=== PATIENT | female | born 1980 | race Caucasian/White ===

== ENCOUNTER 2019-09-03 16:57 | Inpatient (IN) | payer SELFPAY ==
[~2019-09-03] VITALS: Ht 167.6 cm; Wt 54.5 kg
[2019-09-03 16:57] VITALS: BP 149/101
[~2019-09-03 16:57] MED LIST: LISI10TA2 PO; PANT40TA77 PO
--- NOTE | 2019-09-03 17:54 | PHYS DOC ---
Past Medical History Past Medical History: Anxiety, Depression, Diabetes-Type I, Hypertension, Liver Disease Additional Past Medical Histor: MS, Hepatitis C, liver failure, multiple suicide attempts (SOULEYMANE NAGY APRN) Past Surgical History: Cholecystectomy, , Tubal ligation, Other Additional Past Surgical Histo: hyperdistention of bladder, EGD (SOULEYMANE NAGY APRN) Smoking Status: Current Every Day Smoker Additional Information: 4 cigarettes daily Alcohol Use: Heavy Additional Information: reports drinking 4 vodka shots at least 3 times weekly, reports she drank 3 shots of vodka before coming in today (SOULEYMANE NAGY APRN) Adult General Chief Complaint Chief Complaint: ABDOMINAL PAIN HPI HPI Patient is a 38 year old female who presents to the emergency department via [facility] today from home. Patient reports upper abdominal pain that started after having lunch today. She states she also has had nausea and vomiting several times while in route to the hospital. Patient reports that she has had a fever up to 102 and a cough for the last 3 days. She recently moved to [place] from [facility] 1 month ago. Patient states that she did travel back to [place] to see her primary care doctor last week because she was not feeling well. Patient reports a history of chronic pain and states she has been out of her oxycodone for 4 days. On the room the patient also admitted to the nurse that she has had several previous suicide attempts, the most recent being cutting her left arm intentionally in several different areas 4 days ago. She currently rates her pain 8 out of 10 on the pain scale, she denies any alleviating factors. (SOULEYMANE NAGY ARCHERY INSTRUCTOR) Review of Systems Review of Systems Complete ROS is negative unless otherwise noted in HPI. (SOULEYMANE NAGY ARCHERY INSTRUCTOR) Current Medications Current Medications Current Medications Medications (Trade) Dose Ordered Sig/Jarred Start Time Stop Time Status Last Admin Dose Admin Info (CONTRAST GIVEN -- Rx MONITORING) 1 each PRN DAILY PRN 09/03/19 18:30 09/05/19 18:29 Iohexol (Omnipaque 350 Mg/ml) 100 ml 1X ONCE 09/03/19 18:30 09/03/19 18:31 DC 09/03/19 18:46 100 ML Multivitamins 10 ml/Thiamine HCl 100 mg/Folic Acid 1 mg/Sodium Chloride 1,011.2 ml @ 1,000.088 mls/hr 1X ONCE 09/03/19 20:00 09/03/19 21:00 DC 09/03/19 19:57 1,000.088 MLS/HR Sodium Chloride 1,000 ml @ 1,000 mls/hr 1X ONCE 09/03/19 19:45 09/03/19 20:44 DC (ASHLYN SILVA MD) Allergies Allergies Allergies Coded Allergies Type Severity Reaction Last Updated Verified latex Allergy Unknown 09/03/19 Yes prochlorperazine Allergy Unknown 09/03/19 Yes (ASHLYN SILVA MD) Physical Exam Physical Exam See Above Constitutional: Well developed, well nourished, no acute distress, intoxicated appearance, odor of alcohol noted. [] HENT: Normocephalic, atraumatic, bilateral external ears normal, nose normal. [] Eyes: PERRLA, EOMI, conjunctiva normal, no discharge. [] Neck: Normal range of motion, no stridor. [] Cardiovascular:Heart rate regular rhythm, no murmur [] Lungs & Thorax: Bilateral breath sounds, coarse in all murillo, no retractions, somewhat diminished in bilateral bases, regular rate, speaking full sentences Abdomen: Bowel sounds normal, soft, right upper quadrant and left upper quadrant tenderness to palpation, tenderness, no masses, no pulsatile masses. [] Skin: Warm, dry, no erythema, no rash. [] Extremities: No cyanosis, ROM intact, no edema. [] Neurologic: Alert and oriented X 3, no focal deficits noted. [] Psychologic: Affect normal, judgement normal, mood normal. [] (SOULEYMANE NAGY APRN) Current Patient Data Vital Signs Vital Signs Date Time Temp Pulse Resp B/P (MAP) Pulse Ox O2 Delivery O2 Flow Rate FiO2 09/03/19 16:57 98.8 118 28 149/101 (117) 100 Room Air 98.8 (ASHLYN SILVA MD) Lab Values Laboratory Tests Test 09/03/19 18:10 09/03/19 18:30 White Blood Count 3.7 x10^3/uL (4.0-11.0) L Red Blood Count 4.47 x10^6/uL (3.50-5.40) Hemoglobin 11.5 g/dL (12.0-15.5) L Hematocrit 35.9 % (36.0-47.0) L Mean Corpuscular Volume 81 fL (79-100) Mean Corpuscular Hemoglobin 26 pg (25-35) Mean Corpuscular Hemoglobin Concent 32 g/dL (31-37) Red Cell Distribution Width 19.6 % (11.5-14.5) H Platelet Count 316 x10^3/uL (140-400) Neutrophils (%) (Auto) 75 % (31-73) H Lymphocytes (%) (Auto) 15 % (24-48) L Monocytes (%) (Auto) 10 % (0-9) H Eosinophils (%) (Auto) 0 % (0-3) Basophils (%) (Auto) 1 % (0-3) Neutrophils # (Auto) 2.8 x10^3/uL (1.8-7.7) Lymphocytes # (Auto) 0.6 x10^3/uL (1.0-4.8) L Monocytes # (Auto) 0.4 x10^3/uL (0.0-1.1) Eosinophils # (Auto) 0.0 x10^3/uL (0.0-0.7) Basophils # (Auto) 0.0 x10^3/uL (0.0-0.2) Sodium Level 143 mmol/L (136-145) Potassium Level 3.3 mmol/L (3.5-5.1) L Chloride Level 100 mmol/L (98-107) Carbon Dioxide Level 22 mmol/L (21-32) Anion Gap 21 (6-14) H Blood Urea Nitrogen 10 mg/dL (7-20) Creatinine 0.5 mg/dL (0.6-1.0) L Estimated GFR (Cockcroft-Gault) 139.6 BUN/Creatinine Ratio 20 (6-20) Glucose Level 88 mg/dL (70-99) Lactic Acid Level 3.2 mmol/L (0.4-2.0) H Calcium Level 8.9 mg/dL (8.5-10.1) Magnesium Level 1.7 mg/dL (1.8-2.4) L Total Bilirubin 0.8 mg/dL (0.2-1.0) Aspartate Amino Transferase (AST) 501 U/L (15-37) H Alanine Aminotransferase (ALT) 218 U/L (14-59) H Alkaline Phosphatase 123 U/L (46-116) H Total Protein 7.9 g/dL (6.4-8.2) Albumin 3.5 g/dL (3.4-5.0) Albumin/Globulin Ratio 0.8 (1.0-1.7) L Lipase 126 U/L (73-393) Salicylates Level < 2.8 mg/dL (2.8-20.0) L Salicylate Last Dose Date Unk Salicylate Last Dose Time Unk Acetaminophen Level < 2 mcg/ml (10-30) L Acetaminophen Last Dose Date Unk Acetaminophen Last Dose Time Unk Ethyl Alcohol Level 292 mg/dL (0-10) H Ammonia 17 mcmol/L (11-34) Laboratory Tests 09/03/19 18:10 Laboratory Tests 09/03/19 18:10 (ASHLYN SILVA MD) Lab Values Laboratory Tests Test 09/03/19 18:10 09/03/19 18:30 White Blood Count 3.7 x10^3/uL (4.0-11.0) L Red Blood Count 4.47 x10^6/uL (3.50-5.40) Hemoglobin 11.5 g/dL (12.0-15.5) L Hematocrit 35.9 % (36.0-47.0) L Mean Corpuscular Volume 81 fL (79-100) Mean Corpuscular Hemoglobin 26 pg (25-35) Mean Corpuscular Hemoglobin Concent 32 g/dL (31-37) Red Cell Distribution Width 19.6 % (11.5-14.5) H Platelet Count 316 x10^3/uL (140-400) Neutrophils (%) (Auto) 75 % (31-73) H Lymphocytes (%) (Auto) 15 % (24-48) L Monocytes (%) (Auto) 10 % (0-9) H Eosinophils (%) (Auto) 0 % (0-3) Basophils (%) (Auto) 1 % (0-3) Neutrophils # (Auto) 2.8 x10^3/uL (1.8-7.7) Lymphocytes # (Auto) 0.6 x10^3/uL (1.0-4.8) L Monocytes # (Auto) 0.4 x10^3/uL (0.0-1.1) Eosinophils # (Auto) 0.0 x10^3/uL (0.0-0.7) Basophils # (Auto) 0.0 x10^3/uL (0.0-0.2) Sodium Level 143 mmol/L (136-145) Potassium Level 3.3 mmol/L (3.5-5.1) L Chloride Level 100 mmol/L (98-107) Carbon Dioxide Level 22 mmol/L (21-32) Anion Gap 21 (6-14) H Blood Urea Nitrogen 10 mg/dL (7-20) Creatinine 0.5 mg/dL (0.6-1.0) L Estimated GFR (Cockcroft-Gault) 139.6 BUN/Creatinine Ratio 20 (6-20) Glucose Level 88 mg/dL (70-99) Lactic Acid Level 3.2 mmol/L (0.4-2.0) H Calcium Level 8.9 mg/dL (8.5-10.1) Magnesium Level 1.7 mg/dL (1.8-2.4) L Total Bilirubin 0.8 mg/dL (0.2-1.0) Aspartate Amino Transferase (AST) 501 U/L (15-37) H Alanine Aminotransferase (ALT) 218 U/L (14-59) H Alkaline Phosphatase 123 U/L (46-116) H Total Protein 7.9 g/dL (6.4-8.2) Albumin 3.5 g/dL (3.4-5.0) Albumin/Globulin Ratio 0.8 (1.0-1.7) L Lipase 126 U/L (73-393) Salicylates Level < 2.8 mg/dL (2.8-20.0) L Salicylate Last Dose Date Unk Salicylate Last Dose Time Unk Acetaminophen Level < 2 mcg/ml (10-30) L Acetaminophen Last Dose Date Unk Acetaminophen Last Dose Time Unk Ethyl Alcohol Level 292 mg/dL (0-10) H Ammonia 17 mcmol/L (11-34) Laboratory Tests 09/03/19 18:10 Laboratory Tests 09/03/19 18:10 (SOULEYMANE NAGY ARCHERY INSTRUCTOR) EKG EKG [] (SOULEYMANE NAGY APRN) Radiology/Procedures Radiology/Procedures PROCEDURE: CT ANGIO CHEST W ABD PEL W/ STUDY: CT angiography of the chest, abdomen and pelvis with contrast INDICATION: Shortness of air. Fever. Diminished lung sounds. COMPARISON: None. TECHNIQUE: Helical CT angiography of the chest, abdomen and pelvis performed after the intravenous administration of 75 cc Omnipaque 350. Sagittal and coronal MIP reconstructions were obtained. One or more of the following individualized dose reduction techniques were utilized for this examination: 1. Automated exposure control 2. Adjustment of the mA and/or kV according to patient size 3. Use of iterative reconstruction technique. FINDINGS: CHEST: Normal aortic caliber. No dissection. The visualized great vessels are unremarkable. No main pulmonary artery dilatation or CT findings of right heart strain. No confluent infiltrate or suspicious pulmonary nodule. No pleural effusion or pneumothorax. Only mild basilar volume loss. The central airways are patent. No axillary adenopathy. Relatively symmetric breast tissue. Intact osseous structures. ABDOMEN/PELVIS: Marked diffuse hepatic low-attenuation. The liver is prominent in the medial/lateral dimension wrapping around a portion of the spleen and extending along the entire undersurface of the left hemidiaphragm. Surgically absent gallbladder. Expected prominence of the common bile duct. Unremarkable pancreas, spleen and adrenal glands. Symmetric kidney size and enhancement. Unremarkable collecting system. The uterus and adnexa are within normal limits for age to include a small collapsing right ovarian cyst as seen on image 76 series 5. Tubal ligation clips noted. No acute abnormality of the colon the appendix is normal. Nonobstructed small bowel. Distended stomach with ingested material and contrast without focal wall abnormality. Normal caliber of the abdominal aorta. The portal veins are patent. Intermittent partial collapse of the inferior vena cava which could represent a volume depleted state. No lymphadenopathy. No free fluid or air. Unremarkable body wall soft tissues. No acute osseous abnormality. IMPRESSION: CHEST: 1. No acute abnormality seen throughout the chest. The aorta is normal in caliber and without dissection. Only mild basilar volume loss involving both lungs and there is no localized consolidation, pleural effusion or pneumothorax. ABDOMEN/PELVIS: 1. The liver is prominent in size and diffusely low attenuating. This is most commonly seen in the setting of hepatic steatosis but consider correlation with liver function tests. 2. The appearance of the reproductive organs is within normal limits for age to include a small collapsing right ovarian cyst. Electronically signed by: AMOL SPRINGER MD (09/03/2019 7:06 PM) [id number][] (SOULEYMANE NAGY APRN) Course & Med Decision Making Course & Med Decision Making Pertinent Labs and Imaging studies reviewed. (See chart for details) Patient is a 38-year-old female who presented to the emergency room with complaints of shortness of breath, fever, cough x3 days with recent travel to [place] patient also complained of upper abdominal pain and suicidal ideations will order CT chest abdomen pelvis, CBC, CMP, UDS, UA, ammonia, acetaminophen, salicylate, and alcohol levels. PAT team will also be notified of need for consult. CT negative for any acute findings; white blood cell count 3.7, hemoglobin 11.5, hematocrit 35.9, platelets normal, CBC otherwise unremarkable; CMP revealed potassium of 3.3, anion gap of 21, BUN 10, creatinine 0.5, lactic acid of 3.2, magnesium of 1.7, AST of 501, ALT of 218, alk phos 123, ammonia level of 17, lipase 126; salicylate and acetaminophen levels were negative, blood alcohol level 292, UDS not collected at time of admission. 1955- Spoke with Juanito with the PAT team advised of need for patient assessment. Patient will be admitted to the hospital at this time. 2007-spoke with Dr. Phillip who is the admitting physician, and care was assumed following discussion of patient. Patient's vital signs stable. Patient remains afebrile, appears nontoxic, respirations even and unlabored. Patient will be admitted to the tele floor. Patient's case and plan of care also discussed with Dr. Silva [] (SOULEYMANE NAGY APRN) Course & Med Decision Making Patient does not want to be admitted to the Hospital - will ask PAT to see patient Assessment with PAT - ok for patient to leave AMA - see assessment documentation Patient will leave AMA (ASHLYN SILVA MD) Dragon Disclaimer Dragon Disclaimer This electronic medical record was generated, in whole or in part, using a voice recognition dictation system. (SOULEYMANE NAGY APRN) Departure Departure Impression: Primary Impression: Suicidal ideations Additional Impressions: Elevated liver enzymes Lactic acidosis Abdominal pain Disposition: AGAINST MEDICAL ADVICE Admitting Physician: SHIRLEY RALPH) (SOULEYMANE NAGY APRN) Condition: STABLE Referrals: NO PCP (PCP) Problem Qualifiers Additional Impressions: Abdominal pain Abdominal location: upper abdomen, unspecified Qualified Codes: R10.10 - Upper abdominal pain, unspecified SOULEYMANE NAGY APRN Sep 03, 2019 17:54 ASHLYN SILVA MD Sep 03, 2019 21:45
[2019-09-03] MEDS ORDERED: IOHEXOL 350 MG/ML 100 ML VIAL. IV ONE (18:30)
[2019-09-03] MEDS ORDERED: CONTRAST GIVEN. MC PRN (18:30)
[2019-09-03 18:43] LABS: BASO % 1 % (0-3); EOS % 0 % (0-3); HEMATOCRIT 35.9 % (36.0-47.0); HEMOGLOBIN 11.5 g/dL (12.0-15.5); LYMPH # 0.6 x10^3/uL (1.0-4.8); LYMPH % 15 % (24-48); MEAN CORPUSCULAR HEMOGLOBIN 26 pg (25-35); MEAN CORPUSCULAR HGB CONC 32 g/dL (31-37); MEAN CORPUSCULAR VOLUME 81 fL (79-100); MONO # 0.4 x10^3/uL (0.0-1.1); MONO % 10 % (0-9); NEUT # 2.8 x10^3/uL (1.8-7.7); NEUT % 75 % (31-73); PLATELET COUNT 316 x10^3/uL (140-400); RED BLOOD COUNT 4.47 x10^6/uL (3.50-5.40); RED CELL DISTRIBUTION WIDTH 19.6 % (11.5-14.5); WHITE BLOOD COUNT 3.7 x10^3/uL (4.0-11.0)
[2019-09-03 18:51] LABS: CALCIUM 8.9 mg/dL (8.5-10.1); CREATININE 0.5 mg/dL (0.6-1.0); GFR 139.6; POTASSIUM 3.3 mmol/L (3.5-5.1)
[2019-09-03 18:58] LABS: ALBUMIN 3.5 g/dL (3.4-5.0); ALBUMIN/GLOBULIN RATIO 0.8 (1.0-1.7); MAGNESIUM 1.7 mg/dL (1.8-2.4); TOTAL BILIRUBIN 0.8 mg/dL (0.2-1.0); TOTAL PROTEIN 7.9 g/dL (6.4-8.2)
--- NOTE | 2019-09-03 19:09 | RAD ---
STUDY: CT angiography of the chest, abdomen and pelvis with contrast INDICATION: Shortness of air. Fever. Diminished lung sounds. COMPARISON: None. TECHNIQUE: Helical CT angiography of the chest, abdomen and pelvis performed after the intravenous administration of 75 cc Omnipaque 350. Sagittal and coronal MIP reconstructions were obtained. One or more of the following individualized dose reduction techniques were utilized for this examination: 1. Automated exposure control 2. Adjustment of the mA and/or kV according to patient size 3. Use of iterative reconstruction technique. FINDINGS: CHEST: Normal aortic caliber. No dissection. The visualized great vessels are unremarkable. No main pulmonary artery dilatation or CT findings of right heart strain. No confluent infiltrate or suspicious pulmonary nodule. No pleural effusion or pneumothorax. Only mild basilar volume loss. The central airways are patent. No axillary adenopathy. Relatively symmetric breast tissue. Intact osseous structures. ABDOMEN/PELVIS: Marked diffuse hepatic low-attenuation. The liver is prominent in the medial/lateral dimension wrapping around a portion of the spleen and extending along the entire undersurface of the left hemidiaphragm. Surgically absent gallbladder. Expected prominence of the common bile duct. Unremarkable pancreas, spleen and adrenal glands. Symmetric kidney size and enhancement. Unremarkable collecting system. The uterus and adnexa are within normal limits for age to include a small collapsing right ovarian cyst as seen on image 76 series 5. Tubal ligation clips noted. No acute abnormality of the colon the appendix is normal. Nonobstructed small bowel. Distended stomach with ingested material and contrast without focal wall abnormality. Normal caliber of the abdominal aorta. The portal veins are patent. Intermittent partial collapse of the inferior vena cava which could represent a volume depleted state. No lymphadenopathy. No free fluid or air. Unremarkable body wall soft tissues. No acute osseous abnormality. IMPRESSION: CHEST: 1. No acute abnormality seen throughout the chest. The aorta is normal in caliber and without dissection. Only mild basilar volume loss involving both lungs and there is no localized consolidation, pleural effusion or pneumothorax. ABDOMEN/PELVIS: 1. The liver is prominent in size and diffusely low attenuating. This is most commonly seen in the setting of hepatic steatosis but consider correlation with liver function tests. 2. The appearance of the reproductive organs is within normal limits for age to include a small collapsing right ovarian cyst. Electronically signed by: AMOL SPRINGER MD (09/03/2019 7:06 PM) [id number]
[2019-09-03] MEDS ORDERED: IV NORMAL SALINE 1000ML BAG 1,000 ML IV ONE ×2 (19:45)
[2019-09-03] MEDS ORDERED: MULTIVIT INFUSN,ADULT 4,VIT K 10 ML, THIAMINE INJ 100 MG, FOLIC ACID INJ 1 MG in IV NOR... IV ONE (20:00)
[2019-09-03 20:14] LABS: ACETAMIN < 2 mcg/ml (10-30); SALIC < 2.8 mg/dL (2.8-20.0)
[2019-09-03] MEDS ORDERED: fentaNYL PF VIAL 100 MCG/2 ML VIAL IV ONE (20:15)
[2019-09-03 21:42] LABS: BILIRUBIN,URINE NEGATIVE (NEG); CLARITY,URINE CLEAR; COLOR,URINE YELLOW; NITRITE,URINE NEGATIVE (NEG); PH,URINE 7.5 (<5.0-8.0); PROTEIN,URINE NEGATIVE (NEG-TRACE)
[2019-09-03 21:46] LABS: BARBITURATES NEG (NEG); BENZODIAZEPINES NEG (NEG); CANNABINOIDS NEG (NEG); COCAINE NEG (NEG); METHADONE NEG (NEG); OPIATES NEG (NEG); PHENCYCLIDINE NEG (NEG)
[2019-09-03 21:48] LABS: AMPHETAMINE/METHAMPHETAMINE NEG (NEG)
[2019-09-03 21:52] LABS: BACTERIA,URINE FEW /HPF (0-FEW); SQUAMOUS EPITHELIAL CELL,UR MOD /LPF
[2019-09-03 21:53] LABS: AMORPHOUS SEDIMENT,UR PRESENT /HPF
--- NOTE | 2019-09-04 08:17 | PDOC1 ---
History and Physical Date of Admission Date of Admission DATE: 09/04/19 TIME: 08:16 Identification/Chief Complaint Chief Complaint seen in er with severe alcohol abuse reports upper abdominal pain that started after having lunch today. She states she also has had nausea and vomiting several times while in route to the hospital. Patient reports that she has had a fever up to 102 and a cough for the last 3 days. She recently moved to [place] from [facility] 1 month ago. Patient states that she did travel back to [place] to see her primary care doctor last week because she was not feeling well. Patient reports a history of chronic pain and states she has been out of her oxycodone for 4 days. On the room the patient also admitted to the nurse that she has had several previous suicide attempts, the most recent being cutting her left arm intentionally in several different areas 4 days ago. rates her pain 8 out of 10 on the pain scale, she denies any alleviating factors. Past Medical History Past Medical History Past Medical History Past Medical History Past Medical History: Anxiety, Depression, Diabetes-Type I, Hypertension, Liver Disease Additional Past Medical Histor: MS, Hepatitis C, liver failure, multiple suicide attempts Past Surgical History: Cholecystectomy, , Tubal ligation, Other Additional Past Surgical Histo: hyperdistention of bladder, EGD Smoking Status: Current Every Day Smoker Additional Information: 4 cigarettes daily Alcohol Use: Heavy Additional Information: reports drinking 4 vodka shots at least 3 times weekly, reports she drank 3 shots of vodka before coming Family History Family History: Alcohol Abuse, Drug Abuse Social History Smoke: <1 pack per day ALCOHOL: heavy Drugs: None Current Problem List Problem List Problems Medical Problems: (1) Abdominal pain Status: Acute (2) Elevated liver enzymes Status: Acute (3) Lactic acidosis Status: Acute (4) Suicidal ideations Status: Acute Current Medications Current Medications Current Medications Iohexol (Omnipaque 350 Mg/ml) 100 ml 1X ONCE IV Last administered on 09/03/19at 18:46; Start 09/03/19 at 18:30; Stop 09/03/19 at 18:31; Status DC Info (CONTRAST GIVEN -- Rx MONITORING) 1 each PRN DAILY PRN MC SEE COMMENTS; Start 09/03/19 at 18:30; Stop 09/05/19 at 18:29 Multivitamins 10 ml/Thiamine HCl 100 mg/Folic Acid 1 mg/Sodium Chloride 1,011.2 ml @ 1,000.088 mls/hr 1X ONCE IV Last administered on 09/03/19at 19:57; Start 09/03/19 at 20:00; Stop 09/03/19 at 21:00; Status DC Sodium Chloride 1,000 ml @ 1,000 mls/hr 1X ONCE IV Last administered on 09/03/19at 19:51; Start 09/03/19 at 19:45; Stop 09/03/19 at 20:44; Status DC Sodium Chloride 1,000 ml @ 1,000 mls/hr 1X ONCE IV ; Start 09/03/19 at 19:45; Stop 09/03/19 at 20:44; Status DC Fentanyl Citrate (Fentanyl 2ml Vial) 25 mcg 1X ONCE IV Last administered on 09/03/19at 20:44; Start 09/03/19 at 20:15; Stop 09/03/19 at 20:16; Status DC Active Scripts Active Reported Pantoprazole Sodium (Pantoprazole Sodium) 40 Mg Tablet.dr 40 Mg PO DAILYAC Lisinopril 10 Mg Tablet 10 Mg PO DAILY Allergies Allergies: Coded Allergies: latex (Verified Allergy, Unknown, 09/03/19) prochlorperazine (Verified Allergy, Unknown, 09/03/19) Physical Exam Physical Exam ROS Review of System Review of Systems Review of Systems General: No: Chills, Night Sweats, Fatigue, Malaise, Appetite, Other PSYCHOLOGICAL ROS: No: Anxiety, Behavioral Disorder, Concentration difficultie, Decreased libido, Depression, Disorientation, Hallucinations, Hostility, Irritablity, Memory difficulties, Mood Swings, Obsessive thoughts, Physical abuse, Sexual abuse, Sleep disturbances, Suicidal ideation, Other Eyes: No Blurry vision, No Decreased vision, No Double vision, No Dry eyes, No Excessive tearing, No Eye Pain, No Itchy Eyes, No Loss of vision, No Photophobia, No Scotomata, No Uses contacts, No Uses glasses, No Other HEENT: No: Heacaches, Visual Changes, Hearing change, Nasal congestion, Nasal discharge, Oral lesions, Sinus pain, Sore Throat, Epistaxis, Sneezing, Snoring, Tinnitus, Vertigo, Vocal changes, Other ALLERGY AND IMMUNOLOGY: No: Hives, Insect Bite Sensitivity, Itchy/Watery Eyes, Nasal Congestion, Post Nasal Drip, Seasonal Allergies, Other Hematological and Lymphatic: No: Bleeding Problems, Blood Clots, Blood Transfusions, Brusing, Night Sweats, Pallor, Swollen Lymph Nodes, Other ENDOCRINE: No: Breast Changes, Galactorrhea, Hair Pattern Changes, Hot Flashes, Malaise/lethargy, Mood Swings, Palpitations, Polydipsia/polyuria, Skin Changes, Temperature Intolerance, Unexpected Weight Changes, Other Respiratory: No: Cough, Hemoptysis, Orthopnea, Pleuritic Pain, Shortness of breath, SOB with excertion, Sputum Changes, Stridor, Tachypnea, Wheezing, Other Cardiovascular: No Chest Pain, No Palpitations, No Orthopnea, No Paroxysmal Noc. Dyspnea, No Edema, No Lt Headedness, No Other Gastrointestinal: Yes Vomiting; No Nausea, No Abdominal Pain, No Diarrhea, No Constipation, No Melena, No Hematochezia, No Other Genitourinary: No Dysuria, No Frequency, No Incontinence, No Hematuria, No Retention, No Discharge, No Urgency, No Pain, No Flank Pain, No Other, No , No , No , No , No , No , No Musculoskeletal: No Gait Disturbance, No Joint Pain, No Joint Stiffness, No Joint Swelling, No Muscle Pain, No Muscular Weakness, No Pain In:, No Swelling In:, No Other Neurological: Yes Behavorial Changes, Yes Confusion; No Bowel/Bladder ControlChng, No Dizziness, No Gait Disturbance, No Headaches, No Impaired Coord/balance, No Memory Loss, No Numbness/Tingling, No Seizures, No Speech Problems, No Tremors, No Visual Changes, No Weakness, No Other Skin: No Dry Skin, No Eczema, No Hair Changes, No Lumps, No Mole Changes, No Mottling, No Nail Changes, No Pruritus, No Rash, No Skin Lesion Changes, No Other, No Acne Physical Exam Physical Exam HENT: Normocephalic, atraumatic, bilateral external ears normal, oropharynx moist, nose normal. [] Eyes: PERRLA, conjunctiva injected. [] Neck: N supple. [] Cardiovascular:Heart rate regular rhythm, no murmur [] Lungs & Thorax: Shallow lungs respirations, diminished breath sounds bilaterally, otherwise clear [] Abdomen: Bowel sounds normal, soft. [] Skin: Warm, dry. [] Extremities: No deformity or bruising. [] General: Alert, Oriented X3, Cooperative, No acute distress HEENT: Atraumatic, PERRLA, EOMI Lungs: Clear to auscultation, Normal air movement Heart: RRR Breasts: Not examined Abdomen: Normal bowel sounds, Soft Rectal Exam: not examined PELVIC: Examination not indicated Extremities: No cyanosis Neuro: Normal speech, Cranial nerves 3-12 NL Vitals Vitals Vital Signs Date Time Temp Pulse Resp B/P (MAP) Pulse Ox O2 Delivery O2 Flow Rate FiO2 09/03/19 20:44 18 98 Room Air 09/03/19 16:57 98.8 118 149/101 (117) 98.8 Labs Labs Laboratory Tests Test 09/03/19 18:10 09/03/19 18:30 09/03/19 21:15 White Blood Count 3.7 x10^3/uL (4.0-11.0) Red Blood Count 4.47 x10^6/uL (3.50-5.40) Hemoglobin 11.5 g/dL (12.0-15.5) Hematocrit 35.9 % (36.0-47.0) Mean Corpuscular Volume 81 fL (79-100) Mean Corpuscular Hemoglobin 26 pg (25-35) Mean Corpuscular Hemoglobin Concent 32 g/dL (31-37) Red Cell Distribution Width 19.6 % (11.5-14.5) Platelet Count 316 x10^3/uL (140-400) Neutrophils (%) (Auto) 75 % (31-73) Lymphocytes (%) (Auto) 15 % (24-48) Monocytes (%) (Auto) 10 % (0-9) Eosinophils (%) (Auto) 0 % (0-3) Basophils (%) (Auto) 1 % (0-3) Neutrophils # (Auto) 2.8 x10^3/uL (1.8-7.7) Lymphocytes # (Auto) 0.6 x10^3/uL (1.0-4.8) Monocytes # (Auto) 0.4 x10^3/uL (0.0-1.1) Eosinophils # (Auto) 0.0 x10^3/uL (0.0-0.7) Basophils # (Auto) 0.0 x10^3/uL (0.0-0.2) Sodium Level 143 mmol/L (136-145) Potassium Level 3.3 mmol/L (3.5-5.1) Chloride Level 100 mmol/L (98-107) Carbon Dioxide Level 22 mmol/L (21-32) Anion Gap 21 (6-14) Blood Urea Nitrogen 10 mg/dL (7-20) Creatinine 0.5 mg/dL (0.6-1.0) Estimated GFR (Cockcroft-Gault) 139.6 BUN/Creatinine Ratio 20 (6-20) Glucose Level 88 mg/dL (70-99) Lactic Acid Level 3.2 mmol/L (0.4-2.0) 3.0 mmol/L (0.4-2.0) Calcium Level 8.9 mg/dL (8.5-10.1) Magnesium Level 1.7 mg/dL (1.8-2.4) Total Bilirubin 0.8 mg/dL (0.2-1.0) Aspartate Amino Transf (AST/SGOT) 501 U/L (15-37) Alanine Aminotransferase (ALT/SGPT) 218 U/L (14-59) Alkaline Phosphatase 123 U/L (46-116) Total Protein 7.9 g/dL (6.4-8.2) Albumin 3.5 g/dL (3.4-5.0) Albumin/Globulin Ratio 0.8 (1.0-1.7) Lipase 126 U/L (73-393) Salicylates Level < 2.8 mg/dL (2.8-20.0) Salicylate Last Dose Date Unk Salicylate Last Dose Time Unk Acetaminophen Level < 2 mcg/ml (10-30) Acetaminophen Last Dose Date Unk Acetaminophen Last Dose Time Unk Ethyl Alcohol Level 292 mg/dL (0-10) Ammonia 17 mcmol/L (11-34) Urine Collection Type Unknown Urine Color Yellow Urine Clarity Clear Urine pH 7.5 (<5.0-8.0) Urine Specific [place] >=1.030 (1.000-1.030) Urine Protein Negative mg/dL (NEG-TRACE) Urine Glucose (UA) Negative mg/dL (NEG) Urine Ketones (Stick) 15 mg/dL (NEG) Urine Blood Negative (NEG) Urine Nitrite Negative (NEG) Urine Bilirubin Negative (NEG) Urine Urobilinogen Dipstick 1.0 mg/dL (0.2 mg/dL) Urine Leukocyte Esterase Negative (NEG) Urine RBC 1-2 /HPF (0-2) Urine WBC 1-4 /HPF (0-4) Urine Squamous Epithelial Cells Mod /LPF Urine Amorphous Sediment Present /HPF Urine Bacteria Few /HPF (0-FEW) Urine Opiates Screen Neg (NEG) Urine Methadone Screen Neg (NEG) Urine Barbiturates Neg (NEG) Urine Phencyclidine Screen Neg (NEG) Urine Amphetamine/Methamphetamine Neg (NEG) Urine Benzodiazepines Screen Neg (NEG) Urine Cocaine Screen Neg (NEG) Urine Cannabinoids Screen Neg (NEG) Urine Ethyl Alcohol Pos (NEG) Laboratory Tests Test 09/03/19 18:10 09/03/19 18:30 09/03/19 21:15 White Blood Count 3.7 x10^3/uL (4.0-11.0) Red Blood Count 4.47 x10^6/uL (3.50-5.40) Hemoglobin 11.5 g/dL (12.0-15.5) Hematocrit 35.9 % (36.0-47.0) Mean Corpuscular Volume 81 fL (79-100) Mean Corpuscular Hemoglobin 26 pg (25-35) Mean Corpuscular Hemoglobin Concent 32 g/dL (31-37) Red Cell Distribution Width 19.6 % (11.5-14.5) Platelet Count 316 x10^3/uL (140-400) Neutrophils (%) (Auto) 75 % (31-73) Lymphocytes (%) (Auto) 15 % (24-48) Monocytes (%) (Auto) 10 % (0-9) Eosinophils (%) (Auto) 0 % (0-3) Basophils (%) (Auto) 1 % (0-3) Neutrophils # (Auto) 2.8 x10^3/uL (1.8-7.7) Lymphocytes # (Auto) 0.6 x10^3/uL (1.0-4.8) Monocytes # (Auto) 0.4 x10^3/uL (0.0-1.1) Eosinophils # (Auto) 0.0 x10^3/uL (0.0-0.7) Basophils # (Auto) 0.0 x10^3/uL (0.0-0.2) Sodium Level 143 mmol/L (136-145) Potassium Level 3.3 mmol/L (3.5-5.1) Chloride Level 100 mmol/L (98-107) Carbon Dioxide Level 22 mmol/L (21-32) Anion Gap 21 (6-14) Blood Urea Nitrogen 10 mg/dL (7-20) Creatinine 0.5 mg/dL (0.6-1.0) Estimated GFR (Cockcroft-Gault) 139.6 BUN/Creatinine Ratio 20 (6-20) Glucose Level 88 mg/dL (70-99) Lactic Acid Level 3.2 mmol/L (0.4-2.0) 3.0 mmol/L (0.4-2.0) Calcium Level 8.9 mg/dL (8.5-10.1) Magnesium Level 1.7 mg/dL (1.8-2.4) Total Bilirubin 0.8 mg/dL (0.2-1.0) Aspartate Amino Transf (AST/SGOT) 501 U/L (15-37) Alanine Aminotransferase (ALT/SGPT) 218 U/L (14-59) Alkaline Phosphatase 123 U/L (46-116) Total Protein 7.9 g/dL (6.4-8.2) Albumin 3.5 g/dL (3.4-5.0) Albumin/Globulin Ratio 0.8 (1.0-1.7) Lipase 126 U/L (73-393) Salicylates Level < 2.8 mg/dL (2.8-20.0) Salicylate Last Dose Date Unk Salicylate Last Dose Time Unk Acetaminophen Level < 2 mcg/ml (10-30) Acetaminophen Last Dose Date Unk Acetaminophen Last Dose Time Unk Ethyl Alcohol Level 292 mg/dL (0-10) Ammonia 17 mcmol/L (11-34) Urine Collection Type Unknown Urine Color Yellow Urine Clarity Clear Urine pH 7.5 (<5.0-8.0) Urine Specific [place] >=1.030 (1.000-1.030) Urine Protein Negative mg/dL (NEG-TRACE) Urine Glucose (UA) Negative mg/dL (NEG) Urine Ketones (Stick) 15 mg/dL (NEG) Urine Blood Negative (NEG) Urine Nitrite Negative (NEG) Urine Bilirubin Negative (NEG) Urine Urobilinogen Dipstick 1.0 mg/dL (0.2 mg/dL) Urine Leukocyte Esterase Negative (NEG) Urine RBC 1-2 /HPF (0-2) Urine WBC 1-4 /HPF (0-4) Urine Squamous Epithelial Cells Mod /LPF Urine Amorphous Sediment Present /HPF Urine Bacteria Few /HPF (0-FEW) Urine Opiates Screen Neg (NEG) Urine Methadone Screen Neg (NEG) Urine Barbiturates Neg (NEG) Urine Phencyclidine Screen Neg (NEG) Urine Amphetamine/Methamphetamine Neg (NEG) Urine Benzodiazepines Screen Neg (NEG) Urine Cocaine Screen Neg (NEG) Urine Cannabinoids Screen Neg (NEG) Urine Ethyl Alcohol Pos (NEG) VTE Prophylaxis Ordered VTE Prophylaxis Devices: No VTE Pharmacological Prophylaxi: Yes Assessment/Plan Assessment/Plan Assessment/Plan Assessment/Plan Impression: AMS (altered mental status), resolving SEVERE ALCOHOL ABUSE, binges on weekends, perhaps more often Alcohol intoxication transaminitis No acute intracranial abnormality. CT HEAD 08/16 drop in H/H ADMITTED GI CONSULT IV PROTONIX pt left ama 09/03 57 min pt exam, chart review, > 50% of time spent with exam, chart review, pt care coordination PATRICIA JEROME MD Sep 04, 2019 08:17
== END 2019-09-03 22:32 | disposition left against medical advice (07) | DRG 894 ==
LOC: ER 16:57 → ED HOLD 20:08
PROVIDERS: ADMIT Internal Medicine; ATTEND Internal Medicine
DX: F10.129 Alcohol abuse with intoxication, unspecified (principal); R45.851 Suicidal ideations; R41.82 Altered mental status, unspecified; F32.9 Major depressive disorder, single episode, unspecified; F41.9 Anxiety disorder, unspecified; G89.29 Other chronic pain; I10 Essential (primary) hypertension; E10.9 Type 1 diabetes mellitus without complications; F17.210 Nicotine dependence, cigarettes, uncomplicated; Z79.4 Long term (current) use of insulin; Z91.040 Latex allergy status; Z91.5 Personal history of self-harm; Z81.1 Family history of alcohol abuse and dependence
CPT/HCPCS: 36415; 71275; 74177; 80053; 80307; 80329; 81001; 82140; 83605; 83690; 83735; 85025; G0480; J3010; J3411; J3490; J7030; Q9967

== ENCOUNTER 2019-09-11 14:50 | Emergency (ER) | payer SELFPAY ==
[~2019-09-11] VITALS: Ht 157.5 cm; Wt 59.0 kg
[2019-09-11] MEDS ORDERED: IV NORMAL SALINE 1000ML BAG 1,000 ML IV ONE (15:00)
[2019-09-11] MEDS ORDERED: IPRATRPIUM/ALBUTEROL 0.5/2.5MG 3 ML NEBU. NEB ONE (15:00)
[2019-09-11 15:12] LABS: BASO % 1 % (0-3); EOS % 0 % (0-3); HEMATOCRIT 38.6 % (36.0-47.0); HEMOGLOBIN 12.3 g/dL (12.0-15.5); LYMPH # 0.9 x10^3/uL (1.0-4.8); LYMPH % 25 % (24-48); MEAN CORPUSCULAR HEMOGLOBIN 26 pg (25-35); MEAN CORPUSCULAR HGB CONC 32 g/dL (31-37); MEAN CORPUSCULAR VOLUME 82 fL (79-100); MONO # 0.2 x10^3/uL (0.0-1.1); MONO % 7 % (0-9); NEUT # 2.4 x10^3/uL (1.8-7.7); NEUT % 67 % (31-73); PLATELET COUNT 137 x10^3/uL (140-400); RED BLOOD COUNT 4.69 x10^6/uL (3.50-5.40); RED CELL DISTRIBUTION WIDTH 21.7 % (11.5-14.5); WHITE BLOOD COUNT 3.6 x10^3/uL (4.0-11.0)
--- NOTE | 2019-09-11 15:19 | RAD ---
CHEST AP ONLY History: Cough Comparison: August 18, 2019 Findings: No consolidation or pleural effusion. Normal heart size. No pneumothorax. Surgical clips right upper quadrant. Impression: 1. No acute cardiopulmonary process. Electronically signed by: Sherman Heath DO (09/11/2019 3:16 PM) [id number]
[2019-09-11 15:23] LABS: BILIRUBIN,URINE NEGATIVE (NEG); CLARITY,URINE CLEAR; NITRITE,URINE POSITIVE (NEG); PROTEIN,URINE 100 mg/dL (NEG-TRACE)
[2019-09-11 15:24] VITALS: BP 126/88
[2019-09-11 15:24] LABS: BASE EXCESS ABG 0 mmol/L (-3-3); HCO3 ABG 24 mmol/L (21-28); PCO2 ABG 36 mmHg (35-46); PO2 ABG 86 mmHg (85-108); SAT O2 ABG 95 % (92-99)
[2019-09-11 15:34] LABS: COLOR,URINE DK YELLOW
[2019-09-11 15:35] LABS: AMPHETAMINE/METHAMPHETAMINE NEG (NEG); BARBITURATES NEG (NEG); BENZODIAZEPINES NEG (NEG); CANNABINOIDS NEG (NEG); COCAINE NEG (NEG); METHADONE NEG (NEG); OPIATES NEG (NEG); PHENCYCLIDINE NEG (NEG)
[2019-09-11 15:37] LABS: BACTERIA,URINE MANY /HPF (0-FEW); RBC,URINE 0 /HPF (0-2); SQUAMOUS EPITHELIAL CELL,UR MANY /LPF; YEAST,URINE PRESENT /HPF
[2019-09-11 15:44] LABS: CALCIUM 8.3 mg/dL (8.5-10.1); CREATININE 0.4 mg/dL (0.6-1.0); GFR 179.6
[2019-09-11 15:49] LABS: ALBUMIN 3.5 g/dL (3.4-5.0); ALBUMIN/GLOBULIN RATIO 0.9 (1.0-1.7); TOTAL PROTEIN 7.6 g/dL (6.4-8.2)
[2019-09-11 15:51] LABS: % BANDS 3 % (0-9); % BASOS 1 % (0-3); % LYMPHS 19 % (24-48); % MONOS 7 % (0-10); % SEGS 70 % (35-66)
[2019-09-11 15:53] LABS: PLT ESTIMATE DECREASED (ADEQUATE)
[2019-09-11 15:55] LABS: ANISOCYTOSIS MOD; POLYCHROMASIA SLIGHT
--- NOTE | 2019-09-11 16:00 | PHYS DOC ---
Past Medical History Past Medical History: Anxiety, Depression, Diabetes-Type I, Hypertension, Liver Disease Additional Past Medical Histor: MS, Hepatitis C, liver failure, multiple suicide attempts Past Surgical History: Cholecystectomy, , Tubal ligation, Other Additional Past Surgical Histo: hyperdistention of bladder, EGD Smoking Status: Current Every Day Smoker Alcohol Use: Heavy Adult General Chief Complaint Chief Complaint: ALTERED MENTAL STATUS HPI HPI Patient is a 39 year old female presenting to the ED with a chief complaint of altered mental status. Patient's fianc called EMS stating that patient has not been herself for the last 2 days. Patient does have a history of cirrhosis and liver disease. Patient was seen in the ER last week for similar complaints. Fianc also states that patient is from [place] and moved to [place] with him recently. Patient is on liver transplant list currently. EMS state that patient has been making purposeful movements and her vitals have been stable. Review of Systems Review of Systems Patient unable to give as review of systems secondary to her mental status. All other systems were reviewed and found to be within normal limits, except as documented in this note. Current Medications Current Medications Current Medications Medications (Trade) Dose Ordered Sig/Jarred Start Time Stop Time Status Last Admin Dose Admin Albuterol/ Ipratropium (Duoneb) 3 ml 1X ONCE 09/11/19 15:00 09/11/19 15:01 DC 09/11/19 15:17 3 ML Sodium Chloride 1,000 ml @ 1,000 mls/hr 1X ONCE 09/11/19 15:00 09/11/19 15:59 DC Allergies Allergies Allergies Coded Allergies Type Severity Reaction Last Updated Verified latex Allergy Unknown 09/03/19 Yes prochlorperazine Allergy Unknown 09/03/19 Yes Physical Exam Physical Exam Constitutional: Well developed, well nourished, no acute distress, non-toxic appearance. [] HENT: Normocephalic, atraumatic Eyes: PERRLA Neck: Normal range of motio Cardiovascular:Heart rate regular rhythm, no murmur [] Lungs & Thorax: Bilateral breath sounds clear to auscultation [] Abdomen: Bowel sounds normal, soft, no tenderness Extremities: No tenderness, no cyanosis, no clubbing, ROM intact, no edema. [] Neurologic: Sleeping but arousable to sternal rub Current Patient Data Vital Signs Vital Signs Date Time Temp Pulse Resp B/P (MAP) Pulse Ox O2 Delivery O2 Flow Rate FiO2 09/11/19 15:24 100 18 99 09/11/19 15:17 Room Air 09/11/19 14:59 98.9 151/106 (121) 98.9 Lab Values Laboratory Tests Test 09/11/19 14:55 09/11/19 15:13 09/11/19 15:15 09/11/19 15:23 White Blood Count 3.6 x10^3/uL (4.0-11.0) L Red Blood Count 4.69 x10^6/uL (3.50-5.40) Hemoglobin 12.3 g/dL (12.0-15.5) Hematocrit 38.6 % (36.0-47.0) Mean Corpuscular Volume 82 fL (79-100) Mean Corpuscular Hemoglobin 26 pg (25-35) Mean Corpuscular Hemoglobin Concent 32 g/dL (31-37) Red Cell Distribution Width 21.7 % (11.5-14.5) H Platelet Count 137 x10^3/uL (140-400) L Neutrophils (%) (Auto) 67 % (31-73) Lymphocytes (%) (Auto) 25 % (24-48) Monocytes (%) (Auto) 7 % (0-9) Eosinophils (%) (Auto) 0 % (0-3) Basophils (%) (Auto) 1 % (0-3) Neutrophils # (Auto) 2.4 x10^3/uL (1.8-7.7) Lymphocytes # (Auto) 0.9 x10^3/uL (1.0-4.8) L Monocytes # (Auto) 0.2 x10^3/uL (0.0-1.1) Eosinophils # (Auto) 0.0 x10^3/uL (0.0-0.7) Basophils # (Auto) 0.0 x10^3/uL (0.0-0.2) Segmented Neutrophils % 70 % (35-66) H Band Neutrophils % 3 % (0-9) Lymphocytes % 19 % (24-48) L Monocytes % 7 % (0-10) Basophils % 1 % (0-3) Platelet Estimate Decreased (ADEQUATE) Polychromasia Slight Anisocytosis Mod Urine Collection Type U cath Urine Color Dk yellow Urine Clarity Clear Urine pH 6.0 (<5.0-8.0) Urine Specific [place] 1.025 (1.000-1.030) Urine Protein 100 mg/dL (NEG-TRACE) Urine Glucose (UA) Negative mg/dL (NEG) Urine Ketones (Stick) 40 mg/dL (NEG) Urine Blood Negative (NEG) Urine Nitrite Positive (NEG) Urine Bilirubin Negative (NEG) Urine Urobilinogen Dipstick 2.0 mg/dL (0.2 mg/dL) Urine Leukocyte Esterase Small (NEG) Urine RBC 0 /HPF (0-2) Urine WBC 5-10 /HPF (0-4) Urine Squamous Epithelial Cells Many /LPF Urine Bacteria Many /HPF (0-FEW) Urine Mucus Mod /LPF Urine Yeast Present /HPF Urine Opiates Screen Neg (NEG) Urine Methadone Screen Neg (NEG) Urine Barbiturates Neg (NEG) Urine Phencyclidine Screen Neg (NEG) Urine Amphetamine/Methamphetamine Neg (NEG) Urine Benzodiazepines Screen Neg (NEG) Urine Cocaine Screen Neg (NEG) Urine Cannabinoids Screen Neg (NEG) Urine Ethyl Alcohol Pos (NEG) POC Urine HCG, Qualitative Hcg negative (Negative) O2 Saturation 95 % (92-99) Arterial Blood pH 7.44 (7.35-7.45) Arterial Blood pCO2 at Patient Temp 36 mmHg (35-46) Arterial Blood pO2 at Patient Temp 86 mmHg (85-108) Arterial Blood HCO3 24 mmol/L (21-28) Arterial Blood Base Excess 0 mmol/L (-3-3) FiO2 21 ra Sodium Level 141 mmol/L (136-145) Potassium Level 3.0 mmol/L (3.5-5.1) L Chloride Level 100 mmol/L (98-107) Carbon Dioxide Level 23 mmol/L (21-32) Anion Gap 18 (6-14) H Blood Urea Nitrogen 18 mg/dL (7-20) Creatinine 0.4 mg/dL (0.6-1.0) L Estimated GFR (Cockcroft-Gault) 179.6 BUN/Creatinine Ratio 45 (6-20) H Glucose Level 92 mg/dL (70-99) Lactic Acid Level 3.6 mmol/L (0.4-2.0) H Calcium Level 8.3 mg/dL (8.5-10.1) L Total Bilirubin 1.0 mg/dL (0.2-1.0) Aspartate Amino Transferase (AST) 728 U/L (15-37) H Alanine Aminotransferase (ALT) 227 U/L (14-59) H Alkaline Phosphatase 131 U/L (46-116) H Ammonia < 10 mcmol/L (11-34) L Total Protein 7.6 g/dL (6.4-8.2) Albumin 3.5 g/dL (3.4-5.0) Albumin/Globulin Ratio 0.9 (1.0-1.7) L Ethyl Alcohol Level 388 mg/dL (0-10) H Laboratory Tests 09/11/19 14:55 Laboratory Tests 09/11/19 15:23 EKG EKG [] Radiology/Procedures Radiology/Procedures [] Impressions: Chest x-ray does not show any acute disease. Course & Med Decision Making Course & Med Decision Making Pertinent Labs and Imaging studies reviewed. (See chart for details) Ammonia salts used to wake up patient. Patient is currently awake. Patient goes back to sleep and does not answer any questions. Patient's vital signs are stable. Chest x-ray does not show any acute disease. Labs are within normal limits except liver function tests are elevated. Patient has elevated liver enzyme tests in the past as well. Urine test is positive for alcohol. Urine test is negative. Nurse informs me that patient is awake now and calling her fianc. Nurse states that patient wants to leave AMA as her fianc is coming to pick her up. Patient is now alert and oriented x3. N to make an informed decision about leaving AGAINST MEDICAL ADVICE. Patient understands the risks and dangers of leaving AMA include sudden , worsening of condition and loss of current lifestyle. Patient is able to ambulate in the ER without any difficulty. Dragon Disclaimer Dragon Disclaimer This electronic medical record was generated, in whole or in part, using a voice recognition dictation system. Departure Departure Impression: Primary Impression: Altered mental status, unspecified Disposition: 07 AGAINST MEDICAL ADVICE Condition: IMPROVED Referrals: NO PCP (PCP) KRISTEN JIANG DO Sep 11, 2019 16:00
[2019-09-11 17:41] LABS: FIO2 ABG 21 RA
== END 2019-09-11 16:01 | disposition left against medical advice (07) ==
LOC: ER 14:50
DX: R41.82 Altered mental status, unspecified (principal); F41.9 Anxiety disorder, unspecified; F32.9 Major depressive disorder, single episode, unspecified; E10.9 Type 1 diabetes mellitus without complications; K76.1 Chronic passive congestion of liver; K72.90 Hepatic failure, unspecified without coma; F10.10 Alcohol abuse, uncomplicated; F17.200 Nicotine dependence, unspecified, uncomplicated; Z90.49 Acquired absence of other specified parts of digestive tract; Z98.51 Tubal ligation status; Z98.890 Other specified postprocedural states; Z91.040 Latex allergy status; Z88.8 Allergy status to other drugs, medicaments and biological substances
CPT/HCPCS: 36415; 36600; 71045; 80053; 80307; 81001; 81025; 82140; 82805; 83605; 85007; 85025; 87086; 94640; 99285; G0480

== ENCOUNTER 2019-09-12 20:19 | Emergency (ER) | payer SELFPAY ==
[~2019-09-12] VITALS: Ht 157.5 cm; Wt 59.0 kg
[2019-09-12] MEDS: NALOXONE 2 MG/2 ML DISP.SYRIN. IV ONE (20:23)
[2019-09-12] MEDS ORDERED: ONDANSETRON PF 4 MG/2 ML VIAL. ONE (20:28)
[2019-09-12] MEDS: IV NORMAL SALINE 1000ML BAG 1,000 ML IV SCH (20:30)
[2019-09-12] MEDS: ONDANSETRON PF 4 MG/2 ML VIAL. IVP ONE (20:30)
[2019-09-12 20:54] LABS: BILIRUBIN,URINE NEGATIVE (NEG); CLARITY,URINE CLOUDY; NITRITE,URINE POSITIVE (NEG); PH,URINE 6.5 (<5.0-8.0); PROTEIN,URINE 100 mg/dL (NEG-TRACE)
[2019-09-12 20:58] LABS: BASO % 1 % (0-3); EOS % 0 % (0-3); HEMATOCRIT 37.6 % (36.0-47.0); HEMOGLOBIN 11.8 g/dL (12.0-15.5); LYMPH % 30 % (24-48); MEAN CORPUSCULAR HEMOGLOBIN 26 pg (25-35); MEAN CORPUSCULAR HGB CONC 32 g/dL (31-37); MEAN CORPUSCULAR VOLUME 83 fL (79-100); MONO # 0.2 x10^3/uL (0.0-1.1); MONO % 6 % (0-9); NEUT # 2.2 x10^3/uL (1.8-7.7); NEUT % 63 % (31-73); PLATELET COUNT 111 x10^3/uL (140-400); RED BLOOD COUNT 4.54 x10^6/uL (3.50-5.40); RED CELL DISTRIBUTION WIDTH 22.3 % (11.5-14.5); WHITE BLOOD COUNT 3.4 x10^3/uL (4.0-11.0)
[2019-09-12 21:02] LABS: BARBITURATES NEG (NEG); BENZODIAZEPINES NEG (NEG); CANNABINOIDS NEG (NEG); COCAINE NEG (NEG); METHADONE NEG (NEG); OPIATES NEG (NEG); PHENCYCLIDINE NEG (NEG)
[2019-09-12 21:03] LABS: COLOR,URINE YELLOW
[2019-09-12 21:07] LABS: BACTERIA,URINE MANY /HPF (0-FEW); RBC,URINE RARE /HPF (0-2); SQUAMOUS EPITHELIAL CELL,UR MOD /LPF; WBC,URINE 20-40 /HPF (0-4)
[2019-09-12 21:14] LABS: AMPHETAMINE/METHAMPHETAMINE NEG (NEG)
[2019-09-12 21:16] LABS: ANISOCYTOSIS MOD; PLT ESTIMATE DECREASED (ADEQUATE); TARGET CELLS OCC
--- NOTE | 2019-09-12 21:16 | RAD ---
Single view chest dated 09/12/2019: Comparison made to 09/11/2019. Clinical Indication: Drug overdose. Findings: Single upright portable exam of the chest was performed. Heart size and mediastinal contours are within normal limits given technique. The lungs are clear without evidence of focal consolidation. Vascular interstitium is within normal limits. Impression:: No acute radiographic abnormality. Electronically signed by: Fer Murguia MD (09/12/2019 9:13 PM) [id number]
[2019-09-12 22:15] VITALS: BP 140/95
--- NOTE | 2019-09-12 22:19 | PHYS DOC ---
Past Medical History Past Medical History: Anxiety, Depression, Diabetes-Type I, Hypertension, Liver Disease Additional Past Medical Histor: MS, Hepatitis C, liver failure, multiple suicide attempts Past Surgical History: Cholecystectomy, , Tubal ligation, Other Additional Past Surgical Histo: hyperdistention of bladder, EGD Smoking Status: Current Every Day Smoker Alcohol Use: Heavy Adult General Chief Complaint Chief Complaint: ALTERED MENTAL STATUS HPI HPI Patient is a 39 year old female with history of type 1 diabetes, hypertension alcoholism, depression and anxiety, end-stage liver disease on transplant list, MS, Hepatitis C, liver failure, multiple suicide attempts who presents via EMS with unresponsive condition. Patient stacy called 911 after he found her unresponsive. Patient was treated with Narcan 1 mg by EMS with improvement of her condition and some movement of her extremities but was unresponsive at arrival to ER. Patient was seen in this emergency room yesterday with the same condition and her stacy denied suicidal attempt or overdose at this time even in EMR there was a report of multiple suicidal attempt. Review of Systems Review of Systems Unable to obtain because of unresponsive condition Current Medications Current Medications Current Medications Medications (Trade) Dose Ordered Sig/Jarred Start Time Stop Time Status Last Admin Dose Admin Naloxone HCl (Narcan) 1 mg 1X ONCE 09/12/19 20:30 09/12/19 20:33 DC 09/12/19 20:23 1 MG Ondansetron HCl (Zofran) 4 mg 1X ONCE 09/12/19 21:15 09/12/19 21:16 DC 09/12/19 20:30 4 MG Sodium Chloride 1,000 ml @ 1,000 mls/hr Q1H 09/12/19 20:25 09/12/19 21:24 DC 09/12/19 20:30 1,000 MLS/HR Allergies Allergies Allergies Coded Allergies Type Severity Reaction Last Updated Verified latex Allergy Unknown 09/03/19 Yes prochlorperazine Allergy Unknown 09/03/19 Yes Physical Exam Physical Exam Constitutional: Unresponsive HENT: Normocephalic, atraumatic, gag reflex is present Eyes: PERRLA, EOMI, conjunctiva normal, no discharge. [] Neck: Normal range of motion, no tenderness, supple, no stridor. [] Cardiovascular:Heart rate regular rhythm, no murmur [] Lungs & Thorax: Bilateral breath sounds clear to auscultation [] Abdomen: Bowel sounds normal, soft, no tenderness, no masses, no pulsatile masses. [] Skin: Warm, dry, no erythema, no rash, multiple ecchymoses and needlesticks Back: No tenderness, no CVA tenderness. [] Extremities: No tenderness, no cyanosis, no clubbing, ROM intact, no edema. [] Neurologic: Unresponsive Psychologic: Unable to evaluate Current Patient Data Vital Signs Vital Signs Date Time Temp Pulse Resp B/P (MAP) Pulse Ox O2 Delivery O2 Flow Rate FiO2 09/12/19 21:44 92 18 95 09/12/19 21:00 98.0 98.0 Lab Values Laboratory Tests Test 09/12/19 20:40 09/12/19 20:48 White Blood Count 3.4 x10^3/uL (4.0-11.0) L Red Blood Count 4.54 x10^6/uL (3.50-5.40) Hemoglobin 11.8 g/dL (12.0-15.5) L Hematocrit 37.6 % (36.0-47.0) Mean Corpuscular Volume 83 fL (79-100) Mean Corpuscular Hemoglobin 26 pg (25-35) Mean Corpuscular Hemoglobin Concent 32 g/dL (31-37) Red Cell Distribution Width 22.3 % (11.5-14.5) H Platelet Count 111 x10^3/uL (140-400) L Neutrophils (%) (Auto) 63 % (31-73) Lymphocytes (%) (Auto) 30 % (24-48) Monocytes (%) (Auto) 6 % (0-9) Eosinophils (%) (Auto) 0 % (0-3) Basophils (%) (Auto) 1 % (0-3) Neutrophils # (Auto) 2.2 x10^3/uL (1.8-7.7) Lymphocytes # (Auto) 1.0 x10^3/uL (1.0-4.8) Monocytes # (Auto) 0.2 x10^3/uL (0.0-1.1) Eosinophils # (Auto) 0.0 x10^3/uL (0.0-0.7) Basophils # (Auto) 0.0 x10^3/uL (0.0-0.2) Platelet Estimate Decreased (ADEQUATE) Anisocytosis Mod Target Cells Occ Prothrombin Time 13.4 SEC (11.7-14.0) Prothrombin Time INR 1.1 (0.8-1.1) Activated Partial Thromboplast Time 30 SEC (24-38) Urine Collection Type U cath Urine Color Yellow Urine Clarity Cloudy Urine pH 6.5 (<5.0-8.0) Urine Specific [place] 1.020 (1.000-1.030) Urine Protein 100 mg/dL (NEG-TRACE) Urine Glucose (UA) Negative mg/dL (NEG) Urine Ketones (Stick) 40 mg/dL (NEG) Urine Blood Negative (NEG) Urine Nitrite Positive (NEG) Urine Bilirubin Negative (NEG) Urine Urobilinogen Dipstick 1.0 mg/dL (0.2 mg/dL) Urine Leukocyte Esterase Moderate (NEG) Urine RBC Rare /HPF (0-2) Urine WBC 20-40 /HPF (0-4) Urine Squamous Epithelial Cells Mod /LPF Urine Transitional Epithelial Cells Occ /LPF Urine Bacteria Many /HPF (0-FEW) Urine Mucus Marked /LPF Urine Opiates Screen Neg (NEG) Urine Methadone Screen Neg (NEG) Urine Barbiturates Neg (NEG) Urine Phencyclidine Screen Neg (NEG) Urine Amphetamine/Methamphetamine Neg (NEG) Urine Benzodiazepines Screen Neg (NEG) Urine Cocaine Screen Neg (NEG) Urine Cannabinoids Screen Neg (NEG) Urine Ethyl Alcohol Pos (NEG) POC Urine HCG, Qualitative Hcg negative (Negative) Laboratory Tests 09/12/19 20:40 EKG EKG EKG interpreted by me. EKG at 2028 showed sinus tachycardia rate of 102, leftward axis, poor R wave progression anteroseptal leads, no acute ST and T wave elevation. Radiology/Procedures Radiology/Procedures [facility] [address] [place] [address] IMAGING REPORT Signed PATIENT: DENISE ETIENNE ACCOUNT: [id number] : 1980 LOCATION: ER AGE: 39 SEX: F EXAM STATUS: REG ER ORD. PHYSICIAN: ESTUARDO RODRIGUEZ MD REASON: Drug overdose PROCEDURE: PORTABLE CHEST 1V Single view chest dated 09/12/2019: Comparison made to 09/11/2019. Clinical Indication: Drug overdose. Findings: Single upright portable exam of the chest was performed. Heart size and mediastinal contours are within normal limits given technique. The lungs are clear without evidence of focal consolidation. Vascular interstitium is within normal limits. Impression:: No acute radiographic abnormality. Electronically signed by: Fer Murguia MD (09/12/2019 9:13 PM) [id number] DICTATED and SIGNED BY: FER MURGUIA MD DATE: 09/12/192112 Course & Med Decision Making Course & Med Decision Making Pertinent Labs and Imaging studies reviewed. (See chart for details) Evaluation of patient inertial 39-year-old female patient with history of end- stage liver failure and alcoholism brought in by EMS because of unresponsive condition. Patient treated with Narcan 1 mg by EMS and 1 mg in ER with improvement of her condition. Patient denies suicidal homicidal ideation after she became responsive and her fianc approved that she did not have any overdose but patient has history of multiple suicidal attempt. Patient requiring admission for further evaluation and treatment. Discussed with Dr. Rodriguez who is in agreement with admission. Discussed findings and plan with patient and family, who acknowledge understanding and agreement. At 2400 Patient became alert and oriented and walking the room and asking for water. Patient was alert and oriented and denied suicidal homicidal and wanted to go home. Patient refused to take potassium. Patient signed AGAINST MEDICAL ADVICE and her fianc presented to pick her up. Dragon Disclaimer Dragon Disclaimer This electronic medical record was generated, in whole or in part, using a voice recognition dictation system. Departure Departure Impression: Primary Impression: AMS (altered mental status) Additional Impressions: Urinary tract infection Anemia Alcohol intoxication Hypokalemia Elevated liver enzymes Disposition: ADMITTED INPATIENT (At 2200) Admitting Physician: SHIRLEY (Dr. Rodriguez accepted admission) Condition: IMPROVED Referrals: NO PCP (PCP) Problem Qualifiers Primary Impression: AMS (altered mental status) Altered mental status type: unspecified Qualified Codes: R41.82 - Altered mental status, unspecified Additional Impressions: Urinary tract infection Urinary tract infection type: site unspecified Hematuria presence: without hematuria Qualified Codes: N39.0 - Urinary tract infection, site not specified Anemia Anemia type: unspecified type Qualified Codes: D64.9 - Anemia, unspecified Alcohol intoxication Complication of substance-induced condition: with unspecified complication Qualified Codes: F10.929 - Alcohol use, unspecified with intoxication, unspecified ESTUARDO RODRIGUEZ MD Sep 12, 2019 22:19
[2019-09-12] MEDS: MULTIVIT INFUSN,ADULT 4,VIT K 10 ML, THIAMINE INJ 100 MG, FOLIC ACID INJ 1 MG in IV NOR... IV ONE (22:23)
[2019-09-12 22:25] LABS: PROTHROMBIN TIME PATIENT 13.4 SEC (11.7-14.0)
[2019-09-12] MEDS ORDERED: cefTRIAXone IV Push 1 GM VIAL. IVP ONE (22:30)
[2019-09-12] MEDS ORDERED: IV NORMAL SALINE 1000ML BAG 1,000 ML IV SCH (22:30)
[2019-09-12 23:45] LABS: ACETAMIN < 2 mcg/ml (10-30); ALBUMIN 3.3 g/dL (3.4-5.0); CALCIUM 7.1 mg/dL (8.5-10.1); CREATININE 0.4 mg/dL (0.6-1.0); DIRECT BILIRUBIN 0.6 mg/dL (0.0-0.2); ETHANOL 392 mg/dL (0-10); GFR 179.6; MAGNESIUM 1.5 mg/dL (1.8-2.4); SALIC < 2.8 mg/dL (2.8-20.0); TOTAL BILIRUBIN 0.8 mg/dL (0.2-1.0); TOTAL PROTEIN 7.3 g/dL (6.4-8.2)
[2019-09-12 23:48] LABS: POTASSIUM 2.9 mmol/L (3.5-5.1)
[2019-09-13] MEDS ORDERED: POTASSIUM CHLORIDE 20 MEQ TABLET.ER. PO ONE (00:15)
[2019-09-13] MEDS ORDERED: NALOXONE 0.4 MG/ML VIAL. ONE (04:31)
--- NOTE | 2019-09-13 05:16 | EKG ---
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
== END 2019-09-12 23:44 | disposition left against medical advice (07) ==
LOC: ER 20:19 → 2 NORTH 21:58 → UNDOADMIN 21:58 → ER 23:44
DX: R41.82 Altered mental status, unspecified (principal); N39.0 Urinary tract infection, site not specified; D64.9 Anemia, unspecified; F10.929 Alcohol use, unspecified with intoxication, unspecified; E87.6 Hypokalemia; R94.5 Abnormal results of liver function studies; I10 Essential (primary) hypertension; F17.200 Nicotine dependence, unspecified, uncomplicated; E10.9 Type 1 diabetes mellitus without complications; Z91.040 Latex allergy status; Z88.8 Allergy status to other drugs, medicaments and biological substances
CPT/HCPCS: 36415; 71045; 80048; 80076; 80307; 80329; 81001; 81025; 83735; 85025; 85610; 85730; 87086; 93005; 96361; 96365; 96375; 99285; G0480; J2310; J2405; J3411; J3490; J7030; G0378

== ENCOUNTER 2019-11-24 02:55 | Emergency (ER) | payer SELFPAY ==
[~2019-11-24] VITALS: Ht 162.6 cm; Wt 54.5 kg
[2019-11-24] MEDS ORDERED: ONDANSETRON PF 4 MG/2 ML VIAL. ONE (03:03)
[2019-11-24 03:11] LABS: AMPHETAMINE/METHAMPHETAMINE NEG (NEG); BARBITURATES NEG (NEG); BENZODIAZEPINES NEG (NEG); CANNABINOIDS NEG (NEG); COCAINE NEG (NEG); METHADONE NEG (NEG); OPIATES NEG (NEG); PHENCYCLIDINE NEG (NEG)
[2019-11-24 03:12] LABS: CALCIUM 8.3 mg/dL (8.5-10.1); CREATININE 0.6 mg/dL (0.6-1.0); GFR 112.5; POTASSIUM 3.3 mmol/L (3.5-5.1)
[2019-11-24] MEDS ORDERED: ONDANSETRON PF 4 MG/2 ML VIAL. IVP ONE (03:15)
[2019-11-24 03:17] LABS: BILIRUBIN,URINE NEGATIVE (NEG); CLARITY,URINE CLEAR; COLOR,URINE YELLOW; NITRITE,URINE NEGATIVE (NEG); PROTEIN,URINE NEGATIVE (NEG-TRACE); UROBILINOGEN,URINE 0.2 mg/dL (0.2 mg/dL)
[2019-11-24 03:18] LABS: BACTERIA,URINE 0 /HPF (0-FEW); BASO # 0.1 x10^3/uL (0.0-0.2); BASO % 1 % (0-3); EOS # 0.2 x10^3/uL (0.0-0.7); EOS % 3 % (0-3); HEMATOCRIT 32.8 % (36.0-47.0); HEMOGLOBIN 10.7 g/dL (12.0-15.5); LYMPH # 1.8 x10^3/uL (1.0-4.8); LYMPH % 25 % (24-48); MEAN CORPUSCULAR HEMOGLOBIN 31 pg (25-35); MEAN CORPUSCULAR HGB CONC 33 g/dL (31-37); MEAN CORPUSCULAR VOLUME 94 fL (79-100); MONO # 0.6 x10^3/uL (0.0-1.1); MONO % 8 % (0-9); NEUT # 4.6 x10^3/uL (1.8-7.7); NEUT % 63 % (31-73); PLATELET COUNT 590 x10^3/uL (140-400); RBC,URINE OCC /HPF (0-2); RED BLOOD COUNT 3.49 x10^6/uL (3.50-5.40); RED CELL DISTRIBUTION WIDTH 17.9 % (11.5-14.5); SQUAMOUS EPITHELIAL CELL,UR FEW /LPF; WBC,URINE 0 /HPF (0-4); WHITE BLOOD COUNT 7.2 x10^3/uL (4.0-11.0)
[2019-11-24 03:23] LABS: ALBUMIN 3.5 g/dL (3.4-5.0); TOTAL BILIRUBIN 0.3 mg/dL (0.2-1.0); TOTAL PROTEIN 7.6 g/dL (6.4-8.2)
[2019-11-24 03:24] LABS: DIRECT BILIRUBIN 0.3 mg/dL (0.0-0.2); MAGNESIUM 1.9 mg/dL (1.8-2.4)
--- NOTE | 2019-11-24 03:33 | PHYS DOC ---
Past Medical History Past Medical History: Anxiety, Depression, Diabetes-Type I, Hypertension, Liver Disease Additional Past Medical Histor: MS, Hepatitis C, liver failure, multiple suicide attempts Past Surgical History: Cholecystectomy, , Tubal ligation, Other Additional Past Surgical Histo: hyperdistention of bladder, EGD Smoking Status: Current Every Day Smoker Alcohol Use: Heavy General Adult EDM: Chief Complaint: ALTERED MENTAL STATUS HPI: HPI: Patient is a 39 year old female who presents via EMS with report of being unresponsive. EMS states that patient was dry heaving in the back of the ambulance but was not responsive to verbal stimuli. They indicate that she localized to painful stimuli. Patient initially unresponsive upon arrival and additional history not available due to mental status. [] Review of Systems: Review of Systems: Constitutional: No reported fever or chills. [] Respiratory: No reported shortness of breath. [] Neurologic: Positive mental status changes. [] Unable to fully assess review of systems due to patient mental status. Heart Score: Risk Factors: Risk Factors: DM, Current or recent (<one month) smoker, HTN, HLP, family history of CAD, obesity. Risk Scores: Score 0 - 3: 2.5% MACE over next 6 weeks - Discharge Home Score 4 - 6: 20.3% MACE over next 6 weeks - Admit for Clinical Observation Score 7 - 10: 72.7% MACE over next 6 weeks - Early Invasive Strategies Current Medications: Current Medications Medications (Trade) Dose Ordered Sig/Jarred Start Time Stop Time Status Last Admin Dose Admin Ondansetron HCl (Zofran) 4 mg 1X ONCE 11/24/19 03:15 11/24/19 03:16 DC Allergies: Allergies: Allergies Coded Allergies Type Severity Reaction Last Updated Verified latex Allergy Intermediate 09/19/19 Yes prochlorperazine Allergy Intermediate 09/19/19 Yes Physical Exam: PE: Constitutional: Well developed, well nourished, no acute distress, non-toxic appearance. [] HENT: Normocephalic, atraumatic, bilateral external ears normal, oropharynx moist, no oral exudates, nose normal. [] Eyes: Pupils are equal at 3 mm and sluggish to light, EOMI, conjunctiva normal, no discharge. [] Neck: Normal range of motion, no tenderness, supple. [] Cardiovascular: Mildly tachycardic rate with regular rhythm [] Lungs & Thorax: Bilateral breath sounds clear to auscultation [] Abdomen: Bowel sounds normal, soft, no tenderness. [] Skin: Warm, dry. [] Extremities: No cyanosis, no clubbing, ROM intact, no edema. [] Neurologic: Patient initially unresponsive to verbal stimuli upon arrival. [] Current Patient Data: Labs: Laboratory Tests Test 11/24/19 02:50 White Blood Count 7.2 x10^3/uL (4.0-11.0) Red Blood Count 3.49 x10^6/uL (3.50-5.40) L Hemoglobin 10.7 g/dL (12.0-15.5) L Hematocrit 32.8 % (36.0-47.0) L Mean Corpuscular Volume 94 fL (79-100) Mean Corpuscular Hemoglobin 31 pg (25-35) Mean Corpuscular Hemoglobin Concent 33 g/dL (31-37) Red Cell Distribution Width 17.9 % (11.5-14.5) H Platelet Count 590 x10^3/uL (140-400) H Neutrophils (%) (Auto) 63 % (31-73) Lymphocytes (%) (Auto) 25 % (24-48) Monocytes (%) (Auto) 8 % (0-9) Eosinophils (%) (Auto) 3 % (0-3) Basophils (%) (Auto) 1 % (0-3) Neutrophils # (Auto) 4.6 x10^3/uL (1.8-7.7) Lymphocytes # (Auto) 1.8 x10^3/uL (1.0-4.8) Monocytes # (Auto) 0.6 x10^3/uL (0.0-1.1) Eosinophils # (Auto) 0.2 x10^3/uL (0.0-0.7) Basophils # (Auto) 0.1 x10^3/uL (0.0-0.2) Urine Collection Type Unknown Urine Color Yellow Urine Clarity Clear Urine pH 6.0 (<5.0-8.0) Urine Specific [place] <=1.005 (1.000-1.030) Urine Protein Negative mg/dL (NEG-TRACE) Urine Glucose (UA) Negative mg/dL (NEG) Urine Ketones (Stick) Negative mg/dL (NEG) Urine Blood Negative (NEG) Urine Nitrite Negative (NEG) Urine Bilirubin Negative (NEG) Urine Urobilinogen Dipstick 0.2 mg/dL (0.2 mg/dL) Urine Leukocyte Esterase Negative (NEG) Urine RBC Occ /HPF (0-2) Urine WBC 0 /HPF (0-4) Urine Squamous Epithelial Cells Few /LPF Urine Bacteria 0 /HPF (0-FEW) Urine Mucus Slight /LPF Sodium Level 142 mmol/L (136-145) Potassium Level 3.3 mmol/L (3.5-5.1) L Chloride Level 104 mmol/L (98-107) Carbon Dioxide Level 18 mmol/L (21-32) L Anion Gap 20 (6-14) H Blood Urea Nitrogen 8 mg/dL (7-20) Creatinine 0.6 mg/dL (0.6-1.0) Estimated GFR (Cockcroft-Gault) 112.5 Glucose Level 115 mg/dL (70-99) H Calcium Level 8.3 mg/dL (8.5-10.1) L Magnesium Level 1.9 mg/dL (1.8-2.4) Total Bilirubin 0.3 mg/dL (0.2-1.0) Direct Bilirubin 0.3 mg/dL (0.0-0.2) H Aspartate Amino Transferase (AST) 111 U/L (15-37) H Alanine Aminotransferase (ALT) 86 U/L (14-59) H Alkaline Phosphatase 101 U/L (46-116) Ammonia 34 mcmol/L (11-34) Total Protein 7.6 g/dL (6.4-8.2) Albumin 3.5 g/dL (3.4-5.0) Urine Opiates Screen Neg (NEG) Urine Methadone Screen Neg (NEG) Urine Barbiturates Neg (NEG) Urine Phencyclidine Screen Neg (NEG) Urine Amphetamine/Methamphetamine Neg (NEG) Urine Benzodiazepines Screen Neg (NEG) Urine Cocaine Screen Neg (NEG) Urine Cannabinoids Screen Neg (NEG) Urine Ethyl Alcohol Pos (NEG) Laboratory Tests 11/24/19 02:50 Laboratory Tests 11/24/19 02:50 EKG: EKG: [] Radiology/Procedures: Radiology/Procedures: [] Course & Med Decision Making: Course & Med Decision Making Pertinent Labs and Imaging studies reviewed. (See chart for details) [] Dragon Disclaimer: Dragon Disclaimer: This electronic medical record was generated, in whole or in part, using a voice recognition dictation system. Departure Departure Impression: Primary Impression: Alcohol intoxication Qualified Codes: F10.920 - Alcohol use, unspecified with intoxication, uncomplicated Additional Impression: AMS (altered mental status) Qualified Codes: R41.82 - Altered mental status, unspecified Disposition: 01 HOME, SELF-CARE Condition: STABLE Referrals: NO PCP (PCP) Patient Instructions: Alcohol Intoxication, Altered Mental Status Justicifation of Admission Dx: Justifications for Admission: Justification of Admission Dx: N/A DREW LAU Jr. DO Nov 24, 2019 03:33
[2019-11-24 07:30] VITALS: BP 92/67
== END 2019-11-24 08:00 | disposition home or self-care (01) ==
LOC: ER 02:55
DX: F10.229 Alcohol dependence with intoxication, unspecified (principal); R41.82 Altered mental status, unspecified; F41.9 Anxiety disorder, unspecified; F32.9 Major depressive disorder, single episode, unspecified; E10.9 Type 1 diabetes mellitus without complications; I10 Essential (primary) hypertension; K70.9 Alcoholic liver disease, unspecified; F17.200 Nicotine dependence, unspecified, uncomplicated; Z90.49 Acquired absence of other specified parts of digestive tract; Z98.51 Tubal ligation status; Z98.890 Other specified postprocedural states; Z91.040 Latex allergy status; Z88.8 Allergy status to other drugs, medicaments and biological substances
CPT/HCPCS: 36415; 80048; 80076; 80307; 81001; 82140; 83735; 83880; 84484; 85025; 96374; 99285; J2405

== ENCOUNTER 2019-12-27 17:59 | Inpatient (IN) | payer SELFPAY ==
[~2019-12-27] VITALS: Ht 167.6 cm; Wt 58.1 kg
[2019-12-27] MEDS ORDERED: ONDANSETRON PF 4 MG/2 ML VIAL. ONE (18:46)
[2019-12-27 19:10] LABS: BASO % 0 % (0-3); EOS % 0 % (0-3); HEMATOCRIT 38.9 % (36.0-47.0); HEMOGLOBIN 12.7 g/dL (12.0-15.5); LYMPH # 0.9 x10^3/uL (1.0-4.8); LYMPH % 22 % (24-48); MEAN CORPUSCULAR HEMOGLOBIN 28 pg (25-35); MEAN CORPUSCULAR HGB CONC 33 g/dL (31-37); MEAN CORPUSCULAR VOLUME 85 fL (79-100); MONO # 0.3 x10^3/uL (0.0-1.1); MONO % 8 % (0-9); NEUT # 2.8 x10^3/uL (1.8-7.7); NEUT % 70 % (31-73); PLATELET COUNT 157 x10^3/uL (140-400); RED BLOOD COUNT 4.56 x10^6/uL (3.50-5.40); RED CELL DISTRIBUTION WIDTH 17.7 % (11.5-14.5)
[2019-12-27] MEDS ORDERED: ONDANSETRON PF 4 MG/2 ML VIAL. IV ONE (19:15)
[2019-12-27] MEDS ORDERED: IV NORMAL SALINE 1000ML BAG 1,000 ML IV ONE (19:15)
[2019-12-27] MEDS ORDERED: KETOROLAC 15 MG/ML VIAL. IVP ONE (19:30)
--- NOTE | 2019-12-27 19:34 | PHYS DOC ---
Past Medical History Past Medical History: Alcoholism, Anxiety, Depression, Diabetes-Type I, Hypertension, Liver Disease Additional Past Medical Histor: MS, Hepatitis C, liver failure, multiple suicide attempts Past Surgical History: Cholecystectomy, , Tubal ligation, Other Additional Past Surgical Histo: hyperdistention of bladder, EGD Smoking Status: Current Every Day Smoker Alcohol Use: Heavy General Adult EDM: Chief Complaint: BLOOD IN URINE HPI: HPI: Patient is a 39 year old female, accompanied by her significant other, who presents to the emergency department with complaints of left-sided lower abdominal/flank pain for the last 5 days with nausea, vomiting, and hematuria for the last 2 days. She reports that she was recently evaluated at a week a go and that they did not do anything for her. Patient reports a history of pancreatitis she states she did drink a small amount of vodka today. She denies any illicit drug use. Patient denies any fever, cough, shortness of breath, rash, irregular vaginal discharge, vaginal odor, or vaginal bleeding. She states that when she urinates the pain in her lower abdomen increases, she denies difficulty voiding or increased urinary frequency. The patient denies any known COVID-19 exposure. She currently rates her pain a 10 out of 10 on the pain scale, she denies any alleviating or exacerbating factors, the pain does not radiate. Review of Systems: Review of Systems: Constitutional: Denies fever or chills. [] HENT: Denies nasal congestion or sore throat. [] Respiratory: Denies cough or shortness of breath. [] Cardiovascular: Denies chest pain or edema. [] GI: See HPI : See HPI Musculoskeletal: Denies back pain or joint pain. [] Integument: Denies rash. [] Neurologic: Denies headache, focal weakness or sensory changes. [] Psychiatric: Denies depression or anxiety. [] Heart Score: Risk Factors: Risk Factors: DM, Current or recent (<one month) smoker, HTN, HLP, family history of CAD, obesity. Risk Scores: Score 0 - 3: 2.5% MACE over next 6 weeks - Discharge Home Score 4 - 6: 20.3% MACE over next 6 weeks - Admit for Clinical Observation Score 7 - 10: 72.7% MACE over next 6 weeks - Early Invasive Strategies Current Medications: Current Medications Medications (Trade) Dose Ordered Sig/Jarred Start Time Stop Time Status Last Admin Dose Admin Ondansetron HCl (Zofran) 4 mg 1X ONCE 12/27/19 19:15 12/27/19 19:16 DC 12/27/19 19:09 4 MG Sodium Chloride 1,000 ml @ 1,000 mls/hr 1X ONCE 12/27/19 19:15 12/27/19 20:14 12/27/19 19:09 1,000 MLS/HR Allergies: Allergies: Allergies Coded Allergies Type Severity Reaction Last Updated Verified latex Allergy Intermediate 09/19/19 Yes prochlorperazine Allergy Intermediate 09/19/19 Yes Physical Exam: PE: Constitutional: Well developed, well nourished, no acute distress, non-toxic appearance. [] HENT: Normocephalic, atraumatic, bilateral external ears normal, oropharynx moist, no oral exudates, nose normal. [] Eyes: PERRLA, EOMI, conjunctiva normal, no discharge. [] Neck: Normal range of motion, no tenderness, supple, no stridor. [] Cardiovascular:Heart rate regular rhythm, no murmur [] Lungs & Thorax: Bilateral breath sounds clear to auscultation [] Abdomen: Bowel sounds normal, soft, no tenderness, no masses, no pulsatile masses. [] Skin: Warm, dry, no erythema, no rash. [] Back: No tenderness, no CVA tenderness. [] Extremities: No tenderness, no cyanosis, no clubbing, ROM intact, no edema. [] Neurologic: Alert and oriented X 3, normal motor function, normal sensory function, no focal deficits noted. [] Psychologic: Affect normal, judgement normal, mood normal. [] Current Patient Data: Labs: Laboratory Tests Test 12/27/19 18:28 White Blood Count 4.0 x10^3/uL (4.0-11.0) Red Blood Count 4.56 x10^6/uL (3.50-5.40) Hemoglobin 12.7 g/dL (12.0-15.5) Hematocrit 38.9 % (36.0-47.0) Mean Corpuscular Volume 85 fL (79-100) Mean Corpuscular Hemoglobin 28 pg (25-35) Mean Corpuscular Hemoglobin Concent 33 g/dL (31-37) Red Cell Distribution Width 17.7 % (11.5-14.5) H Platelet Count 157 x10^3/uL (140-400) Neutrophils (%) (Auto) 70 % (31-73) Lymphocytes (%) (Auto) 22 % (24-48) L Monocytes (%) (Auto) 8 % (0-9) Eosinophils (%) (Auto) 0 % (0-3) Basophils (%) (Auto) 0 % (0-3) Neutrophils # (Auto) 2.8 x10^3/uL (1.8-7.7) Lymphocytes # (Auto) 0.9 x10^3/uL (1.0-4.8) L Monocytes # (Auto) 0.3 x10^3/uL (0.0-1.1) Eosinophils # (Auto) 0.0 x10^3/uL (0.0-0.7) Basophils # (Auto) 0.0 x10^3/uL (0.0-0.2) Laboratory Tests 12/27/19 18:28 Vital Signs: Vital Signs Date Time Temp Pulse Resp B/P (MAP) Pulse Ox O2 Delivery O2 Flow Rate FiO2 12/27/19 18:28 98.2 128 24 143/88 (106) 97 Room Air 98.2 EKG: EKG: [] Radiology/Procedures: Radiology/Procedures: PROCEDURE: CT ABDOMEN PELVIS WO CONTRAST INDICATION: Reason: flank pain, blood in urine / Spl. Instructions: / History: COMPARISON: October 2019 TECHNIQUE: Axial CT images obtained through the abdomen and pelvis without contrast. Limited assessment of solid organ structures and vasculature secondary to lack of intravenous contrast.. One or more of the following individualized dose reduction techniques were utilized for this examination: 1. Automated exposure control; 2. Adjustment of the mA and/or kV according to patient size; 3. Use of iterative reconstruction technique. FINDINGS: Abdominal aorta is not aneurysmal. There is scattered calcific atherosclerosis. Small fat-containing umbilical hernia. Liver is low density and enlarged. Postcholecystectomy. Haziness in the fat adjacent to the pancreas. Spleen unremarkable. No hydronephrosis. Urinary bladder is largely decompressed. Surgical clips in the pelvis bilaterally. Portion of the colonic wall in the right appears prominent in thickness but not very distended. No right lower quadrant inflammatory changes. No dilated loops of bowel suggest obstruction. Fullness of the right adnexa measuring up to about 39 mm. Suspected fat-containing hernias in the bilateral groin. IMPRESSION: * Edema of the pancreas. Can be seen with pancreatitis. Correlate with symptoms and laboratory markers. * Liver is diffusely low density. Nonspecific but can be seen with fatty infiltration. * Fullness of the right adnexa. The right ovarian lesion is not excluded given this finding and would correlate with symptoms in the region. If further clarification is desired ultrasound could further assess. * No hydronephrosis * The colonic wall is prominent in a portion of the right side of the colon. Most likely cause is lack of distention unless the patient is having colonic symptoms to suggest colitis. [] Course & Med Decision Making: Course & Med Decision Making Pertinent Labs and Imaging studies reviewed. (See chart for details) [id number] with Dr. Cherry who is the admitting physician, and care was a ssumed following discussion of patient. Will admit patient for acute pancreatitis, advised Dr. Cherry of pending CMP and lipase level, discussed findings on CT and UA results. Patient's vital signs stable. Patient remains afebrile, appears nontoxic, respirations even and unlabored. Patient will be admitted to the med telemetry floor. Patient's case and plan of care also discussed with Dr. Thrasher [] Melody Disclaimer: Melody Disclaimer: This electronic medical record was generated, in whole or in part, using a voice recognition dictation system. Departure Departure Impression: Primary Impression: Acute pancreatitis Qualified Codes: K85.20 - Alcohol induced acute pancreatitis without necrosis or infection Disposition: ADMITTED INPATIENT Admitting Physician: SHIRLEY (Thomas) Condition: STABLE Referrals: NO PCP (PCP) Justicifation of Admission Dx: Justifications for Admission: Justification of Admission Dx: Yes (OBSERVATION FOR PANCREATITIS) SOULEYMANE NAGY CERTIFIED PESTICIDE APPLICATOR Dec 27, 2019 19:34
[2019-12-27 20:13] LABS: BILIRUBIN,URINE MODERATE (NEG); CLARITY,URINE TURBID; PROTEIN,URINE >=300 mg/dL (NEG-TRACE)
[2019-12-27 20:15] LABS: COLOR,URINE AMBER
[2019-12-27 20:18] LABS: SQUAMOUS EPITHELIAL CELL,UR MOD /LPF
[2019-12-27 20:19] LABS: BACTERIA,URINE FEW /HPF (0-FEW); HYALINE CASTS, URINE MODERATE /HPF
[2019-12-27 20:20] LABS: RBC,URINE TNTC /HPF (0-2); WBC,URINE OCC /HPF (0-4)
--- NOTE | 2019-12-27 21:01 | RAD ---
INDICATION: Reason: flank pain, blood in urine / Spl. Instructions: / History: COMPARISON: October 2019 TECHNIQUE: Axial CT images obtained through the abdomen and pelvis without contrast. Limited assessment of solid organ structures and vasculature secondary to lack of intravenous contrast.. One or more of the following individualized dose reduction techniques were utilized for this examination: 1. Automated exposure control; 2. Adjustment of the mA and/or kV according to patient size; 3. Use of iterative reconstruction technique. FINDINGS: Abdominal aorta is not aneurysmal. There is scattered calcific atherosclerosis. Small fat-containing umbilical hernia. Liver is low density and enlarged. Postcholecystectomy. Haziness in the fat adjacent to the pancreas. Spleen unremarkable. No hydronephrosis. Urinary bladder is largely decompressed. Surgical clips in the pelvis bilaterally. Portion of the colonic wall in the right appears prominent in thickness but not very distended. No right lower quadrant inflammatory changes. No dilated loops of bowel suggest obstruction. Fullness of the right adnexa measuring up to about 39 mm. Suspected fat-containing hernias in the bilateral groin. IMPRESSION: * Edema of the pancreas. Can be seen with pancreatitis. Correlate with symptoms and laboratory markers. * Liver is diffusely low density. Nonspecific but can be seen with fatty infiltration. * Fullness of the right adnexa. The right ovarian lesion is not excluded given this finding and would correlate with symptoms in the region. If further clarification is desired ultrasound could further assess. * No hydronephrosis * The colonic wall is prominent in a portion of the right side of the colon. Most likely cause is lack of distention unless the patient is having colonic symptoms to suggest colitis. Electronically signed by: Hiram Collier MD (12/27/2019 8:59 PM) [id number]
[2019-12-27 21:15] LABS: CALCIUM 8.3 mg/dL (8.5-10.1); CREATININE 0.6 mg/dL (0.6-1.0); GFR 112.5; POTASSIUM 3.5 mmol/L (3.5-5.1)
[2019-12-27 21:22] LABS: ALBUMIN 3.7 g/dL (3.4-5.0); ALBUMIN/GLOBULIN RATIO 0.8 (1.0-1.7); MAGNESIUM 1.7 mg/dL (1.8-2.4); TOTAL BILIRUBIN 0.6 mg/dL (0.2-1.0); TOTAL PROTEIN 8.2 g/dL (6.4-8.2)
[2019-12-27] MEDS ORDERED: fentaNYL PF VIAL 100 MCG/2 ML VIAL IV ONE (21:30)
--- NOTE | 2019-12-27 22:00 | NUR ---
Patient admitted to room 263 from ED per Wheelchair. Patient alert and oriented x 4. Patient oriented to room, call light, bed and POC. patient verbalized understanding. See admission assessment/documentation. HIPPA code given to Patient to given to personal lines appraiser. Call light in reach will monitor.
[2019-12-27 22:20] VITALS: BP 161/107
[2019-12-27] MEDS ORDERED: IBUP-1060 PO (22:48)
[2019-12-27] MEDS ORDERED: HALOPERIDOL LACTATE 5 MG/ML VIAL. IVP PRN (23:15)
[2019-12-27] MEDS ORDERED: diphenhydrAMINE 50 MG/ML VIAL IVP PRN (23:15)
[2019-12-27] MEDS: fentaNYL PF VIAL 100 MCG/2 ML VIAL IV PRN (23:22)
[2019-12-27 23:33] VITALS: BP 150/101
[2019-12-28] MEDS: ONDANSETRON PF 4 MG/2 ML VIAL. IV PRN ×2 (00:10→09:40)
[2019-12-28] MEDS: MULTIVIT INFUSN,ADULT 4,VIT K 10 ML, THIAMINE INJ 100 MG, FOLIC ACID INJ 1 MG in IV NOR... IV SCH (00:14)
[2019-12-28] MEDS: LISINOPRIL 10 MG TABLET PO SCH ×2 (00:51→08:29)
[2019-12-28] MEDS: fentaNYL PF VIAL 100 MCG/2 ML VIAL IV PRN ×3 (01:59→06:30)
[2019-12-28 02:19] VITALS: BP 147/91
--- NOTE | 2019-12-28 06:29 | PDOC1 ---
History and Physical Date of Admission Date of Admission DATE: 12/28/19 TIME: 06:28 Identification/Chief Complaint Chief Complaint SEEN IN ER WITH ACUTE PANCREATITIS , 39 year old female, accompanied by her significant other, who presents to the emergency department with complaints of left-sided lower abdominal/flank pain for the last 5 days with nausea, vomiting, and hematuria for the last 2 days. She reports that she was recently evaluated at a week reports a history of pancreatitis she states she did drink a small amount of vodka 12/26 . She denies any illicit drug use. Patient denies any fever, cough, shortness of breath, rash, irregular vaginal discharge, vaginal odor, or vaginal bleeding. She states that when she urinates the pain in her lower abdomen increases, she denies difficulty voiding or increased urinary frequency. The patient denies any known COVID-19 exposure. currently rates her pain a 10 out of 10 on the pain scale, she denies any alleviating or exacerbating factors, the pain does not radiate. Past Medical History Past Medical History Past Medical History Past Medical History Past Medical History: Alcoholism, Anxiety, Depression, Diabetes-Type I, Hypertension, Liver Disease Additional Past Medical Histor: MS, Hepatitis C, liver failure, multiple suicide attempts Past Surgical History: Cholecystectomy, , Tubal ligation, Other Additional Past Surgical Histo: hyperdistention of bladder, EGD Smoking Status: Current Every Day Smoker Alcohol Use: Heavy FHX COPD Family History Family History: Alcohol Abuse, Drug Abuse, High Cholestrol Social History Smoke: <1 pack per day ALCOHOL: heavy Drugs: None Current Medications Current Medications Current Medications Ondansetron HCl (Zofran) 4 mg STK-MED ONCE .ROUTE ; Start 12/27/19 at 18:46; Stop 12/27/19 at 18:46; Status DC Ondansetron HCl (Zofran) 4 mg 1X ONCE IV Last administered on 12/27/19at 19:09; Start 12/27/19 at 19:15; Stop 12/27/19 at 19:16; Status DC Sodium Chloride 1,000 ml @ 1,000 mls/hr 1X ONCE IV Last administered on 12/27/19at 19:09; Start 12/27/19 at 19:15; Stop 12/27/19 at 20:14; Status DC Ketorolac Tromethamine (Toradol 15mg Vial) 15 mg 1X ONCE IVP Last administered on 12/27/19at 20:12; Start 12/27/19 at 19:30; Stop 12/27/19 at 19:31; Status DC Fentanyl Citrate (Fentanyl 2ml Vial) 50 mcg 1X ONCE IV Last administered on 12/27/19at 21:17; Start 12/27/19 at 21:30; Stop 12/27/19 at 21:31; Status DC Ondansetron HCl (Zofran) 4 mg PRN Q8HRS PRN IV NAUSEA/VOMITING 1ST CHOICE Last administered on 12/28/19at 00:10; Start 12/27/19 at 21:30; Stop 12/28/19 at 21:29 Fentanyl Citrate (Fentanyl 2ml Vial) 50 mcg PRN Q2HR PRN IV SEVERE PAIN 7-10 Last administered on 12/28/19at 04:23; Start 12/27/19 at 21:30; Stop 12/28/19 at 21:29 Multivitamins 10 ml/Thiamine HCl 100 mg/Folic Acid 1 mg/Sodium Chloride 1,011.2 ml @ 100 mls/ hr DAILY IV Last administered on 12/28/19at 00:14; Start 12/28/19 at 00:00; Stop 01/01/20 at 19:07 Lorazepam (Ativan Inj) 2 mg PRN Q1HR PRN IV For CIWA 8-14; Start 12/27/19 at 23:15 Lorazepam (Ativan Inj) 4 mg PRN Q1HR PRN IV For CIWA 15 or greater; Start 12/27/19 at 23:15 Haloperidol Lactate (Haldol Inj) 5 mg PRN Q4HRS PRN IVP Hallucinatns,Confusn,Delirium; Start 12/27/19 at 23:15 Diphenhydramine HCl (Benadryl) 25 mg PRN Q15MIN PRN IVP EPS symptoms 2'Haldol admin; Start 12/27/19 at 23:15 Lisinopril (Prinivil) 10 mg DAILY PO Last administered on 12/28/19at 00:51; Start 12/28/19 at 01:00 Active Scripts Active Reported Ibuprofen 800 Mg Tablet 800 Mg PO DAILY PRN Lisinopril 10 Mg Tablet 10 Mg PO DAILY Allergies Allergies: Coded Allergies: latex (Verified Allergy, Intermediate, 09/19/19) prochlorperazine (Verified Allergy, Intermediate, 09/19/19) ROS Review of System Review of Systems: Review of Systems: Constitutional: Denies fever or chills. [] HENT: Denies nasal congestion or sore throat. [] Respiratory: Denies cough or shortness of breath. [] Cardiovascular: Denies chest pain or edema. [] GI: See HPI : See HPI Musculoskeletal: Denies back pain or joint pain. [] Integument: Denies rash. [] Neurologic: Denies headache, focal weakness or sensory changes. [] Psychiatric: Denies depression or anxiety. [] 14 pt ros otherwise neg Eyes: No Blurry vision, No Decreased vision, No Double vision, No Dry eyes, No Excessive tearing, No Eye Pain, No Itchy Eyes, No Loss of vision, No Photophobia, No Scotomata, No Uses contacts, No Uses glasses, No Other Hematological and Lymphatic: No: Bleeding Problems, Blood Clots, Blood Transfusions, Brusing, Night Sweats, Pallor, Swollen Lymph Nodes, Other Respiratory: No: Cough, Hemoptysis, Orthopnea, Pleuritic Pain, Shortness of breath, SOB with excertion, Sputum Changes, Stridor, Tachypnea, Wheezing, Other Cardiovascular: No Chest Pain, No Palpitations, No Orthopnea, No Paroxysmal Noc. Dyspnea, No Edema, No Lt Headedness, No Other Gastrointestinal: Yes Nausea, Yes Vomiting, Yes Abdominal Pain Musculoskeletal: No Gait Disturbance, No Joint Pain, No Joint Stiffness, No Joint Swelling, No Muscle Pain, No Muscular Weakness, No Pain In:, No Swelling In:, No Other Physical Exam Physical Exam Constitutional: Well developed, well nourished, no acute distress, non-toxic appearance. [] HENT: Normocephalic, atraumatic, bilateral external ears normal, oropharynx moist, no oral exudates, nose normal. [] Eyes: PERRLA, EOMI, conjunctiva normal, no discharge. [] Neck: Normal range of motion, no tenderness, supple, no stridor. [] Cardiovascular:Heart rate regular rhythm, no murmur [] Lungs & Thorax: Bilateral breath sounds clear to auscultation [] Abdomen: Bowel sounds normal, soft, mild tenderness, no masses, no pulsatile masses. [] Skin: Warm, dry, no erythema, no rash. [] Back: No tenderness, no CVA tenderness. [] Extremities: No tenderness, no cyanosis, no clubbing, ROM intact, no edema. [] Neurologic: Alert and oriented X 3, normal motor function, normal sensory function, no focal deficits noted. [] Psychologic: Affect flat , judgment poor , mood sad . [] General: Alert, Oriented X3, Cooperative, No acute distress HEENT: Mucous membr. moist/pink Lungs: Clear to auscultation, Normal air movement Heart: RRR Breasts: Not examined Rectal Exam: not examined PELVIC: Examination not indicated Extremities: No cyanosis Skin: No breakdown Neuro: Normal speech, Cranial nerves 3-12 NL Vitals Vitals Vital Signs Date Time Temp Pulse Resp B/P (MAP) Pulse Ox O2 Delivery O2 Flow Rate FiO2 12/28/19 04:53 Room Air 12/28/19 04:23 18 100 12/28/19 02:19 98.5 87 147/91 (109) 98.5 Labs Labs Laboratory Tests Test 12/27/19 18:28 12/27/19 20:00 12/27/19 20:08 12/27/19 20:50 White Blood Count 4.0 x10^3/uL (4.0-11.0) Red Blood Count 4.56 x10^6/uL (3.50-5.40) Hemoglobin 12.7 g/dL (12.0-15.5) Hematocrit 38.9 % (36.0-47.0) Mean Corpuscular Volume 85 fL (79-100) Mean Corpuscular Hemoglobin 28 pg (25-35) Mean Corpuscular Hemoglobin Concent 33 g/dL (31-37) Red Cell Distribution Width 17.7 % (11.5-14.5) Platelet Count 157 x10^3/uL (140-400) Neutrophils (%) (Auto) 70 % (31-73) Lymphocytes (%) (Auto) 22 % (24-48) Monocytes (%) (Auto) 8 % (0-9) Eosinophils (%) (Auto) 0 % (0-3) Basophils (%) (Auto) 0 % (0-3) Neutrophils # (Auto) 2.8 x10^3/uL (1.8-7.7) Lymphocytes # (Auto) 0.9 x10^3/uL (1.0-4.8) Monocytes # (Auto) 0.3 x10^3/uL (0.0-1.1) Eosinophils # (Auto) 0.0 x10^3/uL (0.0-0.7) Basophils # (Auto) 0.0 x10^3/uL (0.0-0.2) Urine Collection Type Unknown Urine Color Danielle Urine Clarity Turbid Urine pH 6.0 (<5.0-8.0) Urine Specific [place] 1.025 (1.000-1.030) Urine Protein >=300 mg/dL (NEG-TRACE) Urine Glucose (UA) Negative mg/dL (NEG) Urine Ketones (Stick) >=80 mg/dL (NEG) Urine Blood Large (NEG) Urine Nitrite (NEG) Urine Bilirubin Moderate (NEG) Urine Urobilinogen Dipstick 1.0 mg/dL (0.2 mg/dL) Urine Leukocyte Esterase (NEG) Urine RBC Tntc /HPF (0-2) Urine WBC Occ /HPF (0-4) Urine Squamous Epithelial Cells Mod /LPF Urine Bacteria Few /HPF (0-FEW) Urine Hyaline Casts Moderate /HPF Urine Mucus Marked /LPF Bedside Urine HCG, Qualitative Hcg negative (Negative) Sodium Level 132 mmol/L (136-145) Potassium Level 3.5 mmol/L (3.5-5.1) Chloride Level 94 mmol/L (98-107) Carbon Dioxide Level 17 mmol/L (21-32) Anion Gap 21 (6-14) Blood Urea Nitrogen 10 mg/dL (7-20) Creatinine 0.6 mg/dL (0.6-1.0) Estimated GFR (Cockcroft-Gault) 112.5 BUN/Creatinine Ratio 17 (6-20) Glucose Level 91 mg/dL (70-99) Calcium Level 8.3 mg/dL (8.5-10.1) Magnesium Level 1.7 mg/dL (1.8-2.4) Total Bilirubin 0.6 mg/dL (0.2-1.0) Aspartate Amino Transf (AST/SGOT) 460 U/L (15-37) Alanine Aminotransferase (ALT/SGPT) 179 U/L (14-59) Alkaline Phosphatase 159 U/L (46-116) Total Protein 8.2 g/dL (6.4-8.2) Albumin 3.7 g/dL (3.4-5.0) Albumin/Globulin Ratio 0.8 (1.0-1.7) Lipase 6396 U/L (73-393) Ethyl Alcohol Level 141 mg/dL (0-10) Laboratory Tests Test 12/27/19 18:28 12/27/19 20:00 12/27/19 20:08 12/27/19 20:50 White Blood Count 4.0 x10^3/uL (4.0-11.0) Red Blood Count 4.56 x10^6/uL (3.50-5.40) Hemoglobin 12.7 g/dL (12.0-15.5) Hematocrit 38.9 % (36.0-47.0) Mean Corpuscular Volume 85 fL (79-100) Mean Corpuscular Hemoglobin 28 pg (25-35) Mean Corpuscular Hemoglobin Concent 33 g/dL (31-37) Red Cell Distribution Width 17.7 % (11.5-14.5) Platelet Count 157 x10^3/uL (140-400) Neutrophils (%) (Auto) 70 % (31-73) Lymphocytes (%) (Auto) 22 % (24-48) Monocytes (%) (Auto) 8 % (0-9) Eosinophils (%) (Auto) 0 % (0-3) Basophils (%) (Auto) 0 % (0-3) Neutrophils # (Auto) 2.8 x10^3/uL (1.8-7.7) Lymphocytes # (Auto) 0.9 x10^3/uL (1.0-4.8) Monocytes # (Auto) 0.3 x10^3/uL (0.0-1.1) Eosinophils # (Auto) 0.0 x10^3/uL (0.0-0.7) Basophils # (Auto) 0.0 x10^3/uL (0.0-0.2) Urine Collection Type Unknown Urine Color Danielle Urine Clarity Turbid Urine pH 6.0 (<5.0-8.0) Urine Specific [place] 1.025 (1.000-1.030) Urine Protein >=300 mg/dL (NEG-TRACE) Urine Glucose (UA) Negative mg/dL (NEG) Urine Ketones (Stick) >=80 mg/dL (NEG) Urine Blood Large (NEG) Urine Nitrite (NEG) Urine Bilirubin Moderate (NEG) Urine Urobilinogen Dipstick 1.0 mg/dL (0.2 mg/dL) Urine Leukocyte Esterase (NEG) Urine RBC Tntc /HPF (0-2) Urine WBC Occ /HPF (0-4) Urine Squamous Epithelial Cells Mod /LPF Urine Bacteria Few /HPF (0-FEW) Urine Hyaline Casts Moderate /HPF Urine Mucus Marked /LPF Bedside Urine HCG, Qualitative Hcg negative (Negative) Sodium Level 132 mmol/L (136-145) Potassium Level 3.5 mmol/L (3.5-5.1) Chloride Level 94 mmol/L (98-107) Carbon Dioxide Level 17 mmol/L (21-32) Anion Gap 21 (6-14) Blood Urea Nitrogen 10 mg/dL (7-20) Creatinine 0.6 mg/dL (0.6-1.0) Estimated GFR (Cockcroft-Gault) 112.5 BUN/Creatinine Ratio 17 (6-20) Glucose Level 91 mg/dL (70-99) Calcium Level 8.3 mg/dL (8.5-10.1) Magnesium Level 1.7 mg/dL (1.8-2.4) Total Bilirubin 0.6 mg/dL (0.2-1.0) Aspartate Amino Transf (AST/SGOT) 460 U/L (15-37) Alanine Aminotransferase (ALT/SGPT) 179 U/L (14-59) Alkaline Phosphatase 159 U/L (46-116) Total Protein 8.2 g/dL (6.4-8.2) Albumin 3.7 g/dL (3.4-5.0) Albumin/Globulin Ratio 0.8 (1.0-1.7) Lipase 6396 U/L (73-393) Ethyl Alcohol Level 141 mg/dL (0-10) Images Images TATUS: REG ER ORD. PHYSICIAN: SOULEYMANE NAGY APRN REASON: flank pain, blood in urine PROCEDURE: CT ABDOMEN PELVIS WO CONTRAST INDICATION: Reason: flank pain, blood in urine / Spl. Instructions: / History: COMPARISON: October 2019 TECHNIQUE: Axial CT images obtained through the abdomen and pelvis without contrast. Limited assessment of solid organ structures and vasculature secondary to lack of intravenous contrast.. One or more of the following individualized dose reduction techniques were utilized for this examination: 1. Automated exposure control; 2. Adjustment of the mA and/or kV according to patient size; 3. Use of iterative reconstruction technique. FINDINGS: Abdominal aorta is not aneurysmal. There is scattered calcific atherosclerosis. Small fat-containing umbilical hernia. Liver is low density and enlarged. Postcholecystectomy. Haziness in the fat adjacent to the pancreas. Spleen unremarkable. No hydronephrosis. Urinary bladder is largely decompressed. Surgical clips in the pelvis bilaterally. Portion of the colonic wall in the right appears prominent in thickness but not very distended. No right lower quadrant inflammatory changes. No dilated loops of bowel suggest obstruction. Fullness of the right adnexa measuring up to about 39 mm. Suspected fat-containing hernias in the bilateral groin. IMPRESSION: * Edema of the pancreas. Can be seen with pancreatitis. Correlate with symptoms and laboratory markers. * Liver is diffusely low density. Nonspecific but can be seen with fatty infiltration. * Fullness of the right adnexa. The right ovarian lesion is not excluded given this finding and would correlate with symptoms in the region. If further clarification is desired ultrasound could further assess. * No hydronephrosis * The colonic wall is prominent in a portion of the right side of the colon. Most likely cause is lack of distention unless the patient is having colonic symptoms to suggest colitis. Electronically signed by: Lalit Collier MD (12/27/2019 8:59 PM) [id number] DICTATED and SIGNED BY: LALIT COLLIER MD DATE: 12/27/192058 VTE Prophylaxis Ordered VTE Prophylaxis Devices: No VTE Pharmacological Prophylaxi: Yes Assessment/Plan Assessment/Plan IMPRESSION Acute pancreatitis secondary to alcohol abuse Acute alcohol intoxication Transaminitis secondary to alcohol abuse Edema of the pancreas. Can be seen with pancreatitis. Liver is diffusely low density. Nonspecific but can be seen with fatty infiltration. Fullness of the right adnexa. The right ovarian lesion is not excluded given this finding and would correlate with symptoms in the region. If further clarification is desired ultrasound could further assess. No hydronephrosis The colonic wall is prominent in a portion of the right side of the colon. Most likely cause is lack of distention unless the patient is having colonic symptoms to suggest colitis. Alcoholism Severe hypokalemia Hyperbilirubinemia HEMATURIA Plan ADMIT GI CONSULT N.p.o. IV fluid resuscitation Daily banana bag Alcohol withdrawal protocol Pain management fentanyl DVT prophylaxis with SCDs counseling done [employer] specialist consult 77 min pt exam, chart review, > 50% of time spent with exam, chart review, pt care coordination Justicifation of Admission Dx: Justifications for Admission: Justification of Admission Dx: Yes (OBSERVATION FOR PANCREATITIS) PATRICIA JEROME MD Dec 28, 2019 06:29
[2019-12-28 07:00] VITALS: BP 132/77
--- NOTE | 2019-12-28 07:24 | NUR ---
Routine consult for Pancreatitis and ETOH Abuse for Dr. Maurice called to service at [phone]. Rosy stated she would get the consult request sent to Dr. Maurice.
[2019-12-28] MEDS: HYDROmorphone 2 MG/ML VIAL IV PRN ×5 (08:38→21:11)
--- NOTE | 2019-12-28 09:28 | PDOC2 ---
GI CONSULT Reason For Consult: pancreatitis, alcohol abuse HPI: HPI: 39 y/o female w/ 5 days of epigastric/LUQ throbbing pain. Associated w/ bloating and n/v. Getting worse. Pain meds not working, feels really anxious. Workup c/w pancreatitis - also here in 09/2019 for pancreatitis. She denies pancreas history. Denies reflux/heartburn, dysphagia, hematemesis, diarrhea, constipation, hematochezia, melena, and weight loss. Normal stool this morning. EGD and colonoscopy when she was a teenager in [place], [place]. No significant findings recalled. S/p cholecystectomy age 16, not sure about stone. Thinks she has Hep C - hepatic steatosis and hepatomegaly on current/past imaging. Summary list in clude ibuprofen. PMH: PMH: HTN, depression/anxiety, UTI tubal ligation, cholecystectomy, cystoscopy FH: Family History: No pertinent hx (denies GI cancers) Social History: Smoke: <1 pack per day ALCOHOL: heavy (half of a 1/2 pint 3x weekly) Drugs: None ROS: GEN: Denies fevers, chills, sweats HEENT: Denies blurred vision, sore throat CV: Denies chest pain RESP: Denies shortness of air, cough GI: Per HPI : Denies hematuria, dysuria ENDO: Denies weight changes NEURO: Denies confusion, dizziness MSK: Denies weakness, joint pain/swelling SKIN: Denies jaundice, pruritus Vitals: Vitals: Vital Signs Date Time Temp Pulse Resp B/P (MAP) Pulse Ox O2 Delivery O2 Flow Rate FiO2 12/28/19 08:30 Room Air 12/28/19 07:00 98.2 75 14 132/77 (95) 96 98.2 Labs: Labs: Laboratory Tests Test 12/27/19 18:28 12/27/19 20:00 12/27/19 20:08 12/27/19 20:50 White Blood Count 4.0 x10^3/uL (4.0-11.0) Red Blood Count 4.56 x10^6/uL (3.50-5.40) Hemoglobin 12.7 g/dL (12.0-15.5) Hematocrit 38.9 % (36.0-47.0) Mean Corpuscular Volume 85 fL (79-100) Mean Corpuscular Hemoglobin 28 pg (25-35) Mean Corpuscular Hemoglobin Concent 33 g/dL (31-37) Red Cell Distribution Width 17.7 % (11.5-14.5) Platelet Count 157 x10^3/uL (140-400) Neutrophils (%) (Auto) 70 % (31-73) Lymphocytes (%) (Auto) 22 % (24-48) Monocytes (%) (Auto) 8 % (0-9) Eosinophils (%) (Auto) 0 % (0-3) Basophils (%) (Auto) 0 % (0-3) Neutrophils # (Auto) 2.8 x10^3/uL (1.8-7.7) Lymphocytes # (Auto) 0.9 x10^3/uL (1.0-4.8) Monocytes # (Auto) 0.3 x10^3/uL (0.0-1.1) Eosinophils # (Auto) 0.0 x10^3/uL (0.0-0.7) Basophils # (Auto) 0.0 x10^3/uL (0.0-0.2) Urine Collection Type Unknown Urine Color Danielle Urine Clarity Turbid Urine pH 6.0 (<5.0-8.0) Urine Specific [place] 1.025 (1.000-1.030) Urine Protein >=300 mg/dL (NEG-TRACE) Urine Glucose (UA) Negative mg/dL (NEG) Urine Ketones (Stick) >=80 mg/dL (NEG) Urine Blood Large (NEG) Urine Nitrite (NEG) Urine Bilirubin Moderate (NEG) Urine Urobilinogen Dipstick 1.0 mg/dL (0.2 mg/dL) Urine Leukocyte Esterase (NEG) Urine RBC Tntc /HPF (0-2) Urine WBC Occ /HPF (0-4) Urine Squamous Epithelial Cells Mod /LPF Urine Bacteria Few /HPF (0-FEW) Urine Hyaline Casts Moderate /HPF Urine Mucus Marked /LPF Bedside Urine HCG, Qualitative Hcg negative (Negative) Sodium Level 132 mmol/L (136-145) Potassium Level 3.5 mmol/L (3.5-5.1) Chloride Level 94 mmol/L (98-107) Carbon Dioxide Level 17 mmol/L (21-32) Anion Gap 21 (6-14) Blood Urea Nitrogen 10 mg/dL (7-20) Creatinine 0.6 mg/dL (0.6-1.0) Estimated GFR (Cockcroft-Gault) 112.5 BUN/Creatinine Ratio 17 (6-20) Glucose Level 91 mg/dL (70-99) Calcium Level 8.3 mg/dL (8.5-10.1) Magnesium Level 1.7 mg/dL (1.8-2.4) Total Bilirubin 0.6 mg/dL (0.2-1.0) Aspartate Amino Transf (AST/SGOT) 460 U/L (15-37) Alanine Aminotransferase (ALT/SGPT) 179 U/L (14-59) Alkaline Phosphatase 159 U/L (46-116) Total Protein 8.2 g/dL (6.4-8.2) Albumin 3.7 g/dL (3.4-5.0) Albumin/Globulin Ratio 0.8 (1.0-1.7) Lipase 6396 U/L (73-393) Ethyl Alcohol Level 141 mg/dL (0-10) Allergies: Coded Allergies: latex (Verified Allergy, Intermediate, 09/19/19) prochlorperazine (Verified Allergy, Intermediate, 09/19/19) Medications: Current Medications Medications (Trade) Dose Ordered Sig/Jarred Route PRN Reason Start Time Stop Time Status Last Admin Dose Admin Ondansetron HCl (Zofran) 4 mg 1X ONCE IV 12/27/19 19:15 12/27/19 19:16 DC 12/27/19 19:09 Sodium Chloride 1,000 ml @ 1,000 mls/hr 1X ONCE IV 12/27/19 19:15 12/27/19 20:14 DC 12/27/19 19:09 Ketorolac Tromethamine (Toradol 15mg Vial) 15 mg 1X ONCE IVP 12/27/19 19:30 12/27/19 19:31 DC 12/27/19 20:12 Fentanyl Citrate (Fentanyl 2ml Vial) 50 mcg 1X ONCE IV 12/27/19 21:30 12/27/19 21:31 DC 12/27/19 21:17 Ondansetron HCl (Zofran) 4 mg PRN Q8HRS PRN IV NAUSEA/VOMITING 1ST CHOICE 12/27/19 21:30 12/28/19 21:29 12/28/19 00:10 Fentanyl Citrate (Fentanyl 2ml Vial) 50 mcg PRN Q2HR PRN IV SEVERE PAIN 7-10 12/27/19 21:30 12/28/19 21:29 12/28/19 06:30 Multivitamins 10 ml/Thiamine HCl 100 mg/Folic Acid 1 mg/Sodium Chloride 1,011.2 ml @ 100 mls/ hr DAILY IV 12/28/19 00:00 01/01/20 19:07 12/28/19 00:14 Lisinopril (Prinivil) 10 mg DAILY PO 12/28/19 01:00 12/28/19 00:51 Hydromorphone HCl (Dilaudid) 0.5 mg PRN Q3HRS PRN IV PAIN 12/28/19 08:30 12/28/19 08:38 Imaging: Imaging: CT A/P IMPRESSION: * Edema of the pancreas. Can be seen with pancreatitis. Correlate with symptoms and laboratory markers. * Liver is diffusely low density. Nonspecific but can be seen with fatty infiltration. * Fullness of the right adnexa. The right ovarian lesion is not excluded given this finding and would correlate with symptoms in the region. If further clarification is desired ultrasound could further assess. * No hydronephrosis * The colonic wall is prominent in a portion of the right side of the colon. Most likely cause is lack of distention unless the patient is having colonic symptoms to suggest colitis. PE: GEN: uncomfortable HEENT: Atraumatic, PERRL LUNGS: CTAB HEART: RRR ABD: quiet, distended, tender epigastrium/LUQ to very light touch EXTREMITY: No edema SKIN: No rashes, no jaundice NEURO/PSYCH: A & O 3, anxious, tearful A/P: A/P: Pancreatitis - likely 2/2 alcohol Elevated LFTs, ?h/o Hep C, fatty liver - viral serologies negative 08/2019 S/p cholecystectomy Alcohol abuse -- Pain control, IVF per Dr. Cherry. NPO. 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 Consider US liver. TRACY GIL Dec 28, 2019 09:28
--- NOTE | 2019-12-28 10:33 | PDOC2 ---
CONSULT Date of Consult Date of Consult DATE: 12/28/19 TIME: 10:32 Reason for Consult Reason for Consult: Right adnexal mass History of Present Illness Reason for Visit: 39y who presented to the ER on 12/26 with abd/flank pain. The pt reported a 5 day h/o the midline pain. Over the last 2 days the pt began experiencing N/V and hematuria. She was seen at about a wk ago but was d/carlotta from their ER. The pt has a h/o pancreatitis and appears by imaging and symptoms to be experiencing an acute episode. In the course of her work she underwent a CT revealing a right adnexal mass, Fullness of the right adnexa measuring up to about 39 mm. The pt had a BTL with her last C/S about 7yrs ago. She is unsure of the method, but most likely clips based on the imaging. She has not had a pap for over 5yrs. Due to insurance issues she has been unable to establish with a physician ophthalmologist let alone a PCP. PMH: Alcoholism, Anxiety, Depression, Diabetes-Type I, Hypertension, Liver Disease, MS, Hepatitis C, liver failure, multiple suicide attempts PSH: Cholecystectomy, , Tubal ligation, hyperdistention of bladder, EGD OBHx: 1. 41wk , 2. 36wk , 3. 35wk , 4. 29wk emergent C/S (in hospital for 2wks with PTL, malpresentation), 5. 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 BTL ~7yrs ago H/o patch ~5yrs 17yo / regular SH: Current Every Day Smoker, heavy EtOH use Family History Family History: Alcohol Abuse, Drug Abuse Social History ALCOHOL: heavy Drugs: None Current Medications Current Medications Current Medications Ondansetron HCl (Zofran) 4 mg STK-MED ONCE .ROUTE ; Start 12/27/19 at 18:46; Stop 12/27/19 at 18:46; Status DC Ondansetron HCl (Zofran) 4 mg 1X ONCE IV Last administered on 12/27/19at 19:09; Start 12/27/19 at 19:15; Stop 12/27/19 at 19:16; Status DC Sodium Chloride 1,000 ml @ 1,000 mls/hr 1X ONCE IV Last administered on 12/27/19at 19:09; Start 12/27/19 at 19:15; Stop 12/27/19 at 20:14; Status DC Ketorolac Tromethamine (Toradol 15mg Vial) 15 mg 1X ONCE IVP Last administered on 12/27/19at 20:12; Start 12/27/19 at 19:30; Stop 12/27/19 at 19:31; Status DC Fentanyl Citrate (Fentanyl 2ml Vial) 50 mcg 1X ONCE IV Last administered on 12/27/19at 21:17; Start 12/27/19 at 21:30; Stop 12/27/19 at 21:31; Status DC Ondansetron HCl (Zofran) 4 mg PRN Q8HRS PRN IV NAUSEA/VOMITING 1ST CHOICE Last administered on 12/28/19at 09:40; Start 12/27/19 at 21:30; Stop 12/28/19 at 21:29 Fentanyl Citrate (Fentanyl 2ml Vial) 50 mcg PRN Q2HR PRN IV SEVERE PAIN 7-10 Last administered on 12/28/19at 06:30; Start 12/27/19 at 21:30; Stop 12/28/19 at 21:29 Multivitamins 10 ml/Thiamine HCl 100 mg/Folic Acid 1 mg/Sodium Chloride 1,011.2 ml @ 100 mls/ hr DAILY IV Last administered on 12/28/19at 00:14; Start 12/28/19 at 00:00; Stop 01/01/20 at 19:07 Lorazepam (Ativan Inj) 2 mg PRN Q1HR PRN IV For CIWA 8-14; Start 12/27/19 at 23:15 Lorazepam (Ativan Inj) 4 mg PRN Q1HR PRN IV For CIWA 15 or greater; Start 12/27/19 at 23:15 Haloperidol Lactate (Haldol Inj) 5 mg PRN Q4HRS PRN IVP Hallucinatns,Confusn,Delirium; Start 12/27/19 at 23:15 Diphenhydramine HCl (Benadryl) 25 mg PRN Q15MIN PRN IVP EPS symptoms 2'Haldol admin; Start 12/27/19 at 23:15 Lisinopril (Prinivil) 10 mg DAILY PO Last administered on 12/28/19at 00:51; Start 12/28/19 at 01:00 Hydromorphone HCl (Dilaudid) 0.5 mg PRN Q3HRS PRN IV PAIN Last administered on 12/28/19at 08:38; Start 12/28/19 at 08:30 Active Scripts Active Reported Ibuprofen 800 Mg Tablet 800 Mg PO DAILY PRN Lisinopril 10 Mg Tablet 10 Mg PO DAILY Allergies Allergies: Coded Allergies: latex (Verified Allergy, Intermediate, 09/19/19) prochlorperazine (Verified Allergy, Intermediate, 09/19/19) Physical Exam General: Alert, Oriented X3, Cooperative, No acute distress Lungs: Clear to auscultation, Normal air movement Heart: Regular rate, Normal S1, Normal S2, No murmurs Extremities: No clubbing, No cyanosis, No edema, Normal pulses, No tenderness/swelling Skin: No rashes, No breakdown Vitals VITALS Vital Signs Date Time Temp Pulse Resp B/P (MAP) Pulse Ox O2 Delivery O2 Flow Rate FiO2 12/28/19 08:30 Room Air 12/28/19 07:00 98.2 75 14 132/77 (95) 96 98.2 Labs Labs Laboratory Tests Test 12/27/19 18:28 12/27/19 20:00 12/27/19 20:08 12/27/19 20:50 White Blood Count 4.0 x10^3/uL (4.0-11.0) Red Blood Count 4.56 x10^6/uL (3.50-5.40) Hemoglobin 12.7 g/dL (12.0-15.5) Hematocrit 38.9 % (36.0-47.0) Mean Corpuscular Volume 85 fL (79-100) Mean Corpuscular Hemoglobin 28 pg (25-35) Mean Corpuscular Hemoglobin Concent 33 g/dL (31-37) Red Cell Distribution Width 17.7 % (11.5-14.5) Platelet Count 157 x10^3/uL (140-400) Neutrophils (%) (Auto) 70 % (31-73) Lymphocytes (%) (Auto) 22 % (24-48) Monocytes (%) (Auto) 8 % (0-9) Eosinophils (%) (Auto) 0 % (0-3) Basophils (%) (Auto) 0 % (0-3) Neutrophils # (Auto) 2.8 x10^3/uL (1.8-7.7) Lymphocytes # (Auto) 0.9 x10^3/uL (1.0-4.8) Monocytes # (Auto) 0.3 x10^3/uL (0.0-1.1) Eosinophils # (Auto) 0.0 x10^3/uL (0.0-0.7) Basophils # (Auto) 0.0 x10^3/uL (0.0-0.2) Urine Collection Type Unknown Urine Color Danielle Urine Clarity Turbid Urine pH 6.0 (<5.0-8.0) Urine Specific Damar 1.025 (1.000-1.030) Urine Protein >=300 mg/dL (NEG-TRACE) Urine Glucose (UA) Negative mg/dL (NEG) Urine Ketones (Stick) >=80 mg/dL (NEG) Urine Blood Large (NEG) Urine Nitrite (NEG) Urine Bilirubin Moderate (NEG) Urine Urobilinogen Dipstick 1.0 mg/dL (0.2 mg/dL) Urine Leukocyte Esterase (NEG) Urine RBC Tntc /HPF (0-2) Urine WBC Occ /HPF (0-4) Urine Squamous Epithelial Cells Mod /LPF Urine Bacteria Few /HPF (0-FEW) Urine Hyaline Casts Moderate /HPF Urine Mucus Marked /LPF Bedside Urine HCG, Qualitative Hcg negative (Negative) Sodium Level 132 mmol/L (136-145) Potassium Level 3.5 mmol/L (3.5-5.1) Chloride Level 94 mmol/L (98-107) Carbon Dioxide Level 17 mmol/L (21-32) Anion Gap 21 (6-14) Blood Urea Nitrogen 10 mg/dL (7-20) Creatinine 0.6 mg/dL (0.6-1.0) Estimated GFR (Cockcroft-Gault) 112.5 BUN/Creatinine Ratio 17 (6-20) Glucose Level 91 mg/dL (70-99) Calcium Level 8.3 mg/dL (8.5-10.1) Magnesium Level 1.7 mg/dL (1.8-2.4) Total Bilirubin 0.6 mg/dL (0.2-1.0) Aspartate Amino Transf (AST/SGOT) 460 U/L (15-37) Alanine Aminotransferase (ALT/SGPT) 179 U/L (14-59) Alkaline Phosphatase 159 U/L (46-116) Total Protein 8.2 g/dL (6.4-8.2) Albumin 3.7 g/dL (3.4-5.0) Albumin/Globulin Ratio 0.8 (1.0-1.7) Lipase 6396 U/L (73-393) Ethyl Alcohol Level 141 mg/dL (0-10) Laboratory Tests Test 12/27/19 18:28 12/27/19 20:00 12/27/19 20:08 12/27/19 20:50 White Blood Count 4.0 x10^3/uL (4.0-11.0) Red Blood Count 4.56 x10^6/uL (3.50-5.40) Hemoglobin 12.7 g/dL (12.0-15.5) Hematocrit 38.9 % (36.0-47.0) Mean Corpuscular Volume 85 fL (79-100) Mean Corpuscular Hemoglobin 28 pg (25-35) Mean Corpuscular Hemoglobin Concent 33 g/dL (31-37) Red Cell Distribution Width 17.7 % (11.5-14.5) Platelet Count 157 x10^3/uL (140-400) Neutrophils (%) (Auto) 70 % (31-73) Lymphocytes (%) (Auto) 22 % (24-48) Monocytes (%) (Auto) 8 % (0-9) Eosinophils (%) (Auto) 0 % (0-3) Basophils (%) (Auto) 0 % (0-3) Neutrophils # (Auto) 2.8 x10^3/uL (1.8-7.7) Lymphocytes # (Auto) 0.9 x10^3/uL (1.0-4.8) Monocytes # (Auto) 0.3 x10^3/uL (0.0-1.1) Eosinophils # (Auto) 0.0 x10^3/uL (0.0-0.7) Basophils # (Auto) 0.0 x10^3/uL (0.0-0.2) Urine Collection Type Unknown Urine Color Danielle Urine Clarity Turbid Urine pH 6.0 (<5.0-8.0) Urine Specific Damar 1.025 (1.000-1.030) Urine Protein >=300 mg/dL (NEG-TRACE) Urine Glucose (UA) Negative mg/dL (NEG) Urine Ketones (Stick) >=80 mg/dL (NEG) Urine Blood Large (NEG) Urine Nitrite (NEG) Urine Bilirubin Moderate (NEG) Urine Urobilinogen Dipstick 1.0 mg/dL (0.2 mg/dL) Urine Leukocyte Esterase (NEG) Urine RBC Tntc /HPF (0-2) Urine WBC Occ /HPF (0-4) Urine Squamous Epithelial Cells Mod /LPF Urine Bacteria Few /HPF (0-FEW) Urine Hyaline Casts Moderate /HPF Urine Mucus Marked /LPF Bedside Urine HCG, Qualitative Hcg negative (Negative) Sodium Level 132 mmol/L (136-145) Potassium Level 3.5 mmol/L (3.5-5.1) Chloride Level 94 mmol/L (98-107) Carbon Dioxide Level 17 mmol/L (21-32) Anion Gap 21 (6-14) Blood Urea Nitrogen 10 mg/dL (7-20) Creatinine 0.6 mg/dL (0.6-1.0) Estimated GFR (Cockcroft-Gault) 112.5 BUN/Creatinine Ratio 17 (6-20) Glucose Level 91 mg/dL (70-99) Calcium Level 8.3 mg/dL (8.5-10.1) Magnesium Level 1.7 mg/dL (1.8-2.4) Total Bilirubin 0.6 mg/dL (0.2-1.0) Aspartate Amino Transf (AST/SGOT) 460 U/L (15-37) Alanine Aminotransferase (ALT/SGPT) 179 U/L (14-59) Alkaline Phosphatase 159 U/L (46-116) Total Protein 8.2 g/dL (6.4-8.2) Albumin 3.7 g/dL (3.4-5.0) Albumin/Globulin Ratio 0.8 (1.0-1.7) Lipase 6396 U/L (73-393) Ethyl Alcohol Level 141 mg/dL (0-10) Assessment/Plan Assessment/Plan Assessment: 39y admitted on 12/26 with acute pancreatitis secondary to alcohol abuse Recommendations: 1.) Right adnexal mass 39mm fullness noted in right adnexa, ddx would include malignancy, infectious process or even artifact, would order u/s to better characterize pelvic anatomy 2.) Contraception - BTL 3.) Acute pancreatitis secondary to alcohol abuse edema of pancreas, with elevated LFTs, NPO, GI consulted 4.) Acute alcohol intoxication h/o alcoholism 5.) Liver is diffusely low density GI consulted 6.) Prominence of colonic wall 7.) Severe hypokalemia managed per primary team 8.) Hematuria 9.) Will continue to follow MAGAN MARQUEZ MD Dec 28, 2019 10:33
[2019-12-28] MEDS ORDERED: ACETAMINOPHEN 650 MG SUPP.RECT. PR PRN (11:30)
[2019-12-28] MEDS ORDERED: ONDANSETRON PF 4 MG/2 ML VIAL. IV PRN (11:30)
[2019-12-28] MEDS ORDERED: 0.9 % SODIUM CHLORIDE 10 ML DISP.SYRIN. IV PRN (11:30)
[2019-12-28] MEDS ORDERED: ALBUTEROL SULFATE 2.5 MG/3 ML NEBU. NEB PRN (11:30)
[2019-12-28 11:32] VITALS: BP 149/94
[2019-12-28] MEDS: ENOXAPARIN 40 MG/0.4 ML SYRINGE. SQ SCH (11:35)
[2019-12-28] MEDS ORDERED: MAGNESIUM SULFATE 2GM 50 ML IV ONE (12:00)
--- NOTE | 2019-12-28 12:38 | NUR ---
SS following for discharge planning. SS reviewed pt chart and discussed with pt RN. Pt is from home and is currently on room air. PAT team referral made for ETOH. SS will continue to follow for discharge planning.
[2019-12-28] MEDS: PANTOPRAZOLE IV PUSH 40 MG VIAL. IVP SCH (13:20)
[2019-12-28 14:28] VITALS: BP 147/102
[2019-12-28 18:18] VITALS: BP 156/109
--- NOTE | 2019-12-28 19:43 | RAD ---
INDICATION: Cirrhosis COMPARISON: December 27, 2019 TECHNIQUE: Grayscale and color ultrasound images obtained through the abdomen. FINDINGS: Aorta/IVC: Visualized portion unremarkable. Pancreas: Largely obscured by bowel gas. Liver: Echogenic. Gallbladder: Removed Common Bile Duct: Not dilated. Right Kidney: No hydronephrosis. Left Kidney: No hydronephrosis. Spleen: Unremarkable. IMPRESSION: * Liver is echogenic. Nonspecific but can be seen with fatty infiltration. Electronically signed by: Hiram Collier MD (12/28/2019 7:40 PM) [id number]
[2019-12-28 23:30] VITALS: BP 145/95
[2019-12-29] MEDS: HYDROmorphone 2 MG/ML VIAL IV PRN ×7 (00:33→22:26)
[2019-12-29 03:00] VITALS: BP 145/89
[2019-12-29 04:22] LABS: BASO % 0 % (0-3); EOS % 0 % (0-3); HEMATOCRIT 35.4 % (36.0-47.0); HEMOGLOBIN 11.6 g/dL (12.0-15.5); LYMPH # 0.4 x10^3/uL (1.0-4.8); LYMPH % 5 % (24-48); MEAN CORPUSCULAR HEMOGLOBIN 27 pg (25-35); MEAN CORPUSCULAR HGB CONC 33 g/dL (31-37); MEAN CORPUSCULAR VOLUME 84 fL (79-100); MONO # 0.5 x10^3/uL (0.0-1.1); MONO % 6 % (0-9); NEUT % 89 % (31-73); PLATELET COUNT 107 x10^3/uL (140-400); RED BLOOD COUNT 4.24 x10^6/uL (3.50-5.40)
[2019-12-29 04:45] LABS: ALBUMIN 3.5 g/dL (3.4-5.0); ALBUMIN/GLOBULIN RATIO 0.8 (1.0-1.7); CALCIUM 9.1 mg/dL (8.5-10.1); CREATININE 0.4 mg/dL (0.6-1.0); GFR 179.6; TOTAL BILIRUBIN 1.1 mg/dL (0.2-1.0)
[2019-12-29] MEDS: PANTOPRAZOLE IV PUSH 40 MG VIAL. IVP SCH (05:47)
[2019-12-29 07:00] VITALS: BP 126/98
[2019-12-29] MEDS: MULTIVIT INFUSN,ADULT 4,VIT K 10 ML, THIAMINE INJ 100 MG, FOLIC ACID INJ 1 MG in IV NOR... IV SCH (09:01)
[2019-12-29] MEDS: LISINOPRIL 10 MG TABLET PO SCH (09:09)
[2019-12-29 11:00] VITALS: BP 126/96
--- NOTE | 2019-12-29 11:05 | PDOC ---
PROGRESS NOTES History of Present Illness History of Present Illness VTE Prophylaxis Ordered VTE Prophylaxis Devices: No VTE Pharmacological Prophylaxi: Yes Assessment/Plan Assessment/Plan IMPRESSION Acute pancreatitis secondary to alcohol abuse Acute alcohol intoxication Transaminitis secondary to alcohol abuse Edema of the pancreas. Can be seen with pancreatitis. Liver is diffusely low density. Nonspecific but can be seen with fatty infiltration. Fullness of the right adnexa. The right ovarian lesion is not excluded given this finding and would correlate with symptoms in the region. If further clarification is desired ultrasound could further assess. No hydronephrosis The colonic wall is prominent in a portion of the right side of the colon. Most likely cause is lack of distention unless the patient is having colonic symptoms to suggest colitis. Alcoholism Severe hypokalemia Hyperbilirubinemia HEMATURIA hyponatremia Plan ADMIT GI CONSULT N.p.o. 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 am comp serum osmolality fluid restrict 37 min pt exam, chart review, > 50% of time spent with exam, chart review, pt care coordination Justicifation of Admission Dx: Justicifation of Admission Dx: Justifications for Admission: Justification of Admission Dx: Yes (OBSERVATION FOR PANCREATITIS) Vitals Vitals Vital Signs Date Time Temp Pulse Resp B/P (MAP) Pulse Ox O2 Delivery O2 Flow Rate FiO2 12/29/19 09:15 Room Air 12/29/19 09:09 126/98 12/29/19 07:00 108 20 97 12/29/19 03:00 98.0 98.0 Physical Exam General: Alert, Oriented X3, Cooperative, No acute distress Heart: Regular rate, Normal S1, Normal S2, No murmurs Lungs: Clear Abdomen: Normal bowel sounds, Soft Extremities: No cyanosis Skin: No breakdown Labs LABS Laboratory Tests Test 12/29/19 04:00 White Blood Count 9.0 x10^3/uL (4.0-11.0) Red Blood Count 4.24 x10^6/uL (3.50-5.40) Hemoglobin 11.6 g/dL (12.0-15.5) Hematocrit 35.4 % (36.0-47.0) Mean Corpuscular Volume 84 fL (79-100) Mean Corpuscular Hemoglobin 27 pg (25-35) Mean Corpuscular Hemoglobin Concent 33 g/dL (31-37) Red Cell Distribution Width 17.0 % (11.5-14.5) Platelet Count 107 x10^3/uL (140-400) Neutrophils (%) (Auto) 89 % (31-73) Lymphocytes (%) (Auto) 5 % (24-48) Monocytes (%) (Auto) 6 % (0-9) Eosinophils (%) (Auto) 0 % (0-3) Basophils (%) (Auto) 0 % (0-3) Neutrophils # (Auto) 8.0 x10^3/uL (1.8-7.7) Lymphocytes # (Auto) 0.4 x10^3/uL (1.0-4.8) Monocytes # (Auto) 0.5 x10^3/uL (0.0-1.1) Eosinophils # (Auto) 0.0 x10^3/uL (0.0-0.7) Basophils # (Auto) 0.0 x10^3/uL (0.0-0.2) Sodium Level 123 mmol/L (136-145) Potassium Level 3.0 mmol/L (3.5-5.1) Chloride Level 88 mmol/L (98-107) Carbon Dioxide Level 21 mmol/L (21-32) Anion Gap 14 (6-14) Blood Urea Nitrogen 3 mg/dL (7-20) Creatinine 0.4 mg/dL (0.6-1.0) Estimated GFR (Cockcroft-Gault) 179.6 BUN/Creatinine Ratio 8 (6-20) Glucose Level 114 mg/dL (70-99) Calcium Level 9.1 mg/dL (8.5-10.1) Total Bilirubin 1.1 mg/dL (0.2-1.0) Aspartate Amino Transf (AST/SGOT) 176 U/L (15-37) Alanine Aminotransferase (ALT/SGPT) 119 U/L (14-59) Alkaline Phosphatase 143 U/L (46-116) Total Protein 8.0 g/dL (6.4-8.2) Albumin 3.5 g/dL (3.4-5.0) Albumin/Globulin Ratio 0.8 (1.0-1.7) Comment Review of Relevant I have reviewed the following items lore (where applicable) has been applied. Labs Laboratory Tests Test 12/27/19 18:28 12/27/19 20:00 12/27/19 20:08 12/27/19 20:50 White Blood Count 4.0 x10^3/uL (4.0-11.0) Red Blood Count 4.56 x10^6/uL (3.50-5.40) Hemoglobin 12.7 g/dL (12.0-15.5) Hematocrit 38.9 % (36.0-47.0) Mean Corpuscular Volume 85 fL (79-100) Mean Corpuscular Hemoglobin 28 pg (25-35) Mean Corpuscular Hemoglobin Concent 33 g/dL (31-37) Red Cell Distribution Width 17.7 % (11.5-14.5) Platelet Count 157 x10^3/uL (140-400) Neutrophils (%) (Auto) 70 % (31-73) Lymphocytes (%) (Auto) 22 % (24-48) Monocytes (%) (Auto) 8 % (0-9) Eosinophils (%) (Auto) 0 % (0-3) Basophils (%) (Auto) 0 % (0-3) Neutrophils # (Auto) 2.8 x10^3/uL (1.8-7.7) Lymphocytes # (Auto) 0.9 x10^3/uL (1.0-4.8) Monocytes # (Auto) 0.3 x10^3/uL (0.0-1.1) Eosinophils # (Auto) 0.0 x10^3/uL (0.0-0.7) Basophils # (Auto) 0.0 x10^3/uL (0.0-0.2) Urine Collection Type Unknown Urine Color Danielle Urine Clarity Turbid Urine pH 6.0 (<5.0-8.0) Urine Specific Harrison 1.025 (1.000-1.030) Urine Protein >=300 mg/dL (NEG-TRACE) Urine Glucose (UA) Negative mg/dL (NEG) Urine Ketones (Stick) >=80 mg/dL (NEG) Urine Blood Large (NEG) Urine Nitrite (NEG) Urine Bilirubin Moderate (NEG) Urine Urobilinogen Dipstick 1.0 mg/dL (0.2 mg/dL) Urine Leukocyte Esterase (NEG) Urine RBC Tntc /HPF (0-2) Urine WBC Occ /HPF (0-4) Urine Squamous Epithelial Cells Mod /LPF Urine Bacteria Few /HPF (0-FEW) Urine Hyaline Casts Moderate /HPF Urine Mucus Marked /LPF Bedside Urine HCG, Qualitative Hcg negative (Negative) Sodium Level 132 mmol/L (136-145) Potassium Level 3.5 mmol/L (3.5-5.1) Chloride Level 94 mmol/L (98-107) Carbon Dioxide Level 17 mmol/L (21-32) Anion Gap 21 (6-14) Blood Urea Nitrogen 10 mg/dL (7-20) Creatinine 0.6 mg/dL (0.6-1.0) Estimated GFR (Cockcroft-Gault) 112.5 BUN/Creatinine Ratio 17 (6-20) Glucose Level 91 mg/dL (70-99) Calcium Level 8.3 mg/dL (8.5-10.1) Magnesium Level 1.7 mg/dL (1.8-2.4) Total Bilirubin 0.6 mg/dL (0.2-1.0) Aspartate Amino Transf (AST/SGOT) 460 U/L (15-37) Alanine Aminotransferase (ALT/SGPT) 179 U/L (14-59) Alkaline Phosphatase 159 U/L (46-116) Total Protein 8.2 g/dL (6.4-8.2) Albumin 3.7 g/dL (3.4-5.0) Albumin/Globulin Ratio 0.8 (1.0-1.7) Lipase 6396 U/L (73-393) Ethyl Alcohol Level 141 mg/dL (0-10) Test 12/29/19 04:00 White Blood Count 9.0 x10^3/uL (4.0-11.0) Red Blood Count 4.24 x10^6/uL (3.50-5.40) Hemoglobin 11.6 g/dL (12.0-15.5) Hematocrit 35.4 % (36.0-47.0) Mean Corpuscular Volume 84 fL (79-100) Mean Corpuscular Hemoglobin 27 pg (25-35) Mean Corpuscular Hemoglobin Concent 33 g/dL (31-37) Red Cell Distribution Width 17.0 % (11.5-14.5) Platelet Count 107 x10^3/uL (140-400) Neutrophils (%) (Auto) 89 % (31-73) Lymphocytes (%) (Auto) 5 % (24-48) Monocytes (%) (Auto) 6 % (0-9) Eosinophils (%) (Auto) 0 % (0-3) Basophils (%) (Auto) 0 % (0-3) Neutrophils # (Auto) 8.0 x10^3/uL (1.8-7.7) Lymphocytes # (Auto) 0.4 x10^3/uL (1.0-4.8) Monocytes # (Auto) 0.5 x10^3/uL (0.0-1.1) Eosinophils # (Auto) 0.0 x10^3/uL (0.0-0.7) Basophils # (Auto) 0.0 x10^3/uL (0.0-0.2) Sodium Level 123 mmol/L (136-145) Potassium Level 3.0 mmol/L (3.5-5.1) Chloride Level 88 mmol/L (98-107) Carbon Dioxide Level 21 mmol/L (21-32) Anion Gap 14 (6-14) Blood Urea Nitrogen 3 mg/dL (7-20) Creatinine 0.4 mg/dL (0.6-1.0) Estimated GFR (Cockcroft-Gault) 179.6 BUN/Creatinine Ratio 8 (6-20) Glucose Level 114 mg/dL (70-99) Calcium Level 9.1 mg/dL (8.5-10.1) Total Bilirubin 1.1 mg/dL (0.2-1.0) Aspartate Amino Transf (AST/SGOT) 176 U/L (15-37) Alanine Aminotransferase (ALT/SGPT) 119 U/L (14-59) Alkaline Phosphatase 143 U/L (46-116) Total Protein 8.0 g/dL (6.4-8.2) Albumin 3.5 g/dL (3.4-5.0) Albumin/Globulin Ratio 0.8 (1.0-1.7) Laboratory Tests Test 12/29/19 04:00 White Blood Count 9.0 x10^3/uL (4.0-11.0) Red Blood Count 4.24 x10^6/uL (3.50-5.40) Hemoglobin 11.6 g/dL (12.0-15.5) Hematocrit 35.4 % (36.0-47.0) Mean Corpuscular Volume 84 fL (79-100) Mean Corpuscular Hemoglobin 27 pg (25-35) Mean Corpuscular Hemoglobin Concent 33 g/dL (31-37) Red Cell Distribution Width 17.0 % (11.5-14.5) Platelet Count 107 x10^3/uL (140-400) Neutrophils (%) (Auto) 89 % (31-73) Lymphocytes (%) (Auto) 5 % (24-48) Monocytes (%) (Auto) 6 % (0-9) Eosinophils (%) (Auto) 0 % (0-3) Basophils (%) (Auto) 0 % (0-3) Neutrophils # (Auto) 8.0 x10^3/uL (1.8-7.7) Lymphocytes # (Auto) 0.4 x10^3/uL (1.0-4.8) Monocytes # (Auto) 0.5 x10^3/uL (0.0-1.1) Eosinophils # (Auto) 0.0 x10^3/uL (0.0-0.7) Basophils # (Auto) 0.0 x10^3/uL (0.0-0.2) Sodium Level 123 mmol/L (136-145) Potassium Level 3.0 mmol/L (3.5-5.1) Chloride Level 88 mmol/L (98-107) Carbon Dioxide Level 21 mmol/L (21-32) Anion Gap 14 (6-14) Blood Urea Nitrogen 3 mg/dL (7-20) Creatinine 0.4 mg/dL (0.6-1.0) Estimated GFR (Cockcroft-Gault) 179.6 BUN/Creatinine Ratio 8 (6-20) Glucose Level 114 mg/dL (70-99) Calcium Level 9.1 mg/dL (8.5-10.1) Total Bilirubin 1.1 mg/dL (0.2-1.0) Aspartate Amino Transf (AST/SGOT) 176 U/L (15-37) Alanine Aminotransferase (ALT/SGPT) 119 U/L (14-59) Alkaline Phosphatase 143 U/L (46-116) Total Protein 8.0 g/dL (6.4-8.2) Albumin 3.5 g/dL (3.4-5.0) Albumin/Globulin Ratio 0.8 (1.0-1.7) Medications Current Medications Ondansetron HCl (Zofran) 4 mg STK-MED ONCE .ROUTE ; Start 12/27/19 at 18:46; Stop 12/27/19 at 18:46; Status DC Ondansetron HCl (Zofran) 4 mg 1X ONCE IV Last administered on 12/27/19at 19:09; Start 12/27/19 at 19:15; Stop 12/27/19 at 19:16; Status DC Sodium Chloride 1,000 ml @ 1,000 mls/hr 1X ONCE IV Last administered on 12/27/19at 19:09; Start 12/27/19 at 19:15; Stop 12/27/19 at 20:14; Status DC Ketorolac Tromethamine (Toradol 15mg Vial) 15 mg 1X ONCE IVP Last administered on 12/27/19at 20:12; Start 12/27/19 at 19:30; Stop 12/27/19 at 19:31; Status DC Fentanyl Citrate (Fentanyl 2ml Vial) 50 mcg 1X ONCE IV Last administered on 12/27/19at 21:17; Start 12/27/19 at 21:30; Stop 12/27/19 at 21:31; Status DC Ondansetron HCl (Zofran) 4 mg PRN Q8HRS PRN IV NAUSEA/VOMITING 1ST CHOICE Last administered on 12/28/19at 09:40; Start 12/27/19 at 21:30; Stop 12/28/19 at 21:29; Status DC Fentanyl Citrate (Fentanyl 2ml Vial) 50 mcg PRN Q2HR PRN IV SEVERE PAIN 7-10 Last administered on 12/28/19at 06:30; Start 12/27/19 at 21:30; Stop 12/28/19 at 21:29; Status DC Multivitamins 10 ml/Thiamine HCl 100 mg/Folic Acid 1 mg/Sodium Chloride 1,011.2 ml @ 100 mls/ hr DAILY IV Last administered on 12/29/19at 09:01; Start 12/28/19 at 00:00; Stop 01/01/20 at 19:07 Lorazepam (Ativan Inj) 2 mg PRN Q1HR PRN IV For CIWA 8-14; Start 12/27/19 at 23:15 Lorazepam (Ativan Inj) 4 mg PRN Q1HR PRN IV For CIWA 15 or greater Last administered on 12/28/19at 23:58; Start 12/27/19 at 23:15 Haloperidol Lactate (Haldol Inj) 5 mg PRN Q4HRS PRN IVP Hallucinatns,Confusn,Delirium; Start 12/27/19 at 23:15 Diphenhydramine HCl (Benadryl) 25 mg PRN Q15MIN PRN IVP EPS symptoms 2'Haldol admin; Start 12/27/19 at 23:15 Lisinopril (Prinivil) 10 mg DAILY PO Last administered on 12/29/19at 09:09; Start 12/28/19 at 01:00 Hydromorphone HCl (Dilaudid) 0.5 mg PRN Q3HRS PRN IV PAIN Last administered on 12/29/19at 08:45; Start 12/28/19 at 08:30 Magnesium Sulfate 50 ml @ 25 mls/hr 1X ONCE IV Last administered on 12/28/19at 11:36; Start 12/28/19 at 12:00; Stop 12/28/19 at 13:59; Status DC Sodium Chloride (Normal Saline Flush) 3 ml QSHIFT PRN IV AFTER MEDS AND BLOOD DRAWS; Start 12/28/19 at 11:30 Ondansetron HCl (Zofran) 4 mg PRN Q4HRS PRN IV NAUSEA/VOMITING; Start 12/28/19 at 11:30 Acetaminophen (Tylenol Supp) 650 mg PRN Q4HRS PRN [place] TEMP OVER 100.4F OR MILD PAIN; Start 12/28/19 at 11:30 Albuterol Sulfate (Ventolin Neb Soln) 2.5 mg PRN Q4HRS PRN NEB SHORTNESS OF BREATH; Start 12/28/19 at 11:30 Lorazepam (Ativan) 0.5 mg PRN Q4HRS PRN PO ANXIETY / AGITATION; Start 12/28/19 at 11:30 Enoxaparin Sodium (Lovenox 40mg Syringe) 40 mg Q24H SQ Last administered on 12/28/19at 11:35; Start 12/28/19 at 11:30 Pantoprazole Sodium (PROTONIX VIAL for IV PUSH) 40 mg DAILYAC IVP Last administered on 12/29/19at 05:47; Start 12/28/19 at 13:00 Active Scripts Active Reported Ibuprofen 800 Mg Tablet 800 Mg PO DAILY PRN Lisinopril 10 Mg Tablet 10 Mg PO DAILY Vitals/I & O Vital Sign - Last 24 Hours 12/28/19 12/28/19 12/28/19 12/28/19 11:32 14:28 18:18 20:00 Temp 98.1 98.0 98.2 98.1 98.0 98.2 Pulse 75 86 78 Resp 14 22 22 B/P (MAP) 149/94 (112) 147/102 (117) 156/109 (125) Pulse Ox 95 99 98 O2 Delivery Room Air Room Air Room Air Room Air 12/28/19 12/28/19 12/28/19 12/29/19 21:11 21:41 23:30 00:33 Temp 98.0 98.0 Pulse 87 Resp 18 18 18 B/P (MAP) 145/95 (112) Pulse Ox 98 98 100 98 O2 Delivery Room Air Room Air Room Air Room Air 12/29/19 12/29/19 12/29/19 12/29/19 01:03 03:00 05:47 06:17 Temp 98.0 98.0 Pulse 72 Resp 18 18 18 B/P (MAP) 145/89 (107) Pulse Ox 98 96 96 96 O2 Delivery Room Air Room Air Room Air Room Air 12/29/19 12/29/19 12/29/19 12/29/19 07:00 08:45 09:09 09:15 Pulse 108 Resp 20 B/P (MAP) 126/98 (107) 126/98 Pulse Ox 97 O2 Delivery Room Air Room Air Room Air Intake and Output 12/28/19 12/28/19 12/29/19 15:00 23:00 07:00 Intake Total 411.2 ml 0 ml 0 ml Balance 411.2 ml 0 ml 0 ml Justicifation of Admission Dx: Justifications for Admission: Justification of Admission Dx: Yes (OBSERVATION FOR PANCREATITIS) PATRICIA JEROME MD Dec 29, 2019 11:05
[2019-12-29] MEDS ORDERED: POTASSIUM CHLORIDE 20 MEQ TABLET.ER. PO ONE (13:15)
[2019-12-29 15:00] VITALS: BP 112/84
[2019-12-29] MEDS ORDERED: POTASSIUM CHLORIDE 20MEQ 100 ML IV ONE ×2 (16:30→19:00)
[2019-12-29] MEDS: ENOXAPARIN 40 MG/0.4 ML SYRINGE. SQ SCH (16:34)
[2019-12-29 19:18] VITALS: BP 114/81
--- NOTE | 2019-12-29 19:58 | PDOC ---
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 Subjective: Pts pain is about the same Objective: Vital Signs: Vital Signs Date Time Temp Pulse Resp B/P (MAP) Pulse Ox O2 Delivery O2 Flow Rate FiO2 12/28/19 07:00 98.2 75 14 132/77 (95) 96 Room Air 98.2 Vital Signs Date Time Temp Pulse Resp B/P (MAP) Pulse Ox O2 Delivery O2 Flow Rate FiO2 12/29/19 19:47 Room Air 12/29/19 19:18 97.7 98 17 114/81 (92) 99 97.7 Labs: Laboratory Tests Test 12/29/19 04:00 White Blood Count 9.0 x10^3/uL (4.0-11.0) Red Blood Count 4.24 x10^6/uL (3.50-5.40) Hemoglobin 11.6 g/dL (12.0-15.5) L Hematocrit 35.4 % (36.0-47.0) L Mean Corpuscular Volume 84 fL (79-100) Mean Corpuscular Hemoglobin 27 pg (25-35) Mean Corpuscular Hemoglobin Concent 33 g/dL (31-37) Red Cell Distribution Width 17.0 % (11.5-14.5) H Platelet Count 107 x10^3/uL (140-400) L Neutrophils (%) (Auto) 89 % (31-73) H Lymphocytes (%) (Auto) 5 % (24-48) L Monocytes (%) (Auto) 6 % (0-9) Eosinophils (%) (Auto) 0 % (0-3) Basophils (%) (Auto) 0 % (0-3) Neutrophils # (Auto) 8.0 x10^3/uL (1.8-7.7) H Lymphocytes # (Auto) 0.4 x10^3/uL (1.0-4.8) L Monocytes # (Auto) 0.5 x10^3/uL (0.0-1.1) Eosinophils # (Auto) 0.0 x10^3/uL (0.0-0.7) Basophils # (Auto) 0.0 x10^3/uL (0.0-0.2) Sodium Level 123 mmol/L (136-145) L Potassium Level 3.0 mmol/L (3.5-5.1) L Chloride Level 88 mmol/L (98-107) L Carbon Dioxide Level 21 mmol/L (21-32) Anion Gap 14 (6-14) Blood Urea Nitrogen 3 mg/dL (7-20) L Creatinine 0.4 mg/dL (0.6-1.0) L Estimated GFR (Cockcroft-Gault) 179.6 BUN/Creatinine Ratio 8 (6-20) Glucose Level 114 mg/dL (70-99) H Calcium Level 9.1 mg/dL (8.5-10.1) Total Bilirubin 1.1 mg/dL (0.2-1.0) H Aspartate Amino Transferase (AST) 176 U/L (15-37) H Alanine Aminotransferase (ALT) 119 U/L (14-59) H Alkaline Phosphatase 143 U/L (46-116) H Total Protein 8.0 g/dL (6.4-8.2) Albumin 3.5 g/dL (3.4-5.0) Albumin/Globulin Ratio 0.8 (1.0-1.7) L Lipase 1169 U/L (73-393) H Laboratory Tests 12/29/19 04:00 Laboratory Tests 12/29/19 04:00 Laboratory Tests 12/29/19 04:00 Physical Exam: GENERAL: No apparent distress. Alert and oriented. HEENT: Head normocephalic, atraumatic. NECK: Supple LUNGS: Clear to auscultation. HEART: RRR, S1, S2 present, pulses intact ABDOMEN: Soft, positive bowel sounds. EXTREMITIES: No cyanosis or edema. NEUROLOGIC: Normal speech, normal tone PSYCHIATRIC: Normal affect, normal mood. SKIN: No ulceration. Assessment & Plan: A/P 39y admitted on 12/26 with acute pancreatitis secondary to alcohol abuse 1.) Right adnexal mass 39mm fullness noted in right adnexa, ddx would include malignancy, infectious process or even artifact, would get pelvic u/s to better characterize pelvic anatomy, does not need to be done urgently, but would get during hospitalization 2.) Contraception - BTL 3.) Acute pancreatitis secondary to alcohol abuse edema of pancreas, with elevated LFTs, NPO, GI consulted 4.) Acute alcohol intoxication h/o alcoholism 5.) Liver is diffusely low density GI consulted 6.) Prominence of colonic wall 7.) Severe hypokalemia managed per primary team 8.) Hematuria 9.) Will continue to follow MAGAN MARQUEZ MD Dec 29, 2019 19:58
[2019-12-29 23:03] VITALS: BP 126/90
[2019-12-30] MEDS: HYDROmorphone 2 MG/ML VIAL IV PRN ×6 (01:28→19:07)
[2019-12-30 03:21] VITALS: BP 102/68
[2019-12-30 07:00] VITALS: BP 116/78
[2019-12-30] MEDS: POTASSIUM CHLORIDE 20 MEQ TABLET.ER. PO SCH (08:00)
[2019-12-30] MEDS: PANTOPRAZOLE IV PUSH 40 MG VIAL. IVP SCH (08:45)
[2019-12-30] MEDS: MULTIVITAMIN with MINERAL TABLET. PO SCH (09:00)
[2019-12-30] MEDS: LISINOPRIL 10 MG TABLET PO SCH (09:00)
[2019-12-30] MEDS: THIAMINE 100 MG TABLET. PO SCH (09:00)
[2019-12-30] MEDS: FOLIC ACID 1 MG TABLET. PO SCH (09:00)
--- NOTE | 2019-12-30 10:38 | PDOC ---
PROGRESS NOTES History of Present Illness History of Present Illness VTE Prophylaxis Ordered VTE Prophylaxis Devices: No VTE Pharmacological Prophylaxi: Yes Assessment/Plan Assessment/Plan IMPRESSION Acute pancreatitis secondary to alcohol abuse WITH INTRACTABLE ABDOMINAL PAIN, SLOW TO RESOLVE Acute alcohol intoxication Transaminitis secondary to alcohol abuse Edema of the pancreas. Can be seen with pancreatitis. Liver is diffusely low density. Nonspecific but can be seen with fatty infiltra tion. Fullness of the right adnexa. The right ovarian lesion is not excluded given this finding and would correlate with symptoms in the region. If further clarification is desired ultrasound could further assess. No hydronephrosis The colonic wall is prominent in a portion of the right side of the colon. Most likely cause is lack of distention unless the patient is having colonic symptoms to suggest colitis. Alcoholism, SEVERE Severe hypokalemia Hyperbilirubinemia HEMATURIA hyponatremia Plan ADMIT GI CONSULT N.p.o. IV fluid resuscitation Daily banana bag d/c Alcohol withdrawal protocol Pain management fentanyl DVT prophylaxis with SCDs counseling done sharepoint solutions architect consult am comp serum osmolality fluid restrict LIPASE 1169 12/28 27 min pt exam, chart review, > 50% of time spent with exam, chart review, pt care coordination Justicifation of Admission Dx: Justicifation of Admission Dx: Justifications for Admission: Justification of Admission Dx: Yes (OBSERVATION FOR PANCREATITIS) Vitals Vitals Vital Signs Date Time Temp Pulse Resp B/P (MAP) Pulse Ox O2 Delivery O2 Flow Rate FiO2 12/30/19 08:45 Room Air 12/30/19 07:00 98.3 89 18 116/78 (91) 99 98.3 Physical Exam General: Alert, Oriented X3, Cooperative, mild distress Heart: Regular rate, Normal S1, Normal S2, No murmurs Lungs: Clear Abdomen: Normal bowel sounds, Soft, Other (MILD TENDERNESS NO REBOUND) Extremities: No clubbing, No cyanosis Skin: No breakdown Labs LABS INDICATION: Reason: flank pain, blood in urine / Spl. Instructions: / History: COMPARISON: October 2019 TECHNIQUE: Axial CT images obtained through the abdomen and pelvis without contrast. Limited assessment of solid organ structures and vasculature secondary to lack of intravenous contrast.. One or more of the following individualized dose reduction techniques were utilized for this examination: 1. Automated exposure control; 2. Adjustment of the mA and/or kV according to patient size; 3. Use of iterative reconstruction technique. FINDINGS: Abdominal aorta is not aneurysmal. There is scattered calcific atherosclerosis. Small fat-containing umbilical hernia. Liver is low density and enlarged. Postcholecystectomy. Haziness in the fat adjacent to the pancreas. Spleen unremarkable. No hydronephrosis. Urinary bladder is largely decompressed. Surgical clips in the pelvis bilaterally. Portion of the colonic wall in the right appears prominent in thickness but not very distended. No right lower quadrant inflammatory changes. No dilated loops of bowel suggest obstruction. Fullness of the right adnexa measuring up to about 39 mm. Suspected fat-containing hernias in the bilateral groin. IMPRESSION: * Edema of the pancreas. Can be seen with pancreatitis. Correlate with symptoms and laboratory markers. * Liver is diffusely low density. Nonspecific but can be seen with fatty infiltration. * Fullness of the right adnexa. The right ovarian lesion is not excluded given this finding and would correlate with symptoms in the region. If further clarification is desired ultrasound could further assess. * No hydronephrosis * The colonic wall is prominent in a portion of the right side of the colon. Most likely cause is lack of distention unless the patient is having colonic symptoms to suggest colitis. Electronically signed by: Lalit Collier MD (12/27/2019 8:59 PM) [id number] DICTATED and SIGNED BY: LALIT COLLIER MD DATE: 12/27/192058 Comment Review of Relevant I have reviewed the following items lore (where applicable) has been applied. Labs Laboratory Tests Test 12/29/19 04:00 White Blood Count 9.0 x10^3/uL (4.0-11.0) Red Blood Count 4.24 x10^6/uL (3.50-5.40) Hemoglobin 11.6 g/dL (12.0-15.5) Hematocrit 35.4 % (36.0-47.0) Mean Corpuscular Volume 84 fL (79-100) Mean Corpuscular Hemoglobin 27 pg (25-35) Mean Corpuscular Hemoglobin Concent 33 g/dL (31-37) Red Cell Distribution Width 17.0 % (11.5-14.5) Platelet Count 107 x10^3/uL (140-400) Neutrophils (%) (Auto) 89 % (31-73) Lymphocytes (%) (Auto) 5 % (24-48) Monocytes (%) (Auto) 6 % (0-9) Eosinophils (%) (Auto) 0 % (0-3) Basophils (%) (Auto) 0 % (0-3) Neutrophils # (Auto) 8.0 x10^3/uL (1.8-7.7) Lymphocytes # (Auto) 0.4 x10^3/uL (1.0-4.8) Monocytes # (Auto) 0.5 x10^3/uL (0.0-1.1) Eosinophils # (Auto) 0.0 x10^3/uL (0.0-0.7) Basophils # (Auto) 0.0 x10^3/uL (0.0-0.2) Sodium Level 123 mmol/L (136-145) Potassium Level 3.0 mmol/L (3.5-5.1) Chloride Level 88 mmol/L (98-107) Carbon Dioxide Level 21 mmol/L (21-32) Anion Gap 14 (6-14) Blood Urea Nitrogen 3 mg/dL (7-20) Creatinine 0.4 mg/dL (0.6-1.0) Estimated GFR (Cockcroft-Gault) 179.6 BUN/Creatinine Ratio 8 (6-20) Glucose Level 114 mg/dL (70-99) Calcium Level 9.1 mg/dL (8.5-10.1) Total Bilirubin 1.1 mg/dL (0.2-1.0) Aspartate Amino Transf (AST/SGOT) 176 U/L (15-37) Alanine Aminotransferase (ALT/SGPT) 119 U/L (14-59) Alkaline Phosphatase 143 U/L (46-116) Total Protein 8.0 g/dL (6.4-8.2) Albumin 3.5 g/dL (3.4-5.0) Albumin/Globulin Ratio 0.8 (1.0-1.7) Lipase 1169 U/L (73-393) Medications Current Medications Ondansetron HCl (Zofran) 4 mg STK-MED ONCE .ROUTE ; Start 12/27/19 at 18:46; Stop 12/27/19 at 18:46; Status DC Ondansetron HCl (Zofran) 4 mg 1X ONCE IV Last administered on 12/27/19at 19:09; Start 12/27/19 at 19:15; Stop 12/27/19 at 19:16; Status DC Sodium Chloride 1,000 ml @ 1,000 mls/hr 1X ONCE IV Last administered on 12/27/19at 19:09; Start 12/27/19 at 19:15; Stop 12/27/19 at 20:14; Status DC Ketorolac Tromethamine (Toradol 15mg Vial) 15 mg 1X ONCE IVP Last administered on 12/27/19at 20:12; Start 12/27/19 at 19:30; Stop 12/27/19 at 19:31; Status DC Fentanyl Citrate (Fentanyl 2ml Vial) 50 mcg 1X ONCE IV Last administered on 12/27/19at 21:17; Start 12/27/19 at 21:30; Stop 12/27/19 at 21:31; Status DC Ondansetron HCl (Zofran) 4 mg PRN Q8HRS PRN IV NAUSEA/VOMITING 1ST CHOICE Last administered on 12/28/19at 09:40; Start 12/27/19 at 21:30; Stop 12/28/19 at 21:29; Status DC Fentanyl Citrate (Fentanyl 2ml Vial) 50 mcg PRN Q2HR PRN IV SEVERE PAIN 7-10 Last administered on 12/28/19at 06:30; Start 12/27/19 at 21:30; Stop 12/28/19 at 21:29; Status DC Multivitamins 10 ml/Thiamine HCl 100 mg/Folic Acid 1 mg/Sodium Chloride 1,011.2 ml @ 100 mls/ hr DAILY IV Last administered on 12/29/19at 09:01; Start 12/28/19 at 00:00; Stop 12/29/19 at 13:07; Status DC Lorazepam (Ativan Inj) 2 mg PRN Q1HR PRN IV For CIWA 8-14; Start 12/27/19 at 23:15 Lorazepam (Ativan Inj) 4 mg PRN Q1HR PRN IV For CIWA 15 or greater Last administered on 12/28/19at 23:58; Start 12/27/19 at 23:15 Haloperidol Lactate (Haldol Inj) 5 mg PRN Q4HRS PRN IVP Hallucinatns,Confusn,Delirium; Start 12/27/19 at 23:15 Diphenhydramine HCl (Benadryl) 25 mg PRN Q15MIN PRN IVP EPS symptoms 2'Haldol admin; Start 12/27/19 at 23:15 Lisinopril (Prinivil) 10 mg DAILY PO Last administered on 12/29/19at 09:09; S tart 12/28/19 at 01:00 Hydromorphone HCl (Dilaudid) 0.5 mg PRN Q3HRS PRN IV PAIN Last administered on 12/30/19at 08:45; Start 12/28/19 at 08:30 Magnesium Sulfate 50 ml @ 25 mls/hr 1X ONCE IV Last administered on 12/28/19at 11:36; Start 12/28/19 at 12:00; Stop 12/28/19 at 13:59; Status DC Sodium Chloride (Normal Saline Flush) 3 ml QSHIFT PRN IV AFTER MEDS AND BLOOD DRAWS; Start 12/28/19 at 11:30 Ondansetron HCl (Zofran) 4 mg PRN Q4HRS PRN IV NAUSEA/VOMITING; Start 12/28/19 at 11:30 Acetaminophen (Tylenol Supp) 650 mg PRN Q4HRS PRN [place] TEMP OVER 100.4F OR MILD PAIN; Start 12/28/19 at 11:30 Albuterol Sulfate (Ventolin Neb Soln) 2.5 mg PRN Q4HRS PRN NEB SHORTNESS OF BREATH; Start 12/28/19 at 11:30 Lorazepam (Ativan) 0.5 mg PRN Q4HRS PRN PO ANXIETY / AGITATION; Start 12/28/19 at 11:30 Enoxaparin Sodium (Lovenox 40mg Syringe) 40 mg Q24H SQ Last administered on 12/29/19at 16:34; Start 12/28/19 at 11:30 Pantoprazole Sodium (PROTONIX VIAL for IV PUSH) 40 mg DAILYAC IVP Last administered on 12/30/19at 08:45; Start 12/28/19 at 13:00 Multivitamins (Thera M Plus) 1 tab DAILY PO ; Start 12/30/19 at 09:00 Folic Acid (Folic Acid) 1 mg DAILY PO ; Start 12/30/19 at 09:00 Thiamine Mononitrate (Vitamin B-1) 100 mg DAILY PO ; Start 12/30/19 at 09:00 Potassium Chloride (Klor-Con) 40 meq 1X ONCE PO ; Start 12/29/19 at 13:15; Stop 12/29/19 at 16:25; Status DC Potassium Chloride (Klor-Con) 20 meq DAILYWBKFT PO ; Start 12/30/19 at 08:00 Potassium Chloride/Water 100 ml @ 50 mls/hr 1X ONCE IV Last administered on 12/29/19at 17:49; Start 12/29/19 at 16:30; Stop 12/29/19 at 18:29; Status DC Potassium Chloride/Water 100 ml @ 50 mls/hr 1X ONCE IV Last administered on 12/29/19at 21:03; Start 12/29/19 at 19:00; Stop 12/29/19 at 20:59; Status DC Active Scripts Active Reported Ibuprofen 800 Mg Tablet 800 Mg PO DAILY PRN Lisinopril 10 Mg Tablet 10 Mg PO DAILY Vitals/I & O Vital Sign - Last 24 Hours 12/29/19 12/29/19 12/29/19 12/29/19 11:00 12:48 13:18 15:00 Temp 96.7 96.8 96.7 96.8 Pulse 104 96 Resp 20 20 B/P (MAP) 126/96 (106) 112/84 (93) Pulse Ox 98 98 O2 Delivery Room Air Room Air Room Air Room Air 12/29/19 12/29/19 12/29/19 12/29/19 16:35 17:05 19:18 19:47 Temp 97.7 97.7 Pulse 98 Resp 17 B/P (MAP) 114/81 (92) Pulse Ox 99 O2 Delivery Room Air Room Air Room Air Room Air 12/29/19 12/29/19 12/29/19 12/29/19 20:00 20:17 22:56 23:03 Temp 98.3 98.3 Pulse 95 Resp 20 B/P (MAP) 126/90 (102) Pulse Ox 100 O2 Delivery Room Air Room Air Room Air Room Air 12/30/19 12/30/19 12/30/19 12/30/19 01:28 01:58 03:21 05:11 Temp 97.9 97.9 Pulse 89 Resp 20 B/P (MAP) 102/68 (79) Pulse Ox 96 O2 Delivery Room Air Room Air Room Air Room Air 12/30/19 12/30/19 07:00 08:45 Temp 98.3 98.3 Pulse 89 Resp 18 B/P (MAP) 116/78 (91) Pulse Ox 99 O2 Delivery Room Air Intake and Output 12/29/19 12/29/19 12/30/19 15:00 23:00 07:00 Intake Total 220 ml 150 ml Output Total 200 ml Balance 220 ml -50 ml Justicifation of Admission Dx: Justifications for Admission: Justification of Admission Dx: Yes (OBSERVATION FOR PANCREATITIS) PATRICIA JEROME MD Dec 30, 2019 10:37
[2019-12-30 11:00] VITALS: BP 106/68
[2019-12-30] MEDS: ENOXAPARIN 40 MG/0.4 ML SYRINGE. SQ SCH (12:17)
[2019-12-30 15:00] VITALS: BP 116/68
[2019-12-30 15:31] LABS: ALBUMIN 2.9 g/dL (3.4-5.0); ALBUMIN/GLOBULIN RATIO 0.8 (1.0-1.7); CALCIUM 8.6 mg/dL (8.5-10.1); CREATININE 0.4 mg/dL (0.6-1.0); GFR 179.6; TOTAL BILIRUBIN 0.6 mg/dL (0.2-1.0); TOTAL PROTEIN 6.6 g/dL (6.4-8.2)
[2019-12-30 19:22] VITALS: BP 101/77
[2019-12-30 22:51] VITALS: BP 112/62
[2019-12-31] MEDS: HYDROmorphone 2 MG/ML VIAL IV PRN ×8 (00:52→23:49)
[2019-12-31 03:05] VITALS: BP 120/90
[2019-12-31] MEDS: PANTOPRAZOLE IV PUSH 40 MG VIAL. IVP SCH (05:10)
[2019-12-31 07:00] VITALS: BP 129/93
--- NOTE | 2019-12-31 07:54 | PDOC ---
PROGRESS NOTES History of Present Illness History of Present Illness VTE Prophylaxis Ordered VTE Prophylaxis Devices: No VTE Pharmacological Prophylaxi: Yes Assessment/Plan Assessment/Plan IMPRESSION Acute pancreatitis secondary to alcohol abuse WITH INTRACTABLE ABDOMINAL PAIN, SLOW TO RESOLVE Acute alcohol intoxication Transaminitis secondary to alcohol abuse Edema of the pancreas. Can be seen with pancreatitis. Liver is diffusely low density. Nonspecific but can be seen with fatty infiltra tion. Fullness of the right adnexa. The right ovarian lesion is not excluded given this finding and would correlate with symptoms in the region. If further clarification is desired ultrasound could further assess. No hydronephrosis The colonic wall is prominent in a portion of the right side of the colon. Most likely cause is lack of distention unless the patient is having colonic symptoms to suggest colitis. Alcoholism, SEVERE Severe hypokalemia Hyperbilirubinemia HEMATURIA hyponatremia Plan ADMIT GI CONSULT N.p.o. IV fluid resuscitation Daily banana bag d/c Alcohol withdrawal protocol Pain management fentanyl DVT prophylaxis with SCDs counseling done chain maker machine consult am comp serum osmolality fluid restrict LIPASE 1169 12/28 27 min pt exam, chart review, > 50% of time spent with exam, chart review, pt care coordination Justicifation of Admission Dx: Justicifation of Admission Dx: Justifications for Admission: Justification of Admission Dx: Yes (OBSERVATION FOR PANCREATITIS) Vitals Vitals Vital Signs Date Time Temp Pulse Resp B/P (MAP) Pulse Ox O2 Delivery O2 Flow Rate FiO2 12/31/19 07:00 98.3 102 18 129/93 (105) 98 Room Air 98.3 Physical Exam General: Alert, Oriented X3, Cooperative, mild distress Heart: Regular rate, Normal S1, Normal S2, No murmurs Lungs: Clear Abdomen: Normal bowel sounds, Soft, Other (MILD TENDERNESS NO REBOUND) Extremities: No clubbing, No cyanosis Skin: No breakdown Labs LABS Laboratory Tests Test 12/30/19 15:00 Sodium Level 129 mmol/L (136-145) Potassium Level 3.0 mmol/L (3.5-5.1) Chloride Level 91 mmol/L (98-107) Carbon Dioxide Level 25 mmol/L (21-32) Anion Gap 13 (6-14) Blood Urea Nitrogen 8 mg/dL (7-20) Creatinine 0.4 mg/dL (0.6-1.0) Estimated GFR (Cockcroft-Gault) 179.6 BUN/Creatinine Ratio 20 (6-20) Glucose Level 109 mg/dL (70-99) Calcium Level 8.6 mg/dL (8.5-10.1) Total Bilirubin 0.6 mg/dL (0.2-1.0) Aspartate Amino Transf (AST/SGOT) 84 U/L (15-37) Alanine Aminotransferase (ALT/SGPT) 74 U/L (14-59) Alkaline Phosphatase 122 U/L (46-116) Total Protein 6.6 g/dL (6.4-8.2) Albumin 2.9 g/dL (3.4-5.0) Albumin/Globulin Ratio 0.8 (1.0-1.7) Lipase 581 U/L (73-393) Comment Review of Relevant I have reviewed the following items lore (where applicable) has been applied. Labs Laboratory Tests Test 12/29/19 21:00 12/30/19 15:00 Urine Random Sodium 15 mmol/L (Not Estab.) Sodium Level 129 mmol/L (136-145) Potassium Level 3.0 mmol/L (3.5-5.1) Chloride Level 91 mmol/L (98-107) Carbon Dioxide Level 25 mmol/L (21-32) Anion Gap 13 (6-14) Blood Urea Nitrogen 8 mg/dL (7-20) Creatinine 0.4 mg/dL (0.6-1.0) Estimated GFR (Cockcroft-Gault) 179.6 BUN/Creatinine Ratio 20 (6-20) Glucose Level 109 mg/dL (70-99) Calcium Level 8.6 mg/dL (8.5-10.1) Total Bilirubin 0.6 mg/dL (0.2-1.0) Aspartate Amino Transf (AST/SGOT) 84 U/L (15-37) Alanine Aminotransferase (ALT/SGPT) 74 U/L (14-59) Alkaline Phosphatase 122 U/L (46-116) Total Protein 6.6 g/dL (6.4-8.2) Albumin 2.9 g/dL (3.4-5.0) Albumin/Globulin Ratio 0.8 (1.0-1.7) Lipase 581 U/L (73-393) Laboratory Tests Test 12/30/19 15:00 Sodium Level 129 mmol/L (136-145) Potassium Level 3.0 mmol/L (3.5-5.1) Chloride Level 91 mmol/L (98-107) Carbon Dioxide Level 25 mmol/L (21-32) Anion Gap 13 (6-14) Blood Urea Nitrogen 8 mg/dL (7-20) Creatinine 0.4 mg/dL (0.6-1.0) Estimated GFR (Cockcroft-Gault) 179.6 BUN/Creatinine Ratio 20 (6-20) Glucose Level 109 mg/dL (70-99) Calcium Level 8.6 mg/dL (8.5-10.1) Total Bilirubin 0.6 mg/dL (0.2-1.0) Aspartate Amino Transf (AST/SGOT) 84 U/L (15-37) Alanine Aminotransferase (ALT/SGPT) 74 U/L (14-59) Alkaline Phosphatase 122 U/L (46-116) Total Protein 6.6 g/dL (6.4-8.2) Albumin 2.9 g/dL (3.4-5.0) Albumin/Globulin Ratio 0.8 (1.0-1.7) Lipase 581 U/L (73-393) Medications Current Medications Ondansetron HCl (Zofran) 4 mg STK-MED ONCE .ROUTE ; Start 12/27/19 at 18:46; Stop 12/27/19 at 18:46; Status DC Ondansetron HCl (Zofran) 4 mg 1X ONCE IV Last administered on 12/27/19at 19:09; Start 12/27/19 at 19:15; Stop 12/27/19 at 19:16; Status DC Sodium Chloride 1,000 ml @ 1,000 mls/hr 1X ONCE IV Last administered on 12/27/19at 19:09; Start 12/27/19 at 19:15; Stop 12/27/19 at 20:14; Status DC Ketorolac Tromethamine (Toradol 15mg Vial) 15 mg 1X ONCE IVP Last administered on 12/27/19at 20:12; Start 12/27/19 at 19:30; Stop 12/27/19 at 19:31; Status DC Fentanyl Citrate (Fentanyl 2ml Vial) 50 mcg 1X ONCE IV Last administered on 12/27/19at 21:17; Start 12/27/19 at 21:30; Stop 12/27/19 at 21:31; Status DC Ondansetron HCl (Zofran) 4 mg PRN Q8HRS PRN IV NAUSEA/VOMITING 1ST CHOICE Last administered on 12/28/19at 09:40; Start 12/27/19 at 21:30; Stop 12/28/19 at 21:29; Status DC Fentanyl Citrate (Fentanyl 2ml Vial) 50 mcg PRN Q2HR PRN IV SEVERE PAIN 7-10 Last administered on 12/28/19at 06:30; Start 12/27/19 at 21:30; Stop 12/28/19 at 21:29; Status DC Multivitamins 10 ml/Thiamine HCl 100 mg/Folic Acid 1 mg/Sodium Chloride 1,011.2 ml @ 100 mls/ hr DAILY IV Last administered on 12/29/19at 09:01; Start 12/28/19 at 00:00; Stop 12/29/19 at 13:07; Status DC Lorazepam (Ativan Inj) 2 mg PRN Q1HR PRN IV For CIWA 8-14 Last administered on 12/30/19at 12:17; Start 12/27/19 at 23:15 Lorazepam (Ativan Inj) 4 mg PRN Q1HR PRN IV For CIWA 15 or greater Last administered on 12/31/19at 02:59; Start 12/27/19 at 23:15 Haloperidol Lactate (Haldol Inj) 5 mg PRN Q4HRS PRN IVP Hallucinatns,Confusn,Delirium; Start 12/27/19 at 23:15 Diphenhydramine HCl (Benadryl) 25 mg PRN Q15MIN PRN IVP EPS symptoms 2'Haldol admin; Start 12/27/19 at 23:15 Lisinopril (Prinivil) 10 mg DAILY PO Last administered on 12/29/19at 09:09; Start 12/28/19 at 01:00 Hydromorphone HCl (Dilaudid) 0.5 mg PRN Q3HRS PRN IV PAIN Last administered on 12/31/19at 05:11; Start 12/28/19 at 08:30 Magnesium Sulfate 50 ml @ 25 mls/hr 1X ONCE IV Last administered on 12/28/19at 11:36; Start 12/28/19 at 12:00; Stop 12/28/19 at 13:59; Status DC Sodium Chloride (Normal Saline Flush) 3 ml QSHIFT PRN IV AFTER MEDS AND BLOOD DRAWS; Start 12/28/19 at 11:30 Ondansetron HCl (Zofran) 4 mg PRN Q4HRS PRN IV NAUSEA/VOMITING Last administered on 12/30/19at 21:02; Start 12/28/19 at 11:30 Acetaminophen (Tylenol Supp) 650 mg PRN Q4HRS PRN [place] TEMP OVER 100.4F OR MILD PAIN; Start 12/28/19 at 11:30 Albuterol Sulfate (Ventolin Neb Soln) 2.5 mg PRN Q4HRS PRN NEB SHORTNESS OF BREATH; Start 12/28/19 at 11:30 Lorazepam (Ativan) 0.5 mg PRN Q4HRS PRN PO ANXIETY / AGITATION; Start 12/28/19 at 11:30 Enoxaparin Sodium (Lovenox 40mg Syringe) 40 mg Q24H SQ Last administered on 12/30/19at 12:17; Start 12/28/19 at 11:30 Pantoprazole Sodium (PROTONIX VIAL for IV PUSH) 40 mg DAILYAC IVP Last administered on 12/31/19at 05:10; Start 12/28/19 at 13:00 Multivitamins (Thera M Plus) 1 tab DAILY PO ; Start 12/30/19 at 09:00 Folic Acid (Folic Acid) 1 mg DAILY PO ; Start 12/30/19 at 09:00 Thiamine Mononitrate (Vitamin B-1) 100 mg DAILY PO ; Start 12/30/19 at 09:00 Potassium Chloride (Klor-Con) 40 meq 1X ONCE PO ; Start 12/29/19 at 13:15; Stop 12/29/19 at 16:25; Status DC Potassium Chloride (Klor-Con) 20 meq DAILYWBKFT PO ; Start 12/30/19 at 08:00 Potassium Chloride/Water 100 ml @ 50 mls/hr 1X ONCE IV Last administered on 12/29/19at 17:49; Start 12/29/19 at 16:30; Stop 12/29/19 at 18:29; Status DC Potassium Chloride/Water 100 ml @ 50 mls/hr 1X ONCE IV Last administered on 12/29/19at 21:03; Start 12/29/19 at 19:00; Stop 12/29/19 at 20:59; Status DC Active Scripts Active Reported Ibuprofen 800 Mg Tablet 800 Mg PO DAILY PRN Lisinopril 10 Mg Tablet 10 Mg PO DAILY Vitals/I & O Vital Sign - Last 24 Hours 12/30/19 12/30/19 12/30/19 12/30/19 08:00 08:45 09:15 11:00 Temp 98.3 98.3 Pulse 90 Resp 18 B/P (MAP) 106/68 (81) Pulse Ox 100 O2 Delivery Room Air Room Air Room Air 12/30/19 12/30/19 12/30/19 12/30/19 12:16 12:46 15:00 15:56 Temp 97.8 97.8 Pulse 104 Resp 18 B/P (MAP) 116/68 (84) Pulse Ox 93 O2 Delivery Room Air Room Air Room Air 12/30/19 12/30/19 12/30/19 12/30/19 16:26 19:07 19:22 19:30 Temp 97.6 97.6 Pulse 86 Resp 18 B/P (MAP) 101/77 (85) Pulse Ox 96 O2 Delivery Room Air Room Air Room Air Room Air 12/30/19 12/30/19 12/31/19 12/31/19 19:37 22:51 00:52 01:22 Temp 97.8 97.8 Pulse 83 Resp 18 18 18 18 B/P (MAP) 112/62 (79) Pulse Ox 96 98 98 98 O2 Delivery Room Air Room Air Room Air Room Air 12/31/19 12/31/19 12/31/19 12/31/19 03:05 05:11 05:41 07:00 Temp 97.7 98.3 97.7 98.3 Pulse 90 102 Resp 18 18 18 18 B/P (MAP) 120/90 (100) 129/93 (105) Pulse Ox 98 98 98 98 O2 Delivery Room Air Room Air Room Air Room Air Intake and Output 12/30/19 12/30/19 12/31/19 15:00 23:00 07:00 Intake Total 0 ml 0 ml Output Total 450 ml Balance -450 ml 0 ml Justicifation of Admission Dx: Justifications for Admission: Justification of Admission Dx: Yes (OBSERVATION FOR PANCREATITIS) PATRICIA JEROME MD Dec 31, 2019 07:54
[2019-12-31] MEDS: POTASSIUM CHLORIDE 20 MEQ TABLET.ER. PO SCH (08:00)
[2019-12-31] MEDS: MULTIVITAMIN with MINERAL TABLET. PO SCH (09:00)
[2019-12-31] MEDS: THIAMINE 100 MG TABLET. PO SCH (09:00)
[2019-12-31] MEDS: FOLIC ACID 1 MG TABLET. PO SCH (09:00)
[2019-12-31] MEDS: LISINOPRIL 10 MG TABLET PO SCH (09:00)
[2019-12-31 10:41] VITALS: BP 119/89
[2019-12-31] MEDS: ENOXAPARIN 40 MG/0.4 ML SYRINGE. SQ SCH (11:36)
[2019-12-31] MEDS: POTASSIUM CHLORIDE 20MEQ 100 ML IV SCH ×2 (11:36→15:03)
--- NOTE | 2019-12-31 12:02 | PDOC ---
Subjective: Subjective: Ongoing pain - meds help but then pain wakes her up. Hurts all the time - tried a few clears - hard to tell if worse after that. D/w nursing - has timer on her phone to ask for pain meds. Objective: Vital Signs: Vital Signs Date Time Temp Pulse Resp B/P (MAP) Pulse Ox O2 Delivery O2 Flow Rate FiO2 12/31/19 10:41 98.0 85 18 119/89 (99) 98 Room Air 98.0 Labs: Laboratory Tests Test 12/30/19 15:00 Sodium Level 129 mmol/L Potassium Level 3.0 mmol/L Chloride Level 91 mmol/L Carbon Dioxide Level 25 mmol/L Anion Gap 13 Blood Urea Nitrogen 8 mg/dL Creatinine 0.4 mg/dL Estimated GFR (Cockcroft-Gault) 179.6 BUN/Creatinine Ratio 20 Glucose Level 109 mg/dL Calcium Level 8.6 mg/dL Total Bilirubin 0.6 mg/dL Aspartate Amino Transf (AST/SGOT) 84 U/L Alanine Aminotransferase (ALT/SGPT) 74 U/L Alkaline Phosphatase 122 U/L Total Protein 6.6 g/dL Albumin 2.9 g/dL Albumin/Globulin Ratio 0.8 Lipase 581 U/L Imaging: Abd US IMPRESSION: * Liver is echogenic. Nonspecific but can be seen with fatty infiltration. PE: GEN: uncomfortable, in chair LUNGS: CTAB HEART: RRR ABD: soft, quiet, seems less tender compared to last week but still painful NEURO/PSYCH: A & O 3, tearful A/P: Recurrent alcoholic pancreatitis Elevated LFTs (better), fatty liver, s/p brittny Right adnexal mass - per POLYSOMNOGRAPHY TECH -- Frequently requesting pain medication, doesn't seem interested in clear liquids. Will review any need to repeat CT w/ Dr. Maurice. Justicifation of Admission Dx: Justifications for Admission: Justification of Admission Dx: Yes (OBSERVATION FOR PANCREATITIS) TRACY GIL Dec 31, 2019 12:02
--- NOTE | 2019-12-31 13:08 | NUR ---
SS following up with discharge planning. SS reviewed pt chart and discussed with pt RN. Pt is currently on room air. PT/OT recommended home. Pt is self pay. SS will continue to follow for discharge planning.
[2019-12-31 14:48] VITALS: BP 134/82
[2019-12-31 16:50] LABS: BARBITURATES NEG (NEG); BENZODIAZEPINES NEG (NEG); CANNABINOIDS NEG (NEG); COCAINE NEG (NEG); METHADONE NEG (NEG); OPIATES POS (NEG); PHENCYCLIDINE NEG (NEG)
[2019-12-31 16:52] LABS: AMPHETAMINE/METHAMPHETAMINE NEG (NEG)
[2019-12-31 19:10] VITALS: BP 115/90
[2019-12-31 23:20] VITALS: BP 115/84
[2020-01-01] MEDS: HYDROmorphone 2 MG/ML VIAL IV PRN ×7 (02:49→23:59)
[2020-01-01 03:50] VITALS: BP 123/87
[2020-01-01 05:17] LABS: BASO % 1 % (0-3); EOS # 0.1 x10^3/uL (0.0-0.7); EOS % 2 % (0-3); HEMATOCRIT 30.3 % (36.0-47.0); HEMOGLOBIN 10.2 g/dL (12.0-15.5); LYMPH # 0.9 x10^3/uL (1.0-4.8); LYMPH % 27 % (24-48); MEAN CORPUSCULAR HEMOGLOBIN 28 pg (25-35); MEAN CORPUSCULAR HGB CONC 34 g/dL (31-37); MEAN CORPUSCULAR VOLUME 84 fL (79-100); MONO # 0.5 x10^3/uL (0.0-1.1); MONO % 14 % (0-9); NEUT % 56 % (31-73); PLATELET COUNT 172 x10^3/uL (140-400); RED CELL DISTRIBUTION WIDTH 17.6 % (11.5-14.5); WHITE BLOOD COUNT 3.5 x10^3/uL (4.0-11.0)
[2020-01-01 05:40] LABS: ALBUMIN 2.7 g/dL (3.4-5.0); ALBUMIN/GLOBULIN RATIO 0.7 (1.0-1.7); CALCIUM 8.6 mg/dL (8.5-10.1); CREATININE 0.4 mg/dL (0.6-1.0); GFR 179.6; TOTAL BILIRUBIN 0.4 mg/dL (0.2-1.0); TOTAL PROTEIN 6.8 g/dL (6.4-8.2)
[2020-01-01 07:00] VITALS: BP 127/90
--- NOTE | 2020-01-01 08:17 | PDOC ---
PROGRESS NOTES History of Present Illness History of Present Illness VTE Prophylaxis Ordered VTE Prophylaxis Devices: No VTE Pharmacological Prophylaxi: Yes Assessment/Plan Assessment/Plan IMPRESSION Acute pancreatitis secondary to alcohol abuse WITH INTRACTABLE ABDOMINAL PAIN, SLOW TO RESOLVE Acute alcohol intoxication Transaminitis secondary to alcohol abuse Edema of the pancreas. Can be seen with pancreatitis. Liver is diffusely low density. Nonspecific but can be seen with fatty infiltra tion. Fullness of the right adnexa. The right ovarian lesion is not excluded given this finding and would correlate with symptoms in the region. If further clarification is desired ultrasound could further assess. No hydronephrosis The colonic wall is prominent in a portion of the right side of the colon. Most likely cause is lack of distention unless the patient is having colonic symptoms to suggest colitis. Alcoholism, SEVERE Severe hypokalemia Hyperbilirubinemia HEMATURIA hyponatremia Plan ADMIT GI CONSULT N.p.o. 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 am comp serum osmolality fluid restrict LIPASE [id number] 12/28 37 min pt exam, chart review, > 50% of time spent with exam, chart review, pt care coordination Justicifation of Admission Dx: Justicifation of Admission Dx: Justifications for Admission: Justification of Admission Dx: Yes (OBSERVATION FOR PANCREATITIS) Vitals Vitals Vital Signs Date Time Temp Pulse Resp B/P (MAP) Pulse Ox O2 Delivery O2 Flow Rate FiO2 01/01/20 06:14 15 Room Air 01/01/20 03:50 98.3 89 123/87 (99) 98 98.3 Physical Exam General: Alert, Oriented X3, Cooperative, mild distress Heart: Regular rate, Normal S1, Normal S2, No murmurs Lungs: Clear Abdomen: Normal bowel sounds, Soft, Other (MILD TENDERNESS NO REBOUND) Extremities: No clubbing, No cyanosis, No edema Skin: No breakdown, No significant lesion Labs LABS Laboratory Tests Test 01/01/20 04:35 White Blood Count 3.5 x10^3/uL (4.0-11.0) Red Blood Count 3.60 x10^6/uL (3.50-5.40) Hemoglobin 10.2 g/dL (12.0-15.5) Hematocrit 30.3 % (36.0-47.0) Mean Corpuscular Volume 84 fL (79-100) Mean Corpuscular Hemoglobin 28 pg (25-35) Mean Corpuscular Hemoglobin Concent 34 g/dL (31-37) Red Cell Distribution Width 17.6 % (11.5-14.5) Platelet Count 172 x10^3/uL (140-400) Neutrophils (%) (Auto) 56 % (31-73) Lymphocytes (%) (Auto) 27 % (24-48) Monocytes (%) (Auto) 14 % (0-9) Eosinophils (%) (Auto) 2 % (0-3) Basophils (%) (Auto) 1 % (0-3) Neutrophils # (Auto) 2.0 x10^3/uL (1.8-7.7) Lymphocytes # (Auto) 0.9 x10^3/uL (1.0-4.8) Monocytes # (Auto) 0.5 x10^3/uL (0.0-1.1) Eosinophils # (Auto) 0.1 x10^3/uL (0.0-0.7) Basophils # (Auto) 0.0 x10^3/uL (0.0-0.2) Sodium Level 133 mmol/L (136-145) Potassium Level 3.0 mmol/L (3.5-5.1) Chloride Level 96 mmol/L (98-107) Carbon Dioxide Level 26 mmol/L (21-32) Anion Gap 11 (6-14) Blood Urea Nitrogen 9 mg/dL (7-20) Creatinine 0.4 mg/dL (0.6-1.0) Estimated GFR (Cockcroft-Gault) 179.6 BUN/Creatinine Ratio 23 (6-20) Glucose Level 98 mg/dL (70-99) Calcium Level 8.6 mg/dL (8.5-10.1) Total Bilirubin 0.4 mg/dL (0.2-1.0) Aspartate Amino Transf (AST/SGOT) 90 U/L (15-37) Alanine Aminotransferase (ALT/SGPT) 79 U/L (14-59) Alkaline Phosphatase 109 U/L (46-116) Total Protein 6.8 g/dL (6.4-8.2) Albumin 2.7 g/dL (3.4-5.0) Albumin/Globulin Ratio 0.7 (1.0-1.7) Comment Review of Relevant I have reviewed the following items lore (where applicable) has been applied. Labs Laboratory Tests Test 12/30/19 15:00 12/30/19 16:15 01/01/20 04:35 Sodium Level 129 mmol/L (136-145) 133 mmol/L (136-145) Potassium Level 3.0 mmol/L (3.5-5.1) 3.0 mmol/L (3.5-5.1) Chloride Level 91 mmol/L (98-107) 96 mmol/L (98-107) Carbon Dioxide Level 25 mmol/L (21-32) 26 mmol/L (21-32) Anion Gap 13 (6-14) 11 (6-14) Blood Urea Nitrogen 8 mg/dL (7-20) 9 mg/dL (7-20) Creatinine 0.4 mg/dL (0.6-1.0) 0.4 mg/dL (0.6-1.0) Estimated GFR (Cockcroft-Gault) 179.6 179.6 BUN/Creatinine Ratio 20 (6-20) 23 (6-20) Glucose Level 109 mg/dL (70-99) 98 mg/dL (70-99) Calcium Level 8.6 mg/dL (8.5-10.1) 8.6 mg/dL (8.5-10.1) Total Bilirubin 0.6 mg/dL (0.2-1.0) 0.4 mg/dL (0.2-1.0) Aspartate Amino Transf (AST/SGOT) 84 U/L (15-37) 90 U/L (15-37) Alanine Aminotransferase (ALT/SGPT) 74 U/L (14-59) 79 U/L (14-59) Alkaline Phosphatase 122 U/L (46-116) 109 U/L (46-116) Total Protein 6.6 g/dL (6.4-8.2) 6.8 g/dL (6.4-8.2) Albumin 2.9 g/dL (3.4-5.0) 2.7 g/dL (3.4-5.0) Albumin/Globulin Ratio 0.8 (1.0-1.7) 0.7 (1.0-1.7) Lipase 581 U/L (73-393) Urine Opiates Screen Pos (NEG) Urine Methadone Screen Neg (NEG) Urine Barbiturates Neg (NEG) Urine Phencyclidine Screen Neg (NEG) Urine Amphetamine/Methamphetamine Neg (NEG) Urine Benzodiazepines Screen Neg (NEG) Urine Cocaine Screen Neg (NEG) Urine Cannabinoids Screen Neg (NEG) Urine Ethyl Alcohol Neg (NEG) White Blood Count 3.5 x10^3/uL (4.0-11.0) Red Blood Count 3.60 x10^6/uL (3.50-5.40) Hemoglobin 10.2 g/dL (12.0-15.5) Hematocrit 30.3 % (36.0-47.0) Mean Corpuscular Volume 84 fL (79-100) Mean Corpuscular Hemoglobin 28 pg (25-35) Mean Corpuscular Hemoglobin Concent 34 g/dL (31-37) Red Cell Distribution Width 17.6 % (11.5-14.5) Platelet Count 172 x10^3/uL (140-400) Neutrophils (%) (Auto) 56 % (31-73) Lymphocytes (%) (Auto) 27 % (24-48) Monocytes (%) (Auto) 14 % (0-9) Eosinophils (%) (Auto) 2 % (0-3) Basophils (%) (Auto) 1 % (0-3) Neutrophils # (Auto) 2.0 x10^3/uL (1.8-7.7) Lymphocytes # (Auto) 0.9 x10^3/uL (1.0-4.8) Monocytes # (Auto) 0.5 x10^3/uL (0.0-1.1) Eosinophils # (Auto) 0.1 x10^3/uL (0.0-0.7) Basophils # (Auto) 0.0 x10^3/uL (0.0-0.2) Laboratory Tests Test 01/01/20 04:35 White Blood Count 3.5 x10^3/uL (4.0-11.0) Red Blood Count 3.60 x10^6/uL (3.50-5.40) Hemoglobin 10.2 g/dL (12.0-15.5) Hematocrit 30.3 % (36.0-47.0) Mean Corpuscular Volume 84 fL (79-100) Mean Corpuscular Hemoglobin 28 pg (25-35) Mean Corpuscular Hemoglobin Concent 34 g/dL (31-37) Red Cell Distribution Width 17.6 % (11.5-14.5) Platelet Count 172 x10^3/uL (140-400) Neutrophils (%) (Auto) 56 % (31-73) Lymphocytes (%) (Auto) 27 % (24-48) Monocytes (%) (Auto) 14 % (0-9) Eosinophils (%) (Auto) 2 % (0-3) Basophils (%) (Auto) 1 % (0-3) Neutrophils # (Auto) 2.0 x10^3/uL (1.8-7.7) Lymphocytes # (Auto) 0.9 x10^3/uL (1.0-4.8) Monocytes # (Auto) 0.5 x10^3/uL (0.0-1.1) Eosinophils # (Auto) 0.1 x10^3/uL (0.0-0.7) Basophils # (Auto) 0.0 x10^3/uL (0.0-0.2) Sodium Level 133 mmol/L (136-145) Potassium Level 3.0 mmol/L (3.5-5.1) Chloride Level 96 mmol/L (98-107) Carbon Dioxide Level 26 mmol/L (21-32) Anion Gap 11 (6-14) Blood Urea Nitrogen 9 mg/dL (7-20) Creatinine 0.4 mg/dL (0.6-1.0) Estimated GFR (Cockcroft-Gault) 179.6 BUN/Creatinine Ratio 23 (6-20) Glucose Level 98 mg/dL (70-99) Calcium Level 8.6 mg/dL (8.5-10.1) Total Bilirubin 0.4 mg/dL (0.2-1.0) Aspartate Amino Transf (AST/SGOT) 90 U/L (15-37) Alanine Aminotransferase (ALT/SGPT) 79 U/L (14-59) Alkaline Phosphatase 109 U/L (46-116) Total Protein 6.8 g/dL (6.4-8.2) Albumin 2.7 g/dL (3.4-5.0) Albumin/Globulin Ratio 0.7 (1.0-1.7) Medications Current Medications Ondansetron HCl (Zofran) 4 mg STK-MED ONCE .ROUTE ; Start 12/27/19 at 18:46; Stop 12/27/19 at 18:46; Status DC Ondansetron HCl (Zofran) 4 mg 1X ONCE IV Last administered on 12/27/19at 19:09; Start 12/27/19 at 19:15; Stop 12/27/19 at 19:16; Status DC Sodium Chloride 1,000 ml @ 1,000 mls/hr 1X ONCE IV Last administered on 12/27/19at 19:09; Start 12/27/19 at 19:15; Stop 12/27/19 at 20:14; Status DC Ketorolac Tromethamine (Toradol 15mg Vial) 15 mg 1X ONCE IVP Last administered on 12/27/19at 20:12; Start 12/27/19 at 19:30; Stop 12/27/19 at 19:31; Status DC Fentanyl Citrate (Fentanyl 2ml Vial) 50 mcg 1X ONCE IV Last administered on 12/27/19at 21:17; Start 12/27/19 at 21:30; Stop 12/27/19 at 21:31; Status DC Ondansetron HCl (Zofran) 4 mg PRN Q8HRS PRN IV NAUSEA/VOMITING 1ST CHOICE Last administered on 12/28/19at 09:40; Start 12/27/19 at 21:30; Stop 12/28/19 at 21:29; Status DC Fentanyl Citrate (Fentanyl 2ml Vial) 50 mcg PRN Q2HR PRN IV SEVERE PAIN 7-10 Last administered on 12/28/19at 06:30; Start 12/27/19 at 21:30; Stop 12/28/19 at 21:29; Status DC Multivitamins 10 ml/Thiamine HCl 100 mg/Folic Acid 1 mg/Sodium Chloride 1,011.2 ml @ 100 mls/ hr DAILY IV Last administered on 12/29/19at 09:01; Start 12/28/19 at 00:00; Stop 12/29/19 at 13:07; Status DC Lorazepam (Ativan Inj) 2 mg PRN Q1HR PRN IV For CIWA 8-14 Last administered on 12/30/19at 12:17; Start 12/27/19 at 23:15 Lorazepam (Ativan Inj) 4 mg PRN Q1HR PRN IV For CIWA 15 or greater Last administered on 12/31/19at 23:21; Start 12/27/19 at 23:15 Haloperidol Lactate (Haldol Inj) 5 mg PRN Q4HRS PRN IVP Hallucinatn s,Confusn,Delirium; Start 12/27/19 at 23:15 Diphenhydramine HCl (Benadryl) 25 mg PRN Q15MIN PRN IVP EPS symptoms 2'Haldol admin; Start 12/27/19 at 23:15 Lisinopril (Prinivil) 10 mg DAILY PO Last administered on 12/29/19at 09:09; Start 12/28/19 at 01:00 Hydromorphone HCl (Dilaudid) 0.5 mg PRN Q3HRS PRN IV PAIN Last administered on 01/01/20at 05:51; Start 12/28/19 at 08:30 Magnesium Sulfate 50 ml @ 25 mls/hr 1X ONCE IV Last administered on 12/28/19at 11:36; Start 12/28/19 at 12:00; Stop 12/28/19 at 13:59; Status DC Sodium Chloride (Normal Saline Flush) 3 ml QSHIFT PRN IV AFTER MEDS AND BLOOD DRAWS; Start 12/28/19 at 11:30 Ondansetron HCl (Zofran) 4 mg PRN Q4HRS PRN IV NAUSEA/VOMITING Last administered on 12/30/19at 21:02; Start 12/28/19 at 11:30 Acetaminophen (Tylenol Supp) 650 mg PRN Q4HRS PRN TX TEMP OVER 100.4F OR MILD PAIN; Start 12/28/19 at 11:30 Albuterol Sulfate (Ventolin Neb Soln) 2.5 mg PRN Q4HRS PRN NEB SHORTNESS OF BREATH; Start 12/28/19 at 11:30 Lorazepam (Ativan) 0.5 mg PRN Q4HRS PRN PO ANXIETY / AGITATION; Start 12/28/19 at 11:30 Enoxaparin Sodium (Lovenox 40mg Syringe) 40 mg Q24H SQ Last administered on 12/31/19at 11:36; Start 12/28/19 at 11:30 Pantoprazole Sodium (PROTONIX VIAL for IV PUSH) 40 mg DAILYAC IVP Last administered on 12/31/19at 05:10; Start 12/28/19 at 13:00 Multivitamins (Thera M Plus) 1 tab DAILY PO ; Start 12/30/19 at 09:00 Folic Acid (Folic Acid) 1 mg DAILY PO ; Start 12/30/19 at 09:00 Thiamine Mononitrate (Vitamin B-1) 100 mg DAILY PO ; Start 12/30/19 at 09:00 Potassium Chloride (Klor-Con) 40 meq 1X ONCE PO ; Start 12/29/19 at 13:15; Stop 12/29/19 at 16:25; Status DC Potassium Chloride (Klor-Con) 20 meq DAILYWBKFT PO ; Start 12/30/19 at 08:00 Potassium Chloride/Water 100 ml @ 50 mls/hr 1X ONCE IV Last administered on 12/29/19at 17:49; Start 12/29/19 at 16:30; Stop 12/29/19 at 18:29; Status DC Potassium Chloride/Water 100 ml @ 50 mls/hr 1X ONCE IV Last administered on 12/29/19at 21:03; Start 12/29/19 at 19:00; Stop 12/29/19 at 20:59; Status DC Potassium Chloride/Water 100 ml @ 50 mls/hr Q1H IV Last administered on 12/31/19at 15:03; Start 12/31/19 at 11:00; Stop 12/31/19 at 12:59; Status DC Active Scripts Active Reported Ibuprofen 800 Mg Tablet 800 Mg PO DAILY PRN Lisinopril 10 Mg Tablet 10 Mg PO DAILY Vitals/I & O Vital Sign - Last 24 Hours 12/31/19 12/31/19 12/31/19 12/31/19 08:19 10:02 10:41 12:05 Temp 98.0 98.0 Pulse 85 Resp 18 B/P (MAP) 119/89 (99) Pulse Ox 98 98 O2 Delivery Room Air Room Air Room Air Room Air 12/31/19 12/31/19 12/31/19 12/31/19 14:48 18:17 19:10 19:10 Temp 99.0 97.7 99.0 97.7 Pulse 96 75 Resp 18 18 B/P (MAP) 134/82 (99) 115/90 (98) Pulse Ox 100 99 O2 Delivery Room Air Room Air Room Air Room Air 12/31/19 12/31/19 12/31/19 12/31/19 20:51 21:20 23:20 23:49 Temp 98.1 98.1 Pulse 87 Resp 16 15 18 16 B/P (MAP) 115/84 (94) Pulse Ox 99 99 O2 Delivery Room Air Room Air Room Air Room Air 01/01/20 01/01/20 01/01/20 01/01/20 00:15 02:49 03:15 03:50 Temp 98.3 98.3 Pulse 89 Resp 16 16 15 18 B/P (MAP) 123/87 (99) Pulse Ox 98 O2 Delivery Room Air Room Air Room Air Room Air 01/01/20 01/01/20 05:51 06:14 Resp 15 15 O2 Delivery Room Air Room Air Intake and Output 12/31/19 12/31/19 01/01/20 15:00 23:00 07:00 Intake Total 0 ml 320 ml 100 ml Output Total 50 ml 450 ml Balance 0 ml 270 ml -350 ml Justicifation of Admission Dx: Justifications for Admission: Justification of Admission Dx: Yes (OBSERVATION FOR PANCREATITIS) PATRICIA JEROME MD Jan 01, 2020 08:17
[2020-01-01] MEDS: THIAMINE 100 MG TABLET. PO SCH (09:14)
[2020-01-01] MEDS: FOLIC ACID 1 MG TABLET. PO SCH (09:14)
[2020-01-01] MEDS: PANTOPRAZOLE IV PUSH 40 MG VIAL. IVP SCH (09:14)
[2020-01-01] MEDS: MULTIVITAMIN with MINERAL TABLET. PO SCH (09:15)
[2020-01-01] MEDS: POTASSIUM CHLORIDE 20 MEQ TABLET.ER. PO SCH (09:20)
--- NOTE | 2020-01-01 09:45 | PDOC ---
Subjective: Subjective: Better today - less pain. Hasn't tried many clear liquids yet. Objective: Vital Signs: Vital Signs Date Time Temp Pulse Resp B/P (MAP) Pulse Ox O2 Delivery O2 Flow Rate FiO2 01/01/20 09:16 20 98 Room Air 01/01/20 07:00 98.4 91 127/90 (102) 98.4 Labs: Laboratory Tests Test 12/31/19 11:05 12/31/19 15:15 01/01/20 04:35 Cortisol AM Sample 5.5 ug/dL Cortisol PM Sample 13.0 ug/dL White Blood Count 3.5 x10^3/uL Red Blood Count 3.60 x10^6/uL Hemoglobin 10.2 g/dL Hematocrit 30.3 % Mean Corpuscular Volume 84 fL Mean Corpuscular Hemoglobin 28 pg Mean Corpuscular Hemoglobin Concent 34 g/dL Red Cell Distribution Width 17.6 % Platelet Count 172 x10^3/uL Neutrophils (%) (Auto) 56 % Lymphocytes (%) (Auto) 27 % Monocytes (%) (Auto) 14 % Eosinophils (%) (Auto) 2 % Basophils (%) (Auto) 1 % Neutrophils # (Auto) 2.0 x10^3/uL Lymphocytes # (Auto) 0.9 x10^3/uL Monocytes # (Auto) 0.5 x10^3/uL Eosinophils # (Auto) 0.1 x10^3/uL Basophils # (Auto) 0.0 x10^3/uL Sodium Level 133 mmol/L Potassium Level 3.0 mmol/L Chloride Level 96 mmol/L Carbon Dioxide Level 26 mmol/L Anion Gap 11 Blood Urea Nitrogen 9 mg/dL Creatinine 0.4 mg/dL Estimated GFR (Cockcroft-Gault) 179.6 BUN/Creatinine Ratio 23 Glucose Level 98 mg/dL Calcium Level 8.6 mg/dL Total Bilirubin 0.4 mg/dL Aspartate Amino Transf (AST/SGOT) 90 U/L Alanine Aminotransferase (ALT/SGPT) 79 U/L Alkaline Phosphatase 109 U/L Total Protein 6.8 g/dL Albumin 2.7 g/dL Albumin/Globulin Ratio 0.7 PE: GEN: NAD - looks more comfortable today LUNGS: CTAB HEART: RRR ABD: less discomfort epigastrium/LUQ, soft, quiet NEURO/PSYCH: A & O 3 A/P: Recurrent alcoholic pancreatitis Elevated LFTs (favorable trend), fatty liver, s/p brittny Right adnexal mass - 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 Can advance diet once reliably taking clears. Justicifation of Admission Dx: Justifications for Admission: Justification of Admission Dx: Yes (OBSERVATION FOR PANCREATITIS) TRACY GIL Jan 01, 2020 09:45
[2020-01-01] MEDS: LISINOPRIL 10 MG TABLET PO SCH (10:14)
[2020-01-01] MEDS: ENOXAPARIN 40 MG/0.4 ML SYRINGE. SQ SCH (10:33)
[2020-01-01 11:00] VITALS: BP 132/89
[2020-01-01 15:00] VITALS: BP 105/75
--- NOTE | 2020-01-01 15:06 | NUR ---
SS following up with discharge planning. SS reviewed pt chart and discussed with pt RN. Pt is currently on room air. Per, RN pt requesting IV Dilaudid every three hours. Pt on clear liquid diet. PT/OT recommended home. Pt is self pay. SS will continue to follow for discharge planning.
[2020-01-01 19:00] VITALS: BP 92/62
[2020-01-01] MEDS: LORazepam 0.5 MG TABLET PO PRN ×2 (19:56→23:59)
[2020-01-01 23:00] VITALS: BP 105/73
[2020-01-02 03:00] VITALS: BP 117/89
[2020-01-02] MEDS: HYDROmorphone 2 MG/ML VIAL IV PRN ×4 (03:02→11:54)
[2020-01-02 07:00] VITALS: BP 122/82
[2020-01-02] MEDS: THIAMINE 100 MG TABLET. PO SCH (08:48)
[2020-01-02] MEDS: PANTOPRAZOLE IV PUSH 40 MG VIAL. IVP SCH (08:48)
[2020-01-02] MEDS: FOLIC ACID 1 MG TABLET. PO SCH (08:49)
[2020-01-02] MEDS: POTASSIUM CHLORIDE 20 MEQ TABLET.ER. PO SCH (08:49)
[2020-01-02] MEDS: LISINOPRIL 10 MG TABLET PO SCH (08:49)
[2020-01-02] MEDS: MULTIVITAMIN with MINERAL TABLET. PO SCH (08:49)
--- NOTE | 2020-01-02 09:36 | PDOC ---
Subjective: Subjective: Says she's not better and then says she's better. Wants to advance her diet but also wants more pain medication. Objective: Vital Signs: Vital Signs Date Time Temp Pulse Resp B/P (MAP) Pulse Ox O2 Delivery O2 Flow Rate FiO2 01/02/20 08:50 16 Room Air 01/02/20 08:49 92 117/89 01/02/20 05:59 97 01/02/20 03:00 97.5 97.5 PE: GEN: NAD LUNGS: CTAB HEART: RRR ABD: soft, quiet BS - less tender NEURO/PSYCH: A & O 3, tearful A/P: Recurrent alcoholic pancreatitis -- Encouraged less pain medication, try advancing diet. Justicifation of Admission Dx: Justifications for Admission: Justification of Admission Dx: Yes (OBSERVATION FOR PANCREATITIS) TRACY GIL Jan 02, 2020 09:36
[2020-01-02] MEDS ORDERED: POLYETHYLENE GLYCOL 3350 17 GM PACKET. PO PRN (09:45)
[2020-01-02] MEDS ORDERED: BISACODYL 5 MG TABLET.DR. PO PRN (09:45)
[2020-01-02 11:00] VITALS: BP 136/94
[2020-01-02] MEDS: ENOXAPARIN 40 MG/0.4 ML SYRINGE. SQ SCH (11:54)
--- NOTE | 2020-01-02 12:31 | RAD ---
INDICATION: Reason: Right adnexal mass seen on CT / Spl. Instructions: / History: COMPARISON: CT from December 27, 2019 TECHNIQUE: Grayscale and color ultrasound images uterus and adnexa. Transabdominal and transvaginal images obtained. Transvaginal images were needed to better visualize structures that were limited on transabdominal imaging. FINDINGS: Uterus: 76 x 47 x 31 mm. Endometrial Stripe: 2-3 mm. Right Ovary: 33 x 30 x 20 mm. Left Ovary: 32 x 22 x 17 mm. Vascular flow identified to bilateral ovaries. Hypoechoic lesions the lower uterine segment to cervical region measuring up to 19 mm. Multiple ovarian follicles. IMPRESSION: * Vascular flow seen to the bilateral ovaries with follicles. A worrisome adnexal mass is not identified. * Numerous cystic structures at the lower uterine segment to cervical region which can be seen with nabothian cyst. Electronically signed by: Hiram Collier MD (01/02/2020 12:28 PM) [id number]
[2020-01-02] MEDS: LORazepam 0.5 MG TABLET PO PRN (12:47)
[2020-01-02] MEDS ORDERED: traMADol 50 MG TABLET PO PRN (13:00)
--- NOTE | 2020-01-02 13:57 | NUR ---
SS following up with discharge planning. SS reviewed pt chart and discussed with pt RN. Pt is currently on room air. Pt on Full Liquid diet. PT/OT recommended home. Discharge plan is to home when ready. Pt is self pay. SS will continue to follow for discharge planning.
--- NOTE | 2020-01-02 13:58 | PDOC ---
PROGRESS NOTES Chief Complaint Chief Complaint No acute events reported overnight, continues to complain of abdominal discomfort, reassurance has been provided case discussed with nursing staff and with GI NUTRITION ASSOCIATE. Patient in no acute distress but quite tearful during my encounter, prior to her acknowledging my presence in the room she seemed to be in no apparent distress during my visit History of Present Illness History of Present Illness VTE Prophylaxis Ordered VTE Prophylaxis Devices: No VTE Pharmacological Prophylaxi: Yes Assessment/Plan Assessment/Plan IMPRESSION Acute pancreatitis secondary to alcohol abuse WITH INTRACTABLE ABDOMINAL PAIN, SLOW TO RESOLVE Acute alcohol intoxication Transaminitis secondary to alcohol abuse Edema of the pancreas. Can be seen with pancreatitis. Liver is diffusely low density. Nonspecific but can be seen with fatty infiltration. Fullness of the right adnexa. The right ovarian lesion is not excluded given this finding and would correlate with symptoms in the region. If further clarification is desired ultrasound could further assess. No hydronephrosis The colonic wall is prominent in a portion of the right side of the colon. Most likely cause is lack of distention unless the patient is having colonic symptoms to suggest colitis. Alcoholism, SEVERE Severe hypokalemia Hyperbilirubinemia HEMATURIA hyponatremia Plan diet as per custom decorating consultant Alcohol withdrawal protocol Pain management with oral agents now that she is tolerating oral route in anticipation of discharge hopefully within the next 24 hours. DVT prophylaxis with SCDs counseling done solderer consult noted, ultrasound ordered today LIPASE 1169 12/28 37 min pt exam, chart review, > 50% of time spent with exam, chart review, pt care coordination Vitals Vitals Vital Signs Date Time Temp Pulse Resp B/P (MAP) Pulse Ox O2 Delivery O2 Flow Rate FiO2 01/02/20 11:54 Room Air 01/02/20 11:00 98.2 71 16 136/94 (108) 98 98.2 Physical Exam General: Alert, Oriented X3, Cooperative, mild distress Heart: Regular rate, Normal S1, Normal S2, No murmurs Lungs: Clear Abdomen: Normal bowel sounds, Soft, Other (MILD TENDERNESS NO REBOUND) Extremities: No clubbing, No cyanosis, No edema Skin: No breakdown, No significant lesion Review of Systems Review of Systems Pertinent as per HPI otherwise 10 point review of system is negative Comment Review of Relevant I have reviewed the following items loer (where applicable) has been applied. Labs Laboratory Tests Test 12/31/19 15:15 12/31/19 16:15 01/01/20 04:35 Plasma/Serum Osmolality 266 mOsmol/kg (275-295) Cortisol PM Sample 13.0 ug/dL (3.1-16.7) Urine Osmolality 384 mOsmol/kg (.) White Blood Count 3.5 x10^3/uL (4.0-11.0) Red Blood Count 3.60 x10^6/uL (3.50-5.40) Hemoglobin 10.2 g/dL (12.0-15.5) Hematocrit 30.3 % (36.0-47.0) Mean Corpuscular Volume 84 fL (79-100) Mean Corpuscular Hemoglobin 28 pg (25-35) Mean Corpuscular Hemoglobin Concent 34 g/dL (31-37) Red Cell Distribution Width 17.6 % (11.5-14.5) Platelet Count 172 x10^3/uL (140-400) Neutrophils (%) (Auto) 56 % (31-73) Lymphocytes (%) (Auto) 27 % (24-48) Monocytes (%) (Auto) 14 % (0-9) Eosinophils (%) (Auto) 2 % (0-3) Basophils (%) (Auto) 1 % (0-3) Neutrophils # (Auto) 2.0 x10^3/uL (1.8-7.7) Lymphocytes # (Auto) 0.9 x10^3/uL (1.0-4.8) Monocytes # (Auto) 0.5 x10^3/uL (0.0-1.1) Eosinophils # (Auto) 0.1 x10^3/uL (0.0-0.7) Basophils # (Auto) 0.0 x10^3/uL (0.0-0.2) Sodium Level 133 mmol/L (136-145) Potassium Level 3.0 mmol/L (3.5-5.1) Chloride Level 96 mmol/L (98-107) Carbon Dioxide Level 26 mmol/L (21-32) Anion Gap 11 (6-14) Blood Urea Nitrogen 9 mg/dL (7-20) Creatinine 0.4 mg/dL (0.6-1.0) Estimated GFR (Cockcroft-Gault) 179.6 BUN/Creatinine Ratio 23 (6-20) Glucose Level 98 mg/dL (70-99) Calcium Level 8.6 mg/dL (8.5-10.1) Total Bilirubin 0.4 mg/dL (0.2-1.0) Aspartate Amino Transf (AST/SGOT) 90 U/L (15-37) Alanine Aminotransferase (ALT/SGPT) 79 U/L (14-59) Alkaline Phosphatase 109 U/L (46-116) Total Protein 6.8 g/dL (6.4-8.2) Albumin 2.7 g/dL (3.4-5.0) Albumin/Globulin Ratio 0.7 (1.0-1.7) Medications Current Medications Ondansetron HCl (Zofran) 4 mg STK-MED ONCE .ROUTE ; Start 12/27/19 at 18:46; Stop 12/27/19 at 18:46; Status DC Ondansetron HCl (Zofran) 4 mg 1X ONCE IV Last administered on 12/27/19at 19:09; Start 12/27/19 at 19:15; Stop 12/27/19 at 19:16; Status DC Sodium Chloride 1,000 ml @ 1,000 mls/hr 1X ONCE IV Last administered on 12/27/19at 19:09; Start 12/27/19 at 19:15; Stop 12/27/19 at 20:14; Status DC Ketorolac Tromethamine (Toradol 15mg Vial) 15 mg 1X ONCE IVP Last administered on 12/27/19at 20:12; Start 12/27/19 at 19:30; Stop 12/27/19 at 19:31; Status DC Fentanyl Citrate (Fentanyl 2ml Vial) 50 mcg 1X ONCE IV Last administered on 12/27/19at 21:17; Start 12/27/19 at 21:30; Stop 12/27/19 at 21:31; Status DC Ondansetron HCl (Zofran) 4 mg PRN Q8HRS PRN IV NAUSEA/VOMITING 1ST CHOICE Last administered on 12/28/19at 09:40; Start 12/27/19 at 21:30; Stop 12/28/19 at 21:29; Status DC Fentanyl Citrate (Fentanyl 2ml Vial) 50 mcg PRN Q2HR PRN IV SEVERE PAIN 7-10 Last administered on 12/28/19at 06:30; Start 12/27/19 at 21:30; Stop 12/28/19 at 21:29; Status DC Multivitamins 10 ml/Thiamine HCl 100 mg/Folic Acid 1 mg/Sodium Chloride 1,011.2 ml @ 100 mls/ hr DAILY IV Last administered on 12/29/19at 09:01; Start 12/28/19 at 00:00; Stop 12/29/19 at 13:07; Status DC Lorazepam (Ativan Inj) 2 mg PRN Q1HR PRN IV For CIWA 8-14 Last administered on 01/01/20at 11:13; Start 12/27/19 at 23:15 Lorazepam (Ativan Inj) 4 mg PRN Q1HR PRN IV For CIWA 15 or greater Last administered on 12/31/19at 23:21; Start 12/27/19 at 23:15 Haloperidol Lactate (Haldol Inj) 5 mg PRN Q4HRS PRN IVP Hallucinatns,Confusn,Delirium; Start 12/27/19 at 23:15 Diphenhydramine HCl (Benadryl) 25 mg PRN Q15MIN PRN IVP EPS symptoms 2'Haldol admin; Start 12/27/19 at 23:15 Lisinopril (Prinivil) 10 mg DAILY PO Last administered on 01/02/20at 08:49; Start 12/28/19 at 01:00 Hydromorphone HCl (Dilaudid) 0.5 mg PRN Q3HRS PRN IV PAIN Last administered on 01/02/20at 11:54; Start 12/28/19 at 08:30; Stop 01/02/20 at 12:47; Status DC Magnesium Sulfate 50 ml @ 25 mls/hr 1X ONCE IV Last administered on 12/28/19at 11:36; Start 12/28/19 at 12:00; Stop 12/28/19 at 13:59; Status DC Sodium Chloride (Normal Saline Flush) 3 ml QSHIFT PRN IV AFTER MEDS AND BLOOD DRAWS; Start 12/28/19 at 11:30 Ondansetron HCl (Zofran) 4 mg PRN Q4HRS PRN IV NAUSEA/VOMITING Last administered on 12/30/19at 21:02; Start 12/28/19 at 11:30 Acetaminophen (Tylenol Supp) 650 mg PRN Q4HRS PRN SC TEMP OVER 100.4F OR MILD PAIN; Start 12/28/19 at 11:30 Albuterol Sulfate (Ventolin Neb Soln) 2.5 mg PRN Q4HRS PRN NEB SHORTNESS OF BREATH; Start 12/28/19 at 11:30 Lorazepam (Ativan) 0.5 mg PRN Q4HRS PRN PO ANXIETY / AGITATION Last a dministered on 01/02/20at 12:47; Start 12/28/19 at 11:30 Enoxaparin Sodium (Lovenox 40mg Syringe) 40 mg Q24H SQ Last administered on 01/02/20at 11:54; Start 12/28/19 at 11:30 Pantoprazole Sodium (PROTONIX VIAL for IV PUSH) 40 mg DAILYAC IVP Last administered on 01/02/20at 08:48; Start 12/28/19 at 13:00; Stop 01/02/20 at 09:37; Status DC Multivitamins (Thera M Plus) 1 tab DAILY PO Last administered on 01/02/20at 08:49; Start 12/30/19 at 09:00 Folic Acid (Folic Acid) 1 mg DAILY PO Last administered on 01/02/20at 08:49; Start 12/30/19 at 09:00 Thiamine Mononitrate (Vitamin B-1) 100 mg DAILY PO Last administered on 01/02/20at 08:48; Start 12/30/19 at 09:00 Potassium Chloride (Klor-Con) 40 meq 1X ONCE PO ; Start 12/29/19 at 13:15; Stop 12/29/19 at 16:25; Status DC Potassium Chloride (Klor-Con) 20 meq DAILYWBKFT PO Last administered on 01/02/20at 08:49; Start 12/30/19 at 08:00 Potassium Chloride/Water 100 ml @ 50 mls/hr 1X ONCE IV Last administered on 12/29/19at 17:49; Start 12/29/19 at 16:30; Stop 12/29/19 at 18:29; Status DC Potassium Chloride/Water 100 ml @ 50 mls/hr 1X ONCE IV Last administered on 12/29/19at 21:03; Start 12/29/19 at 19:00; Stop 12/29/19 at 20:59; Status DC Potassium Chloride/Water 100 ml @ 50 mls/hr Q1H IV Last administered on 12/31/19at 15:03; Start 12/31/19 at 11:00; Stop 12/31/19 at 12:59; Status DC Pantoprazole Sodium (Protonix) 40 mg DAILYAC PO ; Start 01/03/20 at 07:30 Polyethylene Glycol (miraLAX PACKET) 17 gm PRN DAILY PRN PO CONSTIPATION; Start 01/02/20 at 09:45 Bisacodyl (Dulcolax Tab) 5 mg PRN DAILY PRN PO CONSTIPATION; Start 01/02/20 at 09:45 Tramadol HCl (Ultram) 50 mg PRN Q6HRS PRN PO MODERATE PAIN; Start 01/02/20 at 13:00 Active Scripts Active Reported Ibuprofen 800 Mg Tablet 800 Mg PO DAILY PRN Lisinopril 10 Mg Tablet 10 Mg PO DAILY Vitals/I & O Vital Sign - Last 24 Hours 01/01/20 01/01/20 01/01/20 01/01/20 14:04 15:00 17:48 18:18 Temp 97.8 97.8 Pulse 86 Resp 18 16 20 18 B/P (MAP) 105/75 (85) Pulse Ox 96 97 97 97 O2 Delivery Room Air Room Air Room Air Room Air 01/01/20 01/01/20 01/01/20 01/01/20 19:00 20:00 20:54 21:24 Temp 97.5 97.5 Pulse 93 Resp 17 18 18 B/P (MAP) 92/62 (72) Pulse Ox 96 97 97 O2 Delivery Room Air Room Air Room Air Room Air 01/01/20 01/01/20 01/02/20 01/02/20 23:00 23:59 00:29 03:00 Temp 97.6 97.5 97.6 97.5 Pulse 85 92 Resp 18 18 20 18 B/P (MAP) 105/73 (84) 117/89 (98) Pulse Ox 97 97 97 96 O2 Delivery Room Air Room Air Room Air Room Air 01/02/20 01/02/20 01/02/20 01/02/20 03:02 03:32 05:59 07:00 Temp 98.0 98.0 Pulse 80 Resp 18 18 18 16 B/P (MAP) 122/82 (95) Pulse Ox 97 97 97 98 O2 Delivery Room Air Room Air Room Air Room Air 01/02/20 01/02/20 01/02/20 01/02/20 07:39 08:00 08:49 08:50 Pulse 92 Resp 12 16 B/P (MAP) 117/89 O2 Delivery Room Air Room Air Room Air 01/02/20 01/02/20 01/02/20 11:00 11:33 11:54 Temp 98.2 98.2 Pulse 71 Resp 16 B/P (MAP) 136/94 (108) Pulse Ox 98 O2 Delivery Room Air Room Air Room Air Intake and Output 01/01/20 01/01/20 01/02/20 15:00 23:00 07:00 Intake Total 100 ml Output Total 200 ml Balance -200 ml 100 ml Justicifation of Admission Dx: Justifications for Admission: Justification of Admission Dx: Yes (OBSERVATION FOR PANCREATITIS) TC REED MD Jan 02, 2020 13:58
[2020-01-02 15:00] VITALS: BP 96/47
[2020-01-02] MEDS ORDERED: Folic Acid PO (18:20)
[2020-01-02] MEDS ORDERED: TRAM50TA PO (18:20)
[2020-01-02] MEDS ORDERED: PANT40TA77 PO (18:20)
[2020-01-02] MEDS ORDERED: THIA100T22 PO (18:20)
--- NOTE | 2020-01-02 18:29 | PDOC3 ---
Discharge Summary Visit Information Date of Admission: Dec 28, 2019 Date of Discharge: Jan 02, 2020 Admitting Diagnosis Comment: Acute pancreatitis secondary to alcohol abuse Acute alcohol intoxication Transaminitis secondary to alcohol abuse Edema of the pancreas. Can be seen with pancreatitis. Liver is diffusely low density. Nonspecific but can be seen with fatty infiltration. Fullness of the right adnexa. The right ovarian lesion is not excluded given this finding and would correlate with symptoms in the region. If further clarification is desired ultrasound could further assess. No hydronephrosis The colonic wall is prominent in a portion of the right side of the colon. Most likely cause is lack of distention unless the patient is having colonic symptoms to suggest colitis. Alcoholism Severe hypokalemia Hyperbilirubinemia HEMATURIA Final Diagnosis Acute pancreatitis secondary to alcohol abuse Acute alcohol intoxication Transaminitis secondary to alcohol abuse Edema of the pancreas. Can be seen with pancreatitis. Liver is diffusely low density. Nonspecific but can be seen with fatty infiltration. Fullness of the right adnexa. The right ovarian lesion is not excluded given this finding and would correlate with symptoms in the region. If further clarification is desired ultrasound could further assess. No hydronephrosis The colonic wall is prominent in a portion of the right side of the colon. Most likely cause is lack of distention unless the patient is having colonic symptoms to suggest colitis. Alcoholism Severe hypokalemia Hyperbilirubinemia HEMATURIA Brief Hospital Course Allergies Allergies Coded Allergies Type Severity Reaction Last Updated Verified latex Allergy Intermediate 09/19/19 Yes prochlorperazine Allergy Intermediate 09/19/19 Yes Vital Signs Vital Signs Date Time Temp Pulse Resp B/P (MAP) Pulse Ox O2 Delivery O2 Flow Rate FiO2 01/02/20 15:58 16 Room Air 01/02/20 15:00 98.1 77 96/47 (63) 98 98.1 Lab Results Laboratory Tests Test 01/01/20 04:35 White Blood Count 3.5 x10^3/uL (4.0-11.0) Red Blood Count 3.60 x10^6/uL (3.50-5.40) Hemoglobin 10.2 g/dL (12.0-15.5) Hematocrit 30.3 % (36.0-47.0) Mean Corpuscular Volume 84 fL (79-100) Mean Corpuscular Hemoglobin 28 pg (25-35) Mean Corpuscular Hemoglobin Concent 34 g/dL (31-37) Red Cell Distribution Width 17.6 % (11.5-14.5) Platelet Count 172 x10^3/uL (140-400) Neutrophils (%) (Auto) 56 % (31-73) Lymphocytes (%) (Auto) 27 % (24-48) Monocytes (%) (Auto) 14 % (0-9) Eosinophils (%) (Auto) 2 % (0-3) Basophils (%) (Auto) 1 % (0-3) Neutrophils # (Auto) 2.0 x10^3/uL (1.8-7.7) Lymphocytes # (Auto) 0.9 x10^3/uL (1.0-4.8) Monocytes # (Auto) 0.5 x10^3/uL (0.0-1.1) Eosinophils # (Auto) 0.1 x10^3/uL (0.0-0.7) Basophils # (Auto) 0.0 x10^3/uL (0.0-0.2) Sodium Level 133 mmol/L (136-145) Potassium Level 3.0 mmol/L (3.5-5.1) Chloride Level 96 mmol/L (98-107) Carbon Dioxide Level 26 mmol/L (21-32) Anion Gap 11 (6-14) Blood Urea Nitrogen 9 mg/dL (7-20) Creatinine 0.4 mg/dL (0.6-1.0) Estimated GFR (Cockcroft-Gault) 179.6 BUN/Creatinine Ratio 23 (6-20) Glucose Level 98 mg/dL (70-99) Calcium Level 8.6 mg/dL (8.5-10.1) Total Bilirubin 0.4 mg/dL (0.2-1.0) Aspartate Amino Transf (AST/SGOT) 90 U/L (15-37) Alanine Aminotransferase (ALT/SGPT) 79 U/L (14-59) Alkaline Phosphatase 109 U/L (46-116) Total Protein 6.8 g/dL (6.4-8.2) Albumin 2.7 g/dL (3.4-5.0) Albumin/Globulin Ratio 0.7 (1.0-1.7) Brief Hospital Course Patient admitted for acute pancreatitis, she was kept NPO initially she was seen by GI with the following recommendations: maging: Imaging: CT A/P IMPRESSION: * Edema of the pancreas. Can be seen with pancreatitis. Correlate with symptoms and laboratory markers. * Liver is diffusely low density. Nonspecific but can be seen with fatty infiltration. * Fullness of the right adnexa. The right ovarian lesion is not excluded given this finding and would correlate with symptoms in the region. If further clarification is desired ultrasound could further assess. * No hydronephrosis * The colonic wall is prominent in a portion of the right side of the colon. Most likely cause is lack of distention unless the patient is having colonic symptoms to suggest colitis. PE: GEN: uncomfortable HEENT: Atraumatic, PERRL LUNGS: CTAB HEART: RRR ABD: quiet, distended, tender epigastrium/LUQ to very light touch EXTREMITY: No edema SKIN: No rashes, no jaundice NEURO/PSYCH: A & O 3, anxious, tearful A/P: A/P: Pancreatitis - likely 2/2 alcohol Elevated LFTs, ?h/o Hep C, fatty liver - viral serologies negative 08/2019 S/p cholecystectomy Alcohol abuse -- Pain control, IVF per Dr. Cherry. NPO. 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 Consider US liver. TRACY GIL Dec 28, 2019 09:28 Signed By: TRACY GIL <<Signature on File>> Signed Date/Time:12/28/19 1133 Cosigned By: MAGAN TODD MD <<Signature on File>> Cosigned Date/Time: 12/28/19 1156 She had a protacted hospital stay due to problems with pain control, there was a structure seen on CT of the abdomen and pelvis, this was evaluated by BUSINESS SYSTEMS CONSULTANT. This did not seem to be of concern there was a fullness of the right adnexa noted and abdominal ultrasound did not reveal any abnormalities either. A dedicated pelvic ultrasound was requested on the day of discharge which did not reveal any worrisome lesions. Patient was advised to back off on the IV medications given that as stated in my previous progress note earlier in the day patient seem to be in no acute distress but when she acknowledged the presence of a healthcare provider she would burst out in tears. Drug-seeking behavior was noted and the patient requested discharge once she realized that IV pain medication was no longer available to her. Signs and symptoms of alarm were discussed with the patient prior to discharge from the hospital, extensive counseling regarding the adverse effects of alcohol on her health was given as well. We encouraged her to follow-up with her primary care physician within 1 week Assessment Assessment IMAGING REPORT Signed PATIENT: DENISE ETIENNE ACCOUNT: [id number] : 1980 LOCATION: [address] [place] [address] AGE: 39 SEX: F EXAM STATUS: ADM IN ORD. PHYSICIAN: TC REED MD REASON: Right adnexal mass seen on CT PROCEDURE: PELVIS W/TV INDICATION: Reason: Right adnexal mass seen on CT / Spl. Instructions: / History: COMPARISON: CT from December 27, 2019 TECHNIQUE: Grayscale and color ultrasound images uterus and adnexa. Transabdominal and transvaginal images obtained. Transvaginal images were needed to better visualize structures that were limited on transabdominal imaging. FINDINGS: Uterus: 76 x 47 x 31 mm. Endometrial Stripe: 2-3 mm. Right Ovary: 33 x 30 x 20 mm. Left Ovary: 32 x 22 x 17 mm. Vascular flow identified to bilateral ovaries. Hypoechoic lesions the lower uterine segment to cervical region measuring up to 19 mm. Multiple ovarian follicles. IMPRESSION: * Vascular flow seen to the bilateral ovaries with follicles. A worrisome adnexal mass is not identified. * Numerous cystic structures at the lower uterine segment to cervical region which can be seen with nabothian cyst. Electronically signed by: Hiram Collier MD (01/02/2020 12:28 PM) [id number] Discharge Information Condition at Discharge: Improved Follow Up: Weeks Disposition/Orders: D/C to Home Scheduled Lisinopril (Lisinopril) 10 Mg Tablet, 10 MG PO DAILY for FOR HYPERTENSION, #30 Ref 0 (Reported) Entered as Reported by: MARVIN DAVALOS on 08/17/19 2311 Last Action: Continued on 12/28/19 0031 by PRASHANT PEREZ Pantoprazole Sodium (Pantoprazole Sodium ) 40 Mg Tablet.dr 40 MG PO DAILYAC for GERD for 30 Days, #30 Prescribed by: TC REED MD on 01/02/20 1820 Thiamine Mononitrate (Vitamin B-1) 100 Mg Tablet, 100 MG PO DAILY for supplement for 30 Days, #30 Prescribed by: TC REED MD on 01/02/201819 [Folic Acid] 1 MG TABLET, 1 MG PO DAILY for supplement for 30 Days, #30 Prescribed by: TC REED MD on 01/02/200 Scheduled PRN Ibuprofen (Ibuprofen) 800 Mg Tablet, 800 MG PO DAILY PRN for migraines, (Reported) Entered as Reported by: PRASHANT PEREZ on 12/27/192247 Last Action: Reviewed on 12/27/192250 by PRASHANT PEREZ Tramadol Hcl (Tramadol Hcl) 50 Mg Tablet, 50 MG PO PRN Q6HRS PRN for MODERATE PAIN for 5 Days, #20 Prescribed by: TC REED MD on 01/02/201819 Justicifation of Admission Dx: Justifications for Admission: Justification of Admission Dx: Yes (OBSERVATION FOR PANCREATITIS) TC REED MD Jan 02, 2020 18:29
--- NOTE | 2020-01-02 19:15 | NUR ---
Discharge Note: DENISE ETIENNE [address] Discharge instructions and discharge home medications reviewed with Patient and a copy given. All questions have been answered and understanding verbalized. The following instructions and handouts were given: follow up instructions Discontinued lines and drains: catheter tip intact. Patient tolerated well. Patient discharged to home with selfcare via personal vehicle.
[2020-01-03] MEDS ORDERED: PANTOPRAZOLE 40 MG TABLET.DR. PO SCH (07:30)
[2020-02-21] MEDS ORDERED: MULT1TAB90 PO (09:41)
[2020-02-21] MEDS ORDERED: Folic Acid PO (09:41)
[2020-02-21] MEDS ORDERED: ACET325T9 PO (09:41)
== END 2020-01-02 19:10 | disposition home or self-care (01) | DRG 439 ==
LOC: ER 17:59 → 2 SOUTH 21:10 → OBSVTOIN 12-28 11:26
PROVIDERS: ADMIT Family Medicine; ATTEND Family Medicine
DX: K85.20 Alcohol induced acute pancreatitis without necrosis or infection (principal); E87.1 Hypo-osmolality and hyponatremia; E10.9 Type 1 diabetes mellitus without complications; E87.6 Hypokalemia; F10.229 Alcohol dependence with intoxication, unspecified; F17.210 Nicotine dependence, cigarettes, uncomplicated; F32.9 Major depressive disorder, single episode, unspecified; F41.9 Anxiety disorder, unspecified; I10 Essential (primary) hypertension; K42.9 Umbilical hernia without obstruction or gangrene; K74.60 Unspecified cirrhosis of liver; K76.0 Fatty (change of) liver, not elsewhere classified; K86.89 Other specified diseases of pancreas; Z79.4 Long term (current) use of insulin; Z82.5 Family history of asthma and other chronic lower respiratory diseases; Z90.49 Acquired absence of other specified parts of digestive tract; Z79.899 Other long term (current) drug therapy; R31.9 Hematuria, unspecified; Z88.8 Allergy status to other drugs, medicaments and biological substances; Z91.040 Latex allergy status; K52.9 Noninfective gastroenteritis and colitis, unspecified
CPT/HCPCS: 36415; 74176; 76700; 76830; 76856; 80053; 80307; 81001; 81025; 82533; 83690; 83735; 83930; 83935; 84300; 85025; 94760; 96361; 96374; 96375; C9113; G0378; G0379; G0480; J1170; J1650; J1885; J2060; J2405; J3010; J3411; J3475; J3480; J3490; J7030; 97530-GP; 99285-25

== ENCOUNTER 2020-01-31 04:53 | Inpatient (IN) | payer SELFPAY ==
[~2020-01-31] VITALS: Ht 165.1 cm; Wt 63.5 kg
[2020-01-31] VITALS (8 sets, daily range): BP systolic 127–164; BP diastolic 80–109
[~2020-01-31 04:53] MED LIST changes: +Folic Acid PO; +IBUP-1060 PO; +THIA100T22 PO; +TRAM50TA PO
[2020-01-31] MEDS ORDERED: NALOXONE 2 MG/2 ML DISP.SYRIN. ONE ×2 (05:03→05:06)
[2020-01-31] MEDS ORDERED: ROCURONIUM 50 MG/5 ML VIAL. IV ONE (05:30)
[2020-01-31] MEDS ORDERED: MIDAZOLAM 100mg/100ml NS BAG 100 ML IV PRN (05:30)
[2020-01-31 05:41] LABS: BASE EXCESS COOX -1 mmol/L (-3-3); HCO3 COOX 22 mmol/L (21-28); PCO2 COOX 30 mmHg (35-46); PO2 COOX 99 mmHg (85-108); SAT O2 COOX 97 % (92-99)
[2020-01-31] MEDS ORDERED: IV NORMAL SALINE 1000ML BAG 1,000 ML IV ONE ×3 (05:45→07:00)
--- NOTE | 2020-01-31 05:45 | PHYS DOC ---
Past Medical History Past Medical History: Alcoholism, Anxiety, Depression, Diabetes-Type I, H ypertension, Liver Disease Additional Past Medical Histor: MS, Hepatitis C, liver failure, multiple suicid e attempts (NEMESIO GODFREY MD) Past Surgical History: Cholecystectomy, , Tubal ligation, Other Additional Past Surgical Histo: hyperdistention of bladder, EGD (NEMESIO GODFREY MD) Smoking Status: Current Every Day Smoker Alcohol Use: Heavy (NEMESIO GODFREY MD) General Adult EDM: Chief Complaint: ALTERED MENTAL STATUS HPI: HPI: Patient is a 39 year old female who presents with altered mental status. Patient is brought by EMS. They initially told me her GCS was 11. When she arrived here her GCS was 3. She was unable to give any history. No gag was present. (NEMESIO GODFREY MD) Review of Systems: Review of Systems: Limited secondary to patient's medical acuity (NEMESIO GODFREY MD) Heart Score: Risk Factors: Risk Factors: DM, Current or recent (<one month) smoker, HTN, HLP, family history of CAD, obesity. Risk Scores: Score 0 - 3: 2.5% MACE over next 6 weeks - Discharge Home Score 4 - 6: 20.3% MACE over next 6 weeks - Admit for Clinical Observation Score 7 - 10: 72.7% MACE over next 6 weeks - Early Invasive Strategies (NEMESIO GODFREY MD) Current Medications: Current Medications Medications (Trade) Dose Ordered Sig/Jarred Start Time Stop Time Status Last Admin Dose Admin Midazolam HCl 100 ml @ 0 mls/hr CONT PRN 01/31/20 05:30 Naloxone HCl (NARCAN 2mg SYRINGE) 2 mg STK-MED ONCE 01/31/20 05:06 01/31/20 05:07 DC Rocuronium Adkins (Zemuron) 30 mg 1X ONCE 01/31/20 05:30 01/31/20 05:31 DC Sodium Chloride 1,000 ml @ 1,000 mls/hr 1X ONCE 01/31/20 05:30 01/31/20 06:29 UNV (NEMESIO GODFREY MD) Allergies: Allergies: Allergies Coded Allergies Type Severity Reaction Last Updated Verified latex Allergy Intermediate 09/19/19 Yes prochlorperazine Allergy Intermediate 09/19/19 Yes (NEMESIO GODFREY MD) Physical Exam: PE: Constitutional: Well developed, well nourished, kUSMALL breathing pattern, GCS o f 3 [] HENT: Normocephalic, atraumatic, bilateral external ears normal, oropharynx moist, no oral exudates, nose normal. [] Eyes: PERRLA, EOMI, dilated and reactive, conjunctiva normal, no discharge. [] Neck: Normal range of motion, no tenderness, supple, no stridor. [] Cardiovascular: Regular rhythm, tachycardic, no murmurs, no S3 or S4, pulses 1 out of 2 dorsalis pedis bilaterally [] Lungs & Thorax: Bilateral breath sounds clear to auscultation [] Abdomen: Bowel sounds normal, soft, no tenderness, no masses, no pulsatile masses. Positive fluid wave [] Skin: Warm, dry, no erythema, no rash. [] Back: No tenderness, no CVA tenderness. [] Extremities: No tenderness, no cyanosis, no clubbing, ROM intact, no edema. [] Neurologic: GCS of 3, [] [] (NEMESIO GODFREY MD) EKG: EKG: [] (NEMESIO GODFREY MD) EKG: Sinus tachycardia at 112 bpm, no axis deviation, QTC 474, T wave inversion V3 and V4, no ST elevations or ST depressions (CHELSEA ZAPIEN DO) Radiology/Procedures: Radiology/Procedures: Indication: Respiratory failure Consent: Unable to give consent due to emergent nature. Medications Used: see nursing note Procedure: The patient was placed in the appropriate position. Intubation was performed using direct laryngoscope, 7.5 endotracheal tube was then inserted into the trachea without any difficulty. 24 at the lip. Initial confirmation of placement included bilateral breath sounds, tube fogging, adequate chest rise, adequate pulse oximetry reading. A chest x-ray to verify correct placement of the tube showed appropriate tube position. The patient tolerated the procedure well. Complications: none.[] (NEMESIO GODFREY MD) Radiology/Procedures: IMAGING REPORT Signed PATIENT: DENISE ETIENNE ACCOUNT: [id number] : 1980 LOCATION: ER AGE: 39 SEX: F EXAM STATUS: REG ER ORD. PHYSICIAN: NEMESIO GODFREY MD REASON: Postintubation PROCEDURE: CHEST AP ONLY INDICATION: Reason: Postintubation / Spl. Instructions: / History: COMPARISON: September 18, 2019 FINDINGS: Single view of chest obtained. Hypoexpanded exam. Endotracheal tube mid thoracic trachea. Enteric tube seen coursing below the diaphragm. Mild interstitial opacities IMPRESSION: * Lines and tubes as above. * Mild interstitial opacities bilaterally. Could be from crowded vascular markings but mild edema or interstitial infiltrate could also have this appearance. Electronically signed by: Lalit Mcwilliams MD (01/31/2020 6:35 AM) [id number] DICTATED and SIGNED BY: LALIT MCWILLIAMS MD DATE: 01/31/20 0635 IMAGING REPORT Signed PATIENT: DENISE ETIENNE ACCOUNT: [id number] : 1980 LOCATION: ER AGE: 39 SEX: F EXAM STATUS: REG ER ORD. PHYSICIAN: NEMESIO GODFREY MD REASON: Altered mental status-PTUNABLE TO COOPERATE PROCEDURE: CT HEAD WO CONTRAST EXAMINATION: CT HEAD WO CONTRAST CLINICAL HISTORY: Reason: Altered mental status-PTUNABLE TO COOPERATE / Spl. Instructions: / History: TECHNIQUE: Serial axial images without IV contrast were obtained from the vertex to the foramen magnum. CT Dose-Length Product (DLP): 2842.70 mGy*cm CT Dose Reduction Employed: One or more of the following individualized dose reduction techniques were utilized for this examination: 1. Automated exposure control 2. Adjustment of the mA and/or kV according to patient size 3. Use of iterative reconstruction technique. COMPARISON: None. FINDINGS: Motion artifact at the skull base somewhat limits evaluation. Post-operative change: None. Acute change: No evidence of an acute infarct or other acute parenchymal process. Hemorrhage: No evidence of acute intracranial hemorrhage. Mass Lesion / Mass Effect: There is no evidence of an intracranial mass or extraaxial fluid collection. No significant mass effect. Chronic change: None apparent. Parenchyma: There is no significant volume loss. The brain parenchyma is otherwise within normal limits for age. Ventricles: The ventricles are within normal limits of size and configuration for age. Paranasal sinuses and skull base: Mild ethmoid and right sphenoid sinus disease. The skull base and imaged soft tissues are unremarkable. IMPRESSION: No evidence of acute intracranial abnormality. Electronically signed by: Qamar Lowery DO (01/31/2020 8:24 AM) [id number] DICTATED and SIGNED BY: QAMAR LOWERY DO DATE: 01/31/20823 (CHELSEA SINGH DO) Course & Med Decision Making: Course & Med Decision Making Pertinent Labs and Imaging studies reviewed. (See chart for details) [] (NEMESIO GODFREY MD) Course & Med Decision Making Concern for her mental status with a GCS of 3, no gag on prior physicians evaluation, was intubated for airway protection. Initial vitals-pt tachycardic and tachypneic (60s). Drug sceen wnl. Labs show acute alcohol intoxication 178. WBC is 2.7, prior was 3.5. EMR was reviewed and patient was discharged from the hospital in December 2019 for acute pancreatitis. Was covered for CAP. Patient intubated and sedated. Will admit to the ICU for further medical care. Pt accepted by Dr. Rodriguez. Critical Care: Authorized and Performed by: Chelsea Singh DO Total critical care time: approximately 45 minutes Due to a high probability of clinically significant, life threatening deterioration, the patient required my highest level of preparedness to intervene emergently and I personally spent this critical care time directly and personally managing the patient. This critical care time included obtaining a history; examining the patient; pulse oximetry; ventilator management if necessary; ordering and review of studies; arranging urgent treatment with de velopment of a management plan; evaluation of patient's response to treatment; frequent reassessment; discussion with patient/family; and, discussions with other providers. This critical care time was performed to assess and manage the high probability of imminent, life-threatening deterioration that could result in multi-organ failure. It was exclusive of separately billable procedures and treating other patients and teaching time. Please see MDM section and the rest of the note for further information on patient assessment and treatment. (CHELSEA SINGH DO) Dragon Disclaimer: Dragon Disclaimer: This electronic medical record was generated, in whole or in part, using a voice recognition dictation system. (NEMESIO GODFREY MD) Departure Departure Impression: Primary Impression: AMS (altered mental status) Additional Impressions: Acute respiratory failure with hypoxia Alcohol intoxication Disposition: ADMITTED INPATIENT Admitting Physician: SHIRLEY (Dr. Luca Rodriguez) (CHELSEA SINGH DO) Condition: CRITICAL Referrals: NO PCP (PCP) Justicifation of Admission Dx: Justifications for Admission: Justification of Admission Dx: Yes (NEMESIO GODFREY MD) Justification of Admission Dx: Yes Respiratory Failure: Mechanical Ventilation (CHELSEA SINGH DO) NEMESIO GODFREY MD Jan 31, 2020 05:45 CHELSEA SINGH DO Jan 31, 2020 06:44
[2020-01-31] MEDS ORDERED: MIDAZOLAM HCL/PF 5 MG/5 ML VIAL. NS ONE ×2 (06:00)
[2020-01-31] MEDS ORDERED: PROPOFOL 10 MG/ML (20ML) VIAL. IV ONE ×3 (06:03→06:45)
[2020-01-31] MEDS ORDERED: PROPOFOL 100 ML IV PRN ×2 (06:15→09:15)
[2020-01-31 06:21] LABS: BILIRUBIN,URINE NEGATIVE (NEG); CLARITY,URINE CLEAR; COLOR,URINE YELLOW; NITRITE,URINE NEGATIVE (NEG); PROTEIN,URINE NEGATIVE (NEG-TRACE); UROBILINOGEN,URINE 0.2 mg/dL (0.2 mg/dL)
[2020-01-31 06:30] LABS: BASO % 1 % (0-3); EOS # 0.1 x10^3/uL (0.0-0.7); EOS % 2 % (0-3); HEMATOCRIT 34.5 % (36.0-47.0); HEMOGLOBIN 10.9 g/dL (12.0-15.5); LYMPH # 0.8 x10^3/uL (1.0-4.8); LYMPH % 29 % (24-48); MEAN CORPUSCULAR HEMOGLOBIN 26 pg (25-35); MEAN CORPUSCULAR HGB CONC 32 g/dL (31-37); MEAN CORPUSCULAR VOLUME 80 fL (79-100); MONO # 0.2 x10^3/uL (0.0-1.1); MONO % 8 % (0-9); NEUT # 1.6 x10^3/uL (1.8-7.7); NEUT % 60 % (31-73); PLATELET COUNT 255 x10^3/uL (140-400); RED BLOOD COUNT 4.29 x10^6/uL (3.50-5.40); RED CELL DISTRIBUTION WIDTH 18.1 % (11.5-14.5); WHITE BLOOD COUNT 2.7 x10^3/uL (4.0-11.0)
[2020-01-31 06:30] LABS: BARBITURATES NEG (NEG); BENZODIAZEPINES NEG (NEG); CANNABINOIDS NEG (NEG); COCAINE NEG (NEG); METHADONE NEG (NEG); OPIATES NEG (NEG); PHENCYCLIDINE NEG (NEG)
[2020-01-31 06:33] LABS: AMPHETAMINE/METHAMPHETAMINE NEG (NEG)
--- NOTE | 2020-01-31 06:38 | RAD ---
INDICATION: Reason: Postintubation / Spl. Instructions: / History: COMPARISON: September 18, 2019 FINDINGS: Single view of chest obtained. Hypoexpanded exam. Endotracheal tube mid thoracic trachea. Enteric tube seen coursing below the diaphragm. Mild interstitial opacities IMPRESSION: * Lines and tubes as above. * Mild interstitial opacities bilaterally. Could be from crowded vascular markings but mild edema or interstitial infiltrate could also have this appearance. Electronically signed by: Hiram Collier MD (01/31/2020 6:35 AM) [id number]
[2020-01-31] MEDS ORDERED: fentaNYL PF VIAL 100 MCG/2 ML VIAL IVP ONE ×2 (06:45→08:30)
[2020-01-31 06:50] LABS: BACTERIA,URINE 0 /HPF (0-FEW); RBC,URINE OCC /HPF (0-2); WBC,URINE OCC /HPF (0-4)
[2020-01-31 06:53] LABS: CREATININE 0.4 mg/dL (0.6-1.0); GFR 179.6; POTASSIUM 3.1 mmol/L (3.5-5.1)
[2020-01-31 06:55] LABS: ACETAMIN < 2 mcg/ml (10-30); SALIC < 2.8 mg/dL (2.8-20.0)
[2020-01-31] MEDS ORDERED: AZITHRMYCN 500MG IVPB FOR OMNI 250 ML IV ONE (07:00)
[2020-01-31] MEDS ORDERED: cefTRIAXone IV Push 1 GM VIAL. IVP ONE (07:00)
[2020-01-31 07:06] LABS: ALBUMIN 3.5 g/dL (3.4-5.0); ALBUMIN/GLOBULIN RATIO 0.8 (1.0-1.7); CALCIUM 8.2 mg/dL (8.5-10.1); MAGNESIUM 1.8 mg/dL (1.8-2.4); TOTAL BILIRUBIN 0.2 mg/dL (0.2-1.0); TOTAL PROTEIN 7.8 g/dL (6.4-8.2)
[2020-01-31] MEDS ORDERED: ETOMIDATE 20 MG/10 ML VIAL. IV ONE (07:25)
[2020-01-31 07:49] LABS: BASE EXCESS ABG -7 mmol/L (-3-3); HCO3 ABG 18 mmol/L (21-28); PCO2 ABG 35 mmHg (35-46); PO2 ABG 160 mmHg (85-108); SAT O2 ABG 98 % (92-99)
[2020-01-31 07:51] LABS: FIO2 ABG 40%
--- NOTE | 2020-01-31 08:27 | RAD ---
EXAMINATION: CT HEAD WO CONTRAST CLINICAL HISTORY: Reason: Altered mental status-PTUNABLE TO COOPERATE / Spl. Instructions: / History: TECHNIQUE: Serial axial images without IV contrast were obtained from the vertex to the foramen magnum. CT Dose-Length Product (DLP): 2842.70 mGy*cm CT Dose Reduction Employed: One or more of the following individualized dose reduction techniques were utilized for this examination: 1. Automated exposure control 2. Adjustment of the mA and/or kV according to patient size 3. Use of iterative reconstruction technique. COMPARISON: None. FINDINGS: Motion artifact at the skull base somewhat limits evaluation. Post-operative change: None. Acute change: No evidence of an acute infarct or other acute parenchymal process. Hemorrhage: No evidence of acute intracranial hemorrhage. Mass Lesion / Mass Effect: There is no evidence of an intracranial mass or extraaxial fluid collection. No significant mass effect. Chronic change: None apparent. Parenchyma: There is no significant volume loss. The brain parenchyma is otherwise within normal limits for age. Ventricles: The ventricles are within normal limits of size and configuration for age. Paranasal sinuses and skull base: Mild ethmoid and right sphenoid sinus disease. The skull base and imaged soft tissues are unremarkable. IMPRESSION: No evidence of acute intracranial abnormality. Electronically signed by: Qamar Sparks DO (01/31/2020 8:24 AM) [id number]
[2020-01-31 08:46] LABS: PROTHROMBIN TIME PATIENT 13.2 SEC (11.7-14.0)
[2020-01-31] MEDS ORDERED: NALOXONE 0.4 MG/ML VIAL. ONE (09:00)
[2020-01-31] MEDS ORDERED: IV NORMAL SALINE 1000ML BAG 1,000 ML IV SCH (09:02)
[2020-01-31] MEDS ORDERED: fentaNYL PF VIAL 100 MCG/2 ML VIAL IV PRN ×2 (09:15)
[2020-01-31] MEDS ORDERED: MORPHINE SULFATE 2 MG/ML VIAL. IV PRN ×2 (09:15)
[2020-01-31] MEDS ORDERED: ONDANSETRON PF 4 MG/2 ML VIAL. IVP PRN (09:15)
[2020-01-31] MEDS ORDERED: ACETAMINOPHEN 325 MG TABLET. PO PRN (09:15)
[2020-01-31] MEDS ORDERED: LACTULOSE 20 GM/30 ML SOLUTION. PO PRN (09:15)
[2020-01-31] MEDS ORDERED: MORPHINE SULFATE 4 MG/ML VIAL. IV PRN (09:15)
[2020-01-31] MEDS ORDERED: 0.9 % SODIUM CHLORIDE 10 ML DISP.SYRIN. IV PRN (09:15)
--- NOTE | 2020-01-31 10:56 | NUR ---
Patient transferred to ICU from ED. Patient was on Mechanical Vent. Dr. Diaz assessed patient and ordered to ET to be removed. RT removed ET and patient O2 levels 94%-97% on room air. Will continue to monitor patient.
[2020-01-31] MEDS ORDERED: OPIUM/BELLADONNA 30/16.2MG SUPP.RECT. PR PRN (11:00)
[2020-01-31] MEDS ORDERED: PHENAZOPYRIDINE 200 MG TABLET. PO PRN (11:00)
[2020-01-31] MEDS ORDERED: traMADol 50 MG TABLET PO PRN (11:15)
[2020-01-31] MEDS ORDERED: KETOROLAC 15 MG/ML VIAL. IVP ONE (11:30)
[2020-01-31] MEDS ORDERED: LISINOPRIL 10 MG TABLET PO SCH (11:30)
[2020-01-31] MEDS ORDERED: THIAMINE 100 MG TABLET. PO SCH (11:30)
--- NOTE | 2020-01-31 11:32 | CONS ---
DATE OF CONSULTATION: 01/31/2020 PULMONARY CONSULTATION ATTENDING PHYSICIAN: Luca Rodriguez MD REASON FOR CONSULTATION: Respiratory failure, toxic encephalopathy. HISTORY OF PRESENT ILLNESS: The patient is a 39-year-old female who has history of alcoholism, anxiety, depression and multiple other medical problems. She was brought into the hospital with altered mental status. Jaelyn coma scale on arrival was 3. She had no gag as a result, she was intubated by the ER staff. The patient by the time of arrives in the ICU, I was consulted for ventilator management. Her initial ABGs showed a pH of 7.48, pCO2 of 30 and a pO2 of 99 on room air and on 40% FiO2 with the ventilator her pH was 7.34, pCO2 of 35, pO2 of 160. However, she is fully awake, following commands, and wants the endotracheal tube out. PAST MEDICAL HISTORY: Significant for anxiety, depression, alcoholism, type 2 diabetes, hypertension, hepatitis C, multiple suicidal attempts. PAST SURGICAL HISTORY: Cholecystectomy, and tubal ligation. ALLERGIES: LATEX AND PROCHLORPERAZINE. MEDICATIONS: Reviewed as listed in the MRAD. SOCIAL HISTORY: History of alcoholism. PHYSICAL EXAMINATION: VITAL SIGNS: Reviewed. Pulse ox 97% on AC mode. She is awake, following commands. She is afebrile. NECK: Supple. LUNGS: Clear. CARDIOVASCULAR: With a regular rate. ABDOMEN: Soft. EXTREMITIES: With no pitting edema. LABORATORY DATA: Reviewed. ABGs as discussed in my history of present illness. BUN 11, creatinine 0.4. AST and ALT elevated. White cell count 2.7, hemoglobin 10.9 and platelets are 255. IMPRESSION: 1. Acute respiratory failure secondary to acute toxic encephalopathy from alcohol intoxication. 2. History of hepatitis C and chronic hepatitis. Increased LFTs, could be acute on chronic. 3. Toxic encephalopathy. 4. Everyday smoker. Likely underlying chronic obstructive pulmonary disease. RECOMMENDATIONS: 1. The patient is fully awake. I did a brief CPAP trial. She had no apneic alarms. We will proceed with extubation. 2. She would need counseling regarding alcohol cessation and tobacco cessation. 3. Stress ulcer prophylaxis. 4. Follow GI recommendation regarding abnormal LFTs. 5. DVT prophylaxis with subcutaneous heparin. 6. Discussed with RN and RT. We will follow along with you. Critical care time 30 minutes. JAY JAY ALMONTE MD DR: Ankur JOB#: [id number] / [id number]
--- NOTE | 2020-01-31 13:34 | PDOC1 ---
History and Physical Date of Admission Date of Admission 01/31/2020 Identification/Chief Complaint Chief Complaint Acute alcohol intoxication Source Source: Chart review, Patient History of Present Illness History of Present Illness Patient is a 39-year-old female with past medical history of cystitis and is under the care of a [employer] urologist who was in her usual state of health until the evening prior to her admission when complained of worsening bladder spasms and discomfort and she suffers on a regular basis. Patient medicate herself at home and due to his severe pain that she rated a 10 out of 10 sharp intensity with no associated urinary symptoms no back pain no fever nausea or vomiting the patient decided to also self medicate with alcohol. Patient was found to have a alcohol level of greater than 170 and due to her decrease in sensorium the patient was intubated by the emergency department physician. At the time of this note the patient was seen in the intensive care unit and she was awake and following commands with a ET tube in place. After the extubation patient complained of severe discomfort and he will her genital area due to her chronic cystitis. Patient denies any suicide attempts she denies any other symptoms at the present time the plan of care was explained detail. All concerns were addressed to the best of my abilities, nursing staff at bedside Past Medical History Cardiovascular: HTN Psych: Anxiety, Depression Endocrine: Diabetes Past Surgical History Past Surgical History: Cholecystectomy, , Tubal Ligation Family History Family History: Alcohol Abuse, Drug Abuse, High Cholestrol Social History Smoke: No ALCOHOL: heavy Drugs: None Current Medications Current Medications Current Medications Medications (Trade) Dose Ordered Sig/Jarred Start Time Stop Time Status Last Admin Dose Admin Acetaminophen (Tylenol) 650 mg PRN Q6HRS PRN 01/31/20 09:15 Azithromycin 250 ml @ 250 mls/hr 1X ONCE 01/31/20 07:00 01/31/20 07:59 DC 01/31/20 08:26 250 MLS/HR Belladonna Alkaloids/Opium (B & O) 1 supp PRN Q12HR PRN 01/31/20 11:00 Ceftriaxone Sodium (Rocephin) 1 gm 1X ONCE 01/31/20 07:00 01/31/20 07:01 DC 01/31/20 08:26 1 GM Chlorhexidine Gluconate (Peridex) 15 ml BID 01/31/20 21:00 01/31/20 12:14 DC Etomidate (Amidate) 20 mg STK-MED ONCE 01/31/20 07:25 01/31/20 07:25 DC Famotidine (Pepcid Vial) 20 mg BID 01/31/20 21:00 Fentanyl Citrate (Fentanyl 2ml Vial) 50 mcg PRN Q1HR PRN 01/31/20 09:15 01/31/20 12:14 DC 01/31/20 09:37 50 MCG Heparin Sodium (Porcine) (Heparin Sodium) 5,000 unit Q8HRS 01/31/20 14:00 Info ([facility] Electrolyte Protocol) 1 ea DAILY 02/01/20 09:00 Ketorolac Tromethamine (Toradol 15mg Vial) 15 mg 1X ONCE 01/31/20 11:30 01/31/20 11:31 DC Lactulose (Lactulose) 20 gm PRN Q12HR PRN 01/31/20 09:15 Lisinopril (Prinivil) 10 mg DAILY 01/31/20 11:30 Lorazepam (Ativan Inj) 0.5 mg PRN Q6HRS PRN 01/31/20 09:15 Midazolam HCl (Versed) 5 mg 1X ONCE 01/31/20 06:00 01/31/20 06:01 DC 01/31/20 05:52 5 MG Morphine Sulfate (Morphine Sulfate) 4 mg PRN Q1HR PRN 01/31/20 09:15 01/31/20 12:14 DC Naloxone HCl (NARCAN 2mg SYRINGE) 2 mg STK-MED ONCE 01/31/20 05:06 01/31/20 05:07 DC Ondansetron HCl (Zofran) 4 mg PRN Q6HRS PRN 01/31/20 09:15 Pantoprazole Sodium (Protonix) 40 mg DAILYAC 02/01/20 07:30 Phenazopyridine HCl (Pyridium) 200 mg PRN TID PRN 01/31/20 11:00 01/31/20 12:08 200 MG Propofol 100 ml @ 0 mls/hr CONT PRN 01/31/20 09:15 01/31/20 12:14 DC Propofol (Diprivan) 100 mg 1X ONCE 01/31/20 06:45 01/31/20 06:46 DC 01/31/20 06:47 100 MG Rocuronium [place] (Zemuron) 30 mg 1X ONCE 01/31/20 05:30 01/31/20 05:31 DC 01/31/20 06:37 30 MG Senna/Docusate Sodium (Senna Plus) 1 tab BID 01/31/20 21:00 Sodium Chloride 1,000 ml @ 100 mls/hr Q10H 01/31/20 09:02 Sodium Chloride (Normal Saline Flush) 3 ml QSHIFT PRN 01/31/20 09:15 Thiamine Mononitrate (Vitamin B-1) 100 mg DAILY 01/31/20 11:30 Tramadol HCl (Ultram) 50 mg PRN Q6HRS PRN 01/31/20 11:15 Allergies Allergies Allergies Coded Allergies Type Severity Reaction Last Updated Verified latex Allergy Intermediate 09/19/19 Yes prochlorperazine Allergy Intermediate 09/19/19 Yes ROS Review of System CONSTITUTIONAL: No fever or chills EYES: No recent changes SKIN: No rash or itching CARDIOVASCULAR: No chest pain, syncope, palpitations, or edema RESPIRATORY: No SOB or cough GASTROINTESTINAL: No nausea, vomiting or abdominal pain NEUROLOGICAL: No headaches or weakness ENDOCRINE: No cold or heat intolerance GENITOURINARY: No urgency or frequency of urination MUSCULOSKELETAL: No back pain or joint pain LYMPHATICS: No enlarged lymph nodes PSYCHIATRIC: No anxiety or depression Physical Exam Physical Exam GEN.: No apparent distress. Alert and oriented. HEENT: Head is normocephalic, atraumatic NECK: Supple. LUNGS: Clear to auscultation. HEART: RRR, S1, S2 present. Peripheral pulses intact ABDOMEN: Soft, nontender. Positive bowel sounds. EXTREMITIES: Without any cyanosis. NEUROLOGIC: Normal speech, normal tone PSYCHIATRIC: Normal affect, normal mood. SKIN: No ulcerations Vitals Vitals Vital Signs Date Time Temp Pulse Resp B/P (MAP) Pulse Ox O2 Delivery O2 Flow Rate FiO2 01/31/20 12:05 73 24 151/85 (107) 96 Room Air 01/31/20 10:30 98.0 98.0 Labs Labs Laboratory Tests Test 01/31/20 05:10 01/31/20 05:15 01/31/20 06:14 01/31/20 06:30 O2 Saturation 97 % (92-99) Arterial Blood pH 7.48 (7.35-7.45) Arterial Blood pCO2 at Patient Temp 30 mmHg (35-46) Arterial Blood pO2 at Patient Temp 99 mmHg (85-108) Arterial Blood HCO3 22 mmol/L (21-28) Arterial Blood Base Excess -1 mmol/L (-3-3) Oxyhemoglobin 95.0 % Carbon Monoxide, Quantitative 2.0 % (0.0-1.9) FiO2 21 Urine Opiates Screen Neg (NEG) Urine Methadone Screen Neg (NEG) Urine Barbiturates Neg (NEG) Urine Phencyclidine Screen Neg (NEG) Urine Amphetamine/Methamphetamine Neg (NEG) Urine Benzodiazepines Screen Neg (NEG) Urine Cocaine Screen Neg (NEG) Urine Cannabinoids Screen Neg (NEG) Urine Ethyl Alcohol Pos (NEG) White Blood Count 2.7 x10^3/uL (4.0-11.0) Red Blood Count 4.29 x10^6/uL (3.50-5.40) Hemoglobin 10.9 g/dL (12.0-15.5) Hematocrit 34.5 % (36.0-47.0) Mean Corpuscular Volume 80 fL (79-100) Mean Corpuscular Hemoglobin 26 pg (25-35) Mean Corpuscular Hemoglobin Concent 32 g/dL (31-37) Red Cell Distribution Width 18.1 % (11.5-14.5) Platelet Count 255 x10^3/uL (140-400) Neutrophils (%) (Auto) 60 % (31-73) Lymphocytes (%) (Auto) 29 % (24-48) Monocytes (%) (Auto) 8 % (0-9) Eosinophils (%) (Auto) 2 % (0-3) Basophils (%) (Auto) 1 % (0-3) Neutrophils # (Auto) 1.6 x10^3/uL (1.8-7.7) Lymphocytes # (Auto) 0.8 x10^3/uL (1.0-4.8) Monocytes # (Auto) 0.2 x10^3/uL (0.0-1.1) Eosinophils # (Auto) 0.1 x10^3/uL (0.0-0.7) Basophils # (Auto) 0.0 x10^3/uL (0.0-0.2) Prothrombin Time 13.2 SEC (11.7-14.0) Prothromb Time International Ratio 1.0 (0.8-1.1) Activated Partial Thromboplast Time 32 SEC (24-38) Sodium Level 144 mmol/L (136-145) Potassium Level 3.1 mmol/L (3.5-5.1) Chloride Level 105 mmol/L (98-107) Carbon Dioxide Level 22 mmol/L (21-32) Anion Gap 17 (6-14) Blood Urea Nitrogen 11 mg/dL (7-20) Creatinine 0.4 mg/dL (0.6-1.0) Estimated GFR (Cockcroft-Gault) 179.6 BUN/Creatinine Ratio 28 (6-20) Glucose Level 126 mg/dL (70-99) Lactic Acid Level 3.2 mmol/L (0.4-2.0) Calcium Level 8.2 mg/dL (8.5-10.1) Magnesium Level 1.8 mg/dL (1.8-2.4) Total Bilirubin 0.2 mg/dL (0.2-1.0) Aspartate Amino Transf (AST/SGOT) 123 U/L (15-37) Alanine Aminotransferase (ALT/SGPT) 112 U/L (14-59) Alkaline Phosphatase 119 U/L (46-116) Ammonia < 10 mcmol/L (11-34) Troponin I Quantitative < 0.017 ng/mL (0.000-0.055) Total Protein 7.8 g/dL (6.4-8.2) Albumin 3.5 g/dL (3.4-5.0) Albumin/Globulin Ratio 0.8 (1.0-1.7) Lipase 73 U/L (73-393) Salicylates Level < 2.8 mg/dL (2.8-20.0) Salicylate Last Dose Date Unknown Salicylate Last Dose Time Unknown Acetaminophen Level < 2 mcg/ml (10-30) Acetaminophen Last Dose Date Unknown Acetaminophen Last Dose Time Unknown Urine Collection Type U cath Urine Color Yellow Urine Clarity Clear Urine pH 7.0 (<5.0-8.0) Urine Specific [place] 1.010 (1.000-1.030) Urine Protein Negative mg/dL (NEG-TRACE) Urine Glucose (UA) Negative mg/dL (NEG) Urine Ketones (Stick) Negative mg/dL (NEG) Urine Blood Negative (NEG) Urine Nitrite Negative (NEG) Urine Bilirubin Negative (NEG) Urine Urobilinogen Dipstick 0.2 mg/dL (0.2 mg/dL) Urine Leukocyte Esterase Negative (NEG) Urine RBC Occ /HPF (0-2) Urine WBC Occ /HPF (0-4) Urine Bacteria 0 /HPF (0-FEW) Urine Mucus Mod /LPF Test 01/31/20 06:39 01/31/20 07:40 01/31/20 09:46 Ethyl Alcohol Level 178 mg/dL (0-10) O2 Saturation 98 % (92-99) Arterial Blood pH 7.34 (7.35-7.45) Arterial Blood pCO2 at Patient Temp 35 mmHg (35-46) Arterial Blood pO2 at Patient Temp 160 mmHg (85-108) Arterial Blood HCO3 18 mmol/L (21-28) Arterial Blood Base Excess -7 mmol/L (-3-3) FiO2 40% Lactic Acid Level 2.3 mmol/L (0.4-2.0) Laboratory Tests Test 01/31/20 05:10 01/31/20 05:15 01/31/20 06:14 01/31/20 06:30 O2 Saturation 97 % (92-99) Arterial Blood pH 7.48 (7.35-7.45) Arterial Blood pCO2 at Patient Temp 30 mmHg (35-46) Arterial Blood pO2 at Patient Temp 99 mmHg (85-108) Arterial Blood HCO3 22 mmol/L (21-28) Arterial Blood Base Excess -1 mmol/L (-3-3) Oxyhemoglobin 95.0 % Carbon Monoxide, Quantitative 2.0 % (0.0-1.9) FiO2 21 Urine Opiates Screen Neg (NEG) Urine Methadone Screen Neg (NEG) Urine Barbiturates Neg (NEG) Urine Phencyclidine Screen Neg (NEG) Urine Amphetamine/Methamphetamine Neg (NEG) Urine Benzodiazepines Screen Neg (NEG) Urine Cocaine Screen Neg (NEG) Urine Cannabinoids Screen Neg (NEG) Urine Ethyl Alcohol Pos (NEG) White Blood Count 2.7 x10^3/uL (4.0-11.0) Red Blood Count 4.29 x10^6/uL (3.50-5.40) Hemoglobin 10.9 g/dL (12.0-15.5) Hematocrit 34.5 % (36.0-47.0) Mean Corpuscular Volume 80 fL (79-100) Mean Corpuscular Hemoglobin 26 pg (25-35) Mean Corpuscular Hemoglobin Concent 32 g/dL (31-37) Red Cell Distribution Width 18.1 % (11.5-14.5) Platelet Count 255 x10^3/uL (140-400) Neutrophils (%) (Auto) 60 % (31-73) Lymphocytes (%) (Auto) 29 % (24-48) Monocytes (%) (Auto) 8 % (0-9) Eosinophils (%) (Auto) 2 % (0-3) Basophils (%) (Auto) 1 % (0-3) Neutrophils # (Auto) 1.6 x10^3/uL (1.8-7.7) Lymphocytes # (Auto) 0.8 x10^3/uL (1.0-4.8) Monocytes # (Auto) 0.2 x10^3/uL (0.0-1.1) Eosinophils # (Auto) 0.1 x10^3/uL (0.0-0.7) Basophils # (Auto) 0.0 x10^3/uL (0.0-0.2) Prothrombin Time 13.2 SEC (11.7-14.0) Prothromb Time International Ratio 1.0 (0.8-1.1) Activated Partial Thromboplast Time 32 SEC (24-38) Sodium Level 144 mmol/L (136-145) Potassium Level 3.1 mmol/L (3.5-5.1) Chloride Level 105 mmol/L (98-107) Carbon Dioxide Level 22 mmol/L (21-32) Anion Gap 17 (6-14) Blood Urea Nitrogen 11 mg/dL (7-20) Creatinine 0.4 mg/dL (0.6-1.0) Estimated GFR (Cockcroft-Gault) 179.6 BUN/Creatinine Ratio 28 (6-20) Glucose Level 126 mg/dL (70-99) Lactic Acid Level 3.2 mmol/L (0.4-2.0) Calcium Level 8.2 mg/dL (8.5-10.1) Magnesium Level 1.8 mg/dL (1.8-2.4) Total Bilirubin 0.2 mg/dL (0.2-1.0) Aspartate Amino Transf (AST/SGOT) 123 U/L (15-37) Alanine Aminotransferase (ALT/SGPT) 112 U/L (14-59) Alkaline Phosphatase 119 U/L (46-116) Ammonia < 10 mcmol/L (11-34) Troponin I Quantitative < 0.017 ng/mL (0.000-0.055) Total Protein 7.8 g/dL (6.4-8.2) Albumin 3.5 g/dL (3.4-5.0) Albumin/Globulin Ratio 0.8 (1.0-1.7) Lipase 73 U/L (73-393) Salicylates Level < 2.8 mg/dL (2.8-20.0) Salicylate Last Dose Date Unknown Salicylate Last Dose Time Unknown Acetaminophen Level < 2 mcg/ml (10-30) Acetaminophen Last Dose Date Unknown Acetaminophen Last Dose Time Unknown Urine Collection Type U cath Urine Color Yellow Urine Clarity Clear Urine pH 7.0 (<5.0-8.0) Urine Specific [place] 1.010 (1.000-1.030) Urine Protein Negative mg/dL (NEG-TRACE) Urine Glucose (UA) Negative mg/dL (NEG) Urine Ketones (Stick) Negative mg/dL (NEG) Urine Blood Negative (NEG) Urine Nitrite Negative (NEG) Urine Bilirubin Negative (NEG) Urine Urobilinogen Dipstick 0.2 mg/dL (0.2 mg/dL) Urine Leukocyte Esterase Negative (NEG) Urine RBC Occ /HPF (0-2) Urine WBC Occ /HPF (0-4) Urine Bacteria 0 /HPF (0-FEW) Urine Mucus Mod /LPF Test 01/31/20 06:39 01/31/20 07:40 01/31/20 09:46 Ethyl Alcohol Level 178 mg/dL (0-10) O2 Saturation 98 % (92-99) Arterial Blood pH 7.34 (7.35-7.45) Arterial Blood pCO2 at Patient Temp 35 mmHg (35-46) Arterial Blood pO2 at Patient Temp 160 mmHg (85-108) Arterial Blood HCO3 18 mmol/L (21-28) Arterial Blood Base Excess -7 mmol/L (-3-3) FiO2 40% Lactic Acid Level 2.3 mmol/L (0.4-2.0) VTE Prophylaxis Ordered VTE Prophylaxis Devices: Yes VTE Pharmacological Prophylaxi: Yes Assessment/Plan Assessment/Plan Acute respiratory failure secondary to acute alcohol intoxication Toxic encephalopathy History of hepatitis C and chronic hepatitis History of anxiety and depression History of hepatitis C Essential hypertension Plan Continue to monitor after extubation Patient will be given a regular diet Will provide symptom relief for her bladder spasms with Pyridium plus her home medications Toradol for severe pain Patient continues to do well she may be discharged after lunch DVT prophylaxis Lovenox if the patient decides to stay Justicifation of Admission Dx: Justifications for Admission: Justification of Admission Dx: Yes Respiratory Failure: Mechanical Ventilation TC REED MD Jan 31, 2020 13:34
--- NOTE | 2020-01-31 13:40 | PDOC3 ---
Discharge Summary Visit Information Date of Admission: Jan 31, 2020 Date of Discharge: Jan 31, 2020 Admitting Diagnosis Comment: Acute respiratory failure secondary to acute alcohol intoxication Toxic encephalopathy History of hepatitis C and chronic hepatitis History of anxiety and depression History of hepatitis C Essential hypertension Final Diagnosis Acute respiratory failure secondary to acute alcohol intoxication resolved Toxic encephalopathy resolved History of hepatitis C and chronic hepatitis History of anxiety and depression all pmh stable History of hepatitis C Essential hypertension Brief Hospital Course Allergies Allergies Coded Allergies Type Severity Reaction Last Updated Verified latex Allergy Intermediate 09/19/19 Yes prochlorperazine Allergy Intermediate 09/19/19 Yes Vital Signs Vital Signs Date Time Temp Pulse Resp B/P (MAP) Pulse Ox O2 Delivery O2 Flow Rate FiO2 01/31/20 12:05 73 24 151/85 (107) 96 Room Air 01/31/20 10:30 98.0 98.0 Lab Results Laboratory Tests Test 01/31/20 05:10 01/31/20 05:15 01/31/20 06:14 01/31/20 06:30 O2 Saturation 97 % (92-99) Arterial Blood pH 7.48 (7.35-7.45) Arterial Blood pCO2 at Patient Temp 30 mmHg (35-46) Arterial Blood pO2 at Patient Temp 99 mmHg (85-108) Arterial Blood HCO3 22 mmol/L (21-28) Arterial Blood Base Excess -1 mmol/L (-3-3) Oxyhemoglobin 95.0 % Carbon Monoxide, Quantitative 2.0 % (0.0-1.9) FiO2 21 Urine Opiates Screen Neg (NEG) Urine Methadone Screen Neg (NEG) Urine Barbiturates Neg (NEG) Urine Phencyclidine Screen Neg (NEG) Urine Amphetamine/Methamphetamine Neg (NEG) Urine Benzodiazepines Screen Neg (NEG) Urine Cocaine Screen Neg (NEG) Urine Cannabinoids Screen Neg (NEG) Urine Ethyl Alcohol Pos (NEG) White Blood Count 2.7 x10^3/uL (4.0-11.0) Red Blood Count 4.29 x10^6/uL (3.50-5.40) Hemoglobin 10.9 g/dL (12.0-15.5) Hematocrit 34.5 % (36.0-47.0) Mean Corpuscular Volume 80 fL (79-100) Mean Corpuscular Hemoglobin 26 pg (25-35) Mean Corpuscular Hemoglobin Concent 32 g/dL (31-37) Red Cell Distribution Width 18.1 % (11.5-14.5) Platelet Count 255 x10^3/uL (140-400) Neutrophils (%) (Auto) 60 % (31-73) Lymphocytes (%) (Auto) 29 % (24-48) Monocytes (%) (Auto) 8 % (0-9) Eosinophils (%) (Auto) 2 % (0-3) Basophils (%) (Auto) 1 % (0-3) Neutrophils # (Auto) 1.6 x10^3/uL (1.8-7.7) Lymphocytes # (Auto) 0.8 x10^3/uL (1.0-4.8) Monocytes # (Auto) 0.2 x10^3/uL (0.0-1.1) Eosinophils # (Auto) 0.1 x10^3/uL (0.0-0.7) Basophils # (Auto) 0.0 x10^3/uL (0.0-0.2) Prothrombin Time 13.2 SEC (11.7-14.0) Prothromb Time International Ratio 1.0 (0.8-1.1) Activated Partial Thromboplast Time 32 SEC (24-38) Sodium Level 144 mmol/L (136-145) Potassium Level 3.1 mmol/L (3.5-5.1) Chloride Level 105 mmol/L (98-107) Carbon Dioxide Level 22 mmol/L (21-32) Anion Gap 17 (6-14) Blood Urea Nitrogen 11 mg/dL (7-20) Creatinine 0.4 mg/dL (0.6-1.0) Estimated GFR (Cockcroft-Gault) 179.6 BUN/Creatinine Ratio 28 (6-20) Glucose Level 126 mg/dL (70-99) Lactic Acid Level 3.2 mmol/L (0.4-2.0) Calcium Level 8.2 mg/dL (8.5-10.1) Magnesium Level 1.8 mg/dL (1.8-2.4) Total Bilirubin 0.2 mg/dL (0.2-1.0) Aspartate Amino Transf (AST/SGOT) 123 U/L (15-37) Alanine Aminotransferase (ALT/SGPT) 112 U/L (14-59) Alkaline Phosphatase 119 U/L (46-116) Ammonia < 10 mcmol/L (11-34) Troponin I Quantitative < 0.017 ng/mL (0.000-0.055) Total Protein 7.8 g/dL (6.4-8.2) Albumin 3.5 g/dL (3.4-5.0) Albumin/Globulin Ratio 0.8 (1.0-1.7) Lipase 73 U/L (73-393) Salicylates Level < 2.8 mg/dL (2.8-20.0) Salicylate Last Dose Date Unknown Salicylate Last Dose Time Unknown Acetaminophen Level < 2 mcg/ml (10-30) Acetaminophen Last Dose Date Unknown Acetaminophen Last Dose Time Unknown Urine Collection Type U cath Urine Color Yellow Urine Clarity Clear Urine pH 7.0 (<5.0-8.0) Urine Specific [place] 1.010 (1.000-1.030) Urine Protein Negative mg/dL (NEG-TRACE) Urine Glucose (UA) Negative mg/dL (NEG) Urine Ketones (Stick) Negative mg/dL (NEG) Urine Blood Negative (NEG) Urine Nitrite Negative (NEG) Urine Bilirubin Negative (NEG) Urine Urobilinogen Dipstick 0.2 mg/dL (0.2 mg/dL) Urine Leukocyte Esterase Negative (NEG) Urine RBC Occ /HPF (0-2) Urine WBC Occ /HPF (0-4) Urine Bacteria 0 /HPF (0-FEW) Urine Mucus Mod /LPF Test 01/31/20 06:39 01/31/20 07:40 01/31/20 09:46 Ethyl Alcohol Level 178 mg/dL (0-10) O2 Saturation 98 % (92-99) Arterial Blood pH 7.34 (7.35-7.45) Arterial Blood pCO2 at Patient Temp 35 mmHg (35-46) Arterial Blood pO2 at Patient Temp 160 mmHg (85-108) Arterial Blood HCO3 18 mmol/L (21-28) Arterial Blood Base Excess -7 mmol/L (-3-3) FiO2 40% Lactic Acid Level 2.3 mmol/L (0.4-2.0) Laboratory Tests Test 01/31/20 05:10 01/31/20 05:15 01/31/20 06:14 01/31/20 06:30 O2 Saturation 97 % (92-99) Arterial Blood pH 7.48 (7.35-7.45) Arterial Blood pCO2 at Patient Temp 30 mmHg (35-46) Arterial Blood pO2 at Patient Temp 99 mmHg (85-108) Arterial Blood HCO3 22 mmol/L (21-28) Arterial Blood Base Excess -1 mmol/L (-3-3) Oxyhemoglobin 95.0 % Carbon Monoxide, Quantitative 2.0 % (0.0-1.9) FiO2 21 Urine Opiates Screen Neg (NEG) Urine Methadone Screen Neg (NEG) Urine Barbiturates Neg (NEG) Urine Phencyclidine Screen Neg (NEG) Urine Amphetamine/Methamphetamine Neg (NEG) Urine Benzodiazepines Screen Neg (NEG) Urine Cocaine Screen Neg (NEG) Urine Cannabinoids Screen Neg (NEG) Urine Ethyl Alcohol Pos (NEG) White Blood Count 2.7 x10^3/uL (4.0-11.0) Red Blood Count 4.29 x10^6/uL (3.50-5.40) Hemoglobin 10.9 g/dL (12.0-15.5) Hematocrit 34.5 % (36.0-47.0) Mean Corpuscular Volume 80 fL (79-100) Mean Corpuscular Hemoglobin 26 pg (25-35) Mean Corpuscular Hemoglobin Concent 32 g/dL (31-37) Red Cell Distribution Width 18.1 % (11.5-14.5) Platelet Count 255 x10^3/uL (140-400) Neutrophils (%) (Auto) 60 % (31-73) Lymphocytes (%) (Auto) 29 % (24-48) Monocytes (%) (Auto) 8 % (0-9) Eosinophils (%) (Auto) 2 % (0-3) Basophils (%) (Auto) 1 % (0-3) Neutrophils # (Auto) 1.6 x10^3/uL (1.8-7.7) Lymphocytes # (Auto) 0.8 x10^3/uL (1.0-4.8) Monocytes # (Auto) 0.2 x10^3/uL (0.0-1.1) Eosinophils # (Auto) 0.1 x10^3/uL (0.0-0.7) Basophils # (Auto) 0.0 x10^3/uL (0.0-0.2) Prothrombin Time 13.2 SEC (11.7-14.0) Prothromb Time International Ratio 1.0 (0.8-1.1) Activated Partial Thromboplast Time 32 SEC (24-38) Sodium Level 144 mmol/L (136-145) Potassium Level 3.1 mmol/L (3.5-5.1) Chloride Level 105 mmol/L (98-107) Carbon Dioxide Level 22 mmol/L (21-32) Anion Gap 17 (6-14) Blood Urea Nitrogen 11 mg/dL (7-20) Creatinine 0.4 mg/dL (0.6-1.0) Estimated GFR (Cockcroft-Gault) 179.6 BUN/Creatinine Ratio 28 (6-20) Glucose Level 126 mg/dL (70-99) Lactic Acid Level 3.2 mmol/L (0.4-2.0) Calcium Level 8.2 mg/dL (8.5-10.1) Magnesium Level 1.8 mg/dL (1.8-2.4) Total Bilirubin 0.2 mg/dL (0.2-1.0) Aspartate Amino Transf (AST/SGOT) 123 U/L (15-37) Alanine Aminotransferase (ALT/SGPT) 112 U/L (14-59) Alkaline Phosphatase 119 U/L (46-116) Ammonia < 10 mcmol/L (11-34) Troponin I Quantitative < 0.017 ng/mL (0.000-0.055) Total Protein 7.8 g/dL (6.4-8.2) Albumin 3.5 g/dL (3.4-5.0) Albumin/Globulin Ratio 0.8 (1.0-1.7) Lipase 73 U/L (73-393) Salicylates Level < 2.8 mg/dL (2.8-20.0) Salicylate Last Dose Date Unknown Salicylate Last Dose Time Unknown Acetaminophen Level < 2 mcg/ml (10-30) Acetaminophen Last Dose Date Unknown Acetaminophen Last Dose Time Unknown Urine Collection Type U cath Urine Color Yellow Urine Clarity Clear Urine pH 7.0 (<5.0-8.0) Urine Specific [place] 1.010 (1.000-1.030) Urine Protein Negative mg/dL (NEG-TRACE) Urine Glucose (UA) Negative mg/dL (NEG) Urine Ketones (Stick) Negative mg/dL (NEG) Urine Blood Negative (NEG) Urine Nitrite Negative (NEG) Urine Bilirubin Negative (NEG) Urine Urobilinogen Dipstick 0.2 mg/dL (0.2 mg/dL) Urine Leukocyte Esterase Negative (NEG) Urine RBC Occ /HPF (0-2) Urine WBC Occ /HPF (0-4) Urine Bacteria 0 /HPF (0-FEW) Urine Mucus Mod /LPF Test 01/31/20 06:39 01/31/20 07:40 01/31/20 09:46 Ethyl Alcohol Level 178 mg/dL (0-10) O2 Saturation 98 % (92-99) Arterial Blood pH 7.34 (7.35-7.45) Arterial Blood pCO2 at Patient Temp 35 mmHg (35-46) Arterial Blood pO2 at Patient Temp 160 mmHg (85-108) Arterial Blood HCO3 18 mmol/L (21-28) Arterial Blood Base Excess -7 mmol/L (-3-3) FiO2 40% Lactic Acid Level 2.3 mmol/L (0.4-2.0) Brief Hospital Course Ms. Lewis is a 39 old female who came to the emergency department for alcohol intoxication plus minus narcotic use. Patient had altered sensorium which prompted intubation in the emergency department. Patient once she arrived to the ICU was quite alert awake oriented and she was able to follow some commands, she was successfully extubated and supportive measures was given to her. Patient is in no acute distress she denies any neurological deficits no dysphagia odynophagia no chest pain no palpitations no shortness of breath no nausea vomiting or diarrhea no abdominal pain reported no peripheral edema, Counseling regarding the adverse effects of excess drinking in fatal outcomes if her behavior would escalate was given prior to discharge, signs and symptoms of alarm were discussed prior to dismissal as well recommendations when to seek medical attention were given to the patient prior to discharge she was in good spirits with to be discharged home Physical exam Lungs clear to auscultation bilaterally Cardiovascular S1-S2 regular rhythm no murmurs gallops or rubs Discharge Information Condition at Discharge: Improved Follow Up: Weeks Disposition/Orders: D/C to Home Scheduled Lisinopril (Lisinopril) 10 Mg Tablet, 10 MG PO DAILY for FOR HYPERTENSION, #30 Ref 0 (Reported) Entered as Reported by: MARVIN DAVALOS on 08/17/19 9542 Last Action: Continued on 01/31/20 110 by TC REED MD Pantoprazole Sodium (Pantoprazole Sodium ) 40 Mg Tablet.dr, 40 MG PO DAILYAC for GERD for 30 Days, #30 Prescribed by: TC REED MD on 01/02/201819 Last Action: Continued on 01/31/201102 by TC REED MD Thiamine Mononitrate (Vitamin B-1) 100 Mg Tablet, 100 MG PO DAILY for supplement for 30 Days, #30 Prescribed by: TC REED MD on 01/02/201819 Last Action: Continued on 01/31/201102 by TC REED MD [Folic Acid] 1 MG TABLET, 1 MG PO DAILY for supplement for 30 Days, #30 Prescribed by: TC REED MD on 01/02/201819 Last Action: HELD on 01/31/201101 by TC REED MD Scheduled PRN Ibuprofen (Ibuprofen) 800 Mg Tablet, 800 MG PO DAILY PRN for migraines, (Reported) Entered as Reported by: PRASHANT PEREZ on 12/27/192247 Last Action: HELD on 01/31/201101 by TC REED MD Tramadol Hcl (Tramadol Hcl) 50 Mg Tablet, 50 MG PO PRN Q6HRS PRN for MODERATE PAIN for 5 Days, #20 Prescribed by: TC REED MD on 01/02/201819 Last Action: Continued on 01/31/201102 by TC REED MD Justicifation of Admission Dx: Justifications for Admission: Justification of Admission Dx: Yes Respiratory Failure: Mechanical Ventilation TC REED MD Jan 31, 2020 13:40
[2020-01-31] MEDS ORDERED: HEPARIN for SUB-Q USE 5,000 UNIT/ML VIAL. SQ SCH (14:00)
[2020-01-31] MEDS ORDERED: TRAM50TA PO (17:37)
--- NOTE | 2020-01-31 17:55 | NUR ---
Discharge Note: DENISE ETIENNE [facility] Discharge instructions and discharge home medications reviewed with Patient and a copy given. All questions have been answered and understanding verbalized. The following instructions and handouts were given: Follow up with PCP with one week. Education pertaing to respiratory failure and causes,alcohol, was discussed and given to patient. Discontinued lines and drains: 20g RAC and Lwrist was removed with tip intact. Patient discharged to home with self care. Spouse drove patient from [facility] facility.
[2020-01-31] MEDS ORDERED: SENNOSIDES/DOCUSATE 8.6/50MG TABLET. PO SCH (21:00)
[2020-01-31] MEDS ORDERED: CHLORHEXIDINE 0.12% 15 ML MOUTHWASH. MM SCH (21:00)
[2020-01-31] MEDS ORDERED: FAMOTIDINE 20 MG/2 ML VIAL IVP SCH (21:00)
[2020-02-01] MEDS ORDERED: PANTOPRAZOLE 40 MG TABLET.DR. PO SCH (07:30)
[2020-02-01] MEDS ORDERED: ELECTROLYTE (ICU) PROTOCOL. MC SCH (09:00)
--- NOTE | 2020-02-01 09:17 | EKG ---
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
== END 2020-01-31 17:58 | disposition home or self-care (01) | DRG 208 ==
LOC: ER 04:53 → 1 WEST ICU 09:06
PROVIDERS: ADMIT Internal Medicine; ATTEND Internal Medicine
PROC: 5A1935Z Respiratory Ventilation, Less than 24 Consecutive Hours (ICD-10-PCS; principal; 2020-01-31)
PROC: 0BH17EZ Insertion of Endotracheal Airway into Trachea, Via Natural or Artificial Opening (ICD-10-PCS; 2020-01-31)
DX: J96.01 Acute respiratory failure with hypoxia (principal); G92 Toxic encephalopathy; E10.9 Type 1 diabetes mellitus without complications; F10.229 Alcohol dependence with intoxication, unspecified; F17.200 Nicotine dependence, unspecified, uncomplicated; I10 Essential (primary) hypertension; J44.9 Chronic obstructive pulmonary disease, unspecified; N30.20 Other chronic cystitis without hematuria; Z79.4 Long term (current) use of insulin; K73.9 Chronic hepatitis, unspecified; F32.9 Major depressive disorder, single episode, unspecified; F41.9 Anxiety disorder, unspecified; G35 Multiple sclerosis; Z90.49 Acquired absence of other specified parts of digestive tract; Z98.51 Tubal ligation status; Z88.8 Allergy status to other drugs, medicaments and biological substances; Z91.040 Latex allergy status; Z20.828 Contact with and (suspected) exposure to other viral communicable diseases
CPT/HCPCS: 36415; 36600; 51702; 70450; 71045; 80053; 80307; 80329; 81001; 81025; 82140; 82805; 83605; 83690; 83735; 84484; 85025; 85610; 85730; 93005; 94002; 96365; 96367; 96376; G0480; J0456; J0696; J2250; J2310; J2704; J3010; J7030; 99291-25; G0378; U0003-CS

== ENCOUNTER 2020-02-12 18:05 | Inpatient (IN) | payer SELFPAY ==
[~2020-02-12] VITALS: Ht 167.6 cm; Wt 57.6 kg
[2020-02-12 18:34] LABS: BASO % 0 % (0-3); EOS % 0 % (0-3); HEMATOCRIT 39.7 % (36.0-47.0); LYMPH # 0.5 x10^3/uL (1.0-4.8); LYMPH % 11 % (24-48); MEAN CORPUSCULAR HEMOGLOBIN 26 pg (25-35); MEAN CORPUSCULAR HGB CONC 33 g/dL (31-37); MEAN CORPUSCULAR VOLUME 80 fL (79-100); MONO # 0.3 x10^3/uL (0.0-1.1); MONO % 6 % (0-9); NEUT % 83 % (31-73); PLATELET COUNT 212 x10^3/uL (140-400); RED BLOOD COUNT 4.96 x10^6/uL (3.50-5.40); RED CELL DISTRIBUTION WIDTH 20.1 % (11.5-14.5); WHITE BLOOD COUNT 4.8 x10^3/uL (4.0-11.0)
[2020-02-12 18:36] LABS: BILIRUBIN,URINE NEGATIVE (NEG); CLARITY,URINE CLEAR; COLOR,URINE YELLOW; NITRITE,URINE NEGATIVE (NEG); PROTEIN,URINE >=300 mg/dL (NEG-TRACE); UROBILINOGEN,URINE 0.2 mg/dL (0.2 mg/dL)
--- NOTE | 2020-02-12 18:40 | PHYS DOC ---
Past Medical History Past Medical History: Alcoholism, Anxiety, Depression, Diabetes-Type I, H ypertension, Hepatitis, Liver Disease Additional Past Medical Histor: MS, Hepatitis C, liver failure, multiple suicide attempts Past Medical History Limited secondary to EtOH intoxication Past Surgical History: Cholecystectomy, , Tubal ligation, Other Additional Past Surgical Histo: hyperdistention of bladder, EGD Past Surgical History Limited secondary to EtOH intoxication Smoking Status: Current Every Day Smoker Alcohol Use: Heavy Drug Use: None Social History Limited secondary to EtOH intoxication General Adult EDM: Chief Complaint: ETOH intoxication HPI: HPI: Patient is a 39-year-old female brought by EMS from her home to the ED due to suspected alcohol intoxication with decreased mental status. Upon awakening she states that she has been drinking and taking tramadol and acknowledged having abdominal pain for the last 3 days. History of present illness limited secondary to alcohol intoxication. Review of Systems: Review of Systems: Review of systems limited secondary to alcohol intoxication Current Medications: Current Medications Medications (Trade) Dose Ordered Sig/Jarred Start Time Stop Time Status Last Admin Dose Admin Multivitamins 10 ml/Thiamine HCl 100 mg/Folic Acid 1 mg/Sodium Chloride 1,011.2 ml @ 1,000.088 mls/hr 1X ONCE 02/12/20 19:00 02/12/20 20:00 Allergies: Allergies: Allergies Coded Allergies Type Severity Reaction Last Updated Verified latex Allergy Intermediate 09/19/19 Yes prochlorperazine Allergy Intermediate 09/19/19 Yes Physical Exam: PE: Constitutional: Well developed, unkept, obtunded, EtOH on breath HENT: Normocephalic, atraumatic Eyes: PERRL, conjunctiva normal, no discharge, horizontal nystagmus noted Neck: Normal range of motion, no tenderness to palpation of the midline cervical spine, supple Lungs & Thorax: Bilateral breath sounds clear to auscultation, periodic soft wheezing, normal rate regular rhythm no murmurs Abdomen: Slightly distended, hepatomegaly, tenderness to palpation of the left upper quadrant, no bruising or lesions Skin: Warm, dry, no erythema, no rash, no track rodriguez noted Back: No tenderness, tenderness to palpation of left flank Extremities: No tenderness, ROM intact, no edema Neurologic: Obtunded alert to person only, normal motor function, normal sensory function, no focal deficits noted Psychologic: Affect normal, judgment abnormal Radiology/Procedures: Radiology/Procedures: PROCEDURE: CT HEAD AND CERVICAL SPINE WO CT scan of the head without contrast 02/12/2020 Clinical History: Altered mental status. Technique: Unenhanced, contiguous, 5 mm axial sections were obtained through the head. One or more of the following individualized dose reduction techniques were utilized for this study: 1. Automated exposure control. 2. Adjustment of the mA and/or kV according to patient size. 3. Use of iterative reconstruction technique. Findings: Comparison study is dated 01/31/2020. There is mild generalized parenchymal atrophy. No acute parenchymal abnormality is seen. No extra-axial fluid collection is noted. No skull fracture is seen. Impression: No acute intracranial abnormality is seen. CT scan of the cervical spine without contrast 02/12/2020 Clinical history: Intoxication. Neck injury. Technique: Unenhanced, contiguous, 0.625 mm axial sections were obtained through the cervical spine. Axial, coronal and sagittal reconstructed images were obtained. One or more of the following individualized dose reduction techniques were utilized for this study: 1. Automated exposure control. 2. Adjustment of the mA and/or kV according to patient size. 3. Use of iterative reconstruction technique. Findings: Sagittal and coronal reconstructed images demonstrate mild lateral curvature of the cervical spine, convex to the left. There is reversal of the normal cervical lordosis. No fracture or subluxation of the cervical vertebrae is seen. Relatively mild degenerative changes are seen involving the uncovertebral and facet joints throughout the mid and lower cervical disc spaces. Impression: No fracture or subluxation of the cervical vertebra is identified. Electronically signed by: Flex Horowitz MD (02/12/2020 8:36 PM) [id number] PROCEDURE: CT ABD PELV W/ IV CONTRST ONLY Exam: CT of abdomen and pelvis with contrast INDICATION: Abdominal pain, distention TECHNIQUE: Sequential axial images through the abdomen and pelvis obtained following the administration of 75 mL of Isovue-370 IV contrast. Sagittal and coronal reformatted images were reconstructed from the axial data and reviewed. Comparisons: 12/27/2019 FINDINGS: Heart size is normal. No pericardial effusion. Visualized lung bases are clear. No pleural effusion. There is diffuse hepatic steatosis. Spleen, and adrenals are unremarkable. Gallbladder surgically absent. There is fat stranding noted at the pancreatic head. No peripancreatic fluid collection. Kidneys demonstrate symmetric enhancement. No perinephric inflammation or hydronephrosis. No renal or ureteral calculi are identified. Bladder is distended and appears thin-walled. Uterus is not enlarged. No abnormal adnexal mass. Large and small bowel are unremarkable. Appendix is not identified. No free intra-abdominal air or fluid. No obstruction. Abdominal aorta has a normal course and caliber. Abdominal vasculature is patent. No enlarged abdominal lymph nodes are identified. No suspicious osseous lesions or acute fractures. IMPRESSION: 1. Findings of acute interstitial pancreatitis. No peripancreatic fluid collection. 2. Diffuse hepatic steatosis. Exposure: One or more of the following in the visualized dose reduction techniques were utilized for this examination: 1. Automated exposure control 2. Adjustment of the MA and/or KV according to patient size 3. Use of iterative of reconstructive technique Electronically signed by: Radha Jenkins MD (02/12/2020 8:31 PM) [id number] Course & Med Decision Making: Course & Med Decision Making Pertinent Labs and Imaging studies reviewed. (See chart for details) Patient is a 39-year-old female brought to the ED due to intoxication. Physical exam was remarkable for abdominal distention, mild hepatomegaly, and left upper quadrant and left flank pain. Patient has a long history of alcoholism as well as related past medical history of pancreatitis and hepatitis. Toxicology screening was positive for ethyl alcohol >400. Patient did state she has been drinking and taking tramadol and has had 3 days of abdominal pain. Serum chemistry shows a lipase of 1913, AST 1019, ALT 309, and alk phos 154 is consistent with acute pancreatitis due to alcohol use. IVF hydration given. Pain addressed. Patient requiring admission for further evaluation and treatment. Discussed with Dr. Ariza (hospitalist) who is in agreement with admission. Discussed findings and plan with patient, who acknowledges understanding and agreement. Melody Disclaimer: Melody Disclaimer: This electronic medical record was generated, in whole or in part, using a voice recognition dictation system. Departure Departure Impression: Primary Impression: Acute pancreatitis Qualified Codes: K85.20 - Alcohol induced acute pancreatitis without necrosis or infection Additional Impressions: Alcohol intoxication Qualified Codes: F10.929 - Alcohol use, unspecified with intoxication, unspecified AMS (altered mental status) Qualified Codes: R41.82 - Altered mental status, unspecified Disposition: 09 ADMITTED INPATIENT Admitting Physician: SHIRLEY Ramos) Condition: GUARDED Referrals: NO PCP (PCP) Justicifation of Admission Dx: Justifications for Admission: Justification of Admission Dx: Yes Altered Mental Status: Altered Mental Status Comments: Pancreatitis, ETOH abuse MAGAN ARELLANO DO Feb 12, 2020 18:40
[2020-02-12 18:42] LABS: BARBITURATES NEG (NEG); BENZODIAZEPINES NEG (NEG); CANNABINOIDS NEG (NEG); COCAINE NEG (NEG); METHADONE NEG (NEG); OPIATES NEG (NEG); PHENCYCLIDINE NEG (NEG)
[2020-02-12 18:44] LABS: PROTHROMBIN TIME PATIENT 13.7 SEC (11.7-14.0)
[2020-02-12 18:50] LABS: SQUAMOUS EPITHELIAL CELL,UR MOD /LPF
[2020-02-12 18:51] LABS: AMPHETAMINE/METHAMPHETAMINE NEG (NEG); HYALINE CASTS, URINE FEW /HPF
[2020-02-12 18:52] LABS: BACTERIA,URINE 0 /HPF (0-FEW); RBC,URINE RARE /HPF (0-2); WBC,URINE 0 /HPF (0-4)
[2020-02-12] MEDS ORDERED: MULTIVIT INFUSN,ADULT 4,VIT K 10 ML, THIAMINE INJ 100 MG, FOLIC ACID INJ 1 MG in IV NOR... IV ONE (19:00)
[2020-02-12 19:09] LABS: ANISOCYTOSIS SLIGHT; PLT ESTIMATE ADEQUATE (ADEQUATE)
[2020-02-12 20:01] LABS: CREATININE 0.5 mg/dL (0.6-1.0); GFR 138.8; POTASSIUM 3.9 mmol/L (3.5-5.1)
[2020-02-12 20:12] LABS: ALBUMIN 3.8 g/dL (3.4-5.0); ALBUMIN/GLOBULIN RATIO 0.8 (1.0-1.7); MAGNESIUM 1.8 mg/dL (1.8-2.4); SALIC < 2.8 mg/dL (2.8-20.0); TOTAL BILIRUBIN 0.9 mg/dL (0.2-1.0); TOTAL PROTEIN 8.5 g/dL (6.4-8.2)
[2020-02-12 20:13] LABS: ACETAMIN < 2.0 mcg/ml (10-30); ETHANOL 401 mg/dL (0-10)
[2020-02-12] MEDS ORDERED: CONTRAST GIVEN. MC PRN (20:15)
[2020-02-12] MEDS ORDERED: IOHEXOL 300 MG/ML 100ML VIAL. IV ONE (20:15)
[2020-02-12] MEDS ORDERED: KETOROLAC 15 MG/ML VIAL. IVP ONE (20:30)
[2020-02-12] MEDS ORDERED: FAMOTIDINE 20 MG/2 ML VIAL IVP ONE (20:30)
--- NOTE | 2020-02-12 20:34 | RAD ---
Exam: CT of abdomen and pelvis with contrast INDICATION: Abdominal pain, distention TECHNIQUE: Sequential axial images through the abdomen and pelvis obtained following the administration of 75 mL of Isovue-370 IV contrast. Sagittal and coronal reformatted images were reconstructed from the axial data and reviewed. Comparisons: 12/27/2019 FINDINGS: Heart size is normal. No pericardial effusion. Visualized lung bases are clear. No pleural effusion. There is diffuse hepatic steatosis. Spleen, and adrenals are unremarkable. Gallbladder surgically absent. There is fat stranding noted at the pancreatic head. No peripancreatic fluid collection. Kidneys demonstrate symmetric enhancement. No perinephric inflammation or hydronephrosis. No renal or ureteral calculi are identified. Bladder is distended and appears thin-walled. Uterus is not enlarged. No abnormal adnexal mass. Large and small bowel are unremarkable. Appendix is not identified. No free intra-abdominal air or fluid. No obstruction. Abdominal aorta has a normal course and caliber. Abdominal vasculature is patent. No enlarged abdominal lymph nodes are identified. No suspicious osseous lesions or acute fractures. IMPRESSION: 1. Findings of acute interstitial pancreatitis. No peripancreatic fluid collection. 2. Diffuse hepatic steatosis. Exposure: One or more of the following in the visualized dose reduction techniques were utilized for this examination: 1. Automated exposure control 2. Adjustment of the MA and/or KV according to patient size 3. Use of iterative of reconstructive technique Electronically signed by: Radha Jenkins MD (02/12/2020 8:31 PM) [id number]
--- NOTE | 2020-02-12 20:39 | RAD ---
CT scan of the head without contrast 02/12/2020 Clinical History: Altered mental status. Technique: Unenhanced, contiguous, 5 mm axial sections were obtained through the head. One or more of the following individualized dose reduction techniques were utilized for this study: 1. Automated exposure control. 2. Adjustment of the mA and/or kV according to patient size. 3. Use of iterative reconstruction technique. Findings: Comparison study is dated 01/31/2020. There is mild generalized parenchymal atrophy. No acute parenchymal abnormality is seen. No extra-axial fluid collection is noted. No skull fracture is seen. Impression: No acute intracranial abnormality is seen. CT scan of the cervical spine without contrast 02/12/2020 Clinical history: Intoxication. Neck injury. Technique: Unenhanced, contiguous, 0.625 mm axial sections were obtained through the cervical spine. Axial, coronal and sagittal reconstructed images were obtained. One or more of the following individualized dose reduction techniques were utilized for this study: 1. Automated exposure control. 2. Adjustment of the mA and/or kV according to patient size. 3. Use of iterative reconstruction technique. Findings: Sagittal and coronal reconstructed images demonstrate mild lateral curvature of the cervical spine, convex to the left. There is reversal of the normal cervical lordosis. No fracture or subluxation of the cervical vertebrae is seen. Relatively mild degenerative changes are seen involving the uncovertebral and facet joints throughout the mid and lower cervical disc spaces. Impression: No fracture or subluxation of the cervical vertebra is identified. Electronically signed by: Flex Horowitz MD (02/12/2020 8:36 PM) [id number]
[2020-02-12] MEDS ORDERED: DEXTROSE 50% 25 GM / 50ML DISP.SYRIN. IV PRN (21:15)
[2020-02-12] MEDS ORDERED: IV NORMAL SALINE 1000ML BAG 1,000 ML IV ONE (21:15)
[2020-02-12] MEDS ORDERED: ONDANSETRON PF 4 MG/2 ML VIAL. IV PRN (21:15)
[2020-02-12] MEDS ORDERED: HALOPERIDOL LACTATE 5 MG/ML VIAL. IVP PRN (21:30)
[2020-02-12] MEDS ORDERED: fentaNYL PF VIAL 100 MCG/2 ML VIAL IV ONE (21:30)
[2020-02-12] MEDS ORDERED: cloNIDine HCL 0.1 MG TABLET PO PRN (21:30)
[2020-02-12] MEDS: ONDANSETRON PF 4 MG/2 ML VIAL. IV PRN (22:11)
[2020-02-13] MEDS: fentaNYL PF VIAL 100 MCG/2 ML VIAL IV PRN ×2 (00:25→02:35)
[2020-02-13 02:00] VITALS: BP 123/84
--- NOTE | 2020-02-13 02:20 | NUR ---
ADMISSION NOTE: Patient arrived to room 500 via gurney accompanied by ED staff. Bed low, locked, call light within reach. Tele monitor applied. Patient requesting pain meds at this time, will check eMAR to see if they are available. Will continue to monitor.
[2020-02-13] MEDS: HYDROmorphone 2 MG/ML VIAL IVP PRN ×6 (04:46→20:29)
[2020-02-13] MEDS: ONDANSETRON PF 4 MG/2 ML VIAL. IV PRN ×5 (04:46→22:45)
[2020-02-13 07:00] VITALS: BP 149/106
[2020-02-13] MEDS: INSULIN LISPRO 300 UNITS/3 ML VIAL. SQ SCH ×3 (07:40→17:00)
[2020-02-13] MEDS: IV NORMAL SALINE 1000ML BAG 1,000 ML IV SCH ×5 (07:45→23:00)
[2020-02-13] MEDS: FOLIC ACID 1 MG TABLET. PO SCH (08:05)
[2020-02-13] MEDS: MULTIVITAMIN with MINERAL TABLET. PO SCH (08:06)
[2020-02-13] MEDS: THIAMINE 100 MG TABLET. PO SCH (08:06)
--- NOTE | 2020-02-13 08:43 | PDOC1 ---
History and Physical Date of Admission Date of Admission DATE: 02/13/20 TIME: 08:37 Identification/Chief Complaint Chief Complaint Abdominal pain Source Source: Patient History of Present Illness History of Present Illness Patient is a 39-year-old female with past medical history of alcoholism, who presents with complaints of worsening abdominal pain for the past 3 to 4 days. She reports cramping epigastric abdominal pain,10/10 at worst. Associated symptoms include nausea and vomiting. She has taken her home tramadol without improvement. She admits to a history of alcoholism and states her last drink was yesterday. She denies any fever, hematemesis, diarrhea. Past Medical History Cardiovascular: HTN Psych: Anxiety, Depression Endocrine: Diabetes Past Surgical History Past Surgical History: Cholecystectomy, , Tubal Ligation Family History Family History: Alcohol Abuse, Drug Abuse, High Cholestrol Social History Smoke: 1 pack per day ALCOHOL: heavy Drugs: None Current Medications Current Medications Current Medications Multivitamins 10 ml/Thiamine HCl 100 mg/Folic Acid 1 mg/Sodium Chloride 1,011.2 ml @ 1,000.088 mls/hr 1X ONCE IV Last administered on 02/12/20at 19:42; Start 02/12/20 at 19:00; Stop 02/12/20 at 20:00; Status DC Famotidine (Pepcid Vial) 20 mg 1X ONCE IVP Last administered on 02/12/20at 19:59; Start 02/12/20 at 20:30; Stop 02/12/20 at 20:31; Status DC Ketorolac Tromethamine (Toradol 15mg Vial) 15 mg 1X ONCE IVP Last administered on 02/12/20at 19:59; Start 02/12/20 at 20:30; Stop 02/12/20 at 20:31; Status DC Iohexol (Omnipaque 300 Mg/ml) 75 ml 1X ONCE IV Last administered on 02/12/20at 20:23; Start 02/12/20 at 20:15; Stop 02/12/20 at 20:16; Status DC Info (CONTRAST GIVEN -- Rx MONITORING) 1 each PRN DAILY PRN MC SEE COMMENTS; Start 02/12/20 at 20:15; Stop 02/14/20 at 20:14 Fentanyl Citrate (Fentanyl 2ml Vial) 50 mcg 1X ONCE IV Last administered on 02/12/20at 22:12; Start 02/12/20 at 21:30; Stop 02/12/20 at 21:31; Status DC Ondansetron HCl (Zofran) 4 mg PRN Q8HRS PRN IV NAUSEA/VOMITING 1ST CHOICE; Start 02/12/20 at 21:15; Stop 02/12/20 at 21:26; Status DC Fentanyl Citrate (Fentanyl 2ml Vial) 50 mcg PRN Q2HRS PRN IV SEVERE PAIN 7-10 Last administered on 02/13/20at 02:35; Start 02/12/20 at 21:15; Stop 02/13/20 at 03:17; Status DC Sodium Chloride 1,000 ml @ 100 mls/hr 1X ONCE IV Last administered on 02/13/20at 04:46; Start 02/12/20 at 21:15; Stop 02/13/20 at 07:14; Status DC Insulin Human Lispro (HumaLOG) 0-5 UNITS TIDWMEALS SQ ; Start 02/13/20 at 08:00 Dextrose (Dextrose 50%-Water Syringe) 12.5 gm PRN Q15MIN PRN IV SEE COMMENTS; Start 02/12/20 at 21:15 Ondansetron HCl (Zofran) 4 mg PRN Q4HRS PRN IV NAUSEA/VOMITING 1ST CHOICE Last administered on 02/13/20at 04:46; Start 02/12/20 at 21:30 Multivitamins (Thera M Plus) 1 tab DAILY PO ; Start 02/13/20 at 09:00 Folic Acid (Folic Acid) 1 mg DAILY PO ; Start 02/13/20 at 09:00 Thiamine Mononitrate (Vitamin B-1) 100 mg DAILY PO ; Start 02/13/20 at 09:00 Lorazepam (Ativan) 2 mg PRN Q1HR PRN PO For CIWA 8-14; Start 02/12/20 at 21:30 Lorazepam (Ativan Inj) 2 mg PRN Q1HR PRN IV For CIWA 8-14; Start 02/12/20 at 21:30 Haloperidol Lactate (Haldol Inj) 5 mg PRN Q4HRS PRN IVP Hallucinatns,Confusn,Delirium; Start 02/12/20 at 21:30 Clonidine HCl (Catapres) 0.1 mg PRN Q1HR PRN PO SBP > 180 or DBP > 100, MRX3; Start 02/12/20 at 21:30 Hydromorphone HCl (Dilaudid) 0.5 mg PRN Q3HRS PRN IVP SEVERE PAIN 7-10 Last administered on 02/13/20at 08:03; Start 02/13/20 at 03:15 Sodium Chloride 1,000 ml @ 250 mls/hr Q4H IV ; Start 02/13/20 at 07:45 Active Scripts Active Tramadol Hcl 50 Mg Tablet 50 Mg PO PRN Q6HRS PRN 5 Days Pantoprazole Sodium (Pantoprazole Sodium) 40 Mg Tablet.dr 40 Mg PO DAILYAC 30 Days [Folic Acid] 1 MG Tablet 1 Mg PO DAILY 30 Days Vitamin B-1 (Thiamine Mononitrate) 100 Mg Tablet 100 Mg PO DAILY 30 Days Reported Ibuprofen 800 Mg Tablet 800 Mg PO DAILY PRN Lisinopril 10 Mg Tablet 10 Mg PO DAILY Allergies Allergies: Coded Allergies: latex (Verified Allergy, Intermediate, 09/19/19) prochlorperazine (Verified Allergy, Intermediate, 09/19/19) ROS General: No: Chills, Fatigue PSYCHOLOGICAL ROS: No: Anxiety, Depression Eyes: No Blurry vision, No Loss of vision HEENT: No: Nasal discharge, Sore Throat ALLERGY AND IMMUNOLOGY: No: Nasal Congestion, Post Nasal Drip Hematological and Lymphatic: No: Bleeding Problems, Blood Clots Respiratory: No: Cough, Shortness of breath Cardiovascular: No Chest Pain, No Edema Gastrointestinal: Yes Nausea, Yes Vomiting, Yes Abdominal Pain; No Diarrhea, No Hematochezia Genitourinary: No Dysuria, No Frequency Musculoskeletal: No Joint Pain, No Joint Stiffness, No Joint Swelling Neurological: No Confusion, No Dizziness, No Headaches Skin: No Dry Skin, No Rash Physical Exam General: Alert, Oriented X3, Cooperative, mild distress HEENT: PERRLA Lungs: Clear to auscultation, Normal air movement Heart: RRR, no murmurs Cardiovascular: S1, S2 Abdomen: No masses, Other (Epigastric tenderness) Extremities: No clubbing, No cyanosis, No edema Skin: No rashes, No significant lesion Neuro: Normal tone, Sensation intact Psych/Mental Status: Mental status NL, Mood NL Vitals Vitals Vital Signs Date Time Temp Pulse Resp B/P (MAP) Pulse Ox O2 Delivery O2 Flow Rate FiO2 02/13/20 08:03 20 98 Room Air 02/13/20 07:00 97.9 110 149/106 (120) 97.9 Labs Labs Laboratory Tests Test 02/12/20 18:10 02/12/20 18:20 02/12/20 18:33 02/12/20 19:30 Urine Collection Type U cath Urine Color Yellow Urine Clarity Clear Urine pH 6.0 (<5.0-8.0) Urine Specific Fabius 1.020 (1.000-1.030) Urine Protein >=300 mg/dL (NEG-TRACE) Urine Glucose (UA) Negative mg/dL (NEG) Urine Ketones (Stick) >=80 mg/dL (NEG) Urine Blood Small (NEG) Urine Nitrite Negative (NEG) Urine Bilirubin Negative (NEG) Urine Urobilinogen Dipstick 0.2 mg/dL (0.2 mg/dL) Urine Leukocyte Esterase Negative (NEG) Urine RBC Rare /HPF (0-2) Urine WBC 0 /HPF (0-4) Urine Squamous Epithelial Cells Mod /LPF Urine Bacteria 0 /HPF (0-FEW) Urine Hyaline Casts Few /HPF Urine Mucus Slight /LPF Urine Opiates Screen Neg (NEG) Urine Methadone Screen Neg (NEG) Urine Barbiturates Neg (NEG) Urine Phencyclidine Screen Neg (NEG) Urine Amphetamine/Methamphetamine Neg (NEG) Urine Benzodiazepines Screen Neg (NEG) Urine Cocaine Screen Neg (NEG) Urine Cannabinoids Screen Neg (NEG) Urine Ethyl Alcohol Pos (NEG) White Blood Count 4.8 x10^3/uL (4.0-11.0) Red Blood Count 4.96 x10^6/uL (3.50-5.40) Hemoglobin 13.0 g/dL (12.0-15.5) Hematocrit 39.7 % (36.0-47.0) Mean Corpuscular Volume 80 fL (79-100) Mean Corpuscular Hemoglobin 26 pg (25-35) Mean Corpuscular Hemoglobin Concent 33 g/dL (31-37) Red Cell Distribution Width 20.1 % (11.5-14.5) Platelet Count 212 x10^3/uL (140-400) Neutrophils (%) (Auto) 83 % (31-73) Lymphocytes (%) (Auto) 11 % (24-48) Monocytes (%) (Auto) 6 % (0-9) Eosinophils (%) (Auto) 0 % (0-3) Basophils (%) (Auto) 0 % (0-3) Neutrophils # (Auto) 4.0 x10^3/uL (1.8-7.7) Lymphocytes # (Auto) 0.5 x10^3/uL (1.0-4.8) Monocytes # (Auto) 0.3 x10^3/uL (0.0-1.1) Eosinophils # (Auto) 0.0 x10^3/uL (0.0-0.7) Basophils # (Auto) 0.0 x10^3/uL (0.0-0.2) Platelet Estimate Adequate (ADEQUATE) Anisocytosis Slight Prothrombin Time 13.7 SEC (11.7-14.0) Prothromb Time International Ratio 1.1 (0.8-1.1) Activated Partial Thromboplast Time 31 SEC (24-38) Bedside Urine HCG, Qualitative Hcg negative (Negative) Sodium Level 134 mmol/L (136-145) Potassium Level 3.9 mmol/L (3.5-5.1) Chloride Level 93 mmol/L (98-107) Carbon Dioxide Level 17 mmol/L (21-32) Anion Gap 24 (6-14) Blood Urea Nitrogen 12 mg/dL (7-20) Creatinine 0.5 mg/dL (0.6-1.0) Estimated GFR (Cockcroft-Gault) 138.8 BUN/Creatinine Ratio 24 (6-20) Glucose Level 77 mg/dL (70-99) Calcium Level 8.0 mg/dL (8.5-10.1) Magnesium Level 1.8 mg/dL (1.8-2.4) Total Bilirubin 0.9 mg/dL (0.2-1.0) Aspartate Amino Transf (AST/SGOT) 1019 U/L (15-37) Alanine Aminotransferase (ALT/SGPT) 309 U/L (14-59) Alkaline Phosphatase 154 U/L (46-116) Total Protein 8.5 g/dL (6.4-8.2) Albumin 3.8 g/dL (3.4-5.0) Albumin/Globulin Ratio 0.8 (1.0-1.7) Lipase 1913 U/L (73-393) Salicylates Level < 2.8 mg/dL (2.8-20.0) Salicylate Last Dose Date Unk Salicylate Last Dose Time Unk Acetaminophen Level < 2.0 mcg/ml (10-30) Acetaminophen Last Dose Date Unk Acetaminophen Last Dose Time Unk Ethyl Alcohol Level 401 mg/dL (0-10) Test 02/13/20 01:43 Glucose (Fingerstick) 83 mg/dL (70-99) Laboratory Tests Test 02/12/20 18:10 02/12/20 18:20 02/12/20 18:33 02/12/20 19:30 Urine Collection Type U cath Urine Color Yellow Urine Clarity Clear Urine pH 6.0 (<5.0-8.0) Urine Specific Fabius 1.020 (1.000-1.030) Urine Protein >=300 mg/dL (NEG-TRACE) Urine Glucose (UA) Negative mg/dL (NEG) Urine Ketones (Stick) >=80 mg/dL (NEG) Urine Blood Small (NEG) Urine Nitrite Negative (NEG) Urine Bilirubin Negative (NEG) Urine Urobilinogen Dipstick 0.2 mg/dL (0.2 mg/dL) Urine Leukocyte Esterase Negative (NEG) Urine RBC Rare /HPF (0-2) Urine WBC 0 /HPF (0-4) Urine Squamous Epithelial Cells Mod /LPF Urine Bacteria 0 /HPF (0-FEW) Urine Hyaline Casts Few /HPF Urine Mucus Slight /LPF Urine Opiates Screen Neg (NEG) Urine Methadone Screen Neg (NEG) Urine Barbiturates Neg (NEG) Urine Phencyclidine Screen Neg (NEG) Urine Amphetamine/Methamphetamine Neg (NEG) Urine Benzodiazepines Screen Neg (NEG) Urine Cocaine Screen Neg (NEG) Urine Cannabinoids Screen Neg (NEG) Urine Ethyl Alcohol Pos (NEG) White Blood Count 4.8 x10^3/uL (4.0-11.0) Red Blood Count 4.96 x10^6/uL (3.50-5.40) Hemoglobin 13.0 g/dL (12.0-15.5) Hematocrit 39.7 % (36.0-47.0) Mean Corpuscular Volume 80 fL (79-100) Mean Corpuscular Hemoglobin 26 pg (25-35) Mean Corpuscular Hemoglobin Concent 33 g/dL (31-37) Red Cell Distribution Width 20.1 % (11.5-14.5) Platelet Count 212 x10^3/uL (140-400) Neutrophils (%) (Auto) 83 % (31-73) Lymphocytes (%) (Auto) 11 % (24-48) Monocytes (%) (Auto) 6 % (0-9) Eosinophils (%) (Auto) 0 % (0-3) Basophils (%) (Auto) 0 % (0-3) Neutrophils # (Auto) 4.0 x10^3/uL (1.8-7.7) Lymphocytes # (Auto) 0.5 x10^3/uL (1.0-4.8) Monocytes # (Auto) 0.3 x10^3/uL (0.0-1.1) Eosinophils # (Auto) 0.0 x10^3/uL (0.0-0.7) Basophils # (Auto) 0.0 x10^3/uL (0.0-0.2) Platelet Estimate Adequate (ADEQUATE) Anisocytosis Slight Prothrombin Time 13.7 SEC (11.7-14.0) Prothromb Time International Ratio 1.1 (0.8-1.1) Activated Partial Thromboplast Time 31 SEC (24-38) Bedside Urine HCG, Qualitative Hcg negative (Negative) Sodium Level 134 mmol/L (136-145) Potassium Level 3.9 mmol/L (3.5-5.1) Chloride Level 93 mmol/L (98-107) Carbon Dioxide Level 17 mmol/L (21-32) Anion Gap 24 (6-14) Blood Urea Nitrogen 12 mg/dL (7-20) Creatinine 0.5 mg/dL (0.6-1.0) Estimated GFR (Cockcroft-Gault) 138.8 BUN/Creatinine Ratio 24 (6-20) Glucose Level 77 mg/dL (70-99) Calcium Level 8.0 mg/dL (8.5-10.1) Magnesium Level 1.8 mg/dL (1.8-2.4) Total Bilirubin 0.9 mg/dL (0.2-1.0) Aspartate Amino Transf (AST/SGOT) 1019 U/L (15-37) Alanine Aminotransferase (ALT/SGPT) 309 U/L (14-59) Alkaline Phosphatase 154 U/L (46-116) Total Protein 8.5 g/dL (6.4-8.2) Albumin 3.8 g/dL (3.4-5.0) Albumin/Globulin Ratio 0.8 (1.0-1.7) Lipase 1913 U/L (73-393) Salicylates Level < 2.8 mg/dL (2.8-20.0) Salicylate Last Dose Date Unk Salicylate Last Dose Time Unk Acetaminophen Level < 2.0 mcg/ml (10-30) Acetaminophen Last Dose Date Unk Acetaminophen Last Dose Time Unk Ethyl Alcohol Level 401 mg/dL (0-10) Test 02/13/20 01:43 Glucose (Fingerstick) 83 mg/dL (70-99) Images Images Exam: CT of abdomen and pelvis with contrast INDICATION: Abdominal pain, distention TECHNIQUE: Sequential axial images through the abdomen and pelvis obtained following the administration of 75 mL of [id number] IV contrast. Sagittal and coronal reformatted images were reconstructed from the axial data and reviewed. Comparisons: 12/27/2019 FINDINGS: Heart size is normal. No pericardial effusion. Visualized lung bases are clear. No pleural effusion. There is diffuse hepatic steatosis. Spleen, and adrenals are unremarkable. Gallbladder surgically absent. There is fat stranding noted at the pancreatic head. No peripancreatic fluid collection. Kidneys demonstrate symmetric enhancement. No perinephric inflammation or hydronephrosis. No renal or ureteral calculi are identified. Bladder is distended and appears thin-walled. Uterus is not enlarged. No abnormal adnexal mass. Large and small bowel are unremarkable. Appendix is not identified. No free intra-abdominal air or fluid. No obstruction. Abdominal aorta has a normal course and caliber. Abdominal vasculature is patent. No enlarged abdominal lymph nodes are identified. No suspicious osseous lesions or acute fractures. IMPRESSION: 1. Findings of acute interstitial pancreatitis. No peripancreatic fluid collection. 2. Diffuse hepatic steatosis. Exposure: One or more of the following in the visualized dose reduction techniques were utilized for this examination: 1. Automated exposure control 2. Adjustment of the MA and/or KV according to patient size 3. Use of iterative of reconstructive technique VTE Prophylaxis Ordered VTE Prophylaxis Devices: No VTE Pharmacological Prophylaxi: Yes Assessment/Plan Assessment/Plan Acute pancreatitis, transaminitis Plan: Continue IV normal saline at 250 cc an hour, n.p.o. status. Ativan 1 mg as needed anxiety, withdrawal symptoms. Transaminitis likely secondary to history of hepatitis C and hepatic steatosis. Discussed with patient and fianc the need for outpatient AA meetings, and the serious nature of pancreatitis. Patient has not decided on surrogate decision-maker. VTE prophylaxis. Full code. Justifications for Admission Other Justification ASHLEY BALLARD MD Feb 13, 2020 08:43
[2020-02-13 10:31] LABS: ALBUMIN 3.6 g/dL (3.4-5.0); ALBUMIN/GLOBULIN RATIO 0.8 (1.0-1.7); CALCIUM 8.4 mg/dL (8.5-10.1); CREATININE 0.5 mg/dL (0.6-1.0); GFR 138.8; POTASSIUM 4.3 mmol/L (3.5-5.1); TOTAL BILIRUBIN 1.6 mg/dL (0.2-1.0); TOTAL PROTEIN 7.9 g/dL (6.4-8.2)
[2020-02-13 10:49] VITALS: BP 152/89
--- NOTE | 2020-02-13 11:54 | EKG ---
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
--- NOTE | 2020-02-13 12:23 | NUR ---
SW following. Spoke with RN and reviewed chart. Pt from home. Pt has a hx of ETOH and pancreatitis. SW referred pt to [facility]. Rafaela from [facility] met with pt who refused out-patient follow up for substance abuse treatment. Pt on room air and IV pain medications. No further SW needs anticipated at discharge. SW to follow as needed.
[2020-02-13 15:00] VITALS: BP 158/82
[2020-02-13 19:00] VITALS: BP 146/104
[2020-02-13 23:00] VITALS: BP 144/96
[2020-02-14] MEDS: HYDROmorphone 2 MG/ML VIAL IVP PRN ×9 (01:35→22:45)
[2020-02-14 03:00] VITALS: BP 126/92
[2020-02-14] MEDS: IV NORMAL SALINE 1000ML BAG 1,000 ML IV SCH ×6 (03:45→23:45)
[2020-02-14 04:05] LABS: BASO % 1 % (0-3); EOS % 1 % (0-3); HEMATOCRIT 33.7 % (36.0-47.0); HEMOGLOBIN 10.7 g/dL (12.0-15.5); LYMPH # 0.5 x10^3/uL (1.0-4.8); LYMPH % 14 % (24-48); MEAN CORPUSCULAR HEMOGLOBIN 26 pg (25-35); MEAN CORPUSCULAR HGB CONC 32 g/dL (31-37); MEAN CORPUSCULAR VOLUME 80 fL (79-100); MONO # 0.2 x10^3/uL (0.0-1.1); MONO % 5 % (0-9); NEUT % 81 % (31-73); PLATELET COUNT 114 x10^3/uL (140-400); RED CELL DISTRIBUTION WIDTH 20.4 % (11.5-14.5); WHITE BLOOD COUNT 3.8 x10^3/uL (4.0-11.0)
[2020-02-14 04:09] LABS: CALCIUM 9.2 mg/dL (8.5-10.1); CREATININE 0.4 mg/dL (0.6-1.0); GFR 179.6
[2020-02-14 07:00] VITALS: BP 128/90
[2020-02-14] MEDS: INSULIN LISPRO 300 UNITS/3 ML VIAL. SQ SCH ×3 (08:00→17:00)
[2020-02-14] MEDS: FOLIC ACID 1 MG TABLET. PO SCH (08:36)
[2020-02-14] MEDS: THIAMINE 100 MG TABLET. PO SCH (08:36)
[2020-02-14] MEDS: MULTIVITAMIN with MINERAL TABLET. PO SCH (08:36)
[2020-02-14] MEDS: ONDANSETRON PF 4 MG/2 ML VIAL. IV PRN ×4 (08:36→22:12)
--- NOTE | 2020-02-14 09:45 | PDOC ---
[employer] PROGRESS NOTE Date of Service DOS: DATE: 02/14/20 TIME: 09:42 Chief Complaint Chief Complaint Acute pancreatitis Alcoholic hepatitis Hypokalemia Hyponatremia History of Present Illness History of Present Illness Ms Lewis is a 39-year-old female with past medical history of alcoholism, who presents with complaints of worsening abdominal pain for the past 3 to 4 days prior to admit. She reports cramping epigastric abdominal pain,10/10 at worst. Associated symptoms include nausea and vomiting. She has taken her home tramadol without improvement. She admits to a history of alcoholism and states her last drink was day prior to admit. She denies any fever, hematemesis, diarrhea.ETOH level 401. Lipase 1931, AST 1019, CT with signs of interstitial pancreatitis. K 3 today. Na 128, lipase 912, WBC 3.8, platelets 114. Having pain every 2 hours, states pain meds wearing off. No appetite, not passing flatus. Afebrile. Vitals/I&O Vitals/I&O: Vital Signs Date Time Temp Pulse Resp B/P (MAP) Pulse Ox O2 Delivery O2 Flow Rate FiO2 02/14/20 08:37 Room Air 02/14/20 07:00 98.6 100 18 128/90 (103) 100 98.6 I & O 02/13/20 02/13/20 02/14/20 15:00 23:00 07:00 Intake Total 50 ml 150 ml Balance 50 ml 150 ml Physical Exam General: Alert, Oriented X3, Cooperative, mild distress Lungs: Clear Abdomen: No masses, Other (Epigastric tenderness) Extremities: No clubbing, No cyanosis, No edema Skin: No rashes, No significant lesion Labs Labs: Laboratory Tests Test 02/13/20 11:03 02/13/20 20:33 02/14/20 02:54 02/14/20 06:34 Glucose (Fingerstick) 85 mg/dL (70-99) 113 mg/dL (70-99) 98 mg/dL (70-99) White Blood Count 3.8 x10^3/uL (4.0-11.0) Red Blood Count 4.20 x10^6/uL (3.50-5.40) Hemoglobin 10.7 g/dL (12.0-15.5) Hematocrit 33.7 % (36.0-47.0) Mean Corpuscular Volume 80 fL (79-100) Mean Corpuscular Hemoglobin 26 pg (25-35) Mean Corpuscular Hemoglobin Concent 32 g/dL (31-37) Red Cell Distribution Width 20.4 % (11.5-14.5) Platelet Count 114 x10^3/uL (140-400) Neutrophils (%) (Auto) 81 % (31-73) Lymphocytes (%) (Auto) 14 % (24-48) Monocytes (%) (Auto) 5 % (0-9) Eosinophils (%) (Auto) 1 % (0-3) Basophils (%) (Auto) 1 % (0-3) Neutrophils # (Auto) 3.0 x10^3/uL (1.8-7.7) Lymphocytes # (Auto) 0.5 x10^3/uL (1.0-4.8) Monocytes # (Auto) 0.2 x10^3/uL (0.0-1.1) Eosinophils # (Auto) 0.0 x10^3/uL (0.0-0.7) Basophils # (Auto) 0.0 x10^3/uL (0.0-0.2) Sodium Level 128 mmol/L (136-145) Potassium Level 3.0 mmol/L (3.5-5.1) Chloride Level 90 mmol/L (98-107) Carbon Dioxide Level 28 mmol/L (21-32) Anion Gap 10 (6-14) Blood Urea Nitrogen 2 mg/dL (7-20) Creatinine 0.4 mg/dL (0.6-1.0) Estimated GFR (Cockcroft-Gault) 179.6 Glucose Level 97 mg/dL (70-99) Calcium Level 9.2 mg/dL (8.5-10.1) Lipase 912 U/L (73-393) Comment Review of Relevant I have reviewed the following items lore (where applicable) has been applied. Justifications for Admission Other Justification CINDY VALERA MD Feb 14, 2020 09:45
[2020-02-14] MEDS ORDERED: MAGNESIUM SULFATE 4GM 100 ML IV ONE (10:30)
[2020-02-14 11:00] VITALS: BP 141/100
[2020-02-14] MEDS: POTASSIUM CHLORIDE 10MEQ 100 ML IV SCH ×4 (11:35→16:04)
--- NOTE | 2020-02-14 12:43 | NUR ---
SW following. Spoke with RN and reviewed chart. Pt remains on IV pain medication and is NPO today. SW is following as needed, but discharge plan remains home self-care.
[2020-02-14 15:00] VITALS: BP 147/98
[2020-02-14 19:00] VITALS: BP 137/95
[2020-02-14 23:00] VITALS: BP 131/102
[2020-02-15] MEDS: HYDROmorphone 2 MG/ML VIAL IVP PRN ×11 (00:47→22:25)
[2020-02-15] MEDS: ONDANSETRON PF 4 MG/2 ML VIAL. IV PRN ×5 (02:46→22:29)
[2020-02-15 03:00] VITALS: BP 141/96
[2020-02-15] MEDS: IV NORMAL SALINE 1000ML BAG 1,000 ML IV SCH ×6 (03:45→23:35)
[2020-02-15 06:20] LABS: BASO % 1 % (0-3); EOS # 0.1 x10^3/uL (0.0-0.7); EOS % 3 % (0-3); HEMOGLOBIN 10.3 g/dL (12.0-15.5); LYMPH # 0.7 x10^3/uL (1.0-4.8); LYMPH % 26 % (24-48); MEAN CORPUSCULAR HEMOGLOBIN 26 pg (25-35); MEAN CORPUSCULAR HGB CONC 32 g/dL (31-37); MEAN CORPUSCULAR VOLUME 81 fL (79-100); MONO # 0.1 x10^3/uL (0.0-1.1); MONO % 4 % (0-9); NEUT # 1.7 x10^3/uL (1.8-7.7); NEUT % 67 % (31-73); PLATELET COUNT 88 x10^3/uL (140-400); RED BLOOD COUNT 3.97 x10^6/uL (3.50-5.40); RED CELL DISTRIBUTION WIDTH 20.4 % (11.5-14.5); WHITE BLOOD COUNT 2.6 x10^3/uL (4.0-11.0)
[2020-02-15 06:31] LABS: CALCIUM 8.2 mg/dL (8.5-10.1); CREATININE 0.4 mg/dL (0.6-1.0); GFR 179.6
[2020-02-15 06:33] LABS: POTASSIUM 2.7 mmol/L (3.5-5.1)
[2020-02-15 06:42] LABS: ALBUMIN 3.4 g/dL (3.4-5.0); DIRECT BILIRUBIN 0.8 mg/dL (0.0-0.2); TOTAL BILIRUBIN 1.6 mg/dL (0.2-1.0); TOTAL PROTEIN 7.1 g/dL (6.4-8.2)
[2020-02-15] MEDS ORDERED: POTASSIUM CHLORIDE 10MEQ 100 ML IV SCH (07:00)
[2020-02-15 07:15] VITALS: BP 133/95
--- NOTE | 2020-02-15 07:38 | PDOC ---
[employer] PROGRESS NOTE Date of Service DOS: DATE: 02/15/20 TIME: 07:36 Chief Complaint Chief Complaint Acute pancreatitis Alcoholic hepatitis Hypokalemia Hyponatremia History of Present Illness History of Present Illness Ms Lewis is a 39-year-old female with past medical history of alcoholism, who presents with complaints of worsening abdominal pain for the past 3 to 4 days prior to admit. She reports cramping epigastric abdominal pain,10/10 at worst. Associated symptoms include nausea and vomiting. She has taken her home tramadol without improvement. She admits to a history of alcoholism and states her last drink was day prior to admit. She denies any fever, hematemesis, diarrhea.ETOH level 401. Lipase 1931, AST 1019, CT with signs of interstitial pancreatitis. 02/13: K 3 today. Na 128, lipase 912, WBC 3.8, platelets 114. Having pain every 2 hours, states pain meds wearing off. No appetite, not passing flatus. Afebrile. Afebrile. K 2.7, WBC 2.6, platelets to 88. Lipase 554. LFTs trended downward. Pain still every 2 hours. She is asking for PO plan: PICC Vitals/I&O Vitals/I&O: Vital Signs Date Time Temp Pulse Resp B/P (MAP) Pulse Ox O2 Delivery O2 Flow Rate FiO2 02/15/20 06:58 20 100 Room Air 02/15/20 03:00 98.0 84 141/96 (111) 98.0 Physical Exam General: Alert, Oriented X3, Cooperative, mild distress Lungs: Clear Abdomen: No masses, Other (Epigastric tenderness) Extremities: No clubbing, No cyanosis, No edema Skin: No rashes, No significant lesion Labs Labs: Laboratory Tests Test 02/14/20 11:25 02/14/20 18:06 02/15/20 03:43 02/15/20 05:30 Glucose (Fingerstick) 97 mg/dL (70-99) 86 mg/dL (70-99) 110 mg/dL (70-99) White Blood Count 2.6 x10^3/uL (4.0-11.0) Red Blood Count 3.97 x10^6/uL (3.50-5.40) Hemoglobin 10.3 g/dL (12.0-15.5) Hematocrit 32.0 % (36.0-47.0) Mean Corpuscular Volume 81 fL (79-100) Mean Corpuscular Hemoglobin 26 pg (25-35) Mean Corpuscular Hemoglobin Concent 32 g/dL (31-37) Red Cell Distribution Width 20.4 % (11.5-14.5) Platelet Count 88 x10^3/uL (140-400) Neutrophils (%) (Auto) 67 % (31-73) Lymphocytes (%) (Auto) 26 % (24-48) Monocytes (%) (Auto) 4 % (0-9) Eosinophils (%) (Auto) 3 % (0-3) Basophils (%) (Auto) 1 % (0-3) Neutrophils # (Auto) 1.7 x10^3/uL (1.8-7.7) Lymphocytes # (Auto) 0.7 x10^3/uL (1.0-4.8) Monocytes # (Auto) 0.1 x10^3/uL (0.0-1.1) Eosinophils # (Auto) 0.1 x10^3/uL (0.0-0.7) Basophils # (Auto) 0.0 x10^3/uL (0.0-0.2) Sodium Level 130 mmol/L (136-145) Potassium Level 2.7 mmol/L (3.5-5.1) Chloride Level 93 mmol/L (98-107) Carbon Dioxide Level 29 mmol/L (21-32) Anion Gap 8 (6-14) Blood Urea Nitrogen 2 mg/dL (7-20) Creatinine 0.4 mg/dL (0.6-1.0) Estimated GFR (Cockcroft-Gault) 179.6 Glucose Level 92 mg/dL (70-99) Calcium Level 8.2 mg/dL (8.5-10.1) Total Bilirubin 1.6 mg/dL (0.2-1.0) Direct Bilirubin 0.8 mg/dL (0.0-0.2) Aspartate Amino Transf (AST/SGOT) 334 U/L (15-37) Alanine Aminotransferase (ALT/SGPT) 167 U/L (14-59) Alkaline Phosphatase 133 U/L (46-116) Total Protein 7.1 g/dL (6.4-8.2) Albumin 3.4 g/dL (3.4-5.0) Lipase 554 U/L (73-393) Test 02/15/20 07:12 Glucose (Fingerstick) 107 mg/dL (70-99) Comment Review of Relevant I have reviewed the following items lore (where applicable) has been applied. Medications: Current Medications Medications (Trade) Dose Ordered Sig/Jarred Route PRN Reason Start Time Stop Time Status Last Admin Dose Admin Potassium Chloride/Water 100 ml @ 100 mls/hr Q1H IV 02/14/20 10:00 02/14/20 13:59 DC 02/14/20 16:04 Hydromorphone HCl (Dilaudid) 0.5 mg PRN Q2HRS PRN IVP SEVERE PAIN 7-10 02/14/20 10:30 02/15/20 06:58 Magnesium Sulfate 100 ml @ 25 mls/hr 1X ONCE IV 02/14/20 10:30 02/14/20 14:29 DC 02/14/20 18:10 Potassium Chloride/Water 100 ml @ 100 mls/hr Q1H IV 02/15/20 07:00 02/15/20 07:59 02/15/20 07:02 Justifications for Admission Other Justification CINDY VALERA MD Feb 15, 2020 07:38
[2020-02-15] MEDS: INSULIN LISPRO 300 UNITS/3 ML VIAL. SQ SCH ×3 (08:00→17:00)
[2020-02-15] MEDS: POTASSIUM CHLORIDE 10MEQ 100 ML IV SCH ×4 (09:16→15:32)
[2020-02-15] MEDS: THIAMINE 100 MG TABLET. PO SCH (09:17)
[2020-02-15] MEDS: FOLIC ACID 1 MG TABLET. PO SCH (09:17)
[2020-02-15] MEDS: MULTIVITAMIN with MINERAL TABLET. PO SCH (09:17)
[2020-02-15] MEDS ORDERED: LIDOCAINE WITH 8.4% SOD BICARB 3 ML DISP.SYRIN. ONE (10:13)
[2020-02-15] MEDS ORDERED: LIDOCAINE WITH 8.4% SOD BICARB 3 ML DISP.SYRIN. INJ ONE (10:45)
[2020-02-15 11:15] VITALS: BP 137/100
[2020-02-15 15:00] VITALS: BP 125/99
--- NOTE | 2020-02-15 15:03 | NUR ---
SW following. Spoke with RN and reviewed chart. Pt remains NPO and is not ready for discharge today. Pt will return home self-care when stable. No further SW needs identified.
--- NOTE | 2020-02-15 15:34 | RAD ---
Exam: Fluoroscopic and ultrasound guided right percutaneous inserted central venous catheter placement 02/15/2020 1:30 PM .Indication: picc for IV fluids and IV potassium Technique: Informed oral and written consent were obtained. The right upper extremity was prepped and draped using sterile barrier technique. All elements of maximal sterile barrier technique including the use of a cap, mask, sterile gown, sterile gloves, large sterile sheet, appropriate hand hygiene, and 2% chlorhexidine for cutaneous antisepsis (or acceptable alternative antiseptic per current guidelines) were followed for this procedure.. Real-time ultrasound demonstrated a patent right basilic vein which was prepped and draped in usual sterile fashion. 1% lidocaine used for local anesthesia. Using real-time ultrasound guidance the access needle percutaneously punctured the selected right basilic vein. Reference ultrasound images were saved to the medical record. A guidewire was advanced through the needle to the cavoatrial junction, and a peel-away sheath placed. The catheter was cut to length and inserted through the peel-away sheath such that its tip is at the cavoatrial junction. The wire and sheath were removed, and the catheter secured in place, and a sterile dressing was applied. Catheter was found to flush and aspirate normally. No immediate complications are identified. FLUORO TIME: 0.2 DOSE AREA PRODUCT: 0.4 Gycm2 Impression: Ultrasound and fluoroscopically guided placement of a right upper extremity PICC line.
[2020-02-15 19:00] VITALS: BP 136/95
[2020-02-15 23:00] VITALS: BP 127/91
[2020-02-16] MEDS: HYDROmorphone 2 MG/ML VIAL IVP PRN ×12 (00:27→23:31)
[2020-02-16] MEDS: IV NORMAL SALINE 1000ML BAG 1,000 ML IV SCH ×6 (02:33→23:27)
[2020-02-16 03:00] VITALS: BP 134/88
[2020-02-16] MEDS: ONDANSETRON PF 4 MG/2 ML VIAL. IV PRN ×5 (05:11→21:15)
[2020-02-16 05:50] LABS: BASO % 1 % (0-3); EOS # 0.1 x10^3/uL (0.0-0.7); EOS % 3 % (0-3); HEMATOCRIT 28.3 % (36.0-47.0); LYMPH # 0.8 x10^3/uL (1.0-4.8); LYMPH % 32 % (24-48); MEAN CORPUSCULAR HEMOGLOBIN 26 pg (25-35); MEAN CORPUSCULAR HGB CONC 32 g/dL (31-37); MEAN CORPUSCULAR VOLUME 81 fL (79-100); MONO # 0.2 x10^3/uL (0.0-1.1); MONO % 6 % (0-9); NEUT # 1.5 x10^3/uL (1.8-7.7); NEUT % 58 % (31-73); PLATELET COUNT 88 x10^3/uL (140-400); RED BLOOD COUNT 3.49 x10^6/uL (3.50-5.40); RED CELL DISTRIBUTION WIDTH 20.5 % (11.5-14.5); WHITE BLOOD COUNT 2.5 x10^3/uL (4.0-11.0)
[2020-02-16 05:53] LABS: CREATININE 0.4 mg/dL (0.6-1.0); GFR 179.6; POTASSIUM 3.2 mmol/L (3.5-5.1)
[2020-02-16 07:59] VITALS: BP 160/109
[2020-02-16] MEDS: INSULIN LISPRO 300 UNITS/3 ML VIAL. SQ SCH ×3 (08:00→16:24)
[2020-02-16] MEDS: MULTIVITAMIN with MINERAL TABLET. PO SCH (08:50)
[2020-02-16] MEDS: FOLIC ACID 1 MG TABLET. PO SCH (08:50)
[2020-02-16] MEDS: THIAMINE 100 MG TABLET. PO SCH (08:50)
[2020-02-16] MEDS: PANTOPRAZOLE IV PUSH 40 MG VIAL. IVP SCH (09:33)
[2020-02-16 11:59] VITALS: BP 155/101
--- NOTE | 2020-02-16 13:24 | PDOC ---
[employer] PROGRESS NOTE Date of Service DOS: DATE: 02/16/20 TIME: 13:20 Chief Complaint Chief Complaint Acute pancreatitis Alcoholic hepatitis Hypokalemia Hyponatremia History of Present Illness History of Present Illness Ms Lewis is a 39-year-old female with past medical history of alcoholism, who presents with complaints of worsening abdominal pain for the past 3 to 4 days prior to admit. She reports cramping epigastric abdominal pain,10/10 at worst. Associated symptoms include nausea and vomiting. She has taken her home tramadol without improvement. She admits to a history of alcoholism and states her last drink was day prior to admit. She denies any fever, hematemesis, diarrhea.ETOH level 401. Lipase 1931, AST 1019, CT with signs of interstitial pancreatitis. 02/13: K 3 today. Na 128, lipase 912, WBC 3.8, platelets 114. Having pain every 2 hours, states pain meds wearing off. No appetite, not passing flatus. Afebrile. 02/14: Afebrile. K 2.7, WBC 2.6, platelets to 88. Lipase 554. LFTs trended downward. Pain still every 2 hours. She is asking for PO 02/15: Patient states her pain has improved from admission. She still has some nausea and vomited once overnight, which she attributes to pain medication.. Discussed with patient that she is able to, attempt clears. plan: Continue IV fluids. Ativan as needed alcohol withdrawal symptoms. Vitals/I&O Vitals/I&O: Vital Signs Date Time Temp Pulse Resp B/P (MAP) Pulse Ox O2 Delivery O2 Flow Rate FiO2 02/16/20 12:39 Room Air 02/16/20 12:39 89 155/101 02/16/20 11:59 97.9 18 98 97.9 I & O 02/15/20 02/15/20 02/16/20 15:00 23:00 07:00 Intake Total 1000 ml Balance 1000 ml Physical Exam General: Alert, Oriented X3, Cooperative, mild distress Lungs: Clear Abdomen: No masses, Other (Epigastric tenderness) Extremities: No clubbing, No cyanosis, No edema Skin: No rashes, No significant lesion Labs Labs: Laboratory Tests Test 02/15/20 18:08 02/15/20 21:44 02/16/20 05:30 02/16/20 11:59 Glucose (Fingerstick) 113 mg/dL (70-99) 181 mg/dL (70-99) 132 mg/dL (70-99) White Blood Count 2.5 x10^3/uL (4.0-11.0) Red Blood Count 3.49 x10^6/uL (3.50-5.40) Hemoglobin 9.0 g/dL (12.0-15.5) Hematocrit 28.3 % (36.0-47.0) Mean Corpuscular Volume 81 fL (79-100) Mean Corpuscular Hemoglobin 26 pg (25-35) Mean Corpuscular Hemoglobin Concent 32 g/dL (31-37) Red Cell Distribution Width 20.5 % (11.5-14.5) Platelet Count 88 x10^3/uL (140-400) Neutrophils (%) (Auto) 58 % (31-73) Lymphocytes (%) (Auto) 32 % (24-48) Monocytes (%) (Auto) 6 % (0-9) Eosinophils (%) (Auto) 3 % (0-3) Basophils (%) (Auto) 1 % (0-3) Neutrophils # (Auto) 1.5 x10^3/uL (1.8-7.7) Lymphocytes # (Auto) 0.8 x10^3/uL (1.0-4.8) Monocytes # (Auto) 0.2 x10^3/uL (0.0-1.1) Eosinophils # (Auto) 0.1 x10^3/uL (0.0-0.7) Basophils # (Auto) 0.0 x10^3/uL (0.0-0.2) Sodium Level 135 mmol/L (136-145) Potassium Level 3.2 mmol/L (3.5-5.1) Chloride Level 100 mmol/L (98-107) Carbon Dioxide Level 30 mmol/L (21-32) Anion Gap 5 (6-14) Blood Urea Nitrogen 1 mg/dL (7-20) Creatinine 0.4 mg/dL (0.6-1.0) Estimated GFR (Cockcroft-Gault) 179.6 Glucose Level 104 mg/dL (70-99) Calcium Level 8.0 mg/dL (8.5-10.1) Comment Review of Relevant I have reviewed the following items lore (where applicable) has been applied. Medications: Current Medications Medications (Trade) Dose Ordered Sig/Jarred Route PRN Reason Start Time Stop Time Status Last Admin Dose Admin Pantoprazole Sodium (PROTONIX VIAL for IV PUSH) 40 mg DAILY07 IVP 02/16/20 10:00 02/16/20 09:33 Justifications for Admission Other Justification ASHLEY BALLARD MD Feb 16, 2020 13:24
[2020-02-16 15:44] VITALS: BP 122/87
[2020-02-16 19:00] VITALS: BP 115/80
[2020-02-16 23:00] VITALS: BP 114/75
[2020-02-17] MEDS: ONDANSETRON PF 4 MG/2 ML VIAL. IV PRN ×3 (01:32→13:52)
[2020-02-17] MEDS: HYDROmorphone 2 MG/ML VIAL IVP PRN ×8 (01:32→22:17)
[2020-02-17 03:17] VITALS: BP 138/97
[2020-02-17] MEDS: IV NORMAL SALINE 1000ML BAG 1,000 ML IV SCH ×4 (03:45→23:45)
--- NOTE | 2020-02-17 04:46 | NUR ---
TELE PROTOCOL NOTE: Patient removed from tele monitor per hospital protocol. Will pass along to day RN.
[2020-02-17 06:40] LABS: BASO % 1 % (0-3); EOS # 0.1 x10^3/uL (0.0-0.7); EOS % 3 % (0-3); HEMATOCRIT 27.4 % (36.0-47.0); HEMOGLOBIN 8.6 g/dL (12.0-15.5); LYMPH # 0.8 x10^3/uL (1.0-4.8); LYMPH % 34 % (24-48); MEAN CORPUSCULAR HEMOGLOBIN 26 pg (25-35); MEAN CORPUSCULAR HGB CONC 32 g/dL (31-37); MEAN CORPUSCULAR VOLUME 83 fL (79-100); MONO # 0.2 x10^3/uL (0.0-1.1); MONO % 10 % (0-9); NEUT # 1.3 x10^3/uL (1.8-7.7); NEUT % 53 % (31-73); PLATELET COUNT 111 x10^3/uL (140-400); RED BLOOD COUNT 3.31 x10^6/uL (3.50-5.40); RED CELL DISTRIBUTION WIDTH 21.1 % (11.5-14.5); WHITE BLOOD COUNT 2.4 x10^3/uL (4.0-11.0)
[2020-02-17 06:53] LABS: CALCIUM 8.4 mg/dL (8.5-10.1); CREATININE 0.4 mg/dL (0.6-1.0); GFR 179.6; POTASSIUM 3.2 mmol/L (3.5-5.1)
[2020-02-17 07:00] VITALS: BP 127/98
[2020-02-17] MEDS: INSULIN LISPRO 300 UNITS/3 ML VIAL. SQ SCH ×3 (08:00→16:26)
[2020-02-17] MEDS: FOLIC ACID 1 MG TABLET. PO SCH (09:15)
[2020-02-17] MEDS: PANTOPRAZOLE IV PUSH 40 MG VIAL. IVP SCH (09:15)
[2020-02-17] MEDS: MULTIVITAMIN with MINERAL TABLET. PO SCH (09:15)
[2020-02-17] MEDS: THIAMINE 100 MG TABLET. PO SCH (09:15)
[2020-02-17] MEDS: POTASSIUM CHLORIDE 10MEQ 100 ML IV SCH ×4 (10:16→14:23)
[2020-02-17 10:28] VITALS: BP 129/84
--- NOTE | 2020-02-17 14:41 | PDOC ---
[employer] PROGRESS NOTE Date of Service DOS: DATE: 02/17/20 TIME: 14:37 Chief Complaint Chief Complaint Acute pancreatitis Alcoholic hepatitis Hypokalemia Hyponatremia History of Present Illness History of Present Illness Ms Lewis is a 39-year-old female with past medical history of alcoholism, who presents with complaints of worsening abdominal pain for the past 3 to 4 days prior to admit. She reports cramping epigastric abdominal pain,10/10 at worst. Associated symptoms include nausea and vomiting. She has taken her home tramadol without improvement. She admits to a history of alcoholism and states her last drink was day prior to admit. She denies any fever, hematemesis, diarrhea.ETOH level 401. Lipase 1931, AST 1019, CT with signs of interstitial pancreatitis. 02/13: K 3 today. Na 128, lipase 912, WBC 3.8, platelets 114. Having pain every 2 hours, states pain meds wearing off. No appetite, not passing flatus. Afebrile. 02/14: Afebrile. K 2.7, WBC 2.6, platelets to 88. Lipase 554. LFTs trended downward. Pain still every 2 hours. She is asking for PO 02/15: Patient states her pain has improved from admission. She still has some nausea and vomited once overnight, which she attributes to pain medication.. Discussed with patient that she is able to, attempt clears. 02/16: Patient states her pain is improving, but she still has nausea and one episode of vomiting this morning. States she has not had a bowel movement since admission, but denies any overtly dark stools or bloody stools. Expressed my concern with patient over her dropping hemoglobin levels and history of chronic alcohol abuse. Will consult GI for endoscopy. plan: Continue IV fluids, clear liquids. Ativan as needed alcohol withdrawal symptoms. Vitals/I&O Vitals/I&O: Vital Signs Date Time Temp Pulse Resp B/P (MAP) Pulse Ox O2 Delivery O2 Flow Rate FiO2 02/17/20 13:45 19 94 Room Air 02/17/20 10:28 98.0 80 129/84 (99) 98.0 I & O 02/16/20 02/16/20 02/17/20 15:00 23:00 07:00 Intake Total 200 ml 1000 ml Balance 200 ml 1000 ml Physical Exam General: Alert, Oriented X3, Cooperative, mild distress Lungs: Clear Abdomen: No masses, Other (Epigastric tenderness) Extremities: No clubbing, No cyanosis, No edema Skin: No rashes, No significant lesion Labs Labs: Laboratory Tests Test 02/16/20 16:23 02/16/20 20:29 02/17/20 06:20 02/17/20 09:25 Glucose (Fingerstick) 110 mg/dL (70-99) 139 mg/dL (70-99) 133 mg/dL (70-99) White Blood Count 2.4 x10^3/uL (4.0-11.0) Red Blood Count 3.31 x10^6/uL (3.50-5.40) Hemoglobin 8.6 g/dL (12.0-15.5) Hematocrit 27.4 % (36.0-47.0) Mean Corpuscular Volume 83 fL (79-100) Mean Corpuscular Hemoglobin 26 pg (25-35) Mean Corpuscular Hemoglobin Concent 32 g/dL (31-37) Red Cell Distribution Width 21.1 % (11.5-14.5) Platelet Count 111 x10^3/uL (140-400) Neutrophils (%) (Auto) 53 % (31-73) Lymphocytes (%) (Auto) 34 % (24-48) Monocytes (%) (Auto) 10 % (0-9) Eosinophils (%) (Auto) 3 % (0-3) Basophils (%) (Auto) 1 % (0-3) Neutrophils # (Auto) 1.3 x10^3/uL (1.8-7.7) Lymphocytes # (Auto) 0.8 x10^3/uL (1.0-4.8) Monocytes # (Auto) 0.2 x10^3/uL (0.0-1.1) Eosinophils # (Auto) 0.1 x10^3/uL (0.0-0.7) Basophils # (Auto) 0.0 x10^3/uL (0.0-0.2) Sodium Level 139 mmol/L (136-145) Potassium Level 3.2 mmol/L (3.5-5.1) Chloride Level 103 mmol/L (98-107) Carbon Dioxide Level 28 mmol/L (21-32) Anion Gap 8 (6-14) Blood Urea Nitrogen 1 mg/dL (7-20) Creatinine 0.4 mg/dL (0.6-1.0) Estimated GFR (Cockcroft-Gault) 179.6 Glucose Level 115 mg/dL (70-99) Calcium Level 8.4 mg/dL (8.5-10.1) Lipase 409 U/L (73-393) Test 02/17/20 11:01 Glucose (Fingerstick) 119 mg/dL (70-99) Assessment and Plan Assessmemt and Plan Alcohol withdrawal, pancreatitis Plan: Concern for drop in hemoglobin. Consult GI for endoscopy. Comment Review of Relevant I have reviewed the following items lore (where applicable) has been applied. Medications: Current Medications Medications (Trade) Dose Ordered Sig/Jarred Route PRN Reason Start Time Stop Time Status Last Admin Dose Admin Potassium Chloride/Water 100 ml @ 100 mls/hr Q1H IV 02/17/20 10:00 02/17/20 13:59 DC 02/17/20 14:23 Justifications for Admission Other Justification ASHLEY BALLARD MD Feb 17, 2020 14:41
[2020-02-17 15:00] VITALS: BP 122/72
--- NOTE | 2020-02-17 15:08 | PDOC ---
[facility] PROGRESS NOTE Reason for Follow-up Pancytopenia/alcohol abuse Subjective echymosis noted Physical Exam Lungs clear CV S1 S2 ABD +BS, + epigastric tenderness to palpation Review of Relevant I have reviewed the following items lore (where applicable) has been applied. Labs Laboratory Tests Test 02/15/20 18:08 02/15/20 21:44 02/16/20 05:30 02/16/20 11:59 Glucose (Fingerstick) 113 mg/dL (70-99) 181 mg/dL (70-99) 132 mg/dL (70-99) White Blood Count 2.5 x10^3/uL (4.0-11.0) Red Blood Count 3.49 x10^6/uL (3.50-5.40) Hemoglobin 9.0 g/dL (12.0-15.5) Hematocrit 28.3 % (36.0-47.0) Mean Corpuscular Volume 81 fL (79-100) Mean Corpuscular Hemoglobin 26 pg (25-35) Mean Corpuscular Hemoglobin Concent 32 g/dL (31-37) Red Cell Distribution Width 20.5 % (11.5-14.5) Platelet Count 88 x10^3/uL (140-400) Neutrophils (%) (Auto) 58 % (31-73) Lymphocytes (%) (Auto) 32 % (24-48) Monocytes (%) (Auto) 6 % (0-9) Eosinophils (%) (Auto) 3 % (0-3) Basophils (%) (Auto) 1 % (0-3) Neutrophils # (Auto) 1.5 x10^3/uL (1.8-7.7) Lymphocytes # (Auto) 0.8 x10^3/uL (1.0-4.8) Monocytes # (Auto) 0.2 x10^3/uL (0.0-1.1) Eosinophils # (Auto) 0.1 x10^3/uL (0.0-0.7) Basophils # (Auto) 0.0 x10^3/uL (0.0-0.2) Sodium Level 135 mmol/L (136-145) Potassium Level 3.2 mmol/L (3.5-5.1) Chloride Level 100 mmol/L (98-107) Carbon Dioxide Level 30 mmol/L (21-32) Anion Gap 5 (6-14) Blood Urea Nitrogen 1 mg/dL (7-20) Creatinine 0.4 mg/dL (0.6-1.0) Estimated GFR (Cockcroft-Gault) 179.6 Glucose Level 104 mg/dL (70-99) Calcium Level 8.0 mg/dL (8.5-10.1) Test 02/16/20 16:23 02/16/20 20:29 02/17/20 06:20 02/17/20 09:25 Glucose (Fingerstick) 110 mg/dL (70-99) 139 mg/dL (70-99) 133 mg/dL (70-99) White Blood Count 2.4 x10^3/uL (4.0-11.0) Red Blood Count 3.31 x10^6/uL (3.50-5.40) Hemoglobin 8.6 g/dL (12.0-15.5) Hematocrit 27.4 % (36.0-47.0) Mean Corpuscular Volume 83 fL (79-100) Mean Corpuscular Hemoglobin 26 pg (25-35) Mean Corpuscular Hemoglobin Concent 32 g/dL (31-37) Red Cell Distribution Width 21.1 % (11.5-14.5) Platelet Count 111 x10^3/uL (140-400) Neutrophils (%) (Auto) 53 % (31-73) Lymphocytes (%) (Auto) 34 % (24-48) Monocytes (%) (Auto) 10 % (0-9) Eosinophils (%) (Auto) 3 % (0-3) Basophils (%) (Auto) 1 % (0-3) Neutrophils # (Auto) 1.3 x10^3/uL (1.8-7.7) Lymphocytes # (Auto) 0.8 x10^3/uL (1.0-4.8) Monocytes # (Auto) 0.2 x10^3/uL (0.0-1.1) Eosinophils # (Auto) 0.1 x10^3/uL (0.0-0.7) Basophils # (Auto) 0.0 x10^3/uL (0.0-0.2) Sodium Level 139 mmol/L (136-145) Potassium Level 3.2 mmol/L (3.5-5.1) Chloride Level 103 mmol/L (98-107) Carbon Dioxide Level 28 mmol/L (21-32) Anion Gap 8 (6-14) Blood Urea Nitrogen 1 mg/dL (7-20) Creatinine 0.4 mg/dL (0.6-1.0) Estimated GFR (Cockcroft-Gault) 179.6 Glucose Level 115 mg/dL (70-99) Calcium Level 8.4 mg/dL (8.5-10.1) Lipase 409 U/L (73-393) Test 02/17/20 11:01 Glucose (Fingerstick) 119 mg/dL (70-99) Laboratory Tests Test 02/16/20 16:23 02/16/20 20:29 02/17/20 06:20 02/17/20 09:25 Glucose (Fingerstick) 110 mg/dL (70-99) 139 mg/dL (70-99) 133 mg/dL (70-99) White Blood Count 2.4 x10^3/uL (4.0-11.0) Red Blood Count 3.31 x10^6/uL (3.50-5.40) Hemoglobin 8.6 g/dL (12.0-15.5) Hematocrit 27.4 % (36.0-47.0) Mean Corpuscular Volume 83 fL (79-100) Mean Corpuscular Hemoglobin 26 pg (25-35) Mean Corpuscular Hemoglobin Concent 32 g/dL (31-37) Red Cell Distribution Width 21.1 % (11.5-14.5) Platelet Count 111 x10^3/uL (140-400) Neutrophils (%) (Auto) 53 % (31-73) Lymphocytes (%) (Auto) 34 % (24-48) Monocytes (%) (Auto) 10 % (0-9) Eosinophils (%) (Auto) 3 % (0-3) Basophils (%) (Auto) 1 % (0-3) Neutrophils # (Auto) 1.3 x10^3/uL (1.8-7.7) Lymphocytes # (Auto) 0.8 x10^3/uL (1.0-4.8) Monocytes # (Auto) 0.2 x10^3/uL (0.0-1.1) Eosinophils # (Auto) 0.1 x10^3/uL (0.0-0.7) Basophils # (Auto) 0.0 x10^3/uL (0.0-0.2) Sodium Level 139 mmol/L (136-145) Potassium Level 3.2 mmol/L (3.5-5.1) Chloride Level 103 mmol/L (98-107) Carbon Dioxide Level 28 mmol/L (21-32) Anion Gap 8 (6-14) Blood Urea Nitrogen 1 mg/dL (7-20) Creatinine 0.4 mg/dL (0.6-1.0) Estimated GFR (Cockcroft-Gault) 179.6 Glucose Level 115 mg/dL (70-99) Calcium Level 8.4 mg/dL (8.5-10.1) Lipase 409 U/L (73-393) Test 02/17/20 11:01 Glucose (Fingerstick) 119 mg/dL (70-99) Medications Current Medications Multivitamins 10 ml/Thiamine HCl 100 mg/Folic Acid 1 mg/Sodium Chloride 1,011.2 ml @ 1,000.088 mls/hr 1X ONCE IV Last administered on 02/12/20at 19:42; Start 02/12/20 at 19:00; Stop 02/12/20 at 20:00; Status DC Famotidine (Pepcid Vial) 20 mg 1X ONCE IVP Last administered on 02/12/20at 19:59; Start 02/12/20 at 20:30; Stop 02/12/20 at 20:31; Status DC Ketorolac Tromethamine (Toradol 15mg Vial) 15 mg 1X ONCE IVP Last administered on 02/12/20at 19:59; Start 02/12/20 at 20:30; Stop 02/12/20 at 20:31; Status DC Iohexol (Omnipaque 300 Mg/ml) 75 ml 1X ONCE IV Last administered on 02/12/20at 20:23; Start 02/12/20 at 20:15; Stop 02/12/20 at 20:16; Status DC Info (CONTRAST GIVEN -- Rx MONITORING) 1 each PRN DAILY PRN MC SEE COMMENTS; Start 02/12/20 at 20:15; Stop 02/14/20 at 20:14; Status DC Fentanyl Citrate (Fentanyl 2ml Vial) 50 mcg 1X ONCE IV Last administered on 02/12/20at 22:12; Start 02/12/20 at 21:30; Stop 02/12/20 at 21:31; Status DC Ondansetron HCl (Zofran) 4 mg PRN Q8HRS PRN IV NAUSEA/VOMITING 1ST CHOICE; Start 02/12/20 at 21:15; Stop 02/12/20 at 21:26; Status DC Fentanyl Citrate (Fentanyl 2ml Vial) 50 mcg PRN Q2HRS PRN IV SEVERE PAIN 7-10 Last administered on 02/13/20at 02:35; Start 02/12/20 at 21:15; Stop 02/13/20 at 03:17; Status DC Sodium Chloride 1,000 ml @ 100 mls/hr 1X ONCE IV Last administered on 02/13/20at 04:46; Start 02/12/20 at 21:15; Stop 02/13/20 at 07:14; Status DC Insulin Human Lispro (HumaLOG) 0-5 UNITS TIDWMEALS SQ ; Start 02/13/20 at 08:00 Dextrose (Dextrose 50%-Water Syringe) 12.5 gm PRN Q15MIN PRN IV SEE COMMENTS; Start 02/12/20 at 21:15 Ondansetron HCl (Zofran) 4 mg PRN Q4HRS PRN IV NAUSEA/VOMITING 1ST CHOICE Last administered on 02/17/20at 13:52; Start 02/12/20 at 21:30 Multivitamins (Thera M Plus) 1 tab DAILY PO Last administered on 02/17/20at 09:15; Start 02/13/20 at 09:00 Folic Acid (Folic Acid) 1 mg DAILY PO Last administered on 02/17/20 09:15; Start 02/13/20 at 09:00 Thiamine Mononitrate (Vitamin B-1) 100 mg DAILY PO Last administered on 02/17/20 09:15; Start 02/13/20 at 09:00 Lorazepam (Ativan) 2 mg PRN Q1HR PRN PO For CIWA 8-14 Last administered on 02/17/20at 09:23; Start 02/12/20 at 21:30 Lorazepam (Ativan Inj) 2 mg PRN Q1HR PRN IV For CIWA 8-14 Last administered on 02/15/20at 04:56; Start 02/12/20 at 21:30 Haloperidol Lactate (Haldol Inj) 5 mg PRN Q4HRS PRN IVP Hallucin atns,Confusn,Delirium; Start 02/12/20 at 21:30 Clonidine HCl (Catapres) 0.1 mg PRN Q1HR PRN PO SBP > 180 or DBP > 100, MRX3 Last administered on 02/16/20at 12:39; Start 02/12/20 at 21:30 Hydromorphone HCl (Dilaudid) 0.5 mg PRN Q3HRS PRN IVP SEVERE PAIN 7-10 Last administered on 02/14/20at 08:37; Start 02/13/20 at 03:15; Stop 02/14/20 at 10:21; Status DC Sodium Chloride 1,000 ml @ 250 mls/hr Q4H IV Last administered on 02/16/20at 23:27; Start 02/13/20 at 07:45 Potassium Chloride/Water 100 ml @ 100 mls/hr Q1H IV Last administered on 02/14/20at 16:04; Start 02/14/20 at 10:00; Stop 02/14/20 at 13:59; Status DC Hydromorphone HCl (Dilaudid) 0.5 mg PRN Q2HRS PRN IVP SEVERE PAIN 7-10 Last administered on 02/17/20at 13:45; Start 02/14/20 at 10:30 Magnesium Sulfate 100 ml @ 25 mls/hr 1X ONCE IV Last administered on 02/14/20at 18:10; Start 02/14/20 at 10:30; Stop 02/14/20 at 14:29; Status DC Potassium Chloride/Water 100 ml @ 100 mls/hr Q1H IV Last administered on 02/15/20at 07:02; Start 02/15/20 at 07:00; Stop 02/15/20 at 07:59; Status DC Potassium Chloride/Water 100 ml @ 100 mls/hr Q1H IV Last administered on 02/15/20at 15:32; Start 02/15/20 at 08:00; Stop 02/15/20 at 11:59; Status DC Lidocaine HCl (Buffered Lidocaine 1%) 3 ml STK-MED ONCE .ROUTE ; Start 02/15/20 at 10:13; Stop 02/15/20 at 10:13; Status DC Lidocaine HCl (Buffered Lidocaine 1%) 6 ml 1X ONCE INJ Last administered on 02/15/20at 10:49; Start 02/15/20 at 10:45; Stop 02/15/20 at 10:46; Status DC Pantoprazole Sodium (PROTONIX VIAL for IV PUSH) 40 mg DAILY07 IVP Last admini stered on 02/17/20at 09:15; Start 02/16/20 at 10:00 Lorazepam (Ativan Inj) 2 mg PRN Q4HRS PRN IVP ANXIETY / AGITATION Last adminis tered on 02/17/20at 03:07; Start 02/16/20 at 14:00 Potassium Chloride/Water 100 ml @ 100 mls/hr Q1H IV Last administered on 0at 14:23; Start 02/17/20 at 10:00; Stop 02/17/20 at 13:59; Status DC Active Scripts Active Tramadol Hcl 50 Mg Tablet 50 Mg PO PRN Q6HRS PRN 5 Days Pantoprazole Sodium (Pantoprazole Sodium) 40 Mg Tablet.dr 40 Mg PO DAILYAC 30 Days [Folic Acid] 1 MG Tablet 1 Mg PO DAILY 30 Days Vitamin B-1 (Thiamine Mononitrate) 100 Mg Tablet 100 Mg PO DAILY 30 Days Reported Ibuprofen 800 Mg Tablet 800 Mg PO DAILY PRN Lisinopril 10 Mg Tablet 10 Mg PO DAILY Vitals/I & O Vital Sign - Last 24 Hours 02/16/20 02/16/20 02/16/20 02/16/20 15:32 15:44 16:59 17:29 Temp 97.5 97.5 Pulse 91 Resp 18 B/P (MAP) 122/87 (99) Pulse Ox 100 O2 Delivery Room Air Room Air Room Air Room Air 02/16/20 02/16/20 02/16/20 02/16/20 19:00 19:03 19:30 19:37 Temp 97.4 97.4 Pulse 78 Resp 16 B/P (MAP) 115/80 (92) Pulse Ox 99 99 O2 Delivery Room Air Room Air Room Air Room Air 02/16/20 02/16/20 02/16/20 02/16/20 21:15 21:45 23:00 23:31 Temp 97.7 97.7 Pulse 74 Resp 18 B/P (MAP) 114/75 (88) Pulse Ox 99 99 97 97 O2 Delivery Room Air Room Air Room Air Room Air 02/17/20 02/17/20 02/17/20 02/17/20 00:00 01:32 02:05 03:17 Temp 98.5 98.5 Pulse 81 Resp 18 B/P (MAP) 138/97 (111) Pulse Ox 97 97 97 99 O2 Delivery Room Air Room Air Room Air Room Air 02/17/20 02/17/20 02/17/20 02/17/20 03:54 04:30 06:22 06:55 Pulse Ox 99 99 99 99 O2 Delivery Room Air Room Air Room Air Room Air 02/17/20 02/17/20 02/17/20 02/17/20 07:00 10:12 10:28 10:50 Temp 98.3 98.0 98.3 98.0 Pulse 81 80 Resp 18 19 18 19 B/P (MAP) 127/98 (108) 129/84 (99) Pulse Ox 100 94 100 94 O2 Delivery Room Air Room Air Room Air Room Air 02/17/20 13:45 Resp 19 Pulse Ox 94 O2 Delivery Room Air Intake and Output 02/16/20 02/16/20 02/17/20 15:00 23:00 07:00 Intake Total 200 ml 1000 ml Balance 200 ml 1000 ml Assessment Acute pancreatitis- s/p brittny, most likely secondary to alcohol abuse. Medical therpay for withdrawal recommended Pancytopenia- most likely secondary to alcohol abuse, await heme markers-reticb1 2-haptoglobin levels, UGI bleed with BUN of 1 is unlikely scenario. Justicifation of Admission Dx: Justifications for Admission: Justification of Admission Dx: Yes Altered Mental Status: Altered Mental Status AMADOU BRICEÑO MD Feb 17, 2020 15:08
[2020-02-17 19:00] VITALS: BP 140/93
[2020-02-17 23:02] VITALS: BP 119/84
[2020-02-18] MEDS: HYDROmorphone 2 MG/ML VIAL IVP PRN ×11 (00:43→23:35)
[2020-02-18] MEDS: ONDANSETRON PF 4 MG/2 ML VIAL. IV PRN ×4 (02:54→19:35)
[2020-02-18] MEDS: IV NORMAL SALINE 1000ML BAG 1,000 ML IV SCH ×4 (02:55→23:37)
[2020-02-18 03:13] VITALS: BP 127/93
--- NOTE | 2020-02-18 03:46 | NUR ---
Patient called RN to room to observe patient's stool. Large formed stool, brown in color. There were what appeared to be approximately 4 or 5 small blood clots laying in the bottom of the toilet bowl in front of the stool. Two unused tampons noted sitting on back of toilet. Asked patient if she was on her menstrual cycle. Patient stated no. Asked patient if she has ever or if she currently has hemorrhoids. Patient stated no. No other mary grace blood seen. No fresh, viscous blood seen. No blood seen on stool itself. Will pass along to day RN and patient stated she would let rounding GI MD know in AM. Will continue to monitor.
[2020-02-18 05:53] LABS: BASO % 1 % (0-3); EOS # 0.1 x10^3/uL (0.0-0.7); EOS % 2 % (0-3); HEMATOCRIT 28.1 % (36.0-47.0); HEMOGLOBIN 8.9 g/dL (12.0-15.5); LYMPH # 0.9 x10^3/uL (1.0-4.8); LYMPH % 27 % (24-48); MEAN CORPUSCULAR HEMOGLOBIN 26 pg (25-35); MEAN CORPUSCULAR HGB CONC 32 g/dL (31-37); MEAN CORPUSCULAR VOLUME 83 fL (79-100); MONO # 0.4 x10^3/uL (0.0-1.1); MONO % 13 % (0-9); NEUT # 1.9 x10^3/uL (1.8-7.7); NEUT % 58 % (31-73); PLATELET COUNT 133 x10^3/uL (140-400); RED CELL DISTRIBUTION WIDTH 22.3 % (11.5-14.5); WHITE BLOOD COUNT 3.2 x10^3/uL (4.0-11.0)
[2020-02-18 06:01] LABS: CALCIUM 8.6 mg/dL (8.5-10.1); CREATININE 0.6 mg/dL (0.6-1.0); GFR 112.5; POTASSIUM 3.4 mmol/L (3.5-5.1)
--- NOTE | 2020-02-18 06:42 | NUR ---
Patient is now reporting diarrhea x2. Hat placed in back of toilet for observation and potential collection of stool. Will pass along to day RN.
[2020-02-18 07:00] VITALS: BP 123/85
[2020-02-18] MEDS: INSULIN LISPRO 300 UNITS/3 ML VIAL. SQ SCH ×3 (08:00→16:20)
--- NOTE | 2020-02-18 09:08 | PDOC ---
PROGRESS NOTES Date of Service: DATE: 02/18/20 TIME: 09:01 Chief Complaint Chief Complaint impression Acute pancreatitis Alcoholic hepatitis Hypokalemia ON REPLACEMENT Hyponatremia pancytopenia plan GI CONSULT HAPTOGLOBIN pain slow to resolve D/W RN History of Present Illness History of Present Illness Ms Lewis is a 39-year-old female with past medical history of alcoholism, who presents with complaints of worsening abdominal pain for the past 3 to 4 days prior to admit. She reports cramping epigastric abdominal pain,10/10 at worst. Associated symptoms include nausea and vomiting. She has taken her home tramadol without improvement. She admits to a history of alcoholism and states her last drink was day prior to admit. She denies any fever, hematemesis, diarrhea.ETOH level 401. Lipase 1931, AST 1019, CT with signs of interstitial pancreatitis. 02/13: K 3 today. Na 128, lipase 912, WBC 3.8, platelets 114. Having pain every 2 hours, states pain meds wearing off. No appetite, not passing flatus. Afebrile. 02/14: Afebrile. K 2.7, WBC 2.6, platelets to 88. Lipase 554. LFTs trended downward. Pain still every 2 hours. She is asking for PO 02/15: Patient states her pain has improved from admission. She still has some nausea and vomited once overnight, which she attributes to pain medication.. Discussed with patient that she is able to, attempt clears. 02/16: Patient states her pain is improving, but she still has nausea and one episode of vomiting this morning. States she has not had a bowel movement since admission, but denies any overtly dark stools or bloody stools. Expressed my concern with patient over her dropping hemoglobin levels and history of chronic alcohol abuse. Will consult GI for endoscopy. plan: Continue IV fluids, clear liquids. Ativan as needed alcohol withdrawal symptoms. Vitals Vitals Vital Signs Date Time Temp Pulse Resp B/P (MAP) Pulse Ox O2 Delivery O2 Flow Rate FiO2 02/18/20 07:38 Room Air 02/18/20 06:00 100 02/18/20 03:13 98.5 89 18 127/93 (104) 98.5 Physical Exam General: Alert, Oriented X3, Cooperative, mild distress Heart: Regular rate Lungs: Clear Abdomen: Soft, No masses, Other (Epigastric tenderness) Extremities: No clubbing, No cyanosis, No edema Skin: No rashes, No significant lesion Labs LABS Exam: CT of abdomen and pelvis with contrast INDICATION: Abdominal pain, distention TECHNIQUE: Sequential axial images through the abdomen and pelvis obtained following the administration of 75 mL of Isovue-370 IV contrast. Sagittal and coronal reformatted images were reconstructed from the axial data and reviewed. Comparisons: 12/27/2019 FINDINGS: Heart size is normal. No pericardial effusion. Visualized lung bases are clear. No pleural effusion. There is diffuse hepatic steatosis. Spleen, and adrenals are unremarkable. Gallbladder surgically absent. There is fat stranding noted at the pancreatic head. No peripancreatic fluid collection. Kidneys demonstrate symmetric enhancement. No perinephric inflammation or hydronephrosis. No renal or ureteral calculi are identified. Bladder is distended and appears thin-walled. Uterus is not enlarged. No abnormal adnexal mass. Large and small bowel are unremarkable. Appendix is not identified. No free intra-abdominal air or fluid. No obstruction. Abdominal aorta has a normal course and caliber. Abdominal vasculature is patent. No enlarged abdominal lymph nodes are identified. No suspicious osseous lesions or acute fractures. IMPRESSION: 1. Findings of acute interstitial pancreatitis. No peripancreatic fluid collection. 2. Diffuse hepatic steatosis. Exposure: One or more of the following in the visualized dose reduction techniques were utilized for this examination: 1. Automated exposure control 2. Adjustment of the MA and/or KV according to patient size 3. Use of iterative of reconstructive technique Electronically signed by: Radha Pratt MD (02/12/2020 8:31 PM) [id number] DICTATED and SIGNED BY: RADHA PRATT MD DATE: 02/12/202030 Laboratory Tests Test 02/17/20 09:25 02/17/20 11:01 02/17/20 15:59 02/17/20 20:39 Glucose (Fingerstick) 133 mg/dL (70-99) 119 mg/dL (70-99) 144 mg/dL (70-99) 169 mg/dL (70-99) Test 02/18/20 05:30 02/18/20 07:07 White Blood Count 3.2 x10^3/uL (4.0-11.0) Red Blood Count 3.40 x10^6/uL (3.50-5.40) Hemoglobin 8.9 g/dL (12.0-15.5) Hematocrit 28.1 % (36.0-47.0) Mean Corpuscular Volume 83 fL (79-100) Mean Corpuscular Hemoglobin 26 pg (25-35) Mean Corpuscular Hemoglobin Concent 32 g/dL (31-37) Red Cell Distribution Width 22.3 % (11.5-14.5) Platelet Count 133 x10^3/uL (140-400) Neutrophils (%) (Auto) 58 % (31-73) Lymphocytes (%) (Auto) 27 % (24-48) Monocytes (%) (Auto) 13 % (0-9) Eosinophils (%) (Auto) 2 % (0-3) Basophils (%) (Auto) 1 % (0-3) Neutrophils # (Auto) 1.9 x10^3/uL (1.8-7.7) Lymphocytes # (Auto) 0.9 x10^3/uL (1.0-4.8) Monocytes # (Auto) 0.4 x10^3/uL (0.0-1.1) Eosinophils # (Auto) 0.1 x10^3/uL (0.0-0.7) Basophils # (Auto) 0.0 x10^3/uL (0.0-0.2) Sodium Level 138 mmol/L (136-145) Potassium Level 3.4 mmol/L (3.5-5.1) Chloride Level 102 mmol/L (98-107) Carbon Dioxide Level 27 mmol/L (21-32) Anion Gap 9 (6-14) Blood Urea Nitrogen 2 mg/dL (7-20) Creatinine 0.6 mg/dL (0.6-1.0) Estimated GFR (Cockcroft-Gault) 112.5 Glucose Level 127 mg/dL (70-99) Calcium Level 8.6 mg/dL (8.5-10.1) Lipase 386 U/L (73-393) Glucose (Fingerstick) 124 mg/dL (70-99) Assessment and Plan Assessmemt and Plan Power of Installer Helper What Is a Power of Installer Helper? A power of music grapher (POA) is a legal document giving one person (the agent or oymizsox-kw-qkjo) the power to act for another person (the principal). The agent can have broad legal authority or limited authority to make legal decisions about the principal's property, finances or medical care. The power of music grapher is frequently used in the event of a principal's illness or disability, or when the principal can't be present to sign necessary legal documents for financial transactions. A power of music grapher can end for a number of reasons, such as when the principal dies, the principal revokes it, a court invalidates it, the principal divorces their spouse, who happens to be the agent, or the agent can no longer carry out the outlined responsibilities. Conventional POAs lapse when the creator becomes incapacitated, but a durable POA remains in force to enable the agent to manage the creators affairs, and a springing POA comes into effect only if and when the creator of the POA becomes incapacitated. A medical or healthcare POA enables an agent to make medical decisions on behalf of an incapacitated person. [place] [employer] A power of music grapher (POA) is a legal document giving one person, the agent or xknjwtql-bg-cyow the power to act for another person, the principal. The agent can have broad legal authority or limited authority to make decisions about the principal's property, finances or medical care. The power of music grapher is often used when a principal becomes ill or disabled, or when they can't be present to sign necessary legal documents for financial transactions. Understanding Power of Installer Helper A power of music grapher should be considered when planning for long-term care. There are different types of POAs that fall under either a general power of music grapher or limited power of music grapher. A general power of music grapher acts on behalf of the principal in any and all matters, as allowed by the state. The agent under a general POA agreement may be authorized to take care of issues such as handling bank accounts, signing checks, selling property and assets like stocks, f A limited power of music grapher gives the agent the power to act on behalf of the principal in specific matters or events. For example, the limited POA may explicitly state that the agent is only allowed to manage the principal's senior care accounts. A limited POA may also be limited to a specific period of time (e.g., if the principal will be out of the country for, say, two years). Most yates of music grapher documents allow an agent to represent the principal in all property and financial matters as long as the principals mental state of mind is good. If a situation occurs where the principal becomes incapable of making decisions for him or herself, the POA agreement would automatically end. However, someone who wants the POA to remain in effect after the persons health deteriorates would need to sign a durable power of music grapher (DPOA). Important:A person appointed as power of music grapher is not necessarily an music grapher. The person could just be a trusted family member, friend, or acquaintance. Understanding the Durable Power of Installer Helper (DPOA) The durable power of music grapher (DPOA) remains in control of certain legal, property or financial matters specifically spelled out in the agreement, even after the principal becomes mentally incapacitated. While a DPOA can pay medical bills on behalf of the principal, the durable agent cannot make decisions related to the principal's health (e.g., taking the principal off life support is not up to a DPOA). The principal can sign a durable power of music grapher for health care, or healthcare power of music grapher (HCPA), if he wants an agent to have the power to make health-related decisions. This document also called a healthcare proxy, outlines the principals consent to give the agent POA privileges in the event of an unfortunate medical condition. The durable POA for healthcare is legally bound to oversee medical care decisions on behalf of the principal. Another type of DPOA is the durable power of music grapher for finances, or simply a financial power of music grapher. This document allows an agent to manage the business and financial affairs of the principal, such as signing checks, filing tax returns, mailing and depositing Social Security checks and managing investment accounts, in the event, the latter becomes unable to understand or make decisions. To the extent of what the agreement spells out as the agents responsibility, the agent has to carry out the principals wishes to the best of his ability. When the agent acts on behalf of the principal by making investment decisions through the equity holder or medical decisions through the healthcare professional, both institutions would ask to see the DPOA. Although the DPOA for both medical and financial matters can be one document, it is good to have separate DPOA for healthcare and finances. Since the DPOA for healthcare will have the principal's personal medical information, it would be inappropriate for the equity holder to have it, and the medical chemist dont need to know the financial status of the patient either. conditions for which a durable POA may become active are set up in a document called the springing power of music grapher. The springing POA defines the kind of event or level of incapacitation that should occur before the DPOA springs into effect. A power of music grapher can remain dormant until a negative health occurrence activates it to a DPOA. How Power of Installer Helper Works You can buy or download a power of music grapher template. If you do, be sure it is for your state, as requirements differ. However, this document may be too important to leave to the chance that you got the correct form and handled it properly. A better way to start the process of establishing a power of music grapher is by locating an music grapher who specializes in family law in your state. If music grapher's fees are more than you can afford, legal services offices staffed with credentialed attorneys exist in virtually every part of the [place]. Visit the [employer] [facility]'s website, which has a "Find Supervisor Stave Finishing" search function. Clients who qualify will receive pro torsten (cost-free) assistance Many states require that the signature of the principal (the person who initiates the POA) be notarized. Some states also require that witnesses' signatures be notarized. The following provisos apply generally, nationwide, and everyone who needs to create a POA should be aware of them: There is no standard POA form for all 50 states; state law and procedures vary All states accept some version of the durable power of music grapher A few [place] yates cannot be delegated. These include the authority to do the fol lowing: Make, amend, or revoke a will Contract a marriage in most states, although a handful of states allow it Vote (but the guardian may request a ballot on behalf of the principal) While the details may differ, the following rules apply [facility]: Put It in Writing While some regions of the country accept oral POA grants, verbal instruction is not a reliable substitute for getting each of the yates of music grapher granted to your agent spelled out [id number] on paper. Written clarity helps to avoid arguments and confusion. Use the Proper Format Many variations of power of music grapher forms exist. Some POAs are short-lived; others are meant to last until . Decide what yates you wish to ayaka and prepare a POA specific to that desire. The POA must also satisfy the requirements of your state. To find a form that will be accepted by a court of law in the state in which you live, perform an internet search, check with an office-supply store or ask a local estate-planning professional to help you. The best option is to use an music grapher. Identify the Parties The term for the person granting the POA is the "principal." The individual who receives the power of music grapher is called either the "agent" or the "eokcurtv-ba-tnnd." Check whether your state requires that you use specific terminology. Delegate the Yates A POA can be as broad or as limited as the principal wishes. However, each of the yates granted must be clear, even if the principal grants the agent "general power of music grapher." In other words, the principal cannot ayaka sweeping authority such as, I delegate all things having to do with my life. Specify Durability In most states, a power of music grapher terminates if the principal is incapacitated. If this happens, the only way an agent can keep his or her yates is if the POA was written with an indication that it is "durable," a designation that makes it last for the principal's lifetime unless the principal revokes it. Notarize the POA Many states require yates of music grapher to be notarized. Even in states that don't, it is potentially much easier for the agent if a notarys seal and signature are on the document. Record It Not all yates of music grapher must be recorded formally by the county in order to be legal. But recording is standard practice for many estate planners and individuals who want to create a record that the document exists. File It Some states require specific kinds of POAs to be filed with a court or government office before they can be made valid. For instance, [place] requires that any POA used to ayaka grandparents guardianship over a child must be filed with the juvenile court. It also requires a POA that transfers real estate to be recorded by the [facility] in which the property is located. Choosing a Power of Installer Helper Like the property deed for your house or car, a POA grants immense ownership au thority and responsibility. It is literally a matter of life and in the case of a medical POA. And you could find yourself facing financial privation or bankruptcy if you end up with a mishandled or abused durable POA. Therefore, you should choose your agent with the greatest of care to ensure your wishes are carried out to the greatest extent possible. It is critical to name a person who is both trustworthy and capable to serve as your agent. This person will act with the same legal authority you would have, so any mistakes made by your agent may be very difficult to correct. Even worse, depending on the extent of the yates you ayaka, there may be dangerous potential for self-dealing. An agent may have access to your bank accounts, the power to make gifts and transfer your funds, and the ability to sell your property. Your agent can be any competent adult, including a professional such as an music grapher, senior financial reporting accountant, or banker. But your agent may also be a family member such as a spouse, adult child or another relative. Naming a family member as your agent saves the fees a professional would charge, and may also keep confidential information about your finances and other private matters in the family." Naming Children as Power of Installer Helper Parents who create POAs very commonly choose adult children to serve as their agents. Compared to naming ones spouse as the agent, the relative youth of the child is an advantage when the purpose of the POA is to relieve an aging parent of the burden of managing the details of financial and investment affairs or provide management for an aging parents affairs should the parent become incapacitated. In these cases, a spouse named as the agent who is near the same age as the person creating the POA may come to suffer the same debilities that led the POAs creator to establish it, defeating its purpose. When the child is honest, capable, and respects the parents desires, this can be the best choice for a POA. When there is more than one child, parents may struggle with the decision of who to select for the role of the agent. This is not a decision to be taken lightly. Your agent named under your POA acts with your authority, so costly financial mistakes resulting from carelessness or lack of financial understanding may be impossible to fix. The same is true of acts that create interfamily conflict by favoring some members over others. Worst of all, when delivered into the wrong hands, a POA can create a veritable license to steal, giving your agent access to your bank accounts and the ability to spend your money and take many other wrongful actions. Children have different characters, skills, and circumstances, and land[place] selection of children as agents, and of the yates given to them, can avert thes e dangers. The good news is that you can have multiple POAs naming separate agents and customize them for each emir skill set, temperament, and ability to act on your behalf. Consider these three [place] factors when choosing which child you want to give important yates to under a POA: 1.Trustworthiness: This is the single most important trait of any agent named under a POA. This includes not just honesty but also reliability in performing tasks that need regular attention, from managing an investment portfolio to paying bills, and diligence in acting according to your wishes. 2.Abilities of each child: Specific abilities of different children may make them best suited to take on particular roles in managing your financial affairs. You can use limited POAs to give different children defined and limited yates over different aspects of your finances. These may include the followin.Managing everyday expenses of the family 4.Receiving income from and paying expenses on real estate 5.Controlling a financial portfolio 6.Managing insurance and annuities 7.Running a [employer] small business 8.Multiple agents: More than one agent can be named by a POA, either with the authority to act separately or required to act jointly. Having two children separately authorized to manage routine items can be a convenience if one becomes unavailable for some reason while requiring two to agree on major actions like selling a house can assure family agreement over major decisions. Tip:Say one child is a busy financial expert living in a distant city, while another works part-time and lives conveniently close by. You can have one POA that names the first to manage your investment portfolio and another that names the second to manage your routine daily expenses and pay monthly bills. But naming multiple agents can cause problems if disputes arise between them. For instance, if two children are required to act jointly in managing an investment account but disagree over how to do so, it may be effectively frozen. So when choosing two children to act jointly as agents under a POA, be sure they have not only the skills for the task but personalities to cooperate. Risks of Naming Children as Power of Installer Helper Mistakesand worse, acts of self-dealingcommitted by your agent can be extremely costly. This is especially so with a durable POA that gives broad control over your affairs during a time when you are incapacitated. You must be convinced that the agent will follow your instructions, has the ability to do so, and will pursue your wishes even over the objections of other family members if need be. Never name a child to be your agent as a matter of fairness, to avoid hurt feelings or to preserve family harmony, if you lack trust. The yates are far too important to be granted other than on the merits of trustworthiness and ability. Beware naming a child as your agent if: You experience difficulty, awkwardness, or resistance when explaining to the child the duties to be taken on as your agent under the POA The child may not be available to perform the duties, or not be reliable in doing so due to their own concerns or distractions The child has a history of problems with gambling or substance abuse The child has serious debts or has been irresponsible in managing his/her own finances and affairs The child is engaged in intra-family conflicts that may result is using the yates received under the POA to favor some family members over others Risks of Naming a POA Be aware of the dangers of theft and self-dealing created by a POA, even when your agent is your own child. To minimize the risk of such wrongdoing, in addition to the steps mentioned above, have your POA require your agent to report all actions periodically to an outside republican, such as the familys senior financial reporting accountant or music grapher. In other words, trust but verify. A capable music grapher can draft your POA to include these safeguards under your states laws. As family circumstances change, periodically review and update the POAs you have created. You can revoke a POA simply by writing a letter that clearly identifies it and states that you revoke it, and delivering the letter to your former agent. (Some states require such a letter to be notarized.) Its a good idea to also send copies to third parties with whom the agent may have acted on your behalf. Then create a new POA and deliver it to your new choice of agent. A power of music grapher can provide you with both convenience and protection by giving a trusted individual the legal authority to act on your behalf and in your interests. Adult children who are both fully trustworthy and capable of accomplishing your wishes may make the best agent under your POA. But dont name a person the agent simply because he or she is your child. Be sure your agent is trustworthy and capable as a first requirement, whomever you name. Getting Your Parents' to Create a Power of Installer Helper If you are the child as opposed to the parent in this situation, you face a different set of obstacles. Parents often are reluctant to give others power over their affairs. Moreover, a POA applies to individuals, not couples, so the challenge is to convince each parent to create a POA. If you have a parent who is reluctant to do so, try the following ideas to persuade them. Warn of the dangers of not having POAs. If a parent becomes incapacitated and unable to manage his or her own affairs without a POA in place that enables a named agent to step in and do so, then nobody may have the legal right to do so. For instance, nobody may have the right to take CHARLIE distributions the parent needs for income or to borrow funds to pay medical bills or to deal with the IRS concerning the parents taxes. It then will be necessary to go to court to seek to be named as a conservator or guardian for the parent, a course that may prove costly and slowand could be contested, causing family conflicts. Suggest customized POAs for their needs. There are many different kinds of POAs, and a person can have more than one. While a general POA enables the agent to act with the authority of the POAs creator in all matters, a special POA can limit that authority to a specific subject, such as managing an investment account, or to a limited period of time, such as while the creator of the POA is traveling abroad. Convince your parents by crafting one or more POAs to meet a parents specific wishes. You can begin by suggesting a special POA to be used only to provide a convenience that the parent will valuesuch as one that enables you to prepare and file the parents tax return and manage the parents dealings with the IRS. A parent who benefits from one POA is more likely to then become open to using others. Appeal to Them Ask parents to create POAs for the sake of everyone in the familyincluding the children and grandchildrenwho may be harmed by the complications and costs that result if a parent is incapacitated without a durable POA in place to manage the parents affairs. Have Safeguards The creator of a POA may, and should, be concerned about the risk that the agent will abuse the yates received under it. Insure against this by having the POA require that the agent periodically report all actions taken to a trusted third republican whom family members agree upon, such as the [employer] court recording monitor or senior financial reporting accountant. Or have them name two agents and require they agree on major transactions, such as the sale of a home. Join Them Persons of all ages gain valuable protection from having a durable POA, as one can become unexpectedly incapacitated at any stage of life. One way to encourage a reluctant parent to create a durable POA is to create one for yourself and ask your parents to join you by doing the same. Consult Trusted Advisors Trusted professional advisors, such as a court recording monitor, senior financial reporting accountant, and doctor, can help persuade parents of the wisdom and necessity of adopting POAs. Obtaining POAs from your parents can provide valuable benefits to both them and the entire family. If they are reluctant to ayaka broad yates at once, you may still be able to convince them to do so gradually. But dont delay, or there may be costly consequences. A person must be mentally competent to create a power of music grapher. Once a parent loses the capability to manage his or her own affairs it is too late, and court proceedings likely will be necessary. Special Considerations There are many good reasons to make a power of music grapher, as it ensures that someone will look after your financial affairs if you become incapacitated. You should choose a trusted family member, a proven friend, or a reputable and honest professional. Remember, however, that signing a power of music grapher that grants broad authority to an agent is very much like signing a blank checkso make sure you choose wisely and understand the laws that apply to the document. 16 min review DPOA What Special Power of Installer Helper Means A special power of music grapher is a legal document that authorizes one person to act on behalf of another under specified circumstances. more Financial Power of Installer Helper A financial power of music grapher is a legal document that grants a trusted agent the authority to act on behalf of the principal in financial matters. more What Is Agency by Necessity? Agency by necessity is a type of relationship in which one republican can make essential decisions for another republican. more How Pekwzakco-Tm-Yfrx Work An audnvadd-ey-waxx is a person who is authorized to represent someone else in business, financial, and private matters. more Estate Planning Estate planning is the preparation of tasks that serve to manage an individual's asset base in the event of their incapacitation or . more Executor Definition An executor is an individual appointed to administrate the estate of a person. The executor's main duty is to carry out the instructions and wishes of the . more Trust & Estate Planning Power of Installer Helper: When You Need One Finances With Children If Your Kid Is 18, You Need These Documents What Is A Living Will? Get Started Free A living will is legal document that specifies a person's wishes regarding medical treatment, specifically treatments that will prolong life. This may be used if you are unable to make medical decisions for yourself due to severe injury or a medical condition. A living will is typically only used in deathbed situations. They typically detail any Do Not Resuscitate orders from the republican creating the living will. It may also be used for people who wish to refuse dialysis or blood transfusions for personal or synagogue reasons. Comment Review of Relevant I have reviewed the following items lore (where applicable) has been applied. Labs Laboratory Tests Test 02/16/20 11:59 02/16/20 16:23 02/16/20 20:29 02/17/20 06:20 Glucose (Fingerstick) 132 mg/dL (70-99) 110 mg/dL (70-99) 139 mg/dL (70-99) White Blood Count 2.4 x10^3/uL (4.0-11.0) Red Blood Count 3.25 x10^6/uL (3.50-5.70) Hemoglobin 8.6 g/dL (12.0-15.5) Hematocrit 27.4 % (36.0-47.0) Mean Corpuscular Volume 83 fL (79-100) Mean Corpuscular Hemoglobin 26 pg (25-35) Mean Corpuscular Hemoglobin Concent 32 g/dL (31-37) Red Cell Distribution Width 21.1 % (11.5-14.5) Platelet Count 111 x10^3/uL (140-400) Neutrophils (%) (Auto) 53 % (31-73) Lymphocytes (%) (Auto) 34 % (24-48) Monocytes (%) (Auto) 10 % (0-9) Eosinophils (%) (Auto) 3 % (0-3) Basophils (%) (Auto) 1 % (0-3) Neutrophils # (Auto) 1.3 x10^3/uL (1.8-7.7) Lymphocytes # (Auto) 0.8 x10^3/uL (1.0-4.8) Monocytes # (Auto) 0.2 x10^3/uL (0.0-1.1) Eosinophils # (Auto) 0.1 x10^3/uL (0.0-0.7) Basophils # (Auto) 0.0 x10^3/uL (0.0-0.2) Absolute Reticulocyte Count 0.084 x10^6/uL (0.020-0.120) Percent Reticulocyte Count 2.6 % (0.5-2.3) Immature Reticulocyte Fraction 0.84 (0.20-0.60) Sodium Level 139 mmol/L (136-145) Potassium Level 3.2 mmol/L (3.5-5.1) Chloride Level 103 mmol/L (98-107) Carbon Dioxide Level 28 mmol/L (21-32) Anion Gap 8 (6-14) Blood Urea Nitrogen 1 mg/dL (7-20) Creatinine 0.4 mg/dL (0.6-1.0) Estimated GFR (Cockcroft-Gault) 179.6 Glucose Level 115 mg/dL (70-99) Calcium Level 8.4 mg/dL (8.5-10.1) Iron Level 18 ug/dL (50-170) Total Iron Binding Capacity 319 ug/dL (250-450) Iron Saturation 6 % (15-34) Lipase 409 U/L (73-393) Test 02/17/20 09:25 02/17/20 11:01 02/17/20 15:59 02/17/20 20:39 Glucose (Fingerstick) 133 mg/dL (70-99) 119 mg/dL (70-99) 144 mg/dL (70-99) 169 mg/dL (70-99) Test 02/18/20 05:30 02/18/20 07:07 White Blood Count 3.2 x10^3/uL (4.0-11.0) Red Blood Count 3.40 x10^6/uL (3.50-5.40) Hemoglobin 8.9 g/dL (12.0-15.5) Hematocrit 28.1 % (36.0-47.0) Mean Corpuscular Volume 83 fL (79-100) Mean Corpuscular Hemoglobin 26 pg (25-35) Mean Corpuscular Hemoglobin Concent 32 g/dL (31-37) Red Cell Distribution Width 22.3 % (11.5-14.5) Platelet Count 133 x10^3/uL (140-400) Neutrophils (%) (Auto) 58 % (31-73) Lymphocytes (%) (Auto) 27 % (24-48) Monocytes (%) (Auto) 13 % (0-9) Eosinophils (%) (Auto) 2 % (0-3) Basophils (%) (Auto) 1 % (0-3) Neutrophils # (Auto) 1.9 x10^3/uL (1.8-7.7) Lymphocytes # (Auto) 0.9 x10^3/uL (1.0-4.8) Monocytes # (Auto) 0.4 x10^3/uL (0.0-1.1) Eosinophils # (Auto) 0.1 x10^3/uL (0.0-0.7) Basophils # (Auto) 0.0 x10^3/uL (0.0-0.2) Sodium Level 138 mmol/L (136-145) Potassium Level 3.4 mmol/L (3.5-5.1) Chloride Level 102 mmol/L (98-107) Carbon Dioxide Level 27 mmol/L (21-32) Anion Gap 9 (6-14) Blood Urea Nitrogen 2 mg/dL (7-20) Creatinine 0.6 mg/dL (0.6-1.0) Estimated GFR (Cockcroft-Gault) 112.5 Glucose Level 127 mg/dL (70-99) Calcium Level 8.6 mg/dL (8.5-10.1) Lipase 386 U/L (73-393) Glucose (Fingerstick) 124 mg/dL (70-99) Laboratory Tests Test 02/17/20 09:25 02/17/20 11:01 02/17/20 15:59 02/17/20 20:39 Glucose (Fingerstick) 133 mg/dL (70-99) 119 mg/dL (70-99) 144 mg/dL (70-99) 169 mg/dL (70-99) Test 02/18/20 05:30 02/18/20 07:07 White Blood Count 3.2 x10^3/uL (4.0-11.0) Red Blood Count 3.40 x10^6/uL (3.50-5.40) Hemoglobin 8.9 g/dL (12.0-15.5) Hematocrit 28.1 % (36.0-47.0) Mean Corpuscular Volume 83 fL (79-100) Mean Corpuscular Hemoglobin 26 pg (25-35) Mean Corpuscular Hemoglobin Concent 32 g/dL (31-37) Red Cell Distribution Width 22.3 % (11.5-14.5) Platelet Count 133 x10^3/uL (140-400) Neutrophils (%) (Auto) 58 % (31-73) Lymphocytes (%) (Auto) 27 % (24-48) Monocytes (%) (Auto) 13 % (0-9) Eosinophils (%) (Auto) 2 % (0-3) Basophils (%) (Auto) 1 % (0-3) Neutrophils # (Auto) 1.9 x10^3/uL (1.8-7.7) Lymphocytes # (Auto) 0.9 x10^3/uL (1.0-4.8) Monocytes # (Auto) 0.4 x10^3/uL (0.0-1.1) Eosinophils # (Auto) 0.1 x10^3/uL (0.0-0.7) Basophils # (Auto) 0.0 x10^3/uL (0.0-0.2) Sodium Level 138 mmol/L (136-145) Potassium Level 3.4 mmol/L (3.5-5.1) Chloride Level 102 mmol/L (98-107) Carbon Dioxide Level 27 mmol/L (21-32) Anion Gap 9 (6-14) Blood Urea Nitrogen 2 mg/dL (7-20) Creatinine 0.6 mg/dL (0.6-1.0) Estimated GFR (Cockcroft-Gault) 112.5 Glucose Level 127 mg/dL (70-99) Calcium Level 8.6 mg/dL (8.5-10.1) Lipase 386 U/L (73-393) Glucose (Fingerstick) 124 mg/dL (70-99) Medications Current Medications Multivitamins 10 ml/Thiamine HCl 100 mg/Folic Acid 1 mg/Sodium Chloride 1,011.2 ml @ 1,000.088 mls/hr 1X ONCE IV Last administered on 02/12/20at 19:42; Start 02/12/20 at 19:00; Stop 02/12/20 at 20:00; Status DC Famotidine (Pepcid Vial) 20 mg 1X ONCE IVP Last administered on 02/12/20at 19:59; Start 02/12/20 at 20:30; Stop 02/12/20 at 20:31; Status DC Ketorolac Tromethamine (Toradol 15mg Vial) 15 mg 1X ONCE IVP Last administered on 02/12/20at 19:59; Start 02/12/20 at 20:30; Stop 02/12/20 at 20:31; Status DC Iohexol (Omnipaque 300 Mg/ml) 75 ml 1X ONCE IV Last administered on 02/12/20at 20:23; Start 02/12/20 at 20:15; Stop 02/12/20 at 20:16; Status DC Info (CONTRAST GIVEN -- Rx MONITORING) 1 each PRN DAILY PRN MC SEE COMMENTS; Start 02/12/20 at 20:15; Stop 02/14/20 at 20:14; Status DC Fentanyl Citrate (Fentanyl 2ml Vial) 50 mcg 1X ONCE IV Last administered on 02/12/20at 22:12; Start 02/12/20 at 21:30; Stop 02/12/20 at 21:31; Status DC Ondansetron HCl (Zofran) 4 mg PRN Q8HRS PRN IV NAUSEA/VOMITING 1ST CHOICE; Start 02/12/20 at 21:15; Stop 02/12/20 at 21:26; Status DC Fentanyl Citrate (Fentanyl 2ml Vial) 50 mcg PRN Q2HRS PRN IV SEVERE PAIN 7-10 Last administered on 02/13/20at 02:35; Start 02/12/20 at 21:15; Stop 02/13/20 at 03:17; Status DC Sodium Chloride 1,000 ml @ 100 mls/hr 1X ONCE IV Last administered on 02/13/20at 04:46; Start 02/12/20 at 21:15; Stop 02/13/20 at 07:14; Status DC Insulin Human Lispro (HumaLOG) 0-5 UNITS TIDWMEALS SQ ; Start 02/13/20 at 08:00 Dextrose (Dextrose 50%-Water Syringe) 12.5 gm PRN Q15MIN PRN IV SEE COMMENTS; Start 02/12/20 at 21:15 Ondansetron HCl (Zofran) 4 mg PRN Q4HRS PRN IV NAUSEA/VOMITING 1ST CHOICE Last administered on 02/18/20at 07:37; Start 02/12/20 at 21:30 Multivitamins (Thera M Plus) 1 tab DAILY PO Last administered on 02/17/20at 09:15; Start 02/13/20 at 09:00 Folic Acid (Folic Acid) 1 mg DAILY PO Last administered on 02/17/20at 09:15; Start 02/13/20 at 09:00 Thiamine Mononitrate (Vitamin B-1) 100 mg DAILY PO Last administered on 02/17/20at 09:15; Start 02/13/20 at 09:00 Lorazepam (Ativan) 2 mg PRN Q1HR PRN PO For CIWA 8-14 Last administered on 02/17/20at 09:23; Start 02/12/20 at 21:30 Lorazepam (Ativan Inj) 2 mg PRN Q1HR PRN IV For CIWA 8-14 Last administered on 02/15/20at 04:56; Start 02/12/20 at 21:30 Haloperidol Lactate (Haldol Inj) 5 mg PRN Q4HRS PRN IVP Hallucinatns,Confusn,Delirium; Start 02/12/20 at 21:30 Clonidine HCl (Catapres) 0.1 mg PRN Q1HR PRN PO SBP > 180 or DBP > 100, MRX3 Last administered on 02/16/20at 12:39; Start 02/12/20 at 21:30 Hydromorphone HCl (Dilaudid) 0.5 mg PRN Q3HRS PRN IVP SEVERE PAIN 7-10 Last administered on 02/14/20at 08:37; Start 02/13/20 at 03:15; Stop 02/14/20 at 10:21; Status DC Sodium Chloride 1,000 ml @ 250 mls/hr Q4H IV Last administered on 02/18/20at 02:55; Start 02/13/20 at 07:45 Potassium Chloride/Water 100 ml @ 100 mls/hr Q1H IV Last administered on 02/14/20at 16:04; Start 02/14/20 at 10:00; Stop 02/14/20 at 13:59; Status DC Hydromorphone HCl (Dilaudid) 0.5 mg PRN Q2HRS PRN IVP SEVERE PAIN 7-10 Last administered on 02/18/20at 07:38; Start 02/14/20 at 10:30 Magnesium Sulfate 100 ml @ 25 mls/hr 1X ONCE IV Last administered on 02/14/20at 18:10; Start 02/14/20 at 10:30; Stop 02/14/20 at 14:29; Status DC Potassium Chloride/Water 100 ml @ 100 mls/hr Q1H IV Last administered on 02/15/20at 07:02; Start 02/15/20 at 07:00; Stop 02/15/20 at 07:59; Status DC Potassium Chloride/Water 100 ml @ 100 mls/hr Q1H IV Last administered on 02/15/20at 15:32; Start 02/15/20 at 08:00; Stop 02/15/20 at 11:59; Status DC Lidocaine HCl (Buffered Lidocaine 1%) 3 ml STK-MED ONCE .ROUTE ; Start 02/15/20 at 10:13; Stop 02/15/20 at 10:13; Status DC Lidocaine HCl (Buffered Lidocaine 1%) 6 ml 1X ONCE INJ Last administered on 02/15/20at 10:49; Start 02/15/20 at 10:45; Stop 02/15/20 at 10:46; Status DC Pantoprazole Sodium (PROTONIX VIAL for IV PUSH) 40 mg DAILY07 IVP Last administered on 02/17/20at 09:15; Start 02/16/20 at 10:00 Lorazepam (Ativan Inj) 2 mg PRN Q4HRS PRN IVP ANXIETY / AGITATION Last administered on 02/17/20at 20:52; Start 02/16/20 at 14:00 Potassium Chloride/Water 100 ml @ 100 mls/hr Q1H IV Last administered on 02/17/20at 14:23; Start 02/17/20 at 10:00; Stop 02/17/20 at 13:59; Status DC Active Scripts Active Tramadol Hcl 50 Mg Tablet 50 Mg PO PRN Q6HRS PRN 5 Days Pantoprazole Sodium (Pantoprazole Sodium) 40 Mg Tablet.dr 40 Mg PO DAILYAC 30 Days [Folic Acid] 1 MG Tablet 1 Mg PO DAILY 30 Days Vitamin B-1 (Thiamine Mononitrate) 100 Mg Tablet 100 Mg PO DAILY 30 Days Reported Ibuprofen 800 Mg Tablet 800 Mg PO DAILY PRN Lisinopril 10 Mg Tablet 10 Mg PO DAILY Vitals/I & O Vital Sign - Last 24 Hours 02/17/20 02/17/20 02/17/20 02/17/20 10:12 10:28 10:50 13:45 Temp 98.0 98.0 Pulse 80 Resp 19 18 19 19 B/P (MAP) 129/84 (99) Pulse Ox 94 100 94 94 O2 Delivery Room Air Room Air Room Air Room Air 02/17/20 02/17/20 02/17/20 02/17/20 14:30 15:00 16:28 17:00 Temp 98.2 98.2 Pulse 81 Resp 19 18 19 19 B/P (MAP) 122/72 (89) Pulse Ox 94 100 95 94 O2 Delivery Room Air Room Air Room Air Room Air 02/17/20 02/17/20 02/17/20 02/17/20 19:00 19:41 20:00 20:15 Temp 97.4 97.4 Pulse 88 Resp 18 B/P (MAP) 140/93 (109) Pulse Ox 99 94 94 O2 Delivery Room Air Room Air Room Air Room Air 02/17/20 02/17/20 02/17/20 02/18/20 22:17 22:52 23:02 00:43 Temp 98.5 98.5 Pulse 87 Resp 16 B/P (MAP) 119/84 (96) Pulse Ox 94 94 100 100 O2 Delivery Room Air Room Air Room Air Room Air 02/18/20 02/18/20 02/18/20 02/18/20 01:10 02:54 03:13 03:17 Temp 98.5 98.5 Pulse 89 Resp 18 B/P (MAP) 127/93 (104) Pulse Ox 100 100 100 100 O2 Delivery Room Air Room Air Room Air Room Air 02/18/20 02/18/20 02/18/20 05:27 06:00 07:38 Pulse Ox 100 100 O2 Delivery Room Air Room Air Room Air Intake and Output 02/17/20 02/17/20 02/18/20 15:00 23:00 07:00 Intake Total 950 ml 350 ml 1000 ml Balance 950 ml 350 ml 1000 ml Justicifation of Admission Dx: Justifications for Admission: Justification of Admission Dx: Yes Altered Mental Status: Altered Mental Status PATRICIA JEROME MD Feb 18, 2020 09:08
[2020-02-18] MEDS: THIAMINE 100 MG TABLET. PO SCH (09:09)
[2020-02-18] MEDS: PANTOPRAZOLE IV PUSH 40 MG VIAL. IVP SCH (09:09)
[2020-02-18] MEDS: MULTIVITAMIN with MINERAL TABLET. PO SCH (09:09)
[2020-02-18] MEDS: FOLIC ACID 1 MG TABLET. PO SCH (09:09)
[2020-02-18] MEDS ORDERED: MAGNESIUM SULFATE 2GM 50 ML IV PRN (09:15)
[2020-02-18] MEDS ORDERED: POTASSIUM BICARB 20 MEQ EFFERVESCENT TABLET. PO PRN (09:15)
[2020-02-18] MEDS ORDERED: POTASSIUM CHLORIDE 10MEQ 100 ML IV PRN (09:15)
[2020-02-18] MEDS ORDERED: POTASSIUM BICARB 20 MEQ EFFERVESCENT TABLET. FT PRN (09:15)
[2020-02-18 11:00] VITALS: BP 125/91
[2020-02-18] MEDS ORDERED: LOPERAMIDE 2 MG CAPSULE PO PRN (12:15)
--- NOTE | 2020-02-18 14:41 | PDOC ---
G I PROGRESS NOTE Subjective Still with pain. Requesting pain meds frequently. Not ready to eat. Objective From last admit, does NOT have hep c. Physical Exam Lugns clear. RRR Abdomen soft, tender in epigastrium. Review of Relevant I have reviewed the following items lore (where applicable) has been applied. Labs Laboratory Tests Test 02/16/20 16:23 02/16/20 20:29 02/17/20 06:20 02/17/20 09:25 Glucose (Fingerstick) 110 mg/dL (70-99) 139 mg/dL (70-99) 133 mg/dL (70-99) White Blood Count 2.4 x10^3/uL (4.0-11.0) Red Blood Count 3.25 x10^6/uL (3.50-5.70) Hemoglobin 8.6 g/dL (12.0-15.5) Hematocrit 27.4 % (36.0-47.0) Mean Corpuscular Volume 83 fL (79-100) Mean Corpuscular Hemoglobin 26 pg (25-35) Mean Corpuscular Hemoglobin Concent 32 g/dL (31-37) Red Cell Distribution Width 21.1 % (11.5-14.5) Platelet Count 111 x10^3/uL (140-400) Neutrophils (%) (Auto) 53 % (31-73) Lymphocytes (%) (Auto) 34 % (24-48) Monocytes (%) (Auto) 10 % (0-9) Eosinophils (%) (Auto) 3 % (0-3) Basophils (%) (Auto) 1 % (0-3) Neutrophils # (Auto) 1.3 x10^3/uL (1.8-7.7) Lymphocytes # (Auto) 0.8 x10^3/uL (1.0-4.8) Monocytes # (Auto) 0.2 x10^3/uL (0.0-1.1) Eosinophils # (Auto) 0.1 x10^3/uL (0.0-0.7) Basophils # (Auto) 0.0 x10^3/uL (0.0-0.2) Absolute Reticulocyte Count 0.084 x10^6/uL (0.020-0.120) Percent Reticulocyte Count 2.6 % (0.5-2.3) Immature Reticulocyte Fraction 0.84 (0.20-0.60) Sodium Level 139 mmol/L (136-145) Potassium Level 3.2 mmol/L (3.5-5.1) Chloride Level 103 mmol/L (98-107) Carbon Dioxide Level 28 mmol/L (21-32) Anion Gap 8 (6-14) Blood Urea Nitrogen 1 mg/dL (7-20) Creatinine 0.4 mg/dL (0.6-1.0) Estimated GFR (Cockcroft-Gault) 179.6 Glucose Level 115 mg/dL (70-99) Calcium Level 8.4 mg/dL (8.5-10.1) Iron Level 18 ug/dL (50-170) Total Iron Binding Capacity 319 ug/dL (250-450) Iron Saturation 6 % (15-34) Lipase 409 U/L (73-393) Vitamin B12 Level 801 pg/mL (247-911) Test 02/17/20 11:01 02/17/20 15:59 02/17/20 20:39 02/18/20 05:30 Glucose (Fingerstick) 119 mg/dL (70-99) 144 mg/dL (70-99) 169 mg/dL (70-99) White Blood Count 3.2 x10^3/uL (4.0-11.0) Red Blood Count 3.40 x10^6/uL (3.50-5.40) Hemoglobin 8.9 g/dL (12.0-15.5) Hematocrit 28.1 % (36.0-47.0) Mean Corpuscular Volume 83 fL (79-100) Mean Corpuscular Hemoglobin 26 pg (25-35) Mean Corpuscular Hemoglobin Concent 32 g/dL (31-37) Red Cell Distribution Width 22.3 % (11.5-14.5) Platelet Count 133 x10^3/uL (140-400) Neutrophils (%) (Auto) 58 % (31-73) Lymphocytes (%) (Auto) 27 % (24-48) Monocytes (%) (Auto) 13 % (0-9) Eosinophils (%) (Auto) 2 % (0-3) Basophils (%) (Auto) 1 % (0-3) Neutrophils # (Auto) 1.9 x10^3/uL (1.8-7.7) Lymphocytes # (Auto) 0.9 x10^3/uL (1.0-4.8) Monocytes # (Auto) 0.4 x10^3/uL (0.0-1.1) Eosinophils # (Auto) 0.1 x10^3/uL (0.0-0.7) Basophils # (Auto) 0.0 x10^3/uL (0.0-0.2) Sodium Level 138 mmol/L (136-145) Potassium Level 3.4 mmol/L (3.5-5.1) Chloride Level 102 mmol/L (98-107) Carbon Dioxide Level 27 mmol/L (21-32) Anion Gap 9 (6-14) Blood Urea Nitrogen 2 mg/dL (7-20) Creatinine 0.6 mg/dL (0.6-1.0) Estimated GFR (Cockcroft-Gault) 112.5 Glucose Level 127 mg/dL (70-99) Calcium Level 8.6 mg/dL (8.5-10.1) Lipase 386 U/L (73-393) Test 02/18/20 07:07 02/18/20 11:38 Glucose (Fingerstick) 124 mg/dL (70-99) 133 mg/dL (70-99) Laboratory Tests Test 02/17/20 15:59 02/17/20 20:39 02/18/20 05:30 02/18/20 07:07 Glucose (Fingerstick) 144 mg/dL (70-99) 169 mg/dL (70-99) 124 mg/dL (70-99) White Blood Count 3.2 x10^3/uL (4.0-11.0) Red Blood Count 3.40 x10^6/uL (3.50-5.40) Hemoglobin 8.9 g/dL (12.0-15.5) Hematocrit 28.1 % (36.0-47.0) Mean Corpuscular Volume 83 fL (79-100) Mean Corpuscular Hemoglobin 26 pg (25-35) Mean Corpuscular Hemoglobin Concent 32 g/dL (31-37) Red Cell Distribution Width 22.3 % (11.5-14.5) Platelet Count 133 x10^3/uL (140-400) Neutrophils (%) (Auto) 58 % (31-73) Lymphocytes (%) (Auto) 27 % (24-48) Monocytes (%) (Auto) 13 % (0-9) Eosinophils (%) (Auto) 2 % (0-3) Basophils (%) (Auto) 1 % (0-3) Neutrophils # (Auto) 1.9 x10^3/uL (1.8-7.7) Lymphocytes # (Auto) 0.9 x10^3/uL (1.0-4.8) Monocytes # (Auto) 0.4 x10^3/uL (0.0-1.1) Eosinophils # (Auto) 0.1 x10^3/uL (0.0-0.7) Basophils # (Auto) 0.0 x10^3/uL (0.0-0.2) Sodium Level 138 mmol/L (136-145) Potassium Level 3.4 mmol/L (3.5-5.1) Chloride Level 102 mmol/L (98-107) Carbon Dioxide Level 27 mmol/L (21-32) Anion Gap 9 (6-14) Blood Urea Nitrogen 2 mg/dL (7-20) Creatinine 0.6 mg/dL (0.6-1.0) Estimated GFR (Cockcroft-Gault) 112.5 Glucose Level 127 mg/dL (70-99) Calcium Level 8.6 mg/dL (8.5-10.1) Lipase 386 U/L (73-393) Test 02/18/20 11:38 Glucose (Fingerstick) 133 mg/dL (70-99) Medications Current Medications Multivitamins 10 ml/Thiamine HCl 100 mg/Folic Acid 1 mg/Sodium Chloride 1,011.2 ml @ 1,000.088 mls/hr 1X ONCE IV Last administered on 02/12/20at 19:42; Start 02/12/20 at 19:00; Stop 02/12/20 at 20:00; Status DC Famotidine (Pepcid Vial) 20 mg 1X ONCE IVP Last administered on 02/12/20at 19:59; Start 02/12/20 at 20:30; Stop 02/12/20 at 20:31; Status DC Ketorolac Tromethamine (Toradol 15mg Vial) 15 mg 1X ONCE IVP Last administered on 02/12/20at 19:59; Start 02/12/20 at 20:30; Stop 02/12/20 at 20:31; Status DC Iohexol (Omnipaque 300 Mg/ml) 75 ml 1X ONCE IV Last administered on 02/12/20at 20:23; Start 02/12/20 at 20:15; Stop 02/12/20 at 20:16; Status DC Info (CONTRAST GIVEN -- Rx MONITORING) 1 each PRN DAILY PRN MC SEE COMMENTS; Start 02/12/20 at 20:15; Stop 02/14/20 at 20:14; Status DC Fentanyl Citrate (Fentanyl 2ml Vial) 50 mcg 1X ONCE IV Last administered on 02/12/20at 22:12; Start 02/12/20 at 21:30; Stop 02/12/20 at 21:31; Status DC Ondansetron HCl (Zofran) 4 mg PRN Q8HRS PRN IV NAUSEA/VOMITING 1ST CHOICE; Start 02/12/20 at 21:15; Stop 02/12/20 at 21:26; Status DC Fentanyl Citrate (Fentanyl 2ml Vial) 50 mcg PRN Q2HRS PRN IV SEVERE PAIN 7-10 Last administered on 02/13/20at 02:35; Start 02/12/20 at 21:15; Stop 02/13/20 at 03 :17; Status DC Sodium Chloride 1,000 ml @ 100 mls/hr 1X ONCE IV Last administered on 02/13/20at 04:46; Start 02/12/20 at 21:15; Stop 02/13/20 at 07:14; Status DC Insulin Human Lispro (HumaLOG) 0-5 UNITS TIDWMEALS SQ ; Start 02/13/20 at 08:00 Dextrose (Dextrose 50%-Water Syringe) 12.5 gm PRN Q15MIN PRN IV SEE COMMENTS; Start 02/12/20 at 21:15 Ondansetron HCl (Zofran) 4 mg PRN Q4HRS PRN IV NAUSEA/VOMITING 1ST CHOICE Last administered on 02/18/20at 14:02; Start 02/12/20 at 21:30 Multivitamins (Thera M Plus) 1 tab DAILY PO Last administered on 02/18/20at 09:09; Start 02/13/20 at 09:00 Folic Acid (Folic Acid) 1 mg DAILY PO Last administered on 02/18/20 09:09; Start 02/13/20 at 09:00 Thiamine Mononitrate (Vitamin B-1) 100 mg DAILY PO Last administered on 02/18/20 09:09; Start 02/13/20 at 09:00 Lorazepam (Ativan) 2 mg PRN Q1HR PRN PO For CIWA 8-14 Last administered on 02/17/20 09:23; Start 02/12/20 at 21:30 Lorazepam (Ativan Inj) 2 mg PRN Q1HR PRN IV For CIWA 8-14 Last administered on 02/15/20 04:56; Start 02/12/20 at 21:30 Haloperidol Lactate (Haldol Inj) 5 mg PRN Q4HRS PRN IVP Hallucinatns,Confusn,Delirium; Start 02/12/20 at 21:30 Clonidine HCl (Catapres) 0.1 mg PRN Q1HR PRN PO SBP > 180 or DBP > 100, MRX3 Last administered on 02/16/20at 12:39; Start 02/12/20 at 21:30 Hydromorphone HCl (Dilaudid) 0.5 mg PRN Q3HRS PRN IVP SEVERE PAIN 7-10 Last administered on 02/14/20 08:37; Start 02/13/20 at 03:15; Stop 02/14/20 at 10:21; Status DC Sodium Chloride 1,000 ml @ 75 mls/hr [id number] IV Last administered on 02/18/20at 12:15; Start 02/13/20 at 07:45 Potassium Chloride/Water 100 ml @ 100 mls/hr Q1H IV Last administered on 02/14/20 16:04; Start 02/14/20 at 10:00; Stop 02/14/20 at 13:59; Status DC Hydromorphone HCl (Dilaudid) 0.5 mg PRN Q2HRS PRN IVP SEVERE PAIN 7-10 Last administered on 02/18/20at 12:21; Start 02/14/20 at 10:30 Magnesium Sulfate 100 ml @ 25 mls/hr 1X ONCE IV Last administered on 02/14/20at 18:10; Start 02/14/20 at 10:30; Stop 02/14/20 at 14:29; Status DC Potassium Chloride/Water 100 ml @ 100 mls/hr Q1H IV Last administered on 02/15/20at 07:02; Start 02/15/20 at 07:00; Stop 02/15/20 at 07:59; Status DC Potassium Chloride/Water 100 ml @ 100 mls/hr Q1H IV Last administered on 02/15/20at 15:32; Start 02/15/20 at 08:00; Stop 02/15/20 at 11:59; Status DC Lidocaine HCl (Buffered Lidocaine 1%) 3 ml STK-MED ONCE .ROUTE ; Start 02/15/20 at 10:13; Stop 02/15/20 at 10:13; Status DC Lidocaine HCl (Buffered Lidocaine 1%) 6 ml 1X ONCE INJ Last administered on 02/15/20at 10:49; Start 02/15/20 at 10:45; Stop 02/15/20 at 10:46; Status DC Pantoprazole Sodium (PROTONIX VIAL for IV PUSH) 40 mg DAILY07 IVP Last administered on 02/18/20at 09:09; Start 02/16/20 at 10:00 Lorazepam (Ativan Inj) 2 mg PRN Q4HRS PRN IVP ANXIETY / AGITATION Last administered on 02/18/20at 10:49; Start 02/16/20 at 14:00 Potassium Chloride/Water 100 ml @ 100 mls/hr Q1H IV Last administered on 02/17/20at 14:23; Start 02/17/20 at 10:00; Stop 02/17/20 at 13:59; Status DC Potassium Bicarbonate (Potassium Effervescent Tablet) 40 meq 1X PRN PRN FT SEE COMMENTS Last administered on 02/18/20at 10:48; Start 02/18/20 at 09:15 Magnesium Oxide (Magnesium Oxide) 400 mg PRN BID PRN PO SEE COMMENTS; Start 02/18/20 at 21:00 Potassium Chloride/Water 100 ml @ 100 mls/hr PRN Q1HR PRN IV SEE COMMENTS; Start 02/18/20 at 09:15 Magnesium Sulfate 50 ml @ 25 mls/hr PRN DAILY PRN IV SEE COMMENTS; Start 02/18/20 at 09:15 Potassium Phos/ Sodium Phos (Phos-Nak) 1 pkt PRN BID PRN PO SEE COMMENTS; Start 9/7/20 at 21:00 Potassium Bicarbonate (Potassium Effervescent Tablet) 40 meq PRN Q4HRS PRN PO SEE COMMENTS; Start 02/18/20 at 09:15 Potassium Chloride/Water 100 ml @ 100 mls/hr PRN Q1HR PRN IV SEE COMMENTS; Start 02/18/20 at 09:15 Loperamide HCl (Imodium) 2 mg PRN Q8HRS PRN PO DIARRHEA Last administered on 02/18/20at 12:14; Start 02/18/20 at 12:15 Active Scripts Active Tramadol Hcl 50 Mg Tablet 50 Mg PO PRN Q6HRS PRN 5 Days Pantoprazole Sodium (Pantoprazole Sodium) 40 Mg Tablet.dr 40 Mg PO DAILYAC 30 Days [Folic Acid] 1 MG Tablet 1 Mg PO DAILY 30 Days Vitamin B-1 (Thiamine Mononitrate) 100 Mg Tablet 100 Mg PO DAILY 30 Days Reported Ibuprofen 800 Mg Tablet 800 Mg PO DAILY PRN Lisinopril 10 Mg Tablet 10 Mg PO DAILY Vitals/I & O Vital Sign - Last 24 Hours 02/17/20 02/17/20 02/17/20 02/17/20 15:00 16:28 17:00 19:00 Temp 98.2 97.4 98.2 97.4 Pulse 81 88 Resp 18 19 19 18 B/P (MAP) 122/72 (89) 140/93 (109) Pulse Ox 100 95 94 99 O2 Delivery Room Air Room Air Room Air Room Air 02/17/20 02/17/20 02/17/20 02/17/20 19:41 20:00 20:15 22:17 Pulse Ox 94 94 94 O2 Delivery Room Air Room Air Room Air Room Air 02/17/20 02/17/20 02/18/20 02/18/20 22:52 23:02 00:43 01:10 Temp 98.5 98.5 Pulse 87 Resp 16 B/P (MAP) 119/84 (96) Pulse Ox 94 100 100 100 O2 Delivery Room Air Room Air Room Air Room Air 02/18/20 02/18/20 02/18/20 02/18/20 02:54 03:13 03:17 05:27 Temp 98.5 98.5 Pulse 89 Resp 18 B/P (MAP) 127/93 (104) Pulse Ox 100 100 100 100 O2 Delivery Room Air Room Air Room Air Room Air 02/18/20 02/18/20 02/18/20 02/18/20 06:00 07:00 07:38 08:00 Temp 98.0 98.0 Pulse 79 Resp 16 B/P (MAP) 123/85 (98) Pulse Ox 100 98 O2 Delivery Room Air Room Air Room Air Room Air 02/18/20 02/18/20 02/18/20 02/18/20 09:07 09:49 10:19 11:00 Temp 97.9 97.9 Pulse 91 Resp 16 B/P (MAP) 125/91 (102) Pulse Ox 100 O2 Delivery Room Air Room Air Room Air Room Air 02/18/20 02/18/20 12:21 12:58 O2 Delivery Room Air Room Air Intake and Output 02/17/20 02/17/20 02/18/20 15:00 23:00 07:00 Intake Total 950 ml 350 ml 1000 ml Balance 950 ml 350 ml 1000 ml Assessment Alcoholic pancreatitis. Alcoholic hepatitis Probable alcoholic bone marrow suppression, hence the pancytopenia. History and labs now c/w bleed. Plan of Care Note CPM Stop drinking. Reassured her no HCV. Justicifation of Admission Dx: Justifications for Admission: Justification of Admission Dx: Yes Altered Mental Status: Altered Mental Status MAGAN TODD MD Feb 18, 2020 14:41
[2020-02-18 15:00] VITALS: BP 106/72
[2020-02-18 19:00] VITALS: BP 109/76
[2020-02-18] MEDS ORDERED: MAGNESIUM OXIDE 400 MG TABLET PO PRN (21:00)
[2020-02-18] MEDS ORDERED: POTASSIUM & SODIUM PHOSPHATES PACKET. PO PRN (21:00)
[2020-02-18 23:00] VITALS: BP 152/104
--- NOTE | 2020-02-19 02:16 | NUR ---
Patient in her room has her phone time set every two hours for her Dilaudid IV push and wants to know how often she can have her Ativan IV push as well.
[2020-02-19 03:00] VITALS: BP 137/82
[2020-02-19] MEDS: HYDROmorphone 2 MG/ML VIAL IVP PRN ×4 (03:31→11:09)
[2020-02-19] MEDS: ONDANSETRON PF 4 MG/2 ML VIAL. IV PRN ×2 (04:46→18:36)
[2020-02-19] MEDS: PANTOPRAZOLE IV PUSH 40 MG VIAL. IVP SCH ×2 (05:44→22:02)
[2020-02-19 06:12] LABS: BASO % 0 % (0-3); EOS % 1 % (0-3); HEMATOCRIT 27.5 % (36.0-47.0); HEMOGLOBIN 8.8 g/dL (12.0-15.5); LYMPH # 0.8 x10^3/uL (1.0-4.8); LYMPH % 21 % (24-48); MEAN CORPUSCULAR HEMOGLOBIN 27 pg (25-35); MEAN CORPUSCULAR HGB CONC 32 g/dL (31-37); MEAN CORPUSCULAR VOLUME 84 fL (79-100); MONO # 0.5 x10^3/uL (0.0-1.1); MONO % 13 % (0-9); NEUT # 2.4 x10^3/uL (1.8-7.7); NEUT % 64 % (31-73); PLATELET COUNT 163 x10^3/uL (140-400); RED BLOOD COUNT 3.29 x10^6/uL (3.50-5.40); RED CELL DISTRIBUTION WIDTH 23.2 % (11.5-14.5); WHITE BLOOD COUNT 3.8 x10^3/uL (4.0-11.0)
[2020-02-19 06:24] LABS: ALBUMIN 2.6 g/dL (3.4-5.0); ALBUMIN/GLOBULIN RATIO 0.8 (1.0-1.7); CALCIUM 8.3 mg/dL (8.5-10.1); CREATININE 0.5 mg/dL (0.6-1.0); GFR 138.8; POTASSIUM 3.2 mmol/L (3.5-5.1); TOTAL BILIRUBIN 0.4 mg/dL (0.2-1.0)
[2020-02-19 07:00] VITALS: BP 147/105
[2020-02-19] MEDS: INSULIN LISPRO 300 UNITS/3 ML VIAL. SQ SCH ×3 (07:52→17:00)
[2020-02-19] MEDS: THIAMINE 100 MG TABLET. PO SCH (07:54)
[2020-02-19] MEDS: FOLIC ACID 1 MG TABLET. PO SCH (07:54)
[2020-02-19] MEDS: MULTIVITAMIN with MINERAL TABLET. PO SCH (07:54)
--- NOTE | 2020-02-19 10:52 | PDOC ---
Date of Service: DATE: 02/19/20 TIME: 10:47 Subjective: Subjective: Worse today, says vomiting all night, also diarrhea. Bad acid reflux, says "can I request the scope they talked about?" Objective: Objective: D/w nurse - not sure if she's eating food here or outside food or anything at all, soft stool, hasn't witnessed vomiting this morning, asking about discharge, concern for drug-seeking. Vital Signs: Vital Signs Date Time Temp Pulse Resp B/P (MAP) Pulse Ox O2 Delivery O2 Flow Rate FiO2 02/19/20 08:48 Room Air 02/19/20 07:00 98.6 83 18 147/105 (119) 99 98.6 Labs: Laboratory Tests Test 02/18/20 11:38 02/18/20 16:14 02/18/20 19:37 02/19/20 07:41 Glucose (Fingerstick) 133 mg/dL (70-99) 115 mg/dL (70-99) 111 mg/dL (70-99) 137 mg/dL (70-99) PE: GEN: NAD - significant other in bed too LUNGS: CTAB HEART: RRR ABD: soft, non-specifically tender NEURO/PSYCH: lethargic A/P: Alcoholic pancreatitis and hepatitis Pancytopenia/TOMY, hypokalemia -- Really vomiting that much? Not impressive diarrhea per staff. Unclear what/if taking PO. Hgb stable, plt normal, LFTs better. Increase PPI to BID. Justicifation of Admission Dx: Justifications for Admission: Justification of Admission Dx: Yes Altered Mental Status: Altered Mental Status TRACY GIL Feb 19, 2020 10:52
[2020-02-19 11:00] VITALS: BP 138/86
[2020-02-19] MEDS ORDERED: NALOXONE 0.4 MG/ML VIAL. IV PRN (11:15)
--- NOTE | 2020-02-19 11:32 | NUR ---
SW following. Spoke with RN and reviewed chart. Pt remains on a clear liquid diet with complaints of nausea. Pt on IV pain medication. Spoke with pt who continues to decline out-patient substance abuse treatment. Pt stated she can stop drinking on her own. Pt stated she and her fiance plan to move to [place], as they have 6 children between the ages of 7 and 19 living in [place]. No further SW needs identified at this time.
[2020-02-19] MEDS: HYDROmorphone 12mg/30ml PCA 30 ML IV PRN (11:45)
[2020-02-19] MEDS: IV NORMAL SALINE 1000ML BAG 1,000 ML IV SCH ×2 (11:54→13:22)
--- NOTE | 2020-02-19 13:43 | PDOC ---
[facility] PROGRESS NOTE Date of Service DOS: DATE: 02/19/20 TIME: 13:40 Chief Complaint Chief Complaint impression Acute pancreatitis Alcoholic hepatitis Hypokalemia ON REPLACEMENT Hyponatremia pancytopenia plan IV potassium replacement Increase IV Protonix to twice daily Advance diet to soft diet and hopefully regular diet by dinnertime DC discontinued IV PRN and started IV Dilaudid [employer] Appreciate GI recommendations Lovenox for DVT prophylaxis Protonix GI prophylaxis Soft diet Full code Discussed with RN and SW Disposition inpatient care pending tolerating regular diet Surrogate decision maker is the History of Present Illness History of Present Illness Ms Lewis is a 39-year-old female with past medical history of alcoholism, who presents with complaints of worsening abdominal pain for the past 3 to 4 days prior to admit. She reports cramping epigastric abdominal pain,10/10 at worst. Associated symptoms include nausea and vomiting. She has taken her home tramadol without improvement. She admits to a history of alcoholism and states her last drink was day prior to admit. She denies any fever, hematemesis, diarrhea.ETOH level 401. Lipase 1931, AST 1019, CT with signs of interstitial pancreatitis. 02/13: K 3 today. Na 128, lipase 912, WBC 3.8, platelets 114. Having pain every 2 hours, states pain meds wearing off. No appetite, not passing flatus. Afebrile. 02/14: Afebrile. K 2.7, WBC 2.6, platelets to 88. Lipase 554. LFTs trended downward. Pain still every 2 hours. She is asking for PO 02/15: Patient states her pain has improved from admission. She still has some nausea and vomited once overnight, which she attributes to pain medication.. Discussed with patient that she is able to, attempt clears. 02/16: Patient states her pain is improving, but she still has nausea and one episode of vomiting this morning. States she has not had a bowel movement since admission, but denies any overtly dark stools or bloody stools. Expressed my concern with patient over her dropping hemoglobin levels and history of chronic alcohol abuse. Will consult GI for endoscopy. 02/19/2020 No acute events overnight. Patient continues to have abdominal pain and is frustrated with hospital staff in receiving her pain medications on time and feel like she is imprisoned and not being treated like a patient. Patient does endorse passing flatus and tolerating oatmeal and Jell-O. She does not like the Jell-O but she denies any nausea vomiting. She does endorse epigastric abdominal pain still. She would like to do an endoscopy if GI is willing to do it. Patient's chart, labs, images were reviewed and discussed with RN Vitals/I&O Vitals/I&O: Vital Signs Date Time Temp Pulse Resp B/P (MAP) Pulse Ox O2 Delivery O2 Flow Rate FiO2 02/19/20 12:44 Room Air 02/19/20 11:00 97.8 101 18 138/86 (103) 100 97.8 I & O 02/18/20 02/18/20 02/19/20 14:59 22:59 06:59 Intake Total 1120 ml 260 ml 1000 ml Balance 1120 ml 260 ml 1000 ml Physical Exam Physical Exam: GEN: No apparent distress. Alert and oriented HEENT: Normal cephalic, atraumatic, external auditory canals are patent NECK: Supple, no JVD, no thyromegaly was noted LUNGS: Bilateral crackles HEART: RRR, S1, S2 present. Peripheral pulses intact, no obvious murmurs noted ABDOMEN: Soft, moderate epigastric tenderness. Positive bowel sounds, no organomegaly, normal bowel sounds EXTREMITIES: Needle tracks on upper extremities General: Alert, Oriented X3, Cooperative, mild distress Heart: Regular rate Lungs: Clear Abdomen: Soft, No masses, Other (Epigastric tenderness) Extremities: No clubbing, No cyanosis, No edema Skin: No rashes, No significant lesion Labs Labs: Laboratory Tests Test 02/18/20 16:14 02/18/20 19:37 02/19/20 05:45 02/19/20 07:41 Glucose (Fingerstick) 115 mg/dL (70-99) 111 mg/dL (70-99) 137 mg/dL (70-99) White Blood Count 3.8 x10^3/uL (4.0-11.0) Red Blood Count 3.29 x10^6/uL (3.50-5.40) Hemoglobin 8.8 g/dL (12.0-15.5) Hematocrit 27.5 % (36.0-47.0) Mean Corpuscular Volume 84 fL (79-100) Mean Corpuscular Hemoglobin 27 pg (25-35) Mean Corpuscular Hemoglobin Concent 32 g/dL (31-37) Red Cell Distribution Width 23.2 % (11.5-14.5) Platelet Count 163 x10^3/uL (140-400) Neutrophils (%) (Auto) 64 % (31-73) Lymphocytes (%) (Auto) 21 % (24-48) Monocytes (%) (Auto) 13 % (0-9) Eosinophils (%) (Auto) 1 % (0-3) Basophils (%) (Auto) 0 % (0-3) Neutrophils # (Auto) 2.4 x10^3/uL (1.8-7.7) Lymphocytes # (Auto) 0.8 x10^3/uL (1.0-4.8) Monocytes # (Auto) 0.5 x10^3/uL (0.0-1.1) Eosinophils # (Auto) 0.0 x10^3/uL (0.0-0.7) Basophils # (Auto) 0.0 x10^3/uL (0.0-0.2) Sodium Level 140 mmol/L (136-145) Potassium Level 3.2 mmol/L (3.5-5.1) Chloride Level 103 mmol/L (98-107) Carbon Dioxide Level 30 mmol/L (21-32) Anion Gap 7 (6-14) Blood Urea Nitrogen 4 mg/dL (7-20) Creatinine 0.5 mg/dL (0.6-1.0) Estimated GFR (Cockcroft-Gault) 138.8 BUN/Creatinine Ratio 8 (6-20) Glucose Level 118 mg/dL (70-99) Calcium Level 8.3 mg/dL (8.5-10.1) Phosphorus Level 4.7 mg/dL (2.6-4.7) Total Bilirubin 0.4 mg/dL (0.2-1.0) Aspartate Amino Transf (AST/SGOT) 67 U/L (15-37) Alanine Aminotransferase (ALT/SGPT) 83 U/L (14-59) Alkaline Phosphatase 122 U/L (46-116) Total Protein 6.0 g/dL (6.4-8.2) Albumin 2.6 g/dL (3.4-5.0) Albumin/Globulin Ratio 0.8 (1.0-1.7) Test 02/19/20 11:02 02/19/20 11:55 Phosphorus Level 4.2 mg/dL (2.6-4.7) Glucose (Fingerstick) 100 mg/dL (70-99) Comment Review of Relevant I have reviewed the following items lore (where applicable) has been applied. Medications: Current Medications Medications (Trade) Dose Ordered Sig/Jarred Route PRN Reason Start Time Stop Time Status Last Admin Dose Admin Sodium Chloride 1,000 ml @ 25 mls/hr Q24H IV 02/19/20 11:07 02/19/20 11:54 Hydromorphone HCl 30 ml @ 0 mls/hr CONT PRN PRN IV PER PROTOCOL 02/19/20 11:15 02/19/20 11:45 Justifications for Admission Other Justification RANDY CALDWELL MD Feb 19, 2020 13:43
[2020-02-19] MEDS: POTASSIUM CHLORIDE 10MEQ 100 ML IV PRN ×4 (14:06→18:29)
[2020-02-19 15:00] VITALS: BP 115/74
[2020-02-19 19:00] VITALS: BP 126/92
[2020-02-19 23:00] VITALS: BP 129/94
[2020-02-20] MEDS: ONDANSETRON PF 4 MG/2 ML VIAL. IV PRN ×6 (00:41→22:18)
[2020-02-20] MEDS: IV NORMAL SALINE 1000ML BAG 1,000 ML IV SCH ×3 (02:04→15:30)
[2020-02-20 03:00] VITALS: BP 145/105
[2020-02-20 07:00] VITALS: BP 111/83
[2020-02-20] MEDS: INSULIN LISPRO 300 UNITS/3 ML VIAL. SQ SCH ×3 (07:57→16:58)
--- NOTE | 2020-02-20 08:05 | PDOC ---
PROGRESS NOTES Date of Service: DATE: 02/20/20 TIME: 08:00 Chief Complaint Chief Complaint impression Acute pancreatitis Alcoholic hepatitis Hypokalemia ON REPLACEMENT Hyponatremia pancytopenia sec etoh severe alcohol abuse plan IV potassium replacement Increase IV Protonix to twice daily Advance diet to soft diet and hopefully regular diet by dinnertime DC discontinued IV PRN and started IV Dilaudid DIRECTOR SKILLS Appreciate GI recommendations 02/19 pain slow to resolve Lovenox for DVT prophylaxis Protonix GI prophylaxis Soft diet Full code Discussed with RN and SW Disposition inpatient care pending tolerating regular diet Surrogate decision maker is the History of Present Illness History of Present Illness Ms Lewis is a 39-year-old female with past medical history of alcoholism, who presents with complaints of worsening abdominal pain for the past 3 to 4 days prior to admit. She reports cramping epigastric abdominal pain,10/10 at worst. Associated symptoms include nausea and vomiting. She has taken her home tramadol without improvement. She admits to a history of alcoholism and states her last drink was day prior to admit. She denies any fever, hematemesis, diarrhea.ETOH level 401. Lipase 1931, AST 1019, CT with signs of interstitial pancreatitis. 02/13: K 3 today. Na 128, lipase 912, WBC 3.8, platelets 114. Having pain every 2 hours, states pain meds wearing off. No appetite, not passing flatus. Afebrile. 02/14: Afebrile. K 2.7, WBC 2.6, platelets to 88. Lipase 554. LFTs trended downward. Pain still every 2 hours. She is asking for PO 02/15: Patient states her pain has improved from admission. She still has some nausea and vomited once overnight, which she attributes to pain medication.. Discussed with patient that she is able to, attempt clears. 02/16: Patient states her pain is improving, but she still has nausea and one episode of vomiting this morning. States she has not had a bowel movement since admission, but denies any overtly dark stools or bloody stools. Expressed my concern with patient over her dropping hemoglobin levels and history of chronic alcohol abuse. Will consult GI for endoscopy. 02/19/2020 No acute events overnight. Patient continues to have abdominal pain and is frustrated with hospital staff in receiving her pain medications on time and feel like she is imprisoned and not being treated like a patient. Patient does endorse passing flatus and tolerating oatmeal and Jell-O. She does not like the Jell-O but she denies any nausea vomiting. She does endorse epigastric abdominal pain still. She would like to do an endoscopy if GI is willing to do it. Patient's chart, labs, images were reviewed and discussed with RN Vitals Vitals Vital Signs Date Time Temp Pulse Resp B/P (MAP) Pulse Ox O2 Delivery O2 Flow Rate FiO2 02/20/20 03:00 97.6 91 20 145/105 (118) 100 Room Air 97.6 Physical Exam Physical Exam GEN: No apparent distress. Alert and oriented HEENT: Normal cephalic, atraumatic, external auditory canals are patent NECK: Supple, no JVD, no thyromegaly was noted LUNGS: Bilateral crackles HEART: RRR, S1, S2 present. Peripheral pulses intact, no obvious murmurs noted ABDOMEN: Soft, moderate epigastric tenderness. Positive bowel sounds, no organomegaly, normal bowel sounds EXTREMITIES: Needle tracks on upper extremities General: Alert, Oriented X3, Cooperative, No acute distress Heart: Regular rate, Normal S1, Normal S2 Lungs: Clear Abdomen: Soft, No masses, Other (Epigastric tenderness) Extremities: No clubbing, No cyanosis, No edema Skin: No rashes, No significant lesion Labs LABS Exam: CT of abdomen and pelvis with contrast INDICATION: Abdominal pain, distention TECHNIQUE: Sequential axial images through the abdomen and pelvis obtained following the administration of 75 mL of Isovue-370 IV contrast. Sagittal and coronal reformatted images were reconstructed from the axial data and reviewed. Comparisons: 12/27/2019 FINDINGS: Heart size is normal. No pericardial effusion. Visualized lung bases are clear. No pleural effusion. There is diffuse hepatic steatosis. Spleen, and adrenals are unremarkable. Gallbladder surgically absent. There is fat stranding noted at the pancreatic head. No peripancreatic fluid collection. Kidneys demonstrate symmetric enhancement. No perinephric inflammation or hydronephrosis. No renal or ureteral calculi are identified. Bladder is distended and appears thin-walled. Uterus is not enlarged. No abnormal adnexal mass. Large and small bowel are unremarkable. Appendix is not identified. No free intra-abdominal air or fluid. No obstruction. Abdominal aorta has a normal course and caliber. Abdominal vasculature is patent. No enlarged abdominal lymph nodes are identified. No suspicious osseous lesions or acute fractures. IMPRESSION: 1. Findings of acute interstitial pancreatitis. No peripancreatic fluid collection. 2. Diffuse hepatic steatosis. Exposure: One or more of the following in the visualized dose reduction techniques were utilized for this examination: 1. Automated exposure control 2. Adjustment of the MA and/or KV according to patient size 3. Use of iterative of reconstructive technique Electronically signed by: Miles Pratt MD (02/12/2020 8:31 PM) [id number] DICTATED and SIGNED BY: MILES PRATT MD DATE: 02/12/202030 Laboratory Tests Test 02/19/20 11:02 02/19/20 11:55 02/19/20 16:57 02/19/20 21:00 Phosphorus Level 4.2 mg/dL (2.6-4.7) Glucose (Fingerstick) 100 mg/dL (70-99) 164 mg/dL (70-99) 170 mg/dL (70-99) Test 02/20/20 06:15 02/20/20 07:32 Magnesium Level 1.7 mg/dL (1.8-2.4) Glucose (Fingerstick) 115 mg/dL (70-99) Comment Review of Relevant I have reviewed the following items lore (where applicable) has been applied. Labs Laboratory Tests Test 02/18/20 11:38 02/18/20 16:14 02/18/20 19:37 02/19/20 05:45 Glucose (Fingerstick) 133 mg/dL (70-99) 115 mg/dL (70-99) 111 mg/dL (70-99) White Blood Count 3.8 x10^3/uL (4.0-11.0) Red Blood Count 3.29 x10^6/uL (3.50-5.40) Hemoglobin 8.8 g/dL (12.0-15.5) Hematocrit 27.5 % (36.0-47.0) Mean Corpuscular Volume 84 fL (79-100) Mean Corpuscular Hemoglobin 27 pg (25-35) Mean Corpuscular Hemoglobin Concent 32 g/dL (31-37) Red Cell Distribution Width 23.2 % (11.5-14.5) Platelet Count 163 x10^3/uL (140-400) Neutrophils (%) (Auto) 64 % (31-73) Lymphocytes (%) (Auto) 21 % (24-48) Monocytes (%) (Auto) 13 % (0-9) Eosinophils (%) (Auto) 1 % (0-3) Basophils (%) (Auto) 0 % (0-3) Neutrophils # (Auto) 2.4 x10^3/uL (1.8-7.7) Lymphocytes # (Auto) 0.8 x10^3/uL (1.0-4.8) Monocytes # (Auto) 0.5 x10^3/uL (0.0-1.1) Eosinophils # (Auto) 0.0 x10^3/uL (0.0-0.7) Basophils # (Auto) 0.0 x10^3/uL (0.0-0.2) Sodium Level 140 mmol/L (136-145) Potassium Level 3.2 mmol/L (3.5-5.1) Chloride Level 103 mmol/L (98-107) Carbon Dioxide Level 30 mmol/L (21-32) Anion Gap 7 (6-14) Blood Urea Nitrogen 4 mg/dL (7-20) Creatinine 0.5 mg/dL (0.6-1.0) Estimated GFR (Cockcroft-Gault) 138.8 BUN/Creatinine Ratio 8 (6-20) Glucose Level 118 mg/dL (70-99) Calcium Level 8.3 mg/dL (8.5-10.1) Phosphorus Level 4.7 mg/dL (2.6-4.7) Total Bilirubin 0.4 mg/dL (0.2-1.0) Aspartate Amino Transf (AST/SGOT) 67 U/L (15-37) Alanine Aminotransferase (ALT/SGPT) 83 U/L (14-59) Alkaline Phosphatase 122 U/L (46-116) Total Protein 6.0 g/dL (6.4-8.2) Albumin 2.6 g/dL (3.4-5.0) Albumin/Globulin Ratio 0.8 (1.0-1.7) Test 02/19/20 07:41 02/19/20 11:02 02/19/20 11:55 02/19/20 16:57 Glucose (Fingerstick) 137 mg/dL (70-99) 100 mg/dL (70-99) 164 mg/dL (70-99) Phosphorus Level 4.2 mg/dL (2.6-4.7) Test 02/19/20 21:00 02/20/20 06:15 02/20/20 07:32 Glucose (Fingerstick) 170 mg/dL (70-99) 115 mg/dL (70-99) Magnesium Level 1.7 mg/dL (1.8-2.4) Laboratory Tests Test 02/19/20 11:02 02/19/20 11:55 02/19/20 16:57 02/19/20 21:00 Phosphorus Level 4.2 mg/dL (2.6-4.7) Glucose (Fingerstick) 100 mg/dL (70-99) 164 mg/dL (70-99) 170 mg/dL (70-99) Test 02/20/20 06:15 02/20/20 07:32 Magnesium Level 1.7 mg/dL (1.8-2.4) Glucose (Fingerstick) 115 mg/dL (70-99) Medications Current Medications Multivitamins 10 ml/Thiamine HCl 100 mg/Folic Acid 1 mg/Sodium Chloride 1,011.2 ml @ 1,000.088 mls/hr 1X ONCE IV Last administered on 02/12/20at 19:42; Start 02/12/20 at 19:00; Stop 02/12/20 at 20:00; Status DC Famotidine (Pepcid Vial) 20 mg 1X ONCE IVP Last administered on 02/12/20at 19:59; Start 02/12/20 at 20:30; Stop 02/12/20 at 20:31; Status DC Ketorolac Tromethamine (Toradol 15mg Vial) 15 mg 1X ONCE IVP Last administered on 02/12/20at 19:59; Start 02/12/20 at 20:30; Stop 02/12/20 at 20:31; Status DC Iohexol (Omnipaque 300 Mg/ml) 75 ml 1X ONCE IV Last administered on 02/12/20at 20:23; Start 02/12/20 at 20:15; Stop 02/12/20 at 20:16; Status DC Info (CONTRAST GIVEN -- Rx MONITORING) 1 each PRN DAILY PRN MC SEE COMMENTS; Start 02/12/20 at 20:15; Stop 02/14/20 at 20:14; Status DC Fentanyl Citrate (Fentanyl 2ml Vial) 50 mcg 1X ONCE IV Last administered on 02/12/20at 22:12; Start 02/12/20 at 21:30; Stop 02/12/20 at 21:31; Status DC Ondansetron HCl (Zofran) 4 mg PRN Q8HRS PRN IV NAUSEA/VOMITING 1ST CHOICE; Start 02/12/20 at 21:15; Stop 02/12/20 at 21:26; Status DC Fentanyl Citrate (Fentanyl 2ml Vial) 50 mcg PRN Q2HRS PRN IV SEVERE PAIN 7-10 Last administered on 02/13/20at 02:35; Start 02/12/20 at 21:15; Stop 02/13/20 at 03:17; Status DC Sodium Chloride 1,000 ml @ 100 mls/hr 1X ONCE IV Last administered on 02/13/20at 04:46; Start 02/12/20 at 21:15; Stop 02/13/20 at 07:14; Status DC Insulin Human Lispro (HumaLOG) 0-5 UNITS TIDWMEALS SQ ; Start 02/13/20 at 08:00 Dextrose (Dextrose 50%-Water Syringe) 12.5 gm PRN Q15MIN PRN IV SEE COMMENTS; Start 02/12/20 at 21:15 Ondansetron HCl (Zofran) 4 mg PRN Q4HRS PRN IV NAUSEA/VOMITING 1ST CHOICE Last administered on 02/20/20at 06:10; Start 02/12/20 at 21:30 Multivitamins (Thera M Plus) 1 tab DAILY PO Last administered on 02/19/20at 07:54; Start 02/13/20 at 09:00 Folic Acid (Folic Acid) 1 mg DAILY PO Last administered on 02/19/20at 07:54; Start 02/13/20 at 09:00 Thiamine Mononitrate (Vitamin B-1) 100 mg DAILY PO Last administered on 02/19/20at 07:54; Start 02/13/20 at 09:00 Lorazepam (Ativan) 2 mg PRN Q1HR PRN PO For CIWA 8-14 Last administered on 02/17/20at 09:23; Start 02/12/20 at 21:30 Lorazepam (Ativan Inj) 2 mg PRN Q1HR PRN IV For CIWA 8-14 Last administered on 02/19/20at 03:58; Start 02/12/20 at 21:30 Haloperidol Lactate (Haldol Inj) 5 mg PRN Q4HRS PRN IVP Hallucinatns,Confusn,Delirium; Start 02/12/20 at 21:30 Clonidine HCl (Catapres) 0.1 mg PRN Q1HR PRN PO SBP > 180 or DBP > 100, MRX3 Last administered on 02/16/20at 12:39; Start 02/12/20 at 21:30 Hydromorphone HCl (Dilaudid) 0.5 mg PRN Q3HRS PRN IVP SEVERE PAIN 7-10 Last administered on 02/14/20at 08:37; Start 02/13/20 at 03:15; Stop 02/14/20 at 10:21; Status DC Sodium Chloride 1,000 ml @ 75 mls/hr [id number] IV Last administered on 02/20/20at 02:04; Start 02/13/20 at 07:45 Potassium Chloride/Water 100 ml @ 100 mls/hr Q1H IV Last administered on 02/14/20at 16:04; Start 02/14/20 at 10:00; Stop 02/14/20 at 13:59; Status DC Hydromorphone HCl (Dilaudid) 0.5 mg PRN Q2HRS PRN IVP SEVERE PAIN 7-10 Last administered on 02/19/20at 11:09; Start 02/14/20 at 10:30; Stop 02/19/20 at 11:13; Status DC Magnesium Sulfate 100 ml @ 25 mls/hr 1X ONCE IV Last administered on 02/14/20at 18:10; Start 02/14/20 at 10:30; Stop 02/14/20 at 14:29; Status DC Potassium Chloride/Water 100 ml @ 100 mls/hr Q1H IV Last administered on 02/15/20at 07:02; Start 02/15/20 at 07:00; Stop 02/15/20 at 07:59; Status DC Potassium Chloride/Water 100 ml @ 100 mls/hr Q1H IV Last administered on 9/4/20at 15:32; Start 02/15/20 at 08:00; Stop 02/15/20 at 11:59; Status DC Lidocaine HCl (Buffered Lidocaine 1%) 3 ml STK-MED ONCE .ROUTE ; Start 02/15/20 at 10:13; Stop 02/15/20 at 10:13; Status DC Lidocaine HCl (Buffered Lidocaine 1%) 6 ml 1X ONCE INJ Last administered on 02/15/20at 10:49; Start 02/15/20 at 10:45; Stop 02/15/20 at 10:46; Status DC Pantoprazole Sodium (PROTONIX VIAL for IV PUSH) 40 mg DAILY07 IVP Last administered on 02/19/20at 05:44; Start 02/16/20 at 10:00; Stop 02/19/20 at 10:53; Status DC Lorazepam (Ativan Inj) 2 mg PRN Q4HRS PRN IVP ANXIETY / AGITATION Last administered on 02/20/20at 06:10; Start 02/16/20 at 14:00 Potassium Chloride/Water 100 ml @ 100 mls/hr Q1H IV Last administered on 02/17/20at 14:23; Start 02/17/20 at 10:00; Stop 02/17/20 at 13:59; Status DC Potassium Bicarbonate (Potassium Effervescent Tablet) 40 meq 1X PRN PRN FT SEE COMMENTS Last administered on 02/18/20at 10:48; Start 02/18/20 at 09:15 Magnesium Oxide (Magnesium Oxide) 400 mg PRN BID PRN PO SEE COMMENTS; Start 02/18/20 at 21:00 Potassium Chloride/Water 100 ml @ 100 mls/hr PRN Q1HR PRN IV SEE COMMENTS; Start 02/18/20 at 09:15 Magnesium Sulfate 50 ml @ 25 mls/hr PRN DAILY PRN IV SEE COMMENTS; Start 02/18/20 at 09:15 Potassium Phos/ Sodium Phos (Phos-Nak) 1 pkt PRN BID PRN PO SEE COMMENTS; Start 02/18/20 at 21:00 Potassium Bicarbonate (Potassium Effervescent Tablet) 40 meq PRN Q4HRS PRN PO SEE COMMENTS; Start 02/18/20 at 09:15 Potassium Chloride/Water 100 ml @ 100 mls/hr PRN Q1HR PRN IV SEE COMMENTS Last administered on 02/19/20at 18:29; Start 02/18/20 at 09:15; Stop 02/19/20 at 18:29; Status DC Loperamide HCl (Imodium) 2 mg PRN Q8HRS PRN PO DIARRHEA Last administered on 02/18/20at 12:14; Start 02/18/20 at 12:15 Pantoprazole Sodium (PROTONIX VIAL for IV PUSH) 40 mg BID IVP Last administered on 02/19/20at 22:02; Start 02/19/20 at 21:00 Naloxone HCl (Narcan) 0.4 mg PRN Q2MIN PRN IV SEE INSTRUCTIONS; Start 02/19/20 at 11:15 Sodium Chloride 1,000 ml @ 25 mls/hr Q24H IV Last administered on 02/19/20at 11:54; Start 02/19/20 at 11:07 Hydromorphone HCl 30 ml @ 0 mls/hr CONT PRN PRN IV PER PROTOCOL Last administered on 02/19/20at 11:45; Start 02/19/20 at 11:15 Active Scripts Active Tramadol Hcl 50 Mg Tablet 50 Mg PO PRN Q6HRS PRN 5 Days Pantoprazole Sodium (Pantoprazole Sodium) 40 Mg Tablet.dr 40 Mg PO DAILYAC 30 Days [Folic Acid] 1 MG Tablet 1 Mg PO DAILY 30 Days Vitamin B-1 (Thiamine Mononitrate) 100 Mg Tablet 100 Mg PO DAILY 30 Days Reported Ibuprofen 800 Mg Tablet 800 Mg PO DAILY PRN Lisinopril 10 Mg Tablet 10 Mg PO DAILY Vitals/I & O Vital Sign - Last 24 Hours 02/19/20 02/19/20 02/19/20 02/19/20 08:48 11:00 11:09 11:45 Temp 97.8 97.8 Pulse 101 Resp 18 B/P (MAP) 138/86 (103) Pulse Ox 100 O2 Delivery Room Air Room Air Room Air 02/19/20 02/19/20 02/19/20 02/19/20 12:44 15:00 19:00 20:00 Temp 97.9 98.0 97.9 98.0 Pulse 93 92 Resp 18 20 B/P (MAP) 115/74 (88) 126/92 (103) Pulse Ox 97 99 O2 Delivery Room Air Room Air Room Air 02/19/20 02/20/20 23:00 03:00 Temp 98.5 97.6 98.5 97.6 Pulse 90 91 Resp 20 20 B/P (MAP) 129/94 (106) 145/105 (118) Pulse Ox 100 100 O2 Delivery Room Air Room Air Intake and Output 02/19/20 02/19/20 02/20/20 15:00 23:00 07:00 Intake Total 170 ml 120 ml 300 ml Balance 170 ml 120 ml 300 ml Justicifation of Admission Dx: Justifications for Admission: Justification of Admission Dx: Yes Altered Mental Status: Altered Mental Status PATRICIA JEROME MD Feb 20, 2020 08:05
[2020-02-20] MEDS: PANTOPRAZOLE IV PUSH 40 MG VIAL. IVP SCH ×2 (08:26→20:26)
[2020-02-20] MEDS: THIAMINE 100 MG TABLET. PO SCH (08:26)
[2020-02-20] MEDS: MULTIVITAMIN with MINERAL TABLET. PO SCH (08:26)
[2020-02-20] MEDS: FOLIC ACID 1 MG TABLET. PO SCH (08:26)
--- NOTE | 2020-02-20 10:37 | NUR ---
SW following. Spoke with RN and reviewed chart. Pt's diet advanced to GI soft. Pt is now on a POLYMER TESTER pump for her pain. No SW needs.
--- NOTE | 2020-02-20 10:43 | PDOC ---
Date of Service: DATE: 02/20/20 TIME: 10:40 Subjective: Subjective: "Diarrhea all day yesterday" - describes soft stools. Vomited last night - kept oatmeal down this morning. Using LINEN ATTENDANT. Objective: Vital Signs: Vital Signs Date Time Temp Pulse Resp B/P (MAP) Pulse Ox O2 Delivery O2 Flow Rate FiO2 02/20/20 08:10 Room Air 02/20/20 07:00 98.1 93 18 111/83 (92) 99 98.1 Labs: Laboratory Tests Test 02/19/20 11:02 02/19/20 11:55 02/19/20 16:57 02/19/20 21:00 Phosphorus Level 4.2 mg/dL Glucose (Fingerstick) 100 mg/dL 164 mg/dL 170 mg/dL Test 02/20/20 06:15 02/20/20 07:32 Magnesium Level 1.7 mg/dL Glucose (Fingerstick) 115 mg/dL PE: GEN: NAD - in bed w/ boyfriend LUNGS: clear anteriorly HEART: RRR ABD: some distention, quiet BS, vague discomfort NEURO/PSYCH: A & O 3 A/P: Alcoholic pancreatitis and hepatitis Pancytopenia/TOMY GERD - on PPI -- Tolerating some food this morning. Note labs ordered for tomorrow. Continue support. Pain control per primary. Justicifation of Admission Dx: Justifications for Admission: Justification of Admission Dx: Yes Altered Mental Status: Altered Mental Status TRACY GIL Feb 20, 2020 10:43
[2020-02-20 11:00] VITALS: BP_SYST 103; BP_SYST 158; BP_DIAS 78; BP_DIAS 94
[2020-02-20 15:00] VITALS: BP 112/80
[2020-02-20 19:00] VITALS: BP 134/92
[2020-02-20 20:48] LABS: CREATININE 0.6 mg/dL (0.6-1.0); GFR 112.5; MAGNESIUM 1.5 mg/dL (1.8-2.4); POTASSIUM 3.6 mmol/L (3.5-5.1)
[2020-02-20] MEDS ORDERED: MAGNESIUM SULFATE 2GM 50 ML IV ONE (21:30)
[2020-02-20 22:34] VITALS: BP 135/82
[2020-02-21] MEDS: HYDROmorphone 12mg/30ml PCA 30 ML IV PRN (01:07)
[2020-02-21 03:00] VITALS: BP 137/96
--- NOTE | 2020-02-21 03:49 | NUR ---
Pt called via call light and told this RN that she hit her rt cheek against the door when she tripped/fell going to the restroom. Noted redness to right cheek. v/s checked. Provided ice pack. Instructed pt to call when she needs to go to the restroom. Dr Cherry notified. Street Light Wirer notified.
[2020-02-21] MEDS ORDERED: KETOROLAC 30 MG/ML VIAL. IVP PRN (04:00)
[2020-02-21] MEDS: IV NORMAL SALINE 1000ML BAG 1,000 ML IV SCH (04:25)
[2020-02-21] MEDS ORDERED: ACETAMINOPHEN 325 MG TABLET. PO PRN (04:30)
[2020-02-21 05:23] LABS: BASO % 1 % (0-3); EOS # 0.1 x10^3/uL (0.0-0.7); EOS % 1 % (0-3); HEMOGLOBIN 8.4 g/dL (12.0-15.5); LYMPH # 0.8 x10^3/uL (1.0-4.8); LYMPH % 19 % (24-48); MEAN CORPUSCULAR HEMOGLOBIN 26 pg (25-35); MEAN CORPUSCULAR HGB CONC 31 g/dL (31-37); MEAN CORPUSCULAR VOLUME 84 fL (79-100); MONO # 0.8 x10^3/uL (0.0-1.1); MONO % 20 % (0-9); NEUT # 2.5 x10^3/uL (1.8-7.7); NEUT % 59 % (31-73); PLATELET COUNT 259 x10^3/uL (140-400); RED BLOOD COUNT 3.22 x10^6/uL (3.50-5.40); RED CELL DISTRIBUTION WIDTH 23.1 % (11.5-14.5); WHITE BLOOD COUNT 4.2 x10^3/uL (4.0-11.0)
[2020-02-21 06:10] LABS: ALBUMIN 2.6 g/dL (3.4-5.0); ALBUMIN/GLOBULIN RATIO 0.7 (1.0-1.7); CALCIUM 8.3 mg/dL (8.5-10.1); CREATININE 0.5 mg/dL (0.6-1.0); GFR 138.8; POTASSIUM 3.5 mmol/L (3.5-5.1); TOTAL BILIRUBIN 0.3 mg/dL (0.2-1.0); TOTAL PROTEIN 6.2 g/dL (6.4-8.2)
[2020-02-21 07:00] VITALS: BP 95/57
[2020-02-21] MEDS: INSULIN LISPRO 300 UNITS/3 ML VIAL. SQ SCH (08:00)
--- NOTE | 2020-02-21 08:22 | PDOC ---
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 Appreciate GI recommendations 02/19 pain slow to resolve 02/20 d/c kiss mixer, lipase much improved, emesis yesterday, FEELS BETTER TODAY NO WITHDRAWAL symptoms, had contusion right face, can see well Lovenox for DVT prophylaxis Protonix GI prophylaxis Soft diet Full code Discussed with RN and SW Disposition inpatient care pending tolerating regular diet Surrogate decision maker is the NEEDS DPOA AGREES TO NO ALCOHOL INTAKE D/C PLANNING 33 MIN History of Present Illness History of Present Illness Ms Lewis is a 39-year-old female with past medical history of alcoholism, who presents with complaints of worsening abdominal pain for the past 3 to 4 days prior to admit. She reports cramping epigastric abdominal pain,10/10 at worst. Associated symptoms include nausea and vomiting. She has taken her home tramadol without improvement. She admits to a history of alcoholism and states her last drink was day prior to admit. She denies any fever, hematemesis, diarrhea.ETOH level 401. Lipase 1931, AST 1019, CT with signs of interstitial pancreatitis. 02/13: K 3 today. Na 128, lipase 912, WBC 3.8, platelets 114. Having pain every 2 hours, states pain meds wearing off. No appetite, not passing flatus. Afebrile. 02/14: Afebrile. K 2.7, WBC 2.6, platelets to 88. Lipase 554. LFTs trended downward. Pain still every 2 hours. She is asking for PO 02/15: Patient states her pain has improved from admission. She still has some nausea and vomited once overnight, which she attributes to pain medication.. Discussed with patient that she is able to, attempt clears. 02/16: Patient states her pain is improving, but she still has nausea and one episode of vomiting this morning. States she has not had a bowel movement since admission, but denies any overtly dark stools or bloody stools. Expressed my concern with patient over her dropping hemoglobin levels and history of chronic alcohol abuse. Will consult GI for endoscopy. 02/19/2020 No acute events overnight. Patient continues to have abdominal pain and is frustrated with hospital staff in receiving her pain medications on time and feel like she is imprisoned and not being treated like a patient. Patient does endorse passing flatus and tolerating oatmeal and Jell-O. She does not like the Jell-O but she denies any nausea vomiting. She does endorse epigastric abdominal pain still. She would like to do an endoscopy if GI is willing to do it. Patient's chart, labs, images were reviewed and discussed with RN Vitals Vitals Vital Signs Date Time Temp Pulse Resp B/P (MAP) Pulse Ox O2 Delivery O2 Flow Rate FiO2 02/21/20 03:00 99.3 104 20 137/96 (110) 97 Room Air 99.3 Physical Exam Physical Exam GEN: No apparent distress. Alert and oriented HEENT: Normal cephalic, atraumatic, external auditory canals are patent PERRLA, EOMI NECK: Supple, no JVD, no thyromegaly was noted LUNGS: CTA HEART: RRR, S1, S2 present. Peripheral pulses intact, no obvious murmurs noted ABDOMEN: Soft, moderate epigastric tenderness. Positive bowel sounds, no organomegaly, normal bowel sounds EXTREMITIES: Needle tracks on upper extremities General: Alert, Oriented X3, Cooperative, No acute distress Heart: Regular rate, Normal S1, Normal S2 Lungs: Clear Abdomen: Normal bowel sounds, Soft, No tenderness, No masses, Other (Epigastric tenderness) Extremities: No clubbing, No cyanosis, No edema Skin: No rashes, No breakdown, No significant lesion Labs LABS Laboratory Tests Test 02/20/20 11:49 02/20/20 16:50 02/20/20 20:01 02/20/20 20:30 Glucose (Fingerstick) 127 mg/dL (70-99) 109 mg/dL (70-99) 148 mg/dL (70-99) Sodium Level 138 mmol/L (136-145) Potassium Level 3.6 mmol/L (3.5-5.1) Chloride Level 103 mmol/L (98-107) Carbon Dioxide Level 28 mmol/L (21-32) Anion Gap 7 (6-14) Blood Urea Nitrogen 4 mg/dL (7-20) Creatinine 0.6 mg/dL (0.6-1.0) Estimated GFR (Cockcroft-Gault) 112.5 Glucose Level 120 mg/dL (70-99) Calcium Level 8.0 mg/dL (8.5-10.1) Magnesium Level 1.5 mg/dL (1.8-2.4) Test 02/21/20 04:40 02/21/20 08:08 White Blood Count 4.2 x10^3/uL (4.0-11.0) Red Blood Count 3.22 x10^6/uL (3.50-5.40) Hemoglobin 8.4 g/dL (12.0-15.5) Hematocrit 27.0 % (36.0-47.0) Mean Corpuscular Volume 84 fL (79-100) Mean Corpuscular Hemoglobin 26 pg (25-35) Mean Corpuscular Hemoglobin Concent 31 g/dL (31-37) Red Cell Distribution Width 23.1 % (11.5-14.5) Platelet Count 259 x10^3/uL (140-400) Neutrophils (%) (Auto) 59 % (31-73) Lymphocytes (%) (Auto) 19 % (24-48) Monocytes (%) (Auto) 20 % (0-9) Eosinophils (%) (Auto) 1 % (0-3) Basophils (%) (Auto) 1 % (0-3) Neutrophils # (Auto) 2.5 x10^3/uL (1.8-7.7) Lymphocytes # (Auto) 0.8 x10^3/uL (1.0-4.8) Monocytes # (Auto) 0.8 x10^3/uL (0.0-1.1) Eosinophils # (Auto) 0.1 x10^3/uL (0.0-0.7) Basophils # (Auto) 0.0 x10^3/uL (0.0-0.2) Sodium Level 139 mmol/L (136-145) Potassium Level 3.5 mmol/L (3.5-5.1) Chloride Level 104 mmol/L (98-107) Carbon Dioxide Level 27 mmol/L (21-32) Anion Gap 8 (6-14) Blood Urea Nitrogen 5 mg/dL (7-20) Creatinine 0.5 mg/dL (0.6-1.0) Estimated GFR (Cockcroft-Gault) 138.8 BUN/Creatinine Ratio 10 (6-20) Glucose Level 108 mg/dL (70-99) Calcium Level 8.3 mg/dL (8.5-10.1) Magnesium Level 2.1 mg/dL (1.8-2.4) Total Bilirubin 0.3 mg/dL (0.2-1.0) Aspartate Amino Transf (AST/SGOT) 45 U/L (15-37) Alanine Aminotransferase (ALT/SGPT) 61 U/L (14-59) Alkaline Phosphatase 112 U/L (46-116) Total Protein 6.2 g/dL (6.4-8.2) Albumin 2.6 g/dL (3.4-5.0) Albumin/Globulin Ratio 0.7 (1.0-1.7) Lipase 126 U/L (73-393) Glucose (Fingerstick) 122 mg/dL (70-99) Comment Review of Relevant I have reviewed the following items lore (where applicable) has been applied. Labs Laboratory Tests Test 02/19/20 11:02 02/19/20 11:55 02/19/20 16:57 02/19/20 21:00 Phosphorus Level 4.2 mg/dL (2.6-4.7) Glucose (Fingerstick) 100 mg/dL (70-99) 164 mg/dL (70-99) 170 mg/dL (70-99) Test 02/20/20 06:15 02/20/20 07:32 02/20/20 11:49 02/20/20 16:50 Magnesium Level 1.7 mg/dL (1.8-2.4) Glucose (Fingerstick) 115 mg/dL (70-99) 127 mg/dL (70-99) 109 mg/dL (70-99) Test 02/20/20 20:01 02/20/20 20:30 02/21/20 04:40 02/21/20 08:08 Glucose (Fingerstick) 148 mg/dL (70-99) 122 mg/dL (70-99) Sodium Level 138 mmol/L (136-145) 139 mmol/L (136-145) Potassium Level 3.6 mmol/L (3.5-5.1) 3.5 mmol/L (3.5-5.1) Chloride Level 103 mmol/L (98-107) 104 mmol/L (98-107) Carbon Dioxide Level 28 mmol/L (21-32) 27 mmol/L (21-32) Anion Gap 7 (6-14) 8 (6-14) Blood Urea Nitrogen 4 mg/dL (7-20) 5 mg/dL (7-20) Creatinine 0.6 mg/dL (0.6-1.0) 0.5 mg/dL (0.6-1.0) Estimated GFR (Cockcroft-Gault) 112.5 138.8 Glucose Level 120 mg/dL (70-99) 108 mg/dL (70-99) Calcium Level 8.0 mg/dL (8.5-10.1) 8.3 mg/dL (8.5-10.1) Magnesium Level 1.5 mg/dL (1.8-2.4) 2.1 mg/dL (1.8-2.4) White Blood Count 4.2 x10^3/uL (4.0-11.0) Red Blood Count 3.22 x10^6/uL (3.50-5.40) Hemoglobin 8.4 g/dL (12.0-15.5) Hematocrit 27.0 % (36.0-47.0) Mean Corpuscular Volume 84 fL (79-100) Mean Corpuscular Hemoglobin 26 pg (25-35) Mean Corpuscular Hemoglobin Concent 31 g/dL (31-37) Red Cell Distribution Width 23.1 % (11.5-14.5) Platelet Count 259 x10^3/uL (140-400) Neutrophils (%) (Auto) 59 % (31-73) Lymphocytes (%) (Auto) 19 % (24-48) Monocytes (%) (Auto) 20 % (0-9) Eosinophils (%) (Auto) 1 % (0-3) Basophils (%) (Auto) 1 % (0-3) Neutrophils # (Auto) 2.5 x10^3/uL (1.8-7.7) Lymphocytes # (Auto) 0.8 x10^3/uL (1.0-4.8) Monocytes # (Auto) 0.8 x10^3/uL (0.0-1.1) Eosinophils # (Auto) 0.1 x10^3/uL (0.0-0.7) Basophils # (Auto) 0.0 x10^3/uL (0.0-0.2) BUN/Creatinine Ratio 10 (6-20) Total Bilirubin 0.3 mg/dL (0.2-1.0) Aspartate Amino Transf (AST/SGOT) 45 U/L (15-37) Alanine Aminotransferase (ALT/SGPT) 61 U/L (14-59) Alkaline Phosphatase 112 U/L (46-116) Total Protein 6.2 g/dL (6.4-8.2) Albumin 2.6 g/dL (3.4-5.0) Albumin/Globulin Ratio 0.7 (1.0-1.7) Lipase 126 U/L (73-393) Laboratory Tests Test 02/20/20 11:49 02/20/20 16:50 02/20/20 20:01 02/20/20 20:30 Glucose (Fingerstick) 127 mg/dL (70-99) 109 mg/dL (70-99) 148 mg/dL (70-99) Sodium Level 138 mmol/L (136-145) Potassium Level 3.6 mmol/L (3.5-5.1) Chloride Level 103 mmol/L (98-107) Carbon Dioxide Level 28 mmol/L (21-32) Anion Gap 7 (6-14) Blood Urea Nitrogen 4 mg/dL (7-20) Creatinine 0.6 mg/dL (0.6-1.0) Estimated GFR (Cockcroft-Gault) 112.5 Glucose Level 120 mg/dL (70-99) Calcium Level 8.0 mg/dL (8.5-10.1) Magnesium Level 1.5 mg/dL (1.8-2.4) Test 02/21/20 04:40 02/21/20 08:08 White Blood Count 4.2 x10^3/uL (4.0-11.0) Red Blood Count 3.22 x10^6/uL (3.50-5.40) Hemoglobin 8.4 g/dL (12.0-15.5) Hematocrit 27.0 % (36.0-47.0) Mean Corpuscular Volume 84 fL (79-100) Mean Corpuscular Hemoglobin 26 pg (25-35) Mean Corpuscular Hemoglobin Concent 31 g/dL (31-37) Red Cell Distribution Width 23.1 % (11.5-14.5) Platelet Count 259 x10^3/uL (140-400) Neutrophils (%) (Auto) 59 % (31-73) Lymphocytes (%) (Auto) 19 % (24-48) Monocytes (%) (Auto) 20 % (0-9) Eosinophils (%) (Auto) 1 % (0-3) Basophils (%) (Auto) 1 % (0-3) Neutrophils # (Auto) 2.5 x10^3/uL (1.8-7.7) Lymphocytes # (Auto) 0.8 x10^3/uL (1.0-4.8) Monocytes # (Auto) 0.8 x10^3/uL (0.0-1.1) Eosinophils # (Auto) 0.1 x10^3/uL (0.0-0.7) Basophils # (Auto) 0.0 x10^3/uL (0.0-0.2) Sodium Level 139 mmol/L (136-145) Potassium Level 3.5 mmol/L (3.5-5.1) Chloride Level 104 mmol/L (98-107) Carbon Dioxide Level 27 mmol/L (21-32) Anion Gap 8 (6-14) Blood Urea Nitrogen 5 mg/dL (7-20) Creatinine 0.5 mg/dL (0.6-1.0) Estimated GFR (Cockcroft-Gault) 138.8 BUN/Creatinine Ratio 10 (6-20) Glucose Level 108 mg/dL (70-99) Calcium Level 8.3 mg/dL (8.5-10.1) Magnesium Level 2.1 mg/dL (1.8-2.4) Total Bilirubin 0.3 mg/dL (0.2-1.0) Aspartate Amino Transf (AST/SGOT) 45 U/L (15-37) Alanine Aminotransferase (ALT/SGPT) 61 U/L (14-59) Alkaline Phosphatase 112 U/L (46-116) Total Protein 6.2 g/dL (6.4-8.2) Albumin 2.6 g/dL (3.4-5.0) Albumin/Globulin Ratio 0.7 (1.0-1.7) Lipase 126 U/L (73-393) Glucose (Fingerstick) 122 mg/dL (70-99) Medications Current Medications Multivitamins 10 ml/Thiamine HCl 100 mg/Folic Acid 1 mg/Sodium Chloride 1,011.2 ml @ 1,000.088 mls/hr 1X ONCE IV Last administered on 02/12/20at 19:42; Start 02/12/20 at 19:00; Stop 02/12/20 at 20:00; Status DC Famotidine (Pepcid Vial) 20 mg 1X ONCE IVP Last administered on 02/12/20at 19:59; Start 02/12/20 at 20:30; Stop 02/12/20 at 20:31; Status DC Ketorolac Tromethamine (Toradol 15mg Vial) 15 mg 1X ONCE IVP Last administered on 02/12/20at 19:59; Start 02/12/20 at 20:30; Stop 02/12/20 at 20:31; Status DC Iohexol (Omnipaque 300 Mg/ml) 75 ml 1X ONCE IV Last administered on 02/12/20at 20:23; Start 02/12/20 at 20:15; Stop 02/12/20 at 20:16; Status DC Info (CONTRAST GIVEN -- Rx MONITORING) 1 each PRN DAILY PRN MC SEE COMMENTS; Start 02/12/20 at 20:15; Stop 02/14/20 at 20:14; Status DC Fentanyl Citrate (Fentanyl 2ml Vial) 50 mcg 1X ONCE IV Last administered on 02/12/20at 22:12; Start 02/12/20 at 21:30; Stop 02/12/20 at 21:31; Status DC Ondansetron HCl (Zofran) 4 mg PRN Q8HRS PRN IV NAUSEA/VOMITING 1ST CHOICE; Start 02/12/20 at 21:15; Stop 02/12/20 at 21:26; Status DC Fentanyl Citrate (Fentanyl 2ml Vial) 50 mcg PRN Q2HRS PRN IV SEVERE PAIN 7-10 Last administered on 02/13/20at 02:35; Start 02/12/20 at 21:15; Stop 02/13/20 at 03:17; Status DC Sodium Chloride 1,000 ml @ 100 mls/hr 1X ONCE IV Last administered on 02/13/20 04:46; Start 02/12/20 at 21:15; Stop 02/13/20 at 07:14; Status DC Insulin Human Lispro (HumaLOG) 0-5 UNITS TIDWMEALS SQ ; Start 02/13/20 at 08:00 Dextrose (Dextrose 50%-Water Syringe) 12.5 gm PRN Q15MIN PRN IV SEE COMMENTS; Start 02/12/20 at 21:15 Ondansetron HCl (Zofran) 4 mg PRN Q4HRS PRN IV NAUSEA/VOMITING 1ST CHOICE Last administered on 02/20/20 22:18; Start 02/12/20 at 21:30 Multivitamins (Thera M Plus) 1 tab DAILY PO Last administered on 02/20/20 08:26; Start 02/13/20 at 09:00 Folic Acid (Folic Acid) 1 mg DAILY PO Last administered on 02/20/20 08:26; Start 02/13/20 at 09:00 Thiamine Mononitrate (Vitamin B-1) 100 mg DAILY PO Last administered on 02/20/20 08:26; Start 02/13/20 at 09:00 Lorazepam (Ativan) 2 mg PRN Q1HR PRN PO For CIWA 8-14 Last administered on 02/17/20 09:23; Start 02/12/20 at 21:30 Lorazepam (Ativan Inj) 2 mg PRN Q1HR PRN IV For CIWA 8-14 Last administered on 02/19/20 03:58; Start 02/12/20 at 21:30 Haloperidol Lactate (Haldol Inj) 5 mg PRN Q4HRS PRN IVP Hallucinatns,Confusn,Delirium; Start 02/12/20 at 21:30 Clonidine HCl (Catapres) 0.1 mg PRN Q1HR PRN PO SBP > 180 or DBP > 100, MRX3 Last administered on 02/16/20 12:39; Start 02/12/20 at 21:30 Hydromorphone HCl (Dilaudid) 0.5 mg PRN Q3HRS PRN IVP SEVERE PAIN 7-10 Last administered on 02/14/20 08:37; Start 02/13/20 at 03:15; Stop 02/14/20 at 10:21; Status DC Sodium Chloride 1,000 ml @ 75 mls/hr [id number] IV Last administered on 02/21/20at 04:25; Start 02/13/20 at 07:45 Potassium Chloride/Water 100 ml @ 100 mls/hr Q1H IV Last administered on 02/14/20at 16:04; Start 02/14/20 at 10:00; Stop 02/14/20 at 13:59; Status DC Hydromorphone HCl (Dilaudid) 0.5 mg PRN Q2HRS PRN IVP SEVERE PAIN 7-10 Last administered on 02/19/20at 11:09; Start 02/14/20 at 10:30; Stop 02/19/20 at 11:13; Status DC Magnesium Sulfate 100 ml @ 25 mls/hr 1X ONCE IV Last administered on 02/14/20at 18:10; Start 02/14/20 at 10:30; Stop 02/14/20 at 14:29; Status DC Potassium Chloride/Water 100 ml @ 100 mls/hr Q1H IV Last administered on 02/15/20at 07:02; Start 02/15/20 at 07:00; Stop 02/15/20 at 07:59; Status DC Potassium Chloride/Water 100 ml @ 100 mls/hr Q1H IV Last administered on 02/15/20at 15:32; Start 02/15/20 at 08:00; Stop 02/15/20 at 11:59; Status DC Lidocaine HCl (Buffered Lidocaine 1%) 3 ml STK-MED ONCE .ROUTE ; Start 02/15/20 at 10:13; Stop 02/15/20 at 10:13; Status DC Lidocaine HCl (Buffered Lidocaine 1%) 6 ml 1X ONCE INJ Last administered on 02/15/20at 10:49; Start 02/15/20 at 10:45; Stop 02/15/20 at 10:46; Status DC Pantoprazole Sodium (PROTONIX VIAL for IV PUSH) 40 mg DAILY07 IVP Last administered on 02/19/20at 05:44; Start 02/16/20 at 10:00; Stop 02/19/20 at 10:53; Status DC Lorazepam (Ativan Inj) 2 mg PRN Q4HRS PRN IVP ANXIETY / AGITATION Last administered on 02/21/20at 02:23; Start 02/16/20 at 14:00; Stop 02/21/20 at 04:00; Status DC Potassium Chloride/Water 100 ml @ 100 mls/hr Q1H IV Last administered on 02/17/20at 14:23; Start 02/17/20 at 10:00; Stop 02/17/20 at 13:59; Status DC Potassium Bicarbonate (Potassium Effervescent Tablet) 40 meq 1X PRN PRN FT SEE COMMENTS Last administered on 02/18/20at 10:48; Start 02/18/20 at 09:15 Magnesium Oxide (Magnesium Oxide) 400 mg PRN BID PRN PO SEE COMMENTS Last administered on 02/20/20at 08:26; Start 02/18/20 at 21:00 Potassium Chloride/Water 100 ml @ 100 mls/hr PRN Q1HR PRN IV SEE COMMENTS; Start 02/18/20 at 09:15 Magnesium Sulfate 50 ml @ 25 mls/hr PRN DAILY PRN IV SEE COMMENTS; Start 02/18/20 at 09:15 Potassium Phos/ Sodium Phos (Phos-Nak) 1 pkt PRN BID PRN PO SEE COMMENTS; Start 02/18/20 at 21:00 Potassium Bicarbonate (Potassium Effervescent Tablet) 40 meq PRN Q4HRS PRN PO SEE COMMENTS; Start 02/18/20 at 09:15 Potassium Chloride/Water 100 ml @ 100 mls/hr PRN Q1HR PRN IV SEE COMMENTS Last administered on 02/19/20at 18:29; Start 02/18/20 at 09:15; Stop 02/19/20 at 18:29; Status DC Loperamide HCl (Imodium) 2 mg PRN Q8HRS PRN PO DIARRHEA Last administered on 02/18/20at 12:14; Start 02/18/20 at 12:15 Pantoprazole Sodium (PROTONIX VIAL for IV PUSH) 40 mg BID IVP Last administered on 02/20/20at 20:26; Start 02/19/20 at 21:00 Naloxone HCl (Narcan) 0.4 mg PRN Q2MIN PRN IV SEE INSTRUCTIONS; Start 02/19/20 at 11:15; Stop 02/21/20 at 04:00; Status DC Sodium Chloride 1,000 ml @ 25 mls/hr Q24H IV Last administered on 02/19/20at 11:54; Start 02/19/20 at 11:07; Stop 02/21/20 at 04:00; Status DC Hydromorphone HCl 30 ml @ 0 mls/hr CONT PRN PRN IV PER PROTOCOL Last administer ed on 02/21/20at 01:07; Start 02/19/20 at 11:15; Stop 02/21/20 at 04:00; Status DC Magnesium Sulfate 50 ml @ 25 mls/hr 1X ONCE IV Last administered on 02/20/20at 22:19; Start 02/20/20 at 21:30; Stop 02/20/20 at 23:29; Status DC Lorazepam (Ativan) 1 mg PRN Q4HRS PRN PO ANXIETY / AGITATION; Start 02/21/20 at 04:00 Ketorolac Tromethamine (Toradol 30mg Vial) 30 mg PRN Q8HRS PRN IVP MODERATE PAIN 4-6 Last administered on 02/21/20at 04:26; Start 02/21/20 at 04:00; Stop 02/26/20 at 03:59 Acetaminophen (Tylenol) 650 mg PRN Q6HRS PRN PO MILD PAIN 1-3; Start 02/21/20 at 04:30 Active Scripts Active Tramadol Hcl 50 Mg Tablet 50 Mg PO PRN Q6HRS PRN 5 Days Pantoprazole Sodium (Pantoprazole Sodium) 40 Mg Tablet.dr 40 Mg PO DAILYAC 30 Days [Folic Acid] 1 MG Tablet 1 Mg PO DAILY 30 Days Vitamin B-1 (Thiamine Mononitrate) 100 Mg Tablet 100 Mg PO DAILY 30 Days Reported Ibuprofen 800 Mg Tablet 800 Mg PO DAILY PRN Lisinopril 10 Mg Tablet 10 Mg PO DAILY Vitals/I & O Vital Sign - Last 24 Hours 02/20/20 02/20/20 02/20/20 02/20/20 11:00 15:00 19:00 20:00 Temp 98.8 98.1 98.1 98.8 98.1 98.1 Pulse 89 95 95 Resp 18 18 21 B/P (MAP) 103/78 (86) 112/80 (91) 134/92 (106) Pulse Ox 98 97 99 O2 Delivery Room Air Room Air 9/9/20 9/10/20 9/10/20 22:34 01:07 03:00 Temp 98.2 99.3 98.2 99.3 Pulse 102 104 Resp 21 16 20 B/P (MAP) 135/82 (99) 137/96 (110) Pulse Ox 100 100 97 O2 Delivery Room Air Room Air Room Air Intake and Output 02/20/20 02/20/20 02/21/20 15:00 23:00 07:00 Intake Total 2000 ml 1000 ml Balance 2000 ml 1000 ml Justicifation of Admission Dx: Justifications for Admission: Justification of Admission Dx: Yes Altered Mental Status: Altered Mental Status PATRICIA JEROME MD Feb 21, 2020 08:22
[2020-02-21] MEDS: FOLIC ACID 1 MG TABLET. PO SCH (09:34)
[2020-02-21] MEDS: PANTOPRAZOLE IV PUSH 40 MG VIAL. IVP SCH (09:34)
[2020-02-21] MEDS: MULTIVITAMIN with MINERAL TABLET. PO SCH (09:34)
[2020-02-21] MEDS: THIAMINE 100 MG TABLET. PO SCH (09:34)
--- NOTE | 2020-02-21 09:38 | PDOC3 ---
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 She reports cramping epigastric abdominal pain,10/10 at worst. Associated symptoms include nausea and vomiting. She has taken her home tramadol without improvement. She admits to a history of alcoholism and states her last drink was day prior to admit. She denies any fever, hematemesis, diarrhea.ETOH level 401. Lipase 1931, AST 1019, CT with signs of interstitial pancreatitis. 02/13: K 3 today. Na 128, lipase 912, WBC 3.8, platelets 114. Having pain every 2 hours, states pain meds wearing off. No appetite, not passing flatus. Afebrile. 02/14: Afebrile. K 2.7, WBC 2.6, platelets to 88. Lipase 554. LFTs trended downward. Pain still every 2 hours. She is asking for PO 02/15: Patient states her pain has improved from admission. She still has some nausea and vomited once overnight, which she attributes to pain medication.. Discussed with patient that she is able to, attempt clears. 02/16: Patient states her pain is improving, but she still has nausea and one episode of vomiting this morning. States she has not had a bowel movement since admission, but denies any overtly dark stools or bloody stools. Expressed my concern with patient over her dropping hemoglobin levels and history of chronic alcohol abuse. Will consult GI for endoscopy. 02/19/2020 No acute events overnight. Patient continues to have abdominal pain and is frustrated with hospital staff in receiving her pain medications on time and feel like she is imprisoned and not being treated like a patient. Patient does endorse passing flatus and tolerating oatmeal and Jell-O. She does not like the Jell-O but she denies any nausea vomiting. She does endorse epigastric abdominal pain still. She would like to do an endoscopy if GI is willing to do it. Patient's chart, labs, images were reviewed and discussed with RN Brief Hospital Course Ms. Lewis is a 39 old [sex] who presented with [ ] Discharge Medications Current Medications Multivitamins 10 ml/Thiamine HCl 100 mg/Folic Acid 1 mg/Sodium Chloride 1,011.2 ml @ 1,000.088 mls/hr 1X ONCE IV Last administered on 02/12/20at 19:42; Start 02/12/20 at 19:00; Stop 02/12/20 at 20:00; Status DC Famotidine (Pepcid Vial) 20 mg 1X ONCE IVP Last administered on 02/12/20at 19:59; Start 02/12/20 at 20:30; Stop 02/12/20 at 20:31; Status DC Ketorolac Tromethamine (Toradol 15mg Vial) 15 mg 1X ONCE IVP Last administered on 02/12/20at 19:59; Start 02/12/20 at 20:30; Stop 02/12/20 at 20:31; Status DC Iohexol (Omnipaque 300 Mg/ml) 75 ml 1X ONCE IV Last administered on 02/12/20at 20:23; Start 02/12/20 at 20:15; Stop 02/12/20 at 20:16; Status DC Info (CONTRAST GIVEN -- Rx MONITORING) 1 each PRN DAILY PRN MC SEE COMMENTS; Start 02/12/20 at 20:15; Stop 02/14/20 at 20:14; Status DC Fentanyl Citrate (Fentanyl 2ml Vial) 50 mcg 1X ONCE IV Last administered on 02/12/20at 22:12; Start 02/12/20 at 21:30; Stop 02/12/20 at 21:31; Status DC Ondansetron HCl (Zofran) 4 mg PRN Q8HRS PRN IV NAUSEA/VOMITING 1ST CHOICE; Start 02/12/20 at 21:15; Stop 02/12/20 at 21:26; Status DC Fentanyl Citrate (Fentanyl 2ml Vial) 50 mcg PRN Q2HRS PRN IV SEVERE PAIN 7-10 Last administered on 02/13/20at 02:35; Start 02/12/20 at 21:15; Stop 02/13/20 at 03:17; Status DC Sodium Chloride 1,000 ml @ 100 mls/hr 1X ONCE IV Last administered on 02/13/20at 04:46; Start 02/12/20 at 21:15; Stop 02/13/20 at 07:14; Status DC Insulin Human Lispro (HumaLOG) 0-5 UNITS TIDWMEALS SQ ; Start 02/13/20 at 08:00 Dextrose (Dextrose 50%-Water Syringe) 12.5 gm PRN Q15MIN PRN IV SEE COMMENTS; Start 02/12/20 at 21:15 Ondansetron HCl (Zofran) 4 mg PRN Q4HRS PRN IV NAUSEA/VOMITING 1ST CHOICE Last administered on 02/20/20at 22:18; Start 02/12/20 at 21:30 Multivitamins (Thera M Plus) 1 tab DAILY PO Last administered on 02/20/20 08:26; Start 02/13/20 at 09:00 Folic Acid (Folic Acid) 1 mg DAILY PO Last administered on 02/20/20at 08:26; Start 02/13/20 at 09:00 Thiamine Mononitrate (Vitamin B-1) 100 mg DAILY PO Last administered on 02/20/20at 08:26; Start 02/13/20 at 09:00 Lorazepam (Ativan) 2 mg PRN Q1HR PRN PO For CIWA 8-14 Last administered on 02/17/20at 09:23; Start 02/12/20 at 21:30 Lorazepam (Ativan Inj) 2 mg PRN Q1HR PRN IV For CIWA 8-14 Last administered on 02/19/20at 03:58; Start 02/12/20 at 21:30 Haloperidol Lactate (Haldol Inj) 5 mg PRN Q4HRS PRN IVP Hallucinatns,Confusn,Delirium; Start 02/12/20 at 21:30 Clonidine HCl (Catapres) 0.1 mg PRN Q1HR PRN PO SBP > 180 or DBP > 100, MRX3 Last administered on 02/16/20at 12:39; Start 02/12/20 at 21:30 Hydromorphone HCl (Dilaudid) 0.5 mg PRN Q3HRS PRN IVP SEVERE PAIN 7-10 Last administered on 02/14/20at 08:37; Start 02/13/20 at 03:15; Stop 02/14/20 at 10:21; Status DC Sodium Chloride 1,000 ml @ 75 mls/hr [id number] IV Last administered on 02/21/20at 04:25; Start 02/13/20 at 07:45 Potassium Chloride/Water 100 ml @ 100 mls/hr Q1H IV Last administered on 02/14/20at 16:04; Start 02/14/20 at 10:00; Stop 02/14/20 at 13:59; Status DC Hydromorphone HCl (Dilaudid) 0.5 mg PRN Q2HRS PRN IVP SEVERE PAIN 7-10 Last administered on 02/19/20at 11:09; Start 02/14/20 at 10:30; Stop 02/19/20 at 11:13; Status DC Magnesium Sulfate 100 ml @ 25 mls/hr 1X ONCE IV Last administered on 02/14/20at 18:10; Start 02/14/20 at 10:30; Stop 02/14/20 at 14:29; Status DC Potassium Chloride/Water 100 ml @ 100 mls/hr Q1H IV Last administered on 02/15/20at 07:02; Start 02/15/20 at 07:00; Stop 02/15/20 at 07:59; Status DC Potassium Chloride/Water 100 ml @ 100 mls/hr Q1H IV Last administered on 02/15/20at 15:32; Start 02/15/20 at 08:00; Stop 02/15/20 at 11:59; Status DC Lidocaine HCl (Buffered Lidocaine 1%) 3 ml STK-MED ONCE .ROUTE ; Start 02/15/20 at 10:13; Stop 02/15/20 at 10:13; Status DC Lidocaine HCl (Buffered Lidocaine 1%) 6 ml 1X ONCE INJ Last administered on 02/15/20at 10:49; Start 02/15/20 at 10:45; Stop 02/15/20 at 10:46; Status DC Pantoprazole Sodium (PROTONIX VIAL for IV PUSH) 40 mg DAILY07 IVP Last administered on 02/19/20at 05:44; Start 02/16/20 at 10:00; Stop 02/19/20 at 10:53; Status DC Lorazepam (Ativan Inj) 2 mg PRN Q4HRS PRN IVP ANXIETY / AGITATION Last administered on 02/21/20at 02:23; Start 02/16/20 at 14:00; Stop 02/21/20 at 04:00; Status DC Potassium Chloride/Water 100 ml @ 100 mls/hr Q1H IV Last administered on 02/17/20at 14:23; Start 02/17/20 at 10:00; Stop 02/17/20 at 13:59; Status DC Potassium Bicarbonate (Potassium Effervescent Tablet) 40 meq 1X PRN PRN FT SEE COMMENTS Last administered on 02/18/20at 10:48; Start 02/18/20 at 09:15 Magnesium Oxide (Magnesium Oxide) 400 mg PRN BID PRN PO SEE COMMENTS Last administered on 02/20/20at 08:26; Start 02/18/20 at 21:00 Potassium Chloride/Water 100 ml @ 100 mls/hr PRN Q1HR PRN IV SEE COMMENTS; Start 02/18/20 at 09:15 Magnesium Sulfate 50 ml @ 25 mls/hr PRN DAILY PRN IV SEE COMMENTS; Start 02/18/20 at 09:15 Potassium Phos/ Sodium Phos (Phos-Nak) 1 pkt PRN BID PRN PO SEE COMMENTS; Start 02/18/20 at 21:00 Potassium Bicarbonate (Potassium Effervescent Tablet) 40 meq PRN Q4HRS PRN PO SEE COMMENTS; Start 02/18/20 at 09:15 Potassium Chloride/Water 100 ml @ 100 mls/hr PRN Q1HR PRN IV SEE COMMENTS Last administered on 02/19/20at 18:29; Start 02/18/20 at 09:15; Stop 02/19/20 at 18:29; Status DC Loperamide HCl (Imodium) 2 mg PRN Q8HRS PRN PO DIARRHEA Last administered on 02/18/20at 12:14; Start 02/18/20 at 12:15 Pantoprazole Sodium (PROTONIX VIAL for IV PUSH) 40 mg BID IVP Last administered on 02/20/20at 20:26; Start 02/19/20 at 21:00 Naloxone HCl (Narcan) 0.4 mg PRN Q2MIN PRN IV SEE INSTRUCTIONS; Start 02/19/20 at 11:15; Stop 02/21/20 at 04:00; Status DC Sodium Chloride 1,000 ml @ 25 mls/hr Q24H IV Last administered on 02/19/20at 11:54; Start 02/19/20 at 11:07; Stop 02/21/20 at 04:00; Status DC Hydromorphone HCl 30 ml @ 0 mls/hr CONT PRN PRN IV PER PROTOCOL Last administered on 02/21/20at 01:07; Start 02/19/20 at 11:15; Stop 02/21/20 at 04:00; Status DC Magnesium Sulfate 50 ml @ 25 mls/hr 1X ONCE IV Last administered on 02/20/20at 22:19; Start 02/20/20 at 21:30; Stop 02/20/20 at 23:29; Status DC Lorazepam (Ativan) 1 mg PRN Q4HRS PRN PO ANXIETY / AGITATION; Start 02/21/20 at 04:00 Ketorolac Tromethamine (Toradol 30mg Vial) 30 mg PRN Q8HRS PRN IVP MODERATE SELAM N 4-6 Last administered on 02/21/20at 04:26; Start 02/21/20 at 04:00; Stop 02/26/20 at 03:59 Acetaminophen (Tylenol) 650 mg PRN Q6HRS PRN PO MILD PAIN 1-3; Start 02/21/20 at 04:30 Active Scripts Active Tramadol Hcl 50 Mg Tablet 50 Mg PO PRN Q6HRS PRN 5 Days Pantoprazole Sodium (Pantoprazole Sodium) 40 Mg Tablet.dr 40 Mg PO DAILYAC 30 Days [Folic Acid] 1 MG Tablet 1 Mg PO DAILY 30 Days Vitamin B-1 (Thiamine Mononitrate) 100 Mg Tablet 100 Mg PO DAILY 30 Days Reported Ibuprofen 800 Mg Tablet 800 Mg PO DAILY PRN Lisinopril 10 Mg Tablet 10 Mg PO DAILY Vital Signs Vital Signs Date Time Temp Pulse Resp B/P (MAP) Pulse Ox O2 Delivery O2 Flow Rate FiO2 02/21/20 07:00 98.1 93 18 95/57 (70) 95 98.1 02/21/20 03:00 Room Air Labs Laboratory Tests Test 02/19/20 11:02 02/19/20 11:55 02/19/20 16:57 02/19/20 21:00 Phosphorus Level 4.2 mg/dL (2.6-4.7) Glucose (Fingerstick) 100 mg/dL (70-99) 164 mg/dL (70-99) 170 mg/dL (70-99) Test 02/20/20 06:15 02/20/20 07:32 02/20/20 11:49 02/20/20 16:50 Magnesium Level 1.7 mg/dL (1.8-2.4) Glucose (Fingerstick) 115 mg/dL (70-99) 127 mg/dL (70-99) 109 mg/dL (70-99) Test 02/20/20 20:01 02/20/20 20:30 02/21/20 04:40 02/21/20 08:08 Glucose (Fingerstick) 148 mg/dL (70-99) 122 mg/dL (70-99) Sodium Level 138 mmol/L (136-145) 139 mmol/L (136-145) Potassium Level 3.6 mmol/L (3.5-5.1) 3.5 mmol/L (3.5-5.1) Chloride Level 103 mmol/L (98-107) 104 mmol/L (98-107) Carbon Dioxide Level 28 mmol/L (21-32) 27 mmol/L (21-32) Anion Gap 7 (6-14) 8 (6-14) Blood Urea Nitrogen 4 mg/dL (7-20) 5 mg/dL (7-20) Creatinine 0.6 mg/dL (0.6-1.0) 0.5 mg/dL (0.6-1.0) Estimated GFR (Cockcroft-Gault) 112.5 138.8 Glucose Level 120 mg/dL (70-99) 108 mg/dL (70-99) Calcium Level 8.0 mg/dL (8.5-10.1) 8.3 mg/dL (8.5-10.1) Magnesium Level 1.5 mg/dL (1.8-2.4) 2.1 mg/dL (1.8-2.4) White Blood Count 4.2 x10^3/uL (4.0-11.0) Red Blood Count 3.22 x10^6/uL (3.50-5.40) Hemoglobin 8.4 g/dL (12.0-15.5) Hematocrit 27.0 % (36.0-47.0) Mean Corpuscular Volume 84 fL (79-100) Mean Corpuscular Hemoglobin 26 pg (25-35) Mean Corpuscular Hemoglobin Concent 31 g/dL (31-37) Red Cell Distribution Width 23.1 % (11.5-14.5) Platelet Count 259 x10^3/uL (140-400) Neutrophils (%) (Auto) 59 % (31-73) Lymphocytes (%) (Auto) 19 % (24-48) Monocytes (%) (Auto) 20 % (0-9) Eosinophils (%) (Auto) 1 % (0-3) Basophils (%) (Auto) 1 % (0-3) Neutrophils # (Auto) 2.5 x10^3/uL (1.8-7.7) Lymphocytes # (Auto) 0.8 x10^3/uL (1.0-4.8) Monocytes # (Auto) 0.8 x10^3/uL (0.0-1.1) Eosinophils # (Auto) 0.1 x10^3/uL (0.0-0.7) Basophils # (Auto) 0.0 x10^3/uL (0.0-0.2) BUN/Creatinine Ratio 10 (6-20) Total Bilirubin 0.3 mg/dL (0.2-1.0) Aspartate Amino Transf (AST/SGOT) 45 U/L (15-37) Alanine Aminotransferase (ALT/SGPT) 61 U/L (14-59) Alkaline Phosphatase 112 U/L (46-116) Total Protein 6.2 g/dL (6.4-8.2) Albumin 2.6 g/dL (3.4-5.0) Albumin/Globulin Ratio 0.7 (1.0-1.7) Lipase 126 U/L (73-393) Laboratory Tests Test 02/20/20 11:49 02/20/20 16:50 02/20/20 20:01 02/20/20 20:30 Glucose (Fingerstick) 127 mg/dL (70-99) 109 mg/dL (70-99) 148 mg/dL (70-99) Sodium Level 138 mmol/L (136-145) Potassium Level 3.6 mmol/L (3.5-5.1) Chloride Level 103 mmol/L (98-107) Carbon Dioxide Level 28 mmol/L (21-32) Anion Gap 7 (6-14) Blood Urea Nitrogen 4 mg/dL (7-20) Creatinine 0.6 mg/dL (0.6-1.0) Estimated GFR (Cockcroft-Gault) 112.5 Glucose Level 120 mg/dL (70-99) Calcium Level 8.0 mg/dL (8.5-10.1) Magnesium Level 1.5 mg/dL (1.8-2.4) Test 02/21/20 04:40 02/21/20 08:08 White Blood Count 4.2 x10^3/uL (4.0-11.0) Red Blood Count 3.22 x10^6/uL (3.50-5.40) Hemoglobin 8.4 g/dL (12.0-15.5) Hematocrit 27.0 % (36.0-47.0) Mean Corpuscular Volume 84 fL (79-100) Mean Corpuscular Hemoglobin 26 pg (25-35) Mean Corpuscular Hemoglobin Concent 31 g/dL (31-37) Red Cell Distribution Width 23.1 % (11.5-14.5) Platelet Count 259 x10^3/uL (140-400) Neutrophils (%) (Auto) 59 % (31-73) Lymphocytes (%) (Auto) 19 % (24-48) Monocytes (%) (Auto) 20 % (0-9) Eosinophils (%) (Auto) 1 % (0-3) Basophils (%) (Auto) 1 % (0-3) Neutrophils # (Auto) 2.5 x10^3/uL (1.8-7.7) Lymphocytes # (Auto) 0.8 x10^3/uL (1.0-4.8) Monocytes # (Auto) 0.8 x10^3/uL (0.0-1.1) Eosinophils # (Auto) 0.1 x10^3/uL (0.0-0.7) Basophils # (Auto) 0.0 x10^3/uL (0.0-0.2) Sodium Level 139 mmol/L (136-145) Potassium Level 3.5 mmol/L (3.5-5.1) Chloride Level 104 mmol/L (98-107) Carbon Dioxide Level 27 mmol/L (21-32) Anion Gap 8 (6-14) Blood Urea Nitrogen 5 mg/dL (7-20) Creatinine 0.5 mg/dL (0.6-1.0) Estimated GFR (Cockcroft-Gault) 138.8 BUN/Creatinine Ratio 10 (6-20) Glucose Level 108 mg/dL (70-99) Calcium Level 8.3 mg/dL (8.5-10.1) Magnesium Level 2.1 mg/dL (1.8-2.4) Total Bilirubin 0.3 mg/dL (0.2-1.0) Aspartate Amino Transf (AST/SGOT) 45 U/L (15-37) Alanine Aminotransferase (ALT/SGPT) 61 U/L (14-59) Alkaline Phosphatase 112 U/L (46-116) Total Protein 6.2 g/dL (6.4-8.2) Albumin 2.6 g/dL (3.4-5.0) Albumin/Globulin Ratio 0.7 (1.0-1.7) Lipase 126 U/L (73-393) Glucose (Fingerstick) 122 mg/dL (70-99) Allergies Allergies Coded Allergies Type Severity Reaction Last Updated Verified latex Allergy Intermediate 09/19/19 Yes prochlorperazine Allergy Intermediate 09/19/19 Yes Justicifation of Admission Dx: Justifications for Admission: Justification of Admission Dx: Yes Altered Mental Status: Altered Mental Status PATRICIA JEROME MD Feb 21, 2020 09:38
[2020-02-21] MEDS ORDERED: MULT1TAB90 PO (09:41)
[2020-02-21] MEDS ORDERED: Folic Acid PO (09:41)
[2020-02-21] MEDS ORDERED: ACET325T9 PO (09:41)
--- NOTE | 2020-02-21 09:42 | DISCH ---
DISCHARGE INSTRUCTIONS Condition on Discharge Condition on Discharge: Stable Activity After Discharge Activity Instructions for Disc: Activity as tolerated Lifting Instructions after Dis: No heavy lifting, No pulling or pushing Exercise Instruction after Dis: Progress as tolerated Driving Instructions after Dis: Do not drive today Weight Bearing Status after Di: As tolerated Diet after Discharge Diet after Discharge: Full Liquid, Low Sodium 4 gm Diet Texture: Regular Liquid Texture: Thin Liquid Swallowing Supervision: None needed Wound Incision Care Wound/Incision Care: No wound care needed Checks after Discharge Checks after discharge: Check blood press - daily, Check blood sugar, ac/hs, Check your Temp as needed Contacting the DR. after DC Call your doctor for: If your condition worsens Warfarin Follow-Up Warfarin Follow UP: ATTEND AA DAILY, NO ALCOHOL PATRICIA JEROME MD Feb 21, 2020 09:42
--- NOTE | 2020-02-21 10:15 | PDOC ---
Date of Service: DATE: 02/21/20 TIME: 10:13 Objective: Vital Signs: Vital Signs Date Time Temp Pulse Resp B/P (MAP) Pulse Ox O2 Delivery O2 Flow Rate FiO2 02/21/20 07:00 98.1 93 18 95/57 (70) 95 98.1 02/21/20 03:00 Room Air Labs: Laboratory Tests Test 02/20/20 11:49 02/20/20 16:50 02/20/20 20:01 02/20/20 20:30 Glucose (Fingerstick) 127 mg/dL 109 mg/dL 148 mg/dL Sodium Level 138 mmol/L Potassium Level 3.6 mmol/L Chloride Level 103 mmol/L Carbon Dioxide Level 28 mmol/L Anion Gap 7 Blood Urea Nitrogen 4 mg/dL Creatinine 0.6 mg/dL Estimated GFR (Cockcroft-Gault) 112.5 Glucose Level 120 mg/dL Calcium Level 8.0 mg/dL Magnesium Level 1.5 mg/dL Test 02/21/20 04:40 02/21/20 08:08 White Blood Count 4.2 x10^3/uL Red Blood Count 3.22 x10^6/uL Hemoglobin 8.4 g/dL Hematocrit 27.0 % Mean Corpuscular Volume 84 fL Mean Corpuscular Hemoglobin 26 pg Mean Corpuscular Hemoglobin Concent 31 g/dL Red Cell Distribution Width 23.1 % Platelet Count 259 x10^3/uL Neutrophils (%) (Auto) 59 % Lymphocytes (%) (Auto) 19 % Monocytes (%) (Auto) 20 % Eosinophils (%) (Auto) 1 % Basophils (%) (Auto) 1 % Neutrophils # (Auto) 2.5 x10^3/uL Lymphocytes # (Auto) 0.8 x10^3/uL Monocytes # (Auto) 0.8 x10^3/uL Eosinophils # (Auto) 0.1 x10^3/uL Basophils # (Auto) 0.0 x10^3/uL Sodium Level 139 mmol/L Potassium Level 3.5 mmol/L Chloride Level 104 mmol/L Carbon Dioxide Level 27 mmol/L Anion Gap 8 Blood Urea Nitrogen 5 mg/dL Creatinine 0.5 mg/dL Estimated GFR (Cockcroft-Gault) 138.8 BUN/Creatinine Ratio 10 Glucose Level 108 mg/dL Calcium Level 8.3 mg/dL Magnesium Level 2.1 mg/dL Total Bilirubin 0.3 mg/dL Aspartate Amino Transf (AST/SGOT) 45 U/L Alanine Aminotransferase (ALT/SGPT) 61 U/L Alkaline Phosphatase 112 U/L Total Protein 6.2 g/dL Albumin 2.6 g/dL Albumin/Globulin Ratio 0.7 Lipase 126 U/L Glucose (Fingerstick) 122 mg/dL PE: GEN: NAD NEURO/PSYCH: sleeping, not awakened A/P: Alcoholic pancreatitis and hepatitis Pancytopenia/TOMY GERD - on PPI -- DC plans noted. Don't drink, continue PPI. Justicifation of Admission Dx: Justifications for Admission: Justification of Admission Dx: Yes Altered Mental Status: Altered Mental Status TRACY GIL Feb 21, 2020 10:15
--- NOTE | 2020-02-21 10:40 | NUR ---
PICC line dc'd at 1030. Patient tolerated intervention well.
[2020-02-21 10:57] VITALS: BP 112/80
--- NOTE | 2020-02-21 11:27 | NUR ---
Discharge Note: DENISE ETIENNE Discharge instructions and discharge home medications reviewed with Patient and a copy given. All questions have been answered and understanding verbalized. The following instructions and handouts were given: discharge instructions, new prescriptions, education and follow up recommendations. Discontinued lines and drains: PICC Line DL discontinued intact. Patient discharged to Home or Self Care with Spouse via Wheelchair off unit by [facility].
--- NOTE | 2020-02-21 12:55 | NUR ---
SW following. Spoke with RN and reviewed chart. Pt to discharge home today self-care. No further SW needs.
[2020-02-22] MEDS ORDERED: PANTOPRAZOLE 40 MG TABLET.DR. PO SCH (07:30)
== END 2020-02-21 11:33 | disposition home or self-care (01) | DRG 432 ==
LOC: ER 18:05 → ED HOLD 22:10 → 5 NORTH 23:36
PROVIDERS: ADMIT Internal Medicine; ATTEND Internal Medicine
PROC: 02HV33Z Insertion of Infusion Device into Superior Vena Cava, Percutaneous Approach (ICD-10-PCS; principal; 2020-02-15)
PROC: B548ZZA Ultrasonography of Superior Vena Cava, Guidance (ICD-10-PCS; 2020-02-15)
PROC: B5181ZA Fluoroscopy of Superior Vena Cava using Low Osmolar Contrast, Guidance (ICD-10-PCS; 2020-02-15)
DX: K70.10 Alcoholic hepatitis without ascites (principal); K85.20 Alcohol induced acute pancreatitis without necrosis or infection; D61.818 Other pancytopenia; E87.1 Hypo-osmolality and hyponatremia; F10.239 Alcohol dependence with withdrawal, unspecified; E10.9 Type 1 diabetes mellitus without complications; E87.6 Hypokalemia; F17.210 Nicotine dependence, cigarettes, uncomplicated; I10 Essential (primary) hypertension; K21.9 Gastro-esophageal reflux disease without esophagitis; K76.0 Fatty (change of) liver, not elsewhere classified; Y90.8 Blood alcohol level of 240 mg/100 ml or more; F32.9 Major depressive disorder, single episode, unspecified; F41.9 Anxiety disorder, unspecified; Z79.4 Long term (current) use of insulin; Z90.49 Acquired absence of other specified parts of digestive tract; Z98.51 Tubal ligation status; Z88.8 Allergy status to other drugs, medicaments and biological substances; Z91.040 Latex allergy status
CPT/HCPCS: 36415; 36573; 70450; 72125; 74177; 77001; 80048; 80053; 80076; 80307; 80329; 81001; 81025; 82607; 82962; 83010; 83540; 83550; 83690; 83735; 84100; 85025; 85045; 85610; 85730; 87338; 93005; 96365; 96375; C1751; C1892; C9113; G0480; J1170; J1815; J1885; J2060; J2405; J3010; J3411; J3475; J3480; J3490; J7030; Q9967; 99285-25; G0378